=== PATIENT | female | born 1925 | race Caucasian/White ===

== ENCOUNTER 2016-07-20 09:35 | Inpatient (IN) | payer OTHER, MEDICARE ==
[2016-07-20] MEDS ORDERED: NORMAL SALINE 10 ML SYRINGE FLUSH IVP PRN (09:48)
[2016-07-20] MEDS ORDERED: Sodium Chloride 0.9% 1,000 ML PRIMARY IV ONE (09:48)
[2016-07-20 10:02] LABS: BASOPHILS # (AUTO) 0.04 10*3/UL; BASOPHILS % (AUTO) 0.5 % (0-1); EOSINOPHILS % (AUTO) 0.3 % (0-8); HEMATOCRIT 36.7 % (37.0-47.0); HEMOGLOBIN 12.7 g/dL (12.0-16.0); IMM GRAN % (AUTO) 0.2 % (0-5); IMM GRAN# (AUTO) 0.02 10*3/UL; LYMPHOCYTES # (AUTO) 0.46 10*3/uL; LYMPHOCYTES % (AUTO) 5.2 % (10-50); MEAN CORPUSCULAR HEMOGLOBIN 30.2 PG (27-31); MEAN CORPUSCULAR HGB CONC 34.6 g/dL (33-37); MEAN PLATELET VOLUME 8.4 FL (7.4-12.2); MONOCYTES # (AUTO) 0.68 10*3/UL (0.3-0.8); MONOCYTES % (AUTO) 7.7 % (5-15); NEUTROPHILS # (AUTO) 7.55 10*3/UL; NEUTROPHILS % (AUTO) 86.1 % (50-80); RDW COEFFICIENT OF VARIATION 14.2 % (11.5-14.5); WHITE BLOOD COUNT 8.78 10^3/uL (4.8-10.8)
--- NOTE | 2016-07-20 10:21 | EKG ---
[address] [place] [id number] Measurements Intervals [place] Rate: 93 P: NE: 0 QRS: 113 QRSD: 141 T: 26 QT: 376 QTc: 426 Interpretive Statements ATRIAL FIBRILLATION RIGHT BUNDLE BRANCH BLOCK ST DEPRESSION, CONSIDER SUBENDOCARDIAL INJURY No previous ECG available for comparison Electronically Signed On 07-20-16 20:02:18 MST by Orville Dolan [email or web address]
[2016-07-20 10:23] LABS: PROTHROMBIN TIME 11.9 secs (9.7-11.4)
[2016-07-20 10:24] LABS: BILIRUBIN,TOTAL 1.5 mg/dL (0.3-1.2); BUN/CREATININE RATIO 25.71 (6-20); C-REACTIVE PROTEIN 0.5 mg/dL (0.0-0.9); CALCIUM 8.8 mg/dL (8.7-10.7); CREATININE 0.7 mg/dL (0.50-1.20); MAGNESIUM 1.7 mg/dL (1.6-2.4); POTASSIUM 3.9 meq/L (3.8-5.2); TOTAL PROTEIN 6.7 g/dL (6.1-8.0)
[2016-07-20 10:28] LABS: PLATELET MORPHOLOGY COMMENT NORMAL MORPHOLOGY (NORM)
--- NOTE | 2016-07-20 11:09 | DI ---
HISTORY: Hypoxia. COMPARISON: None available. FINDINGS: There is borderline cardiomegaly. There is no focal consolidation or pleural effusion. Lung apices are not completely included on the rendered images. Minimal bibasilar atelectasis. IMPRESSION: 1. Borderline cardiomegaly. 2. Lung apices are not completely included on the rendered images. 3. Minimal bibasilar atelectasis.
[2016-07-20 11:16] LABS: BILIRUBIN,URINE NEGATIVE (NEG); CLARITY,URINE CLEAR (CLEAR); GLUCOSE, URINE (UA) NEGATIVE (NEG); LEUKOCYTE ESTERASE ,URINE TRACE (NEG); NITRATE,URINE NEGATIVE (NEG); OCCULT BLOOD,URINE NEGATIVE (NEG); PH,URINE 8.5 (5.0-8.5); PROTEIN,URINE NEGATIVE (NEG); UROBILINOGEN,URINE 0.2 EU/dL (0.2)
[2016-07-20 11:31] LABS: URINE SAMPLE TYPE CLEAN CATCH URINE
[2016-07-20 11:33] LABS: SQUAMOUS EPITHELIAL CELL,UR FEW
[2016-07-20 11:34] LABS: BACTERIA,URINE RARE
--- NOTE | 2016-07-20 11:36 | DI ---
HISTORY: Headache and confusion. COMPARISON: None available. TECHNIQUE: Contiguous axial images of the brain were obtained and submitted for interpretation. 33 images. FINDINGS: There is no acute infarct, intracranial hemorrhage, or mass effect. There is no hydroceph alus, or significant midline shift. The basal cisterns are not effaced. Densities in both middle ce rebral arteries are probably artifactual. There is senescent change with atrophy. The visualized paranasal sinuses and mastoids are relatively well-aerated. There is modest mucosal t hickening. IMPRESSION: 1. No intracranial hemorrhage. MRI is recommended if clinical symptoms persist. NOTIFICATION: The above report was sent to Bernice in the ER Department on 07/20/2016 at 01:53 PM EST.
--- NOTE | 2016-07-20 12:37 | PDOC ---
Altered Mental Status HPI - General Chief Complaint: Altered Mental Status Stated Complaint: htn, altered mental status Date Seen by Provider: 07/20/16 Time Seen by Provider: 09:40 Source: POSITIVE: Patient, EMS, Other (daughter and long term care social worker) Exam Limitations: POSITIVE: Other (patient confused, does answer questions) Nurse's Notes Reviewed & Considered: Yes EMS Report Reviewed & Considered: Verbal - History of Present Illness Initial Comments: The patient is an 89-year-old female who is brought to the emergency department by ambulance with increased confusion. Her daughter states that she lives at home with her. Early this morning at maybe 4 or 5 in the morning her daughter heard her walking around downstairs which is unusual for her. When she checked on her later this morning she found that she was confused. She is not acting herself. Her daughter is not aware of any recent illness or falls. She does have a history of chronic atrial fibrillation and previously was treated with Coumadin. She apparently developed an intracranial hemorrhage in 2010 and was taken off of Coumadin at that time. The patient does answer questions. She states she has some left-sided headache. She denies any chest pain or abdominal pain. She has not had any vomiting or diarrhea. No recent urinary symptoms. - Patient Home Medications Home Medications: Home Medications Estradiol [Estrace] 1 gm VG DAILY 01/29/11 Calcium 2 tab PO BID 02/24/11 Metamucil 1 tbs PO HS 02/24/11 Hydralazine HCl 20 mg ORAL BID tab 08/28/11 Losartan Potassium 100 mg ORAL QD tab 08/28/11 Aspirin [Aspir 81] 81 mg PO HS 06/03/12 Cholecalciferol (Vitamin D3) [Vitamin D3] 2,000 unit PO DAILY 07/19/13 Beta Carot W/Vit E,C,Min Tab [Ocuvite Tab] 1 tab PO DAILY 12/18/13 Cranberry 500 mg PO DAILY 12/18/13 Digoxin 0.125 mg PO DAILY 12/18/13 Hydrochlorothiazide [HydroDiuril Tab] 25 mg PO DAILY 12/18/13 Potassium Chloride 10 meq PO DAILY 12/18/13 Metoprolol Tartrate 50 mg PO BID #60 tab 01/23/16 - Patient Allergies Allergies/Adverse Reactions: Allergies Allergy/AdvReac Type Severity Reaction Status Date / Time No Known Allergies Allergy Verified 07/20/16 10:33 Past Medical History - heen HEENT History: Other (please comment) Additional HEENT History: nose bleeds Cardiovascular History: Hypertension, Arrhythmia Additional Cardiovasular History: Afib Respiratory History: Denies History, Other (please comment) Additional Respiratory History: previous smoker, quit 27 years ago; on continuous O2 @ 1L/NC Gastrointestinal History: GERD Genitourinary History: Recurrent UTI Endocrine History: Denies History Musculoskeletal History: Denies History Prosthesis or Implant: No Neurological History: CVA Additional Neurological History: cva was 02/2012. WAI HOLE (SKULL)TO DRAIN BLOOD W/ STROKE Blood Disorders: Denies History Psychiatric History: Denies History History of Sexually Transmitted Diseases: No Cancer History: Denies History In Past Year Been Physically Harmed or Verbally Threatened: No History of MDRO: No History of Other Communicable Diseases: No Tobacco Use: Never Smoker Alcohol Use: Rarely Substance Use Type: None Previous Surgical History: Yes Type / Date of Surgery: SEE ABOVE Anesthesia Reactions: No Malignant Hyperthermia: No Significant Family History: No pertinent family hx Past Medical History Reviewed: Reviewed - No Changes ROS - Limitations ROS Limitations: No Limitations Constitution: DENIES: Chills, Fever Cardiovascular: REPORTS: Edema (Increased edema in her legs recently), Other ( Chronic atrial fibrillation). DENIES: Chest Pain Respiratory: REPORTS: Other (She does wear oxygen at home normally and was off her oxygen when EMS arrived and her oxygen saturations were 89% on room air.). DENIES: Cough Non Productive, Cough Productive, Shortness Of Breath Gastrointestinal: DENIES: Abdominal Pain, Vomitting, Diarrhea Musculoskeletal: REPORTS: Lower Extremity Swelling. DENIES: Muscle Aches Genitourinary: REPORTS: Denies Symptoms ENT: REPORTS: Denies Symptoms Skin: DENIES: Rash Altered Mental Physical Exam - General Appearance General Appearance: POSITIVE: Alert, Cooperative, Anxious - HEENT HEENT: POSITIVE: Head Inspection Nml (No visible trauma), Eyes Inspection Nml - Neuro/Psych Neurological: POSITIVE: Confusion (She does answer questions but at times does not make a lot of sense and she gets distracted easily) Cranial Nerves: POSITIVE: Normal As Tested Peripheral Exam: POSITIVE: No Motor Deficits (Patient is moving all extremities , no obvious motor deficits) - Respiratory Respiratory: POSITIVE: No Respiratory Distress, Breath Sounds Normal - Cardiovascular CVS: POSITIVE: Irregularly Irreg. Rhythm Peripheral Pulses: Radial (R): 2+, Radial (L): 2+, Dorsalis-pedis (L): 2+ - Abdomen Abdomen: Soft: (All Quadrants), Denies Tenderness: (All Quadrants), No Distention: (All Quadrants) - Skin Skin: POSITIVE: No Rash - Extremities Extremity: Normal ROM: (All Extremities) Additional Extremities Details: She does have 2+ edema in the lower extremities bilaterally Altered Mental Status - Results Reviewed By Me Xrays/CTs/US Reviewed: Yes (CT scan of the head reveals no acute intracranial hemorrhage or finding per) Discussed with Radiologist: Yes Lab Results Reviewed: Yes Lab Results:: Laboratory Results 07/20/16 07/20/16 Range/Units 09:56 11:07 WBC 8.78 (4.8-10.8) 10^3/uL RBC 4.20 (4.20-5.40) 10^6/uL Hgb 12.7 (12.0-16.0) g/dL Hct 36.7 L (37.0-47.0) % MCV 87.4 (81-99) FL MCH 30.2 (27-31) PG MCHC 34.6 (33-37) g/dL RDW Std Deviation 44.9 (39-50) fL RDW Coeff of Alessandro 14.2 (11.5-14.5) % Plt Count 159 (140-350) 10*3/uL MPV 8.4 (7.4-12.2) FL Immature Gran % (Auto) 0.2 (0-5) % Neut % (Auto) 86.1 H (50-80) % Lymph % (Auto) 5.2 L (10-50) % [place] % (Auto) 7.7 (5-15) % Eos % (Auto) 0.3 (0-8) % Baso % (Auto) 0.5 (0-1) % Immature Gran # (Auto) 0.02 10*3/UL Neut # (Auto) 7.55 10*3/UL Lymph # (Auto) 0.46 10*3/uL [place] # (Auto) 0.68 (0.3-0.8) 10*3/UL Eos # (Auto) 0.03 10*3/UL Baso # (Auto) 0.04 10*3/UL WBC Morphology Comment Normal morphology (NORM) Plt Morphology Comment Normal morphology (NORM) RBC Morph Comment Normal morphology (NORM) PT 11.9 H (9.7-11.4) secs INR 1.15 (0.00-5.90) N/A D-Dimer 0.23 (0.00-0.59) mg/L Sodium 127 L (135-145) meq/L Potassium 3.9 (3.8-5.2) meq/L Chloride 87 L (98-112) meq/L Carbon Dioxide 30 (23-33) meq/L Anion Gap 10 (5-20) BUN 18 (7-22) mg/dL Creatinine 0.7 (0.50-1.20) mg/dL Estimated GFR (>60 ml/min/1.73m(2)) BUN/Creatinine Ratio 25.71 H (6-20) Glucose 119 H (78-110) mg/dL Calculated Osmolality 266.0 L (267-292) mOsm/kg Calcium 8.8 (8.7-10.7) mg/dL Magnesium 1.7 (1.6-2.4) mg/dL Total Bilirubin 1.5 H (0.3-1.2) mg/dL AST 25 (8-39) IU/L ALT 37 (9-52) IU/L Alkaline Phosphatase 63 (38-126) IU/L Troponin I < 0.012 (< 0.040) ng/mL C-Reactive Protein 0.5 (0.0-0.9) mg/dL NT-Pro-B Natriuret Pep 2230 H (0-450) PG/ML Total Protein 6.7 (6.1-8.0) g/dL Albumin 4.2 (3.5-4.8) g/dL Globulin 2.5 (2.50-4.10) g/dL Albumin/Globulin Ratio 1.60 (1.3-2.0) mg/g Ur Collection Type Clean catch urine Urine Color Yellow Urine Clarity Clear (CLEAR) Urine pH 8.5 (5.0-8.5) Ur Specific [place] 1.015 (1.005-1.030) Urine Protein Negative (NEG) mg/dl Urine Glucose (UA) Negative (NEG) mg/dL Urine Ketones Negative (NEG) Urine Occult Blood Negative (NEG) Urine Nitrate Negative (NEG) Urine Bilirubin Negative (NEG) Urine Urobilinogen 0.2 (0.2) EU/dL Ur Leukocyte Esterase Trace (NEG) Urine RBC None (NONE) /hpf Urine WBC 3-5 (NONE) Ur Squamous Epith Cells Few (NONE) Ur Renal Epithelial Cell None (NONE) Urine Crystals None Urine Bacteria Rare (NONE) Urine Casts None (NONE) Urine Mucus None (NONE) Urine Trichomonas None (NONE) Urine Yeast None (NONE) Ur Culture Indicated? Culture not set EKG Interpretation:: POSITIVE: Other (Atrial fibrillation with no acute changes otherwise) - Patient's Progress MDM / ED Course: CT and laboratory findings were discussed with the patient and her family. She is mildly hyponatremic with a sodium of 127. Her CT does not show any acute intracranial findings. The patient remains confused and slightly agitated here in the emergency room. The exact etiology of this is unclear however still could represent a small CVA. She is at risk for embolism secondary to her chronic atrial fibrillation. The patient is discussed with Dr. Spivey. He has requested an MRI of the brain. The patient will be admitted for further treatment and evaluation. The patient's daughter is in agreement with this plan. - Consult Counseled: POSITIVE: Patient, Family, RE: Lab Results, RE: Radiology Results, RE : DX Patient Care Time - Estimated PCT Patient Care Time (In Minutes): 45 Vital Signs - Recent Vital Signs Vital Signs: Vital Signs (Last 8 hours) Temp Pulse Pulse Resp BP Pulse Ox 07/20/16 09:48 100 07/20/16 09:35 98.6 F 100 18 181/103 89 - VS Reviewed Vital Signs Reviewed: Yes Discharge Clinical Impression: Altered mental status, Chronic atrial fibrillation, Hyponatremia Discharge Disposition: Admit to Inpatient Condition: Fair Date Decision to Admit to Inpatient: 07/20/16 Time Decision to Admit to Inpatient: 12:05
--- NOTE | 2016-07-20 13:51 | DI ---
HISTORY: Confusion. History of a stroke. COMPARISON: None available. TECHNIQUE: MRI images of the brain were obtained and submitted for interpretation. FINDINGS: There is a small focus of restricted diffusion noted in the high left posterior parietal l obe in the watershed region of the left MCA [employer]. This is best appreciated on series 502 image 19. F eatures are most compatible with a tiny infarct. The upper cervical marrow appears attenuated in keeping with degenerative change. The pituitary terrance a is partially empty. There are scattered T2/FLAIR periductal hyperintensities in periventricular and deep white matter com patible with chronic microvascular ischemic change. There is senescent change. No intracranial hemorrhage, mass effect, hydrocephalus, or significant midline shift is identified. There is a T1 hypointense, FLAIR hypointense T2 hyperintense focus in the left cerebellum, which is p robably due to prior infarct and encephalomalacia. There is probably some degree of surrounding glio sis. The visualized intracranial flow voids appear grossly unremarkable. The basal cisterns are not effac ed. IMPRESSION: 1. There is a small focus of restricted diffusion noted in the high left posterior parietal lobe in t he watershed region of the left MCA [employer]. This is best appreciated on series 502 image 19. Features are most compatible with a tiny infarct. 2. The upper cervical marrow appears attenuated in keeping with degenerative change. 3. The pituitary fossa is partially empty. 4. Scattered T2/FLAIR periductal hyperintensities in periventricular and deep white matter compatible with chronic microvascular ischemic change. 5. There is senescent change. 6. Evidence of a T1 hypointense, FLAIR hypointense T2 hyperintense focus in the left cerebellum, whic h is probably due to prior infarct and encephalomalacia. There is probably some degree of surrounding gliosis. NOTIFICATION: The above findings were phoned to Bernice in the ER Department on 07/20/2016 at 03:59 PM EST.
--- NOTE | 2016-07-20 13:55 | PDOC ---
History and Physical - History of Present Illness History of Present Illness: Very nice 89-year-old female who was brought in to the emergency room because of the confusion she lives with her daughter which states that early this morning she heard her walk around which is unusual for her she checks on her later during the day she was not acting herself and was confused he does have a history of chronic A. fib and now was taken off her Coumadin back in 2010 because of intracranial hemorrhage and the neurosurgeon at that time recommended against Coumadin denies any chest pain nausea vomiting she is awake and alert and oriented to person time and place. Also has +4 pitting edema in both legs with an elevated BNP negative troponin Past Medical History Medical History: Chronic A. fib, hypertension Surgical History: cva was 02/2012. WAI HOLE (SKULL)TO DRAIN BLOOD W/ STROKE Tobacco Use: Never Smoker Do you dip or chew tobacco: No Substance Use Type: None Medication / Allergies Home Medications: Home Medications Medication Instructions Recorded Confirmed Type Estradiol [Estrace] 1 gm VG DAILY 01/29/11 07/20/16 History Calcium 2 tab PO BID 02/24/11 07/20/16 History Metamucil 1 tbs PO HS 02/24/11 07/20/16 History Hydralazine HCl 20 mg ORAL BID tab 08/28/11 07/20/16 History Losartan Potassium 100 mg ORAL QD tab 08/28/11 07/20/16 History Aspirin [Aspir 81] 81 mg PO HS 06/03/12 07/20/16 History Cholecalciferol (Vitamin D3) 2,000 unit PO DAILY 07/19/13 07/20/16 History [Vitamin D3] Beta Carot W/Vit E,C,Min Tab 1 tab PO DAILY 12/18/13 07/20/16 History [Ocuvite Tab] Cranberry 500 mg PO DAILY 12/18/13 07/20/16 History Digoxin 0.125 mg PO DAILY 12/18/13 07/20/16 History Hydrochlorothiazide [HydroDiuril 25 mg PO DAILY 12/18/13 07/20/16 History Tab] Potassium Chloride 10 meq PO DAILY 12/18/13 07/20/16 History Metoprolol Tartrate 50 mg PO BID #60 tab 01/23/16 07/20/16 Clinic Allergies/Adverse Reactions: Allergies Allergy/AdvReac Type Severity Reaction Status Date / Time No Known Allergies Allergy Verified 07/20/16 10:33 Review of Systems - Review of Systems All Systems: Reviewed & No Additional Complaints Except as Stated - Constitutional Constitutional: REPORTS: Fatigue, Weakness. DENIES: Fever/Chills, Night Sweats - Integumentary Integumentary: DENIES: Negative System Review, Rash, Superficial Wound, Laceration, Puncture Wound, Foreign Body, Itching, Dryness, Ulcers, Color Changes, Moles, Hair Loss, Hirsutism, Other, See HPI - Respiratory Respiratory: DENIES: Negative System Review, Cough, Sputum, Dyspnea At Rest, Dyspnea with Exertion, Pleuritic Pain, Hemoptysis, Wheezing, Other, See HPI - Cardiovascular Cardiovascular: DENIES: Negative System Review, Chest Pain, Edema, Syncope, Palpitations, Orthopnea, Paroxysmal Nocturnal Dyspnea, Other, See HPI - Gastrointestinal Gastrointestinal / Abdominal: DENIES: Negative System Review, Nausea, Vomiting, Diarrhea, Constipation, Abdominal Pain, Bloody Stool, Poor Appetite, Heartburn, Regurgitation, Bloating, Lactose Intolerance, Melena, Bright Red Blood Per Rectum, Other, See HPI - Neurological Neurologic: REPORTS: Weakness, Difficulty Walking, Incoordination Exam - Vitals Vital Signs: Vital Signs Temperature 98.6 F Temperature Source Temporal Artery Scan Pulse Rate [Telemetry] 100 Pulse Rate 100 Respiratory Rate 18 Blood Pressure [Right Arm] 181/103 Pulse Ox 89 Oxygen Flow Rate 1.5 Oxygen Delivery Method Nasal Cannula Height 5 ft 1 in Weight 61.235 kg - General General Appearance: POSITIVE: No Acute Distress, Cooperative - Head Head Exam: POSITIVE: Normal Inspection, Normocephalic, Atraumatic - Eye Eye Exam: POSITIVE: Normal Appearance, PERRL, EOMI - ENT ENT Exam: POSITIVE: Normal Exam - Neck Neck Exam: POSITIVE: Normal Inspection, Full ROM - Respiratory Respiratory Exam: POSITIVE: Clear to Auscultation - Bilaterally, Breathing Non Labored, Normal To Percussion, Normal to Percussion and Palpation - Cardiovascular Cardiovascular Exam: POSITIVE: RRR, No Murmur, No Clicks, No Gallops - GI/Abdominal GI/Abdominal Exam: POSITIVE: Normal Bowel Sounds, Non Tender, Non Distended, Soft - Neurological Neurological Exam: POSITIVE: Alert, Oriented x 3, CN II-XII Intact, No Facial Droop, Speech Intact / Clear Additional Neurological Exam Details: Finger to nose worse on the left side than the right patient is unable to stand on her own and appears very weak she moves all 4 extremities slightly weaker on the right lower extremity compared to the left Results - Labs CBC and BMP: 07/20/16 09:56 07/20/16 09:56 Labs - Last 24 Hours: Laboratory Results 07/20/16 07/20/16 Range/Units 09:56 11:07 WBC 8.78 (4.8-10.8) 10^3/uL RBC 4.20 (4.20-5.40) 10^6/uL Hgb 12.7 (12.0-16.0) g/dL Hct 36.7 L (37.0-47.0) % MCV 87.4 (81-99) FL MCH 30.2 (27-31) PG MCHC 34.6 (33-37) g/dL RDW Std Deviation 44.9 (39-50) fL RDW Coeff of Alessandro 14.2 (11.5-14.5) % Plt Count 159 (140-350) 10*3/uL MPV 8.4 (7.4-12.2) FL Immature Gran % (Auto) 0.2 (0-5) % Neut % (Auto) 86.1 H (50-80) % Lymph % (Auto) 5.2 L (10-50) % [place] % (Auto) 7.7 (5-15) % Eos % (Auto) 0.3 (0-8) % Baso % (Auto) 0.5 (0-1) % Immature Gran # (Auto) 0.02 10*3/UL Neut # (Auto) 7.55 10*3/UL Lymph # (Auto) 0.46 10*3/uL [place] # (Auto) 0.68 (0.3-0.8) 10*3/UL Eos # (Auto) 0.03 10*3/UL Baso # (Auto) 0.04 10*3/UL WBC Morphology Comment Normal morphology (NORM) Plt Morphology Comment Normal morphology (NORM) RBC Morph Comment Normal morphology (NORM) PT 11.9 H (9.7-11.4) secs INR 1.15 (0.00-5.90) N/A D-Dimer 0.23 (0.00-0.59) mg/L Sodium 127 L (135-145) meq/L Potassium 3.9 (3.8-5.2) meq/L Chloride 87 L (98-112) meq/L Carbon Dioxide 30 (23-33) meq/L Anion Gap 10 (5-20) BUN 18 (7-22) mg/dL Creatinine 0.7 (0.50-1.20) mg/dL Estimated GFR (>60 ml/min/1.73m(2)) BUN/Creatinine Ratio 25.71 H (6-20) Glucose 119 H (78-110) mg/dL Calculated Osmolality 266.0 L (267-292) mOsm/kg Calcium 8.8 (8.7-10.7) mg/dL Magnesium 1.7 (1.6-2.4) mg/dL Total Bilirubin 1.5 H (0.3-1.2) mg/dL AST 25 (8-39) IU/L ALT 37 (9-52) IU/L Alkaline Phosphatase 63 (38-126) IU/L Troponin I < 0.012 (< 0.040) ng/mL C-Reactive Protein 0.5 (0.0-0.9) mg/dL NT-Pro-B Natriuret Pep 2230 H (0-450) PG/ML Total Protein 6.7 (6.1-8.0) g/dL Albumin 4.2 (3.5-4.8) g/dL Globulin 2.5 (2.50-4.10) g/dL Albumin/Globulin Ratio 1.60 (1.3-2.0) mg/g Ur Collection Type Clean catch urine Urine Color Yellow Urine Clarity Clear (CLEAR) Urine pH 8.5 (5.0-8.5) Ur Specific [place] 1.015 (1.005-1.030) Urine Protein Negative (NEG) mg/dl Urine Glucose (UA) Negative (NEG) mg/dL Urine Ketones Negative (NEG) Urine Occult Blood Negative (NEG) Urine Nitrate Negative (NEG) Urine Bilirubin Negative (NEG) Urine Urobilinogen 0.2 (0.2) EU/dL Ur Leukocyte Esterase Trace (NEG) Urine RBC None (NONE) /hpf Urine WBC 3-5 (NONE) Ur Squamous Epith Cells Few (NONE) Ur Renal Epithelial Cell None (NONE) Urine Crystals None Urine Bacteria Rare (NONE) Urine Casts None (NONE) Urine Mucus None (NONE) Urine Trichomonas None (NONE) Urine Yeast None (NONE) Ur Culture Indicated? 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 fibpatient was taken off Coumadin for intracranial hemorrhage and had a bur hole done continue beta inocente and blood pressure meds #4 pitting edema with elevated BNP will insert Bose catheter daughter and patient agree start Lasix
[2016-07-20] MEDS ORDERED: Sodium Chloride 0.9% 1,000 ML PRIMARY IV SCH (14:06)
[2016-07-20] MEDS: HEPARIN 5000 UNIT/1 ML SUBCUT SCH ×2 (16:15→21:45)
[2016-07-20] MEDS: ATORVASTATIN 40 MG TABLET PO SCH (20:37)
[2016-07-20] MEDS: HYDRALAZINE 10 MG TABLET PO SCH (20:37)
[2016-07-20] MEDS ORDERED: Metoprolol TARTRATE Tab 50 MG TAB PO SCH (21:00)
[2016-07-20] MEDS ORDERED: QUEtiapine Tab 100 MG TAB PO SCH (21:00)
[2016-07-20] MEDS ORDERED: Magnesium Sulfate 2gm (Premix) 2 GM in Premix 1 BAG IV ONE (21:39)
[2016-07-20] MEDS: POTASSIUM CHLORIDE 20 MEQ TAB PO SCH (21:46)
[2016-07-20] MEDS: PSYLLIUM SEED 1 EACH PACKET PO SCH ×2 (21:47)
[2016-07-20] MEDS: NORMAL SALINE 10 ML SYRINGE FLUSH IVP PRN (23:43)
[2016-07-21 06:09] LABS: BASOPHILS # (AUTO) 0.04 10*3/UL; BASOPHILS % (AUTO) 0.6 % (0-1); EOSINOPHILS % (AUTO) 1.5 % (0-8); HEMOGLOBIN 12.4 g/dL (12.0-16.0); IMM GRAN % (AUTO) 0.2 % (0-5); IMM GRAN# (AUTO) 0.01 10*3/UL; LYMPHOCYTES # (AUTO) 0.66 10*3/uL; LYMPHOCYTES % (AUTO) 10.2 % (10-50); MEAN CORPUSCULAR HEMOGLOBIN 29.5 PG (27-31); MEAN CORPUSCULAR HGB CONC 33.5 g/dL (33-37); MEAN PLATELET VOLUME 8.9 FL (7.4-12.2); MONOCYTES # (AUTO) 0.88 10*3/UL (0.3-0.8); MONOCYTES % (AUTO) 13.6 % (5-15); NEUTROPHILS # (AUTO) 4.77 10*3/UL; NEUTROPHILS % (AUTO) 73.9 % (50-80); RDW COEFFICIENT OF VARIATION 14.6 % (11.5-14.5); WHITE BLOOD COUNT 6.46 10^3/uL (4.8-10.8)
[2016-07-21 06:12] LABS: PLATELET MORPHOLOGY COMMENT NORMAL MORPHOLOGY (NORM)
[2016-07-21] MEDS: HEPARIN 5000 UNIT/1 ML SUBCUT SCH ×3 (06:17→21:33)
[2016-07-21 06:27] LABS: BLOOD UREA NITROGEN 18 mg/dL (7-22); CHLORIDE 89 meq/L (98-112); CREATININE 0.8 mg/dL (0.50-1.20); POTASSIUM 3.6 meq/L (3.8-5.2); SODIUM 129 meq/L (135-145)
[2016-07-21 06:28] LABS: ASPARTATE AMINO TRANSFERASE 24 IU/L (8-39); BILIRUBIN,TOTAL 1.4 mg/dL (0.3-1.2); CALCIUM 8.3 mg/dL (8.7-10.7); GLUCOSE 93 mg/dL (78-110); HDL CHOLESTEROL 61 mg/dL (40-150); TOTAL PROTEIN 5.8 g/dL (6.1-8.0); TRIGLYCERIDES 38 mg/dL (44-200)
[2016-07-21] MEDS: POTASSIUM CHLORIDE 20 MEQ TAB PO SCH ×2 (07:00→17:53)
[2016-07-21] MEDS: DIGOXIN 125 MCG TABLET PO SCH (08:57)
[2016-07-21] MEDS: Metoprolol TARTRATE Tab 25 MG TAB PO SCH ×2 (08:57→20:16)
[2016-07-21] MEDS: LOSARTAN 50 MG TABLET PO SCH (08:57)
[2016-07-21] MEDS: HYDRALAZINE 10 MG TABLET PO SCH ×2 (08:57→20:15)
[2016-07-21] MEDS: ASPIRIN 325 MG TABLET PO SCH (08:57)
--- NOTE | 2016-07-21 11:47 | PDOC(PROG) ---
Interval History: Patient is doing very well be given full sentences awake alert no chest pain nausea or vomiting she has been diuresing very well about 10 L now Objective : Data - Labs CBC and BMP: 07/21/16 05:56 07/21/16 05:56 Labs - Last 24 Hours: Laboratory Results 07/20/16 07/20/16 07/21/16 Range/Units 14:30 14:36 05:56 WBC 6.46 (4.8-10.8) 10^3/uL RBC 4.20 (4.20-5.40) 10^6/uL Hgb 12.4 (12.0-16.0) g/dL Hct 37.0 (37.0-47.0) % MCV 88.1 (81-99) FL MCH 29.5 (27-31) PG MCHC 33.5 (33-37) g/dL RDW Std Deviation 46.2 (39-50) fL RDW Coeff of Alessandro 14.6 H (11.5-14.5) % Plt Count 167 (140-350) 10*3/uL MPV 8.9 (7.4-12.2) FL Immature Gran % (Auto) 0.2 (0-5) % Neut % (Auto) 73.9 (50-80) % Lymph % (Auto) 10.2 (10-50) % Harding % (Auto) 13.6 (5-15) % Eos % (Auto) 1.5 (0-8) % Baso % (Auto) 0.6 (0-1) % Immature Gran # (Auto) 0.01 10*3/UL Neut # (Auto) 4.77 10*3/UL Lymph # (Auto) 0.66 10*3/uL Harding # (Auto) 0.88 H (0.3-0.8) 10*3/UL Eos # (Auto) 0.10 10*3/UL Baso # (Auto) 0.04 10*3/UL WBC Morphology Comment Normal morphology (NORM) Plt Morphology Comment Normal morphology (NORM) RBC Morph Comment Normal morphology (NORM) PT 12.0 H (9.7-11.4) secs INR 1.16 (0.00-5.90) N/A APTT Pending Sodium 129 L (135-145) meq/L Potassium 3.6 L (3.8-5.2) meq/L Chloride 89 L (98-112) meq/L Carbon Dioxide 32 (23-33) meq/L Anion Gap 8 (5-20) BUN 18 (7-22) mg/dL Creatinine 0.8 (0.50-1.20) mg/dL Estimated GFR Toy [employer]er BUN/Creatinine Ratio 22.50 H (6-20) Glucose 93 (78-110) mg/dL Calculated Osmolality 269.0 (267-292) mOsm/kg Calcium 8.3 L (8.7-10.7) mg/dL Magnesium 1.6 (1.6-2.4) mg/dL Total Bilirubin 1.4 H (0.3-1.2) mg/dL AST 24 (8-39) IU/L ALT 29 (9-52) IU/L Alkaline Phosphatase 53 (38-126) IU/L Troponin I < 0.012 (< 0.040) ng/mL Total Protein 5.8 L (6.1-8.0) g/dL Albumin 3.6 (3.5-4.8) g/dL Globulin 2.2 L (2.50-4.10) g/dL Albumin/Globulin Ratio 1.60 (1.3-2.0) mg/g Triglycerides 38 L (44-200) mg/dL Cholesterol 124 (120-200) mg/dL LDL Cholesterol, Calc 55.400 mg/dL VLDL Cholesterol 7 (0-40) mg/dL HDL Cholesterol 61 (40-150) mg/dL Cholesterol/HDL Ratio 2.03 (0-4.0) RATIO Objective : Exam - General General Appearance: Cooperative - Head Head Exam: Normal Inspection, Normocephalic, Atraumatic - Eye Eye Exam: Normal Appearance, PERRL - Neck Neck Exam: Normal Inspection - Respiratory Respiratory Exam: Clear to Auscultation - Bilaterally, Breathing Non Labored, Normal To Percussion - Cardiovascular Cardiovascular Exam: RRR, No Murmur, No Clicks, No Gallops - GI/Abdominal GI/Abdominal Exam: Normal Bowel Sounds, Non Tender, Soft - Extremities Extremities Exam: +2 Edema - Neurological Neurological Exam: Alert, Oriented x 3, No Facial Droop, Speech Intact / Clear - Psychiatric Psychiatric Exam: Normal Affect, Normal Mood Assessment and Plan - Patient Problems (1) CVA (cerebral vascular accident) Current Visit: Yes Status: Acute (2) Altered mental status Current Visit: Yes Status: Acute (3) Chronic atrial fibrillation Current Visit: Yes Status: Acute (4) Hyponatremia Current Visit: Yes Status: Acute (5) Pitting edema Current Visit: Yes Status: Acute - Assessment / Plan Additional Assessment/Plan Details: CVAcontinue PTOT she is improving no neuro deficits other than the finger to nose Hyponatremiaimproving I stopped the hydrochlorothiazide Pitting edema +4xon Lasix drip diuresed about 10 L now her legs are half the size when she came in ankle is been ordered Electrolytes potassium and magnesium are being replaced
--- NOTE | 2016-07-21 15:38 | PT.PROG ---
Progress Note Progress Note: S, Patient stated that she would be willing to go for a walk. O. Patient ambulated 200 feet around the nurses station and to the shower. Patient performed sit to stands x 3 Patient was left with OT for further therapy. A. Patient tolerated ambulation well, she she struggles with balance and weakness. Patient required verbal cues to remember to push off the chair when standing, she appeared slightly confused when instructed on sit to stand transfer. She would continue to benefit from skilled therapy to increase strength and endurance. P. continue POC.
--- NOTE | 2016-07-21 16:45 | PTI REPORT ---
Thank you for the referral of Hailey Santamaria. She was seen on 07/21/16 for an inpatient evaluation secondary to a CVA and weakness. SUBJECTIVE: The patient is an 89-year-old female who was brought in to the hospital yesterday as her daughter states that she was having some changes in her cognition and having a difficult time getting around. The patient and her daughter state that they were told that she did have a CVA. The patient has a history of CVA which resulted in weakness and difficulty with the right upper and lower extremities. The patient did receive therapy following that CVA and has also been doing an independent program with pool exercises and working on the dexterity for her left hand and just general strengthening activities. The patient states that today she is feeling much better than yesterday. She states she does not remember much about yesterday. The patient lives in [place] with her daughter. Her daughter states that they do have four stairs that the patient goes up and down in order to get to the family room. Prior to admittance to the hospital, the patient was using a four wheeled walker to get around and was on 1.5 liters of oxygen. The patient's daughter states that lately Hailey has been having more of a fear of falling as she did have a fall a few months ago and she has been having a little bit more difficult time getting around. PAST MEDICAL HISTORY: Past medical history can be found in the patient's medical record. OBJECTIVE FINDINGS: General observations: The patient is alert and oriented to setting upon PT arrival. The patient is able to recite today's date and the correct year. The patient was in bed upon the therapist's arrival. Bed mobility: The patient was able to move from a supine to seated position with stand by assist x1 for safety and to help maneuver lines and leads. Balance: The patient demonstrated good seated balance at edge of bed. Oxygen: The patient is on 1.5 liters of oxygen and she has an IV in place and also has a Bose in place. Strength: Manual muscle testing was performed in a seated position. The patient demonstrates bilateral hip strength of 3/5 and bilateral knee and ankle strength of 3+/5. With the manual muscle testing the patient did get some cramping in her right calf. She states that she does get cramping on the right greater than the left side at times. Transfers: The patient was able to move from a seated to standing position with stand by assist x1 for safety. The patient was able to move from a standing to seated position with stand by assist x1 and max verbal cueing for proper hand placement. Ambulation: The patient ambulated with a front wheeled walker x150 feet with contact guard assist x1 for safety and also another assistance in order to maneuver the IV pole and oxygen. The patient had a difficult time and demonstrated an antalgic gait pattern. It appears that her vision is a big issue, especially when she is up and ambulating around as she states her vision is wavy. When ambulating, the patient did have some difficulty with shakiness on the left lower extremity. Vision: During part of our walk, the patient jumped toward her side as she thought that something was coming at her due to how she was seeing; there was nothing around. The patient states that she doesn't feel like her vision has changed any since her last CVA. The patient's daughter confirms that the patient's vision has been very poor since her previous CVA and she has explained seeing wavy lines and having a difficult time seeing objects prior to this admittance to the hospital. ASSESSMENT: The patient has fair to good rehab potential. Problem List: Decreased endurance and activity tolerance Decreased safety awareness Generalized weakness with the left greater than the right Short-Term Goals: To be met by discharge from inpatient: Patient will perform all transfers safely and independently. Patient will be able to ambulate at least 200 feet with walker safely. Patient will be able to ambulate up and down at least four stairs in order to return back home and be able to perform this activity safely. Long-Term Goals: To be met following discharge from inpatient: Patient may be seen by outpatient physical therapy in order to continue with strengthening, improving her endurance, and decreasing her fear of falling. TREATMENT PLAN: Patient will be seen B.I.D during the week and one time per day over the weekend as an inpatient for general strengthening, balance activities, transfers , and ambulation. INITIAL TREATMENT: Treatment today consisted of the initial evaluation followed by one unit of functional activity with the patient ambulating 150 feet with front wheeled walker and contact guard assist x1 for safety. At the end of treatment, the patient was left in her chair with call light given and chair alarm set. MTDD
[2016-07-21] MEDS: QUEtiapine Tab 25 MG TAB PO SCH (20:16)
[2016-07-21] MEDS: ATORVASTATIN 40 MG TABLET PO SCH (20:16)
[2016-07-21] MEDS: PSYLLIUM SEED 1 EACH PACKET PO SCH ×2 (20:17)
[2016-07-22] MEDS: HEPARIN 5000 UNIT/1 ML SUBCUT SCH ×3 (05:51→20:59)
--- NOTE | 2016-07-22 08:14 | EKG ---
[address] [place] [address] Measurements Intervals [place] Rate: 78 P: DC: 0 QRS: 105 QRSD: 140 T: 40 QT: 403 QTc: 436 Interpretive Statements ATRIAL FIBRILLATION MARKED RIGHT AXIS DEVIATION RIGHT BUNDLE BRANCH BLOCK ST DEVIATION AND MARKED T-WAVE ABNORMALITY, CONSIDER ANTERIOR ISCHEMIA Compared to ECG 07/20/2016 10:21:05 Right-axis deviation now present T-wave abnormality now present Possible ischemia now present ST (T wave) deviation no longer present Electronically Signed On 07-22-16 16:19:50 [facility] by Orville Dolan [email or web address]
[2016-07-22] MEDS: ASPIRIN 325 MG TABLET PO SCH (08:39)
[2016-07-22] MEDS: LOSARTAN 50 MG TABLET PO SCH (08:39)
[2016-07-22] MEDS: HYDRALAZINE 10 MG TABLET PO SCH ×2 (08:39→20:21)
[2016-07-22] MEDS: DIGOXIN 125 MCG TABLET PO SCH (08:39)
[2016-07-22] MEDS: Metoprolol TARTRATE Tab 25 MG TAB PO SCH ×2 (08:39→20:21)
[2016-07-22] MEDS: POTASSIUM CHLORIDE 20 MEQ TAB PO SCH ×2 (08:39→17:25)
[2016-07-22 08:42] LABS: BASOPHILS # (AUTO) 0.05 10*3/UL; BASOPHILS % (AUTO) 0.8 % (0-1); EOSINOPHILS % (AUTO) 1.8 % (0-8); HEMATOCRIT 40.7 % (37.0-47.0); HEMOGLOBIN 13.9 g/dL (12.0-16.0); IMM GRAN % (AUTO) 0.2 % (0-5); IMM GRAN# (AUTO) 0.01 10*3/UL; LYMPHOCYTES # (AUTO) 0.68 10*3/uL; LYMPHOCYTES % (AUTO) 10.9 % (10-50); MEAN CORPUSCULAR HEMOGLOBIN 30.2 PG (27-31); MEAN CORPUSCULAR HGB CONC 34.2 g/dL (33-37); MEAN PLATELET VOLUME 8.5 FL (7.4-12.2); MONOCYTES # (AUTO) 0.74 10*3/UL (0.3-0.8); MONOCYTES % (AUTO) 11.8 % (5-15); NEUTROPHILS # (AUTO) 4.66 10*3/UL; NEUTROPHILS % (AUTO) 74.5 % (50-80); RDW COEFFICIENT OF VARIATION 14.8 % (11.5-14.5); RED BLOOD COUNT 4.61 10^6/uL (4.20-5.40); WHITE BLOOD COUNT 6.25 10^3/uL (4.8-10.8)
[2016-07-22 08:47] LABS: PLATELET MORPHOLOGY COMMENT NORMAL MORPHOLOGY (NORM)
--- NOTE | 2016-07-22 09:03 | PDOC(PROG) ---
Date and Time of Service: 07/22/2016 9 A.m. Interval History: Subjective Patient said she had earlier some pain felt in the anterior chest, she couldn't tell me exactly when but there was no radiation, maybe a little bit of shortness of breath no nausea. Now the pain is gone. She doesn't know how did she ended up here in the hospital. But apparently she was more confused and that's why she ended up here in the hospital. She knows the day the month and the year. Doesn't have symptoms now. She couldn't tell me how long she had the swelling in her legs. Objective : Data - Labs CBC and BMP: 07/22/16 08:37 07/22/16 08:37 Labs - Last 24 Hours: Laboratory Results 07/21/16 07/22/16 Range/Units 05:56 08:37 WBC 6.25 (4.8-10.8) 10^3/uL RBC 4.61 (4.20-5.40) 10^6/uL Hgb 13.9 (12.0-16.0) g/dL Hct 40.7 (37.0-47.0) % MCV 88.3 (81-99) FL MCH 30.2 (27-31) PG MCHC 34.2 (33-37) g/dL RDW Std Deviation 46.9 (39-50) fL RDW Coeff of Alessandro 14.8 H (11.5-14.5) % Plt Count 171 (140-350) 10*3/uL MPV 8.5 (7.4-12.2) FL Immature Gran % (Auto) 0.2 (0-5) % Neut % (Auto) 74.5 (50-80) % Lymph % (Auto) 10.9 (10-50) % Knox % (Auto) 11.8 (5-15) % Eos % (Auto) 1.8 (0-8) % Baso % (Auto) 0.8 (0-1) % Immature Gran # (Auto) 0.01 10*3/UL Neut # (Auto) 4.66 10*3/UL Lymph # (Auto) 0.68 10*3/uL Knox # (Auto) 0.74 (0.3-0.8) 10*3/UL Eos # (Auto) 0.11 10*3/UL Baso # (Auto) 0.05 10*3/UL WBC Morphology Comment Normal morphology (NORM) Plt Morphology Comment Normal morphology (NORM) RBC Morph Comment Normal morphology (NORM) PT 12.0 H (9.7-11.4) secs INR 1.16 (0.00-5.90) N/A APTT 42.0 H (22.6-31.3) SECS Objective : Exam - General General Appearance: No Acute Distress, Cooperative - Head Head Exam: Normal Inspection, Atraumatic - Eye Eye Exam: Normal Appearance - ENT ENT Exam: Normal Exam - Neck Neck Exam: Normal Inspection - Respiratory Respiratory Exam: Clear to Auscultation - Bilaterally - Cardiovascular Cardiovascular Exam: Irregular Rhythm, Systolic Murmur - GI/Abdominal GI/Abdominal Exam: Normal Bowel Sounds, Non Tender, Non Distended, Soft - Rectal Rectal Exam: Deferred - External Exam: Deferred - Extremities Extremities Exam: Pedal Edema - Back Back Exam: Normal Inspection - Neurological Neurological Exam: Alert, Oriented x 3, CN II-XII Intact Additional Neurological Exam Details: Slight weakness in the left the handgrip compared to the right. Also some problem with coordination on the left compared to the right. She said this is old. - Psychiatric Psychiatric Exam: Normal Affect - Integumentary Integumentary Exam: Normal Color Assessment and Plan - Patient Problems (1) Altered mental status Current Visit: Yes Status: Acute Comment: There is very small stroke per MRI report. This is may be the reason for her confusion she seems to be improving. She is only on aspirin because of previous intracranial bleed. Continue. (2) Hyponatremia Current Visit: Yes Status: Acute Comment: We'll recheck it today. I think we'll switch her from the drip to intermittent Lasix. (3) Chronic atrial fibrillation Current Visit: Yes Status: Acute Comment: Same medications. (4) Chest pain Current Visit: Yes Status: Acute Comment: This is atypical. Resolved. We did repeat her EKG didn't show new changes. Will order repeat her enzymes.
[2016-07-22 09:04] LABS: SODIUM 133 meq/L (135-145)
[2016-07-22 09:08] LABS: BLOOD UREA NITROGEN 24 mg/dL (7-22); CHLORIDE 90 meq/L (98-112); CREATININE 0.8 mg/dL (0.50-1.20); GLUCOSE 105 mg/dL (78-110); POTASSIUM 3.9 meq/L (3.8-5.2)
[2016-07-22 09:09] LABS: ASPARTATE AMINO TRANSFERASE 32 IU/L (8-39); CALCIUM 8.4 mg/dL (8.7-10.7)
[2016-07-22 09:10] LABS: TOTAL PROTEIN 6.5 g/dL (6.1-8.0)
--- NOTE | 2016-07-22 10:37 | OTI REPORT ---
Thank you for the referral of Hailey Santamaria. She was seen on 07/21/16 for an occupational therapy inpatient evaluation secondary to a CVA and generalized weakness. SUBJECTIVE: The patient is an 89-year-old female who is being seen secondary to having a stroke and low sodium/potassium levels. Prior to admission the patient lived at home with her daughter. Her daughter reports that Hailey has a stair chair for the big stairs; however, Hailey is usually able to walk up and down four stairs at a time. Their bathroom is set up with a shower chair and the toilet has grab bars. The shower also has grab bars. She typically can dress herself and she is in charge of her own medications. She states she usually goes to the [employer] everyday for her meals when her daughter is at work. PAST MEDICAL HISTORY: Past medical history can be found in the patient's medical record. OBJECTIVE FINDINGS: General observations: The patient was alert and oriented x3. Bed mobility: The patient was able to come from supine to sit independently. Range of motion: While sitting edge of bed, upper extremity active range of motion was completed. She has within functional limits for all shoulder, elbow , and hand movement. Her left upper extremity has been affected secondary to a stroke previous to this one. She reports that she doesn't notice too much difference with her previous lack of coordination that she had prior to this admission. Coordination: The patient does have mild to moderately decreased coordination in the shoulder, elbow, and wrist area. Fine motor coordinations are barely involved. She needs increased time to complete fine motor tasks on the left side. Strength: Strength on the right side was 4+/5 throughout. Strength on the left side was 3+/5 for shoulder flexion and abduction, 4/5 for elbow flexion/ extension, 3+/5 for wrist flexion/extension, and finger strength is 3+/5. Vision: The patient does suffer from cataracts. Functionally today she had a lot of difficulty with her vision, including being able to see when up and ambulating in her room. She needs increased time to be able to adjust secondary to her vision functionally. Cognition: The patient knew that the year was 2016 and that it was July 21. Her daughter reports that she had a lot of increased confusion yesterday; she was not doing things well and she continually said that it was the month of September. Sensation/Pain: Sensation is slightly lacking in the left side compared to the right. The patient states that her legs continually cramp and she states the pain in her legs can get up to 7/10 on the verbal analog scale (0=no pain, 10= worst pain). ASSESSMENT: At this time the patient would benefit from skilled occupational therapy to address functional ADLs, to improve her overall strength and coordination, especially on the left side, to address compensatory strategies for her vision loss, and to improve her overall safety and ability to be safe at home. Short-Term Goals: To be met by discharge from inpatient: Patient will improve upper extremity strength on the left side to 4/5. Patient will improve coordination to be able to complete opening bottles and find motor grasping tasks such as pills without dropping them 100% of the time. Patient will perform a Cognitive Performance Test. Patient will be able to complete a shower independently with set up. Patient will be able to dress self including set up independently. Long-Term Goals: To be met following discharge from inpatient: Patient will be able to be discharged home with her daughter, demonstrating independence and safety with all ADLs and functional transfers. TREATMENT PLAN: Patient will be seen B.I.D during the week and one time per day over the weekend as an inpatient to address the above goals and objectives. INITIAL TREATMENT: Treatment today consisted of the initial evaluation followed by the patient performing activities of daily living. The patient was able to don and doff socks while sitting edge of chair with min assist. She completed standing activities with contact guard to min assist for balance while completing hygiene activities at the sink followed by active range of motion exercises. PANKAJ
--- NOTE | 2016-07-22 10:44 | OT PM DAY ---
Diagnosis : CVA/Weakness PM - Occupational Therapy S: The patient was in her room with daughter present. The patient states that she is doing well. The patient is well known in the therapy department as she participates in an independent program. The patient hadn't been seen in a couple of weeks; the patient states it has been too cold outside. O: The patient participated in showering task to include transfer from recliner to front wheeled walker. She then functionally ambulated approximately 50 feet to the shower room where she performed showering task standing up with min assist as the therapist handed equipment to the patient and the patient required verbal cues for safety secondary to being unfamiliar with area. The patient was able to wash self with washcloth and was able to dry self with stand by assist. During dressing, the patient sat on shower chair and put on her socks. The therapist did assist with gown secondary to tying in the back. It is noted that the therapist did set up showering environment to include towels and washcloths and having the shower chair available and the shower on prior to the patient arriving. Following shower activity the patient functionally ambulated back to her room and was able to demonstrate safe transfer at end of session. A: The patient required stand by assist secondary to having an IV pole, oxygen, and catheter. She demonstrated safety by standing by the wall and using grab bars as necessary. She also had walker available to her for balance. The patient was very pleasant during today's session and was aware of her surroundings. Physically she is demonstrating no effects at this time during ambulation and conversation. P: Continue seeing patient BID during the week and one time per day over the weekend for upper extremity strengthening, ADLs, and overall functional mobility. TEREZAD
--- NOTE | 2016-07-22 11:12 | PT.PROG ---
Progress Note Progress Note: S. Patient stated that she would like to go to the therapy gym. O. Patient ambulated 175 feet to the therapy gym where she used the nu-step x 5 minutes then performed seated exercises in the form of; long arc quads, heel toe raises, marches, ball squeezes, clamshells (red), all x 10 bilaterally. sit to stands x 5. Patient was left with OT for further therapy. A. Patient tolerated exercises well this morning, she is very fearful of falling and struggles with her vision and therefor her balance. Patient continues to require verbal cues to stay on task. She would continue to benefit from skilled therapy at this time. P. Continue POC.
[2016-07-22 15:54] LABS: TROPONIN I 0.01 ng/mL (< 0.040)
--- NOTE | 2016-07-22 16:34 | OT.PROG ---
Progress Note Progress Note: S: pt stated she was ready for therapy and she could do the pool this afternoon. O: pt was seen in her room in the a.m. She was in a supine position and completed bed mobility Ind. She needed mod A with LE dressing mainly to assist with dressing due to catheter. Pt also needed min A with UE dressing due to o2 cord and telly. she completed transfer from EOB to recliner with CGA for safety. She then ordered breakfest ind and therapy returned later. pt was seen in therapy and completed UE bike for 10 min to increase her overall activity tolerance. She also completed rice, putty, digi flex with L hand to increase strength/function. She was returned to her room by OT, and left in recliner and chair alarm on. A: pt would continue to benefit from therapy to increase function and Ind in ADL 's. It may not be appropriate at this time to for pt to go home as she needs to improve on ADL tasks and needs arrangements to be made for transportation to therapy once returned home. P: continue per plan of care.
[2016-07-22] MEDS: QUEtiapine Tab 25 MG TAB PO SCH (20:21)
[2016-07-22] MEDS: ATORVASTATIN 40 MG TABLET PO SCH (20:21)
[2016-07-22] MEDS: PSYLLIUM SEED 1 EACH PACKET PO SCH ×2 (20:22)
[2016-07-22] MEDS ORDERED: Metoprolol TARTRATE Tab 25 MG TAB PO ONE (20:39)
[2016-07-22 21:50] LABS: TROPONIN I 0.01 ng/mL (< 0.040)
[2016-07-23] MEDS: HEPARIN 5000 UNIT/1 ML SUBCUT SCH ×3 (05:37→21:27)
[2016-07-23] MEDS ORDERED: FUROSEMIDE 10 MG/1 ML - 4 ML IVP SCH (07:00)
[2016-07-23] MEDS: NORMAL SALINE 10 ML SYRINGE FLUSH IVP PRN (07:44)
[2016-07-23] MEDS: LOSARTAN 50 MG TABLET PO SCH (08:51)
[2016-07-23] MEDS: Metoprolol TARTRATE Tab 25 MG TAB PO SCH ×2 (08:51→20:38)
[2016-07-23] MEDS: HYDRALAZINE 10 MG TABLET PO SCH ×2 (08:51→20:38)
[2016-07-23] MEDS: POTASSIUM CHLORIDE 20 MEQ TAB PO SCH (08:51)
[2016-07-23] MEDS: DIGOXIN 125 MCG TABLET PO SCH (08:51)
[2016-07-23] MEDS: ASPIRIN 325 MG TABLET PO SCH (08:52)
[2016-07-23 10:12] LABS: BLOOD UREA NITROGEN 31 mg/dL (7-22); BUN/CREATININE RATIO 34.44 (6-20); CALCIUM 9.1 mg/dL (8.7-10.7); CHLORIDE 93 meq/L (98-112); CREATININE 0.9 mg/dL (0.50-1.20); GLUCOSE 88 mg/dL (78-110); POTASSIUM 4.9 meq/L (3.8-5.2); SODIUM 135 meq/L (135-145)
--- NOTE | 2016-07-23 10:13 | PT PM DAY ---
Diagnosis : CVA/Weakness PM - Physical Therapy S: The patient states she would like to go swimming this afternoon. She states she feels she is getting better but she is still scared to go home and be alone. O: The patient ambulated 180 feet to the pool and descended the six stairs into the pool. The patient performed 35 minutes of pool therapy with one-on- one supervision. The patient ambulated in the pool and then ascended the six stairs to get out of the pool. The patient worked with OT for dressing and showering activities. She then ambulated 175 back to her room where she was left in her chair with alarm on and call light within reach. A: The patient tolerated aquatic therapy very well. She continues to struggle with balance on land and she has been struggling with the front wheeled walker that she is borrowing. The patient would continue to benefit from skilled therapy at this time. P: Continue seeing patient BID during the week and one time per day over the weekend for transfers, ambulation, and range of motion/strengthening exercises. MTDD
--- NOTE | 2016-07-23 11:20 | PDOC(PROG) ---
Date and Time of Service: 07/23/2016 11:15 AM Interval History: Subjective She feels better, denying symptoms. She did walk with physical therapy today. No chest pain today. Objective : Data - Labs CBC and BMP: 07/22/16 08:37 07/23/16 08:49 Labs - Last 24 Hours: Laboratory Results 07/22/16 07/22/16 07/22/16 Range/Units 08:37 15:36 21:03 Sodium (135-145) meq/L Potassium (3.8-5.2) meq/L Chloride (98-112) meq/L Carbon Dioxide (23-33) meq/L Anion Gap (5-20) BUN (7-22) mg/dL Creatinine (0.50-1.20) mg/dL Estimated GFR BUN/Creatinine Ratio (6-20) Glucose (78-110) mg/dL Calculated Osmolality (267-292) mOsm/kg Calcium (8.7-10.7) mg/dL Total Creatine Kinase 158 H 141 H (30-135) IU/L Troponin I 0.010 0.010 (< 0.040) ng/mL NT-Pro-B Natriuret Pep 835.0 H (0-450) PG/ML 07/23/16 Range/Units 08:49 Sodium 135 (135-145) meq/L Potassium 4.9 (3.8-5.2) meq/L Chloride 93 L (98-112) meq/L Carbon Dioxide 34 H (23-33) meq/L Anion Gap 8 (5-20) BUN 31 H (7-22) mg/dL Creatinine 0.9 (0.50-1.20) mg/dL Estimated GFR Director Of Materials BUN/Creatinine Ratio 34.44 H (6-20) Glucose 88 (78-110) mg/dL Calculated Osmolality 285.0 (267-292) mOsm/kg Calcium 9.1 (8.7-10.7) mg/dL Total Creatine Kinase (30-135) IU/L Troponin I (< 0.040) ng/mL NT-Pro-B Natriuret Pep (0-450) PG/ML Objective : Exam - General General Appearance: No Acute Distress, Cooperative - Head Head Exam: Normal Inspection, Atraumatic - Eye Eye Exam: Normal Appearance - Neck Neck Exam: Normal Inspection - Respiratory Respiratory Exam: Clear to Auscultation - Bilaterally - Cardiovascular Cardiovascular Exam: RRR - GI/Abdominal GI/Abdominal Exam: Normal Bowel Sounds, Non Tender, Non Distended, Soft - Rectal Rectal Exam: Deferred - External Exam: Deferred - Extremities Extremities Exam: Normal Inspection - Back Back Exam: Normal Inspection Assessment and Plan - Patient Problems (1) Altered mental status Current Visit: Yes Status: Acute Comment: This is resolved. Probably combination of factors including the stroke and the hyponatremia (2) Hyponatremia Current Visit: Yes Status: Acute Comment: This is improved will switch the Lasix to by mouth at a lower dose (3) Chronic atrial fibrillation Current Visit: Yes Status: Acute Comment: Same medication we increased the metoprolol to previous dosage as her heart rate was fast last night (4) Chest pain Current Visit: Yes Status: Acute Comment: This is resolved. Continue medical treatment she is on beta inocente, aspirin, Lipitor.
--- NOTE | 2016-07-23 11:40 | PT.PROG ---
Progress Note Progress Note: S. Patient stated that she would like to go to the therapy gym this morning. O. Patient ambulated 175 feet to the therapy gym where she used the nu-step x 6 minutes. then performed seated exercises in the form of; heel toe raises, marches, long arc quads, ball squeezes, clamshells, resisted knee flexion and sit to stands all x 10 bilaterally. Patient worked with OT then ambulated 175 feet back to her room where she was left in her chair with alarm and call light. A. Patient continues to be impulsive, she requires verbal cues to remember how to perform exercises properly. She continues to struggle with weakness and balance issues. She would continue to benefit from skilled therapy at this time. P. Continue POC.
--- NOTE | 2016-07-23 11:41 | OT.PROG ---
Progress Note Progress Note: S: pt was in a good mood this morning. Stated that her cloths she wore yesterday were fine to wear. O: pt was seen in the a.m. and was just finishing up in restroom. She completed transfer downstairs with FFW and CGA for safety. she completed 8 min on UE bike to increase activity tolerance. PT completed there portion of therapy and then OT took over again. She received moist heat to back while sitting in chair. She completed activities to increase use of L hand by completing, powerweb, clothspins, beads, digi flex, stick on a string, and putty. Pt completed x1 transfer to bathroom and completed toileting and hygiene at sink Ind. She was transferred back upstairs and was left upright in recliner with chair alarm on and call light within reach. SENIOR PROCESS ANALYST was present when therapy departed room. A: pt would continue to benefit from therapy to increase activity tolerance and Ind in all ADL's and strengthening of L hand. P: Continue per plan of care.
--- NOTE | 2016-07-23 15:03 | PT.PROG ---
Progress Note Progress Note: S. Patient stated that she did not want to swim this afternoon however she would like to go to the therapy gym. O. Patient ambulated 175 feet to the therapy gym where she used the nu-step x 8 minutes the bicycle x 5 minutes then the nu-step x 10 minutes. Patient worked with OT then ambulated 175 feet back to her room where she was left in her chair with alarm and call light. A. Patient tolerated exercise well, she continues to struggle with balance and strength, she would continue to benefit from skilled therapy at this time to increase strength, balance and endurance. P. continue POC.
[2016-07-23] MEDS: ATORVASTATIN 40 MG TABLET PO SCH (20:37)
[2016-07-23] MEDS: QUEtiapine Tab 25 MG TAB PO SCH (20:38)
[2016-07-23] MEDS: PSYLLIUM SEED 1 EACH PACKET PO SCH ×2 (20:39)
[2016-07-24] MEDS: HEPARIN 5000 UNIT/1 ML SUBCUT SCH (05:31)
[2016-07-24] MEDS ORDERED: FUROSEMIDE 20 MG TABLET PO SCH (07:00)
[2016-07-24 08:07] VITALS: RESP 20; TEMP 98.2
[2016-07-24 08:27] LABS: CHLORIDE 98 meq/L (98-112); POTASSIUM 4.6 meq/L (3.8-5.2); SODIUM 136 meq/L (135-145)
[2016-07-24 08:28] LABS: BLOOD UREA NITROGEN 33 mg/dL (7-22); BUN/CREATININE RATIO 47.14 (6-20); CALCIUM 8.8 mg/dL (8.7-10.7); CREATININE 0.7 mg/dL (0.50-1.20); GLUCOSE 78 mg/dL (78-110)
[2016-07-24] MEDS: ASPIRIN 325 MG TABLET PO SCH (08:29)
[2016-07-24] MEDS: LOSARTAN 50 MG TABLET PO SCH (08:29)
[2016-07-24] MEDS: DIGOXIN 125 MCG TABLET PO SCH (08:29)
[2016-07-24] MEDS: HYDRALAZINE 10 MG TABLET PO SCH (08:29)
[2016-07-24] MEDS: Metoprolol TARTRATE Tab 25 MG TAB PO SCH (08:29)
[2016-07-24] MEDS ORDERED: POTASSIUM CHLORIDE 20 MEQ TAB PO SCH (09:00)
--- NOTE | 2016-07-24 10:50 | DCSUMMARY ---
Hospitalization Summary Admit Date: 07/20/16 Discharge Date: 07/24/16 Hospital Course: Discharge diagnoses 1. Confusion improved probably secondary to CVA 2. Tiny infarct in the high left posterior parietal lobe 3. Hyponatremia improved 4. History of A. fib 5. History of intracranial bleed that needed surgery 6. Leg edema improved with diuretics 7. Hypertension 8. Osteoporosis 9. History of stroke in 2010 secondary to intracranial bleed Hospital course This is an 89 years old female with medical history significant for history of hypertension, chronic A. fib, history of previous stroke secondary to intracranial bleed that needed surgery back in 2010 who was brought to the hospital for evaluation because of confusion. Daughter stated that she found her walking around which is unusual for her and she was not acting herself and because of that they brought her to the hospital evaluation revealed very tiny infarct in the left parietal lobe and she was admitted. In Addition she was also noted to be be hyponatremic. She was admitted by Dr. Spivey please see his note. CT of the head was negative and MRI of the brain showed a tiny infarct in the high left posterior parietal lobe. Patient was noted in addition to be hyponatremia to have the 4+ edema so she was started on Lasix drip. She was taking off the hydrochlorothiazide. We Continued with her medications. Things started to improve and her confusion seemed to be resolved gradually. She was weak and was started on physical therapy. I saw her later on during her hospital stay we switch her from the Lasix drip to IV intermittent Lasix then to by mouth Lasix. She was making progress with physical therapy but they still felt that she was still weak and we thought that we'll switch her to swing bed and continue physical therapy before she goes back home. Laboratory Results 07/20/16 07/20/16 07/20/16 Range/Units 09:56 11:07 14:30 WBC 8.78 (4.8-10.8) 10^3/uL RBC 4.20 (4.20-5.40) 10^6/uL Hgb 12.7 (12.0-16.0) g/dL Hct 36.7 L (37.0-47.0) % MCV 87.4 (81-99) FL MCH 30.2 (27-31) PG MCHC 34.6 (33-37) g/dL RDW Std Deviation 44.9 (39-50) fL RDW Coeff of Alessandro 14.2 (11.5-14.5) % Plt Count 159 (140-350) 10*3/uL MPV 8.4 (7.4-12.2) FL Immature Gran % (Auto) 0.2 (0-5) % Neut % (Auto) 86.1 H (50-80) % Lymph % (Auto) 5.2 L (10-50) % [place] % (Auto) 7.7 (5-15) % Eos % (Auto) 0.3 (0-8) % Baso % (Auto) 0.5 (0-1) % Immature Gran # (Auto) 0.02 10*3/UL Neut # (Auto) 7.55 10*3/UL Lymph # (Auto) 0.46 10*3/uL [place] # (Auto) 0.68 (0.3-0.8) 10*3/UL Eos # (Auto) 0.03 10*3/UL Baso # (Auto) 0.04 10*3/UL WBC Morphology Comment Normal morphology (NORM) Plt Morphology Comment Normal morphology (NORM) RBC Morph Comment Normal morphology (NORM) PT 11.9 H (9.7-11.4) secs INR 1.15 (0.00-5.90) N/A APTT (22.6-31.3) SECS D-Dimer 0.23 (0.00-0.59) mg/L Sodium 127 L (135-145) meq/L Potassium 3.9 (3.8-5.2) meq/L Chloride 87 L (98-112) meq/L Carbon Dioxide 30 (23-33) meq/L Anion Gap 10 (5-20) BUN 18 (7-22) mg/dL Creatinine 0.7 (0.50-1.20) mg/dL Estimated GFR (>60 ml/min/1.73m(2)) BUN/Creatinine Ratio 25.71 H (6-20) Glucose 119 H (78-110) mg/dL Calculated Osmolality 266.0 L (267-292) mOsm/kg Calcium 8.8 (8.7-10.7) mg/dL Magnesium 1.7 1.6 (1.6-2.4) mg/dL Total Bilirubin 1.5 H (0.3-1.2) mg/dL AST 25 (8-39) IU/L ALT 37 (9-52) IU/L Alkaline Phosphatase 63 (38-126) IU/L Total Creatine Kinase (30-135) IU/L Troponin I < 0.012 (< 0.040) ng/mL C-Reactive Protein 0.5 (0.0-0.9) mg/dL NT-Pro-B Natriuret Pep 2230 H (0-450) PG/ML Total Protein 6.7 (6.1-8.0) g/dL Albumin 4.2 (3.5-4.8) g/dL Globulin 2.5 (2.50-4.10) g/dL Albumin/Globulin Ratio 1.60 (1.3-2.0) mg/g Triglycerides (44-200) mg/dL Cholesterol (120-200) mg/dL LDL Cholesterol, Calc mg/dL VLDL Cholesterol (0-40) mg/dL HDL Cholesterol (40-150) mg/dL Cholesterol/HDL Ratio (0-4.0) RATIO Ur Collection Type Clean catch urine Urine Color Yellow Urine Clarity Clear (CLEAR) Urine pH 8.5 (5.0-8.5) Ur Specific [place] 1.015 (1.005-1.030) Urine Protein Negative (NEG) mg/dl Urine Glucose (UA) Negative (NEG) mg/dL Urine Ketones Negative (NEG) Urine Occult Blood Negative (NEG) Urine Nitrate Negative (NEG) Urine Bilirubin Negative (NEG) Urine Urobilinogen 0.2 (0.2) EU/dL Ur Leukocyte Esterase Trace (NEG) Urine RBC None (NONE) /hpf Urine WBC 3-5 (NONE) Ur Squamous Epith Cells Few (NONE) Ur Renal Epithelial Cell None (NONE) Urine Crystals None Urine Bacteria Rare (NONE) Urine Casts None (NONE) Urine Mucus None (NONE) Urine Trichomonas None (NONE) Urine Yeast None (NONE) Ur Culture Indicated? Culture not set 07/20/16 07/21/16 07/22/16 Range/Units 14:36 05:56 08:37 WBC 6.46 6.25 (4.8-10.8) 10^3/uL RBC 4.20 4.61 (4.20-5.40) 10^6/uL Hgb 12.4 13.9 (12.0-16.0) g/dL Hct 37.0 40.7 (37.0-47.0) % MCV 88.1 88.3 (81-99) FL MCH 29.5 30.2 (27-31) PG MCHC 33.5 34.2 (33-37) g/dL RDW Std Deviation 46.2 46.9 (39-50) fL RDW Coeff of Alessandro 14.6 H 14.8 H (11.5-14.5) % Plt Count 167 171 (140-350) 10*3/uL MPV 8.9 8.5 (7.4-12.2) FL Immature Gran % (Auto) 0.2 0.2 (0-5) % Neut % (Auto) 73.9 74.5 (50-80) % Lymph % (Auto) 10.2 10.9 (10-50) % [place] % (Auto) 13.6 11.8 (5-15) % Eos % (Auto) 1.5 1.8 (0-8) % Baso % (Auto) 0.6 0.8 (0-1) % Immature Gran # (Auto) 0.01 0.01 10*3/UL Neut # (Auto) 4.77 4.66 10*3/UL Lymph # (Auto) 0.66 0.68 10*3/uL [place] # (Auto) 0.88 H 0.74 (0.3-0.8) 10*3/UL Eos # (Auto) 0.10 0.11 10*3/UL Baso # (Auto) 0.04 0.05 10*3/UL WBC Morphology Comment Normal morphology Normal morphology (NORM) Plt Morphology Comment Normal morphology Normal morphology (NORM) RBC Morph Comment Normal morphology Normal morphology (NORM) PT 12.0 H (9.7-11.4) secs INR 1.16 (0.00-5.90) N/A APTT 42.0 H (22.6-31.3) SECS D-Dimer (0.00-0.59) mg/L Sodium 129 L 133 L (135-145) meq/L Potassium 3.6 L 3.9 (3.8-5.2) meq/L Chloride 89 L 90 L (98-112) meq/L Carbon Dioxide 32 33 (23-33) meq/L Anion Gap 8 10 (5-20) BUN 18 24 H (7-22) mg/dL Creatinine 0.8 0.8 (0.50-1.20) mg/dL Estimated GFR Pipe Layer Pipe Layer (>60 ml/min/1.73m(2)) BUN/Creatinine Ratio 22.50 H 30.00 H (6-20) Glucose 93 105 (78-110) mg/dL Calculated Osmolality 269.0 279.0 (267-292) mOsm/kg Calcium 8.3 L 8.4 L (8.7-10.7) mg/dL Magnesium (1.6-2.4) mg/dL Total Bilirubin 1.4 H 1.0 (0.3-1.2) mg/dL AST 24 32 (8-39) IU/L ALT 29 33 (9-52) IU/L Alkaline Phosphatase 53 67 (38-126) IU/L Total Creatine Kinase 154 H (30-135) IU/L Troponin I < 0.012 0.020 (< 0.040) ng/mL C-Reactive Protein (0.0-0.9) mg/dL NT-Pro-B Natriuret Pep 835.0 H (0-450) PG/ML Total Protein 5.8 L 6.5 (6.1-8.0) g/dL Albumin 3.6 4.5 (3.5-4.8) g/dL Globulin 2.2 L 2.0 L (2.50-4.10) g/dL Albumin/Globulin Ratio 1.60 2.20 H (1.3-2.0) mg/g Triglycerides 38 L (44-200) mg/dL Cholesterol 124 (120-200) mg/dL LDL Cholesterol, Calc 55.400 mg/dL VLDL Cholesterol 7 (0-40) mg/dL HDL Cholesterol 61 (40-150) mg/dL Cholesterol/HDL Ratio 2.03 (0-4.0) RATIO Ur Collection Type Urine Color Urine Clarity (CLEAR) Urine pH (5.0-8.5) Ur Specific [place] (1.005-1.030) Urine Protein (NEG) mg/dl Urine Glucose (UA) (NEG) mg/dL Urine Ketones (NEG) Urine Occult Blood (NEG) Urine Nitrate (NEG) Urine Bilirubin (NEG) Urine Urobilinogen (0.2) EU/dL Ur Leukocyte Esterase (NEG) Urine RBC (NONE) /hpf Urine WBC (NONE) Ur Squamous Epith Cells (NONE) Ur Renal Epithelial Cell (NONE) Urine Crystals Urine Bacteria (NONE) Urine Casts (NONE) Urine Mucus (NONE) Urine Trichomonas (NONE) Urine Yeast (NONE) Ur Culture Indicated? 07/22/16 07/22/16 07/23/16 Range/Units 15:36 21:03 08:49 WBC (4.8-10.8) 10^3/uL RBC (4.20-5.40) 10^6/uL Hgb (12.0-16.0) g/dL Hct (37.0-47.0) % MCV (81-99) FL MCH (27-31) PG MCHC (33-37) g/dL RDW Std Deviation (39-50) fL RDW Coeff of Alessandro (11.5-14.5) % Plt Count (140-350) 10*3/uL MPV (7.4-12.2) FL Immature Gran % (Auto) (0-5) % Neut % (Auto) (50-80) % Lymph % (Auto) (10-50) % [place] % (Auto) (5-15) % Eos % (Auto) (0-8) % Baso % (Auto) (0-1) % Immature Gran # (Auto) 10*3/UL Neut # (Auto) 10*3/UL Lymph # (Auto) 10*3/uL [place] # (Auto) (0.3-0.8) 10*3/UL Eos # (Auto) 10*3/UL Baso # (Auto) 10*3/UL WBC Morphology Comment (NORM) Plt Morphology Comment (NORM) RBC Morph Comment (NORM) PT (9.7-11.4) secs INR (0.00-5.90) N/A APTT (22.6-31.3) SECS D-Dimer (0.00-0.59) mg/L Sodium 135 (135-145) meq/L Potassium 4.9 (3.8-5.2) meq/L Chloride 93 L (98-112) meq/L Carbon Dioxide 34 H (23-33) meq/L Anion Gap 8 (5-20) BUN 31 H (7-22) mg/dL Creatinine 0.9 (0.50-1.20) mg/dL Estimated GFR Pipe Layer (>60 ml/min/1.73m(2)) BUN/Creatinine Ratio 34.44 H (6-20) Glucose 88 (78-110) mg/dL Calculated Osmolality 285.0 (267-292) mOsm/kg Calcium 9.1 (8.7-10.7) mg/dL Magnesium (1.6-2.4) mg/dL Total Bilirubin (0.3-1.2) mg/dL AST (8-39) IU/L ALT (9-52) IU/L Alkaline Phosphatase (38-126) IU/L Total Creatine Kinase 158 H 141 H (30-135) IU/L Troponin I 0.010 0.010 (< 0.040) ng/mL C-Reactive Protein (0.0-0.9) mg/dL NT-Pro-B Natriuret Pep (0-450) PG/ML Total Protein (6.1-8.0) g/dL Albumin (3.5-4.8) g/dL Globulin (2.50-4.10) g/dL Albumin/Globulin Ratio (1.3-2.0) mg/g Triglycerides (44-200) mg/dL Cholesterol (120-200) mg/dL LDL Cholesterol, Calc mg/dL VLDL Cholesterol (0-40) mg/dL HDL Cholesterol (40-150) mg/dL Cholesterol/HDL Ratio (0-4.0) RATIO Ur Collection Type Urine Color Urine Clarity (CLEAR) Urine pH (5.0-8.5) Ur Specific [place] (1.005-1.030) Urine Protein (NEG) mg/dl Urine Glucose (UA) (NEG) mg/dL Urine Ketones (NEG) Urine Occult Blood (NEG) Urine Nitrate (NEG) Urine Bilirubin (NEG) Urine Urobilinogen (0.2) EU/dL Ur Leukocyte Esterase (NEG) Urine RBC (NONE) /hpf Urine WBC (NONE) Ur Squamous Epith Cells (NONE) Ur Renal Epithelial Cell (NONE) Urine Crystals Urine Bacteria (NONE) Urine Casts (NONE) Urine Mucus (NONE) Urine Trichomonas (NONE) Urine Yeast (NONE) Ur Culture Indicated? 07/24/16 Range/Units 07:15 WBC (4.8-10.8) 10^3/uL RBC (4.20-5.40) 10^6/uL Hgb (12.0-16.0) g/dL Hct (37.0-47.0) % MCV (81-99) FL MCH (27-31) PG MCHC (33-37) g/dL RDW Std Deviation (39-50) fL RDW Coeff of Alessandro (11.5-14.5) % Plt Count (140-350) 10*3/uL MPV (7.4-12.2) FL Immature Gran % (Auto) (0-5) % Neut % (Auto) (50-80) % Lymph % (Auto) (10-50) % [place] % (Auto) (5-15) % Eos % (Auto) (0-8) % Baso % (Auto) (0-1) % Immature Gran # (Auto) 10*3/UL Neut # (Auto) 10*3/UL Lymph # (Auto) 10*3/uL [place] # (Auto) (0.3-0.8) 10*3/UL Eos # (Auto) 10*3/UL Baso # (Auto) 10*3/UL WBC Morphology Comment (NORM) Plt Morphology Comment (NORM) RBC Morph Comment (NORM) PT (9.7-11.4) secs INR (0.00-5.90) N/A APTT (22.6-31.3) SECS D-Dimer (0.00-0.59) mg/L Sodium 136 (135-145) meq/L Potassium 4.6 (3.8-5.2) meq/L Chloride 98 (98-112) meq/L Carbon Dioxide 30 (23-33) meq/L Anion Gap 8 (5-20) BUN 33 H (7-22) mg/dL Creatinine 0.7 (0.50-1.20) mg/dL Estimated GFR Pipe Layer (>60 ml/min/1.73m(2)) BUN/Creatinine Ratio 47.14 H (6-20) Glucose 78 (78-110) mg/dL Calculated Osmolality 287.0 (267-292) mOsm/kg Calcium 8.8 (8.7-10.7) mg/dL Magnesium (1.6-2.4) mg/dL Total Bilirubin (0.3-1.2) mg/dL AST (8-39) IU/L ALT (9-52) IU/L Alkaline Phosphatase (38-126) IU/L Total Creatine Kinase (30-135) IU/L Troponin I (< 0.040) ng/mL C-Reactive Protein (0.0-0.9) mg/dL NT-Pro-B Natriuret Pep (0-450) PG/ML Total Protein (6.1-8.0) g/dL Albumin (3.5-4.8) g/dL Globulin (2.50-4.10) g/dL Albumin/Globulin Ratio (1.3-2.0) mg/g Triglycerides (44-200) mg/dL Cholesterol (120-200) mg/dL LDL Cholesterol, Calc mg/dL VLDL Cholesterol (0-40) mg/dL HDL Cholesterol (40-150) mg/dL Cholesterol/HDL Ratio (0-4.0) RATIO Ur Collection Type Urine Color Urine Clarity (CLEAR) Urine pH (5.0-8.5) Ur Specific [place] (1.005-1.030) Urine Protein (NEG) mg/dl Urine Glucose (UA) (NEG) mg/dL Urine Ketones (NEG) Urine Occult Blood (NEG) Urine Nitrate (NEG) Urine Bilirubin (NEG) Urine Urobilinogen (0.2) EU/dL Ur Leukocyte Esterase (NEG) Urine RBC (NONE) /hpf Urine WBC (NONE) Ur Squamous Epith Cells (NONE) Ur Renal Epithelial Cell (NONE) Urine Crystals Urine Bacteria (NONE) Urine Casts (NONE) Urine Mucus (NONE) Urine Trichomonas (NONE) Urine Yeast (NONE) Ur Culture Indicated? Discharge instruction Diet regular Follow-up patient status will be switched to swing bed status to continue rehabilitation Exam - Vitals Vital Signs: Vital Signs Temperature 98.2 F Temperature Source Temporal Artery Scan Pulse Rate [Apical] 88 Pulse Rate [Pulse Oximeter] 93 Pulse Rate [Telemetry] 83 Pulse Rate 70 Respiratory Rate 20 Blood Pressure [Right Arm] 167/72 Blood Pressure 173/90 Pulse Ox 96 Oxygen Flow Rate 1.5 Oxygen Delivery Method Nasal Cannula Height 5 ft 1 in Weight 124 lb 9.6 oz Patient Problems - Patient Problem List (1) Altered mental status Status: Acute (2) Hyponatremia Status: Acute (3) Chronic atrial fibrillation Status: Acute (4) Chest pain Status: Acute
--- NOTE | 2016-07-24 10:50 | OT.PROG ---
Progress Note Progress Note: S"I am feeling a little better today ." O: Pt. seen from 829 to 929 with pt. completing sit to stand transfer with use of FWW with CGA and then pt. ambulating from her recliner chair to the shower room approximately 150 feet with CGA and mod vc's for safety. Pt. complted shower transfer with CGA and use of grab abrs. Pt. engaged in shower activity with min A with assist needed to wash, rinse and dry lower legs, feet, and back. Pt. khurram completed sit to stand transfer with use of grab bars to get to a standing position and then ambulated back to her room from the shower room with CGA and min vc's for safety. Pt. then completed UE dressing with set-up assistance and LE dressing with min A with pt. being able to initiate threading her tie string pants and brief and pt. able to christiano her own socks. Pt. just needed CGA to pull up her brief and pants due to decreased dynamic balance and safety concerns. At the end of session pt. then ambulated own to the therapy gym from 3rd floor taking the elevator and to attend physical therapy. Pt. requiring CGA to get to the therapy g A:Pt. min to mod vc's for safety and pt. doing fairly well physically. Pt. had no complains of pain or SOB during tx session. P: Continue POC. Elena KIM, OTR/L
--- NOTE | 2016-07-24 12:51 | OT PM DAY ---
Diagnosis : CVA/Weakness PM - Occupational Therapy S: The patient states she doesn't believe she is ready to return home yet. She sounds like she is okay staying longer. Her daughter accompanied her today and the patient's daughter was also in favor of Vera staying however long she needed to to regain her strength. O: The patient was seen in therapy. She completed the upper body ergometer x8 minutes to increase her activity tolerance. She also transferred to the mat table where she completed therapeutic exercises with osbaldo theraband in shoulder flexion, shoulder extension, biceps flexion, and rows, all bilaterally x15 to increase her upper extremity strength. The patient also completed dynamic balance activity while sitting, mainly using her left affected side to bump a balloon back and forth to increase her balance. The patient then transferred to hand table where she completed exercises to increase fine motor strength and overall function. She completed power web, digi-flex, rice activity, clothespins, and putty exercises. The patient was returned to her room. She was left in her room with alarm on and call light within reach. A: The patient may continue to benefit from therapy to increase her overall activity tolerance and strength. She may benefit from swingbed status at this time. P: Continue seeing patient BID during the week and one time per day over the weekend for upper extremity strengthening, ADLs, and overall functional mobility. TEREZAD
--- NOTE | 2016-07-24 12:59 | PT AM DAY ---
Diagnosis : CVA/Weakness AM - Physical Therapy S: The patient states she would like to go to the pool this afternoon but she would do just regular therapy this morning. O: The patient ambulated 175 feet to the therapy gym where she performed therapeutic exercises and functional activities including the upper body ergometer x10 minutes, cycling x5 minutes, seated long arc quads, heel/toe raises, marches, ball squeezes,and clamshells with red theraband. The patient then used the new step x10 minutes and then ambulated 175 feet back to her room. A: The patient tolerated therapy well this morning. She continues to struggle with her balance; she requires stand by to min assist with ambulation and transfers. The patient would continue to benefit from skilled therapy at this time. P: Patient will transfer to [facility] this afternoon. MTDD
[2016-07-26 02:18] LABS: CKMB RATIO 0.87 %; CREATINE KINASE MB 1.24 NG/DL (0.00-5.00)
[2016-07-26 10:57] LABS: CKMB RATIO 1.25 %; CREATINE KINASE MB 1.99 NG/DL (0.00-5.00)
== END 2016-07-24 11:05 | disposition swing bed (61) | DRG 947 ==
LOC: ER 09:35 → MED/SURG 13:47
PROVIDERS: ADMIT Internal Medicine; ATTEND Internal Medicine
DX: R41.82 Altered mental status, unspecified (principal); I48.2 Chronic atrial fibrillation; R41.0 Disorientation, unspecified; I63.8 Other cerebral infarction; E87.1 Hypo-osmolality and hyponatremia; I48.91 Unspecified atrial fibrillation; R60.0 Localized edema; I10 Essential (primary) hypertension; M81.0 Age-related osteoporosis without current pathological fracture; Z86.73 Personal history of transient ischemic attack (TIA), and cerebral infarction without residual deficits
CPT/HCPCS: 36415; 70450; 70551; 71010; 80048; 80053; 80061; 81001; 81003; 82550; 82553; 82948; 83735; 83880; 84484; 85025; 85379; 85610; 85730; 86140; 93005; 93010; 93306; 94761; 97001; 97110; 97530; 97535; 97750; 99285; J1644; J1940; J3475; J7050

== ENCOUNTER 2016-07-24 09:17 | Inpatient (IN) | payer OTHER, MEDICARE ==
--- NOTE | 2016-07-24 11:08 | PDOC ---
History and Physical - History of Present Illness Date and Time of Service: 07/24/2016 12 PM Chief Complaint: Weakness after recent stroke History of Present Illness: This is an 89 years old female with medical history significant for history of hypertension, chronic A. fib, history of previous stroke secondary to intracranial bleed that needed surgery back in 2010 who was brought to the hospital for evaluation because of confusion. Daughter stated that she found her walking around which is unusual for her and she was not acting herself and because of that they brought her to the hospital evaluation revealed very tiny infarct in the left parietal lobe and she was admitted. In Addition she was also noted to be be hyponatremic. She was admitted by Dr. Spivey please see his note. CT of the head was negative and MRI of the brain showed a tiny infarct in the high left posterior parietal lobe. Patient was noted in addition to be hyponatremia to have the 4+ edema so she was started on Lasix drip. She was taking off the hydrochlorothiazide. We Continued with her medications. Things started to improve and her confusion seemed to be resolved gradually. She was weak and was started on physical therapy. I saw her later on during her hospital stay we switch her from the Lasix drip to IV intermittent Lasix then to by mouth Lasix. She was making progress with physical therapy but they still felt that she was still weak and we thought that we'll switch her to swing bed and continue physical therapy before she goes back home. Past Medical History Medical History: 1. Chronic A. fib 2. Hypertension 3. History of CVA secondary to intracranial bleed 2011 needed surgery 4. Osteoporosis Surgical History: cva was 02/2012. WAI HOLE (SKULL)TO DRAIN BLOOD W/ STROKE Past Social History: Doesn't smoke or drink, lives with her daughter. Tobacco Use: Never Smoker Substance Use Type: None Alcohol Use: None Medication / Allergies Home Medications: Home Medications Medication Instructions Recorded Confirmed Type Losartan Potassium 100 mg ORAL QD tab 08/28/11 07/24/16 History RX: Hydralazine HCl 20 mg ORAL BID tab 08/28/11 07/24/16 History Aspirin [Aspir 81] 325 mg PO DAILY 06/03/12 07/24/16 History RX: Digoxin 125 mcg PO DAILY 12/18/13 07/24/16 History RX: Potassium Chloride 20 meq PO DAILY 12/18/13 07/24/16 History RX: Metoprolol Tartrate 50 mg PO BID #60 tab 01/23/16 07/24/16 Clinic Furosemide [Lasix] 20 mg PO DAILY 07/24/16 07/24/16 History Psyllium 3.4 gm Packet [Metamucil 3.4 gm PO BEDTIME 07/24/16 07/24/16 History 3.4 gm Packet] QUEtiapine Tab [SEROquel Tab] 25 mg PO BEDTIME 07/24/16 07/24/16 History Allergies/Adverse Reactions: Allergies Allergy/AdvReac Type Severity Reaction Status Date / Time Penicillins Allergy Mild Unknown Verified 07/24/16 11:21 Review of Systems - Review of Systems All Systems: Reviewed & No Additional Complaints Except as Stated Exam - Vitals Vital Signs: Vital Signs Height 5 ft 1 in - General General Appearance: POSITIVE: No Acute Distress, Cooperative - Head Head Exam: POSITIVE: Normal Inspection - Eye Eye Exam: POSITIVE: Normal Appearance - ENT ENT Exam: POSITIVE: Normal Exam - Neck Neck Exam: POSITIVE: Normal Inspection - Respiratory Respiratory Exam: POSITIVE: Clear to Auscultation - Bilaterally - Cardiovascular Cardiovascular Exam: POSITIVE: RRR - GI/Abdominal GI/Abdominal Exam: POSITIVE: Normal Bowel Sounds, Non Tender, Non Distended, Soft - External Exam: POSITIVE: Deferred Exam: POSITIVE: Deferred - Extremities Extremities Exam: POSITIVE: Normal Inspection - Back Back Exam: POSITIVE: Normal Inspection - Neurological Neurological Exam: POSITIVE: Alert, Oriented x 3, CN II-XII Intact Additional Neurological Exam Details: There is a difference in the coordination of the left hand compared to the right hand but she said that's old. Her strength seemed to be better now compared to when I saw her first. - Psychiatric Psychiatric Exam: POSITIVE: Normal Affect - Integumentary Integumentary Exam: POSITIVE: Normal Color Assessment and Plan - Patient Problems (1) CVA (cerebral vascular accident) Current Visit: No Status: Acute Comment: She had a tiny infarct on the MRI continue PT and OT she is making progress. (2) Hyponatremia Current Visit: No Status: Acute Comment: This is resolved (3) Chronic atrial fibrillation Current Visit: No Status: Acute Comment: Continue previous medication. She is on aspirin only because when she was on Coumadin she ended up with intracranial bleed (4) Hypertension Current Visit: Yes Status: Acute Comment: Same medications (5) Pitting edema Current Visit: No Status: Acute Comment: This is nearly resolved she is only on oral Lasix continue
[2016-07-24] MEDS: HEPARIN 5000 UNIT/1 ML SUBCUT SCH ×2 (15:22→21:30)
[2016-07-24] MEDS: ATORVASTATIN 40 MG TABLET PO SCH (21:30)
[2016-07-24] MEDS: Metoprolol TARTRATE Tab 50 MG TAB PO SCH (21:31)
[2016-07-24] MEDS: QUEtiapine Tab 25 MG TAB PO SCH (21:31)
[2016-07-24] MEDS: HYDRALAZINE 10 MG TABLET PO SCH (21:31)
[2016-07-25] MEDS: HEPARIN 5000 UNIT/1 ML SUBCUT SCH ×3 (06:00→21:00)
[2016-07-25] MEDS: HYDRALAZINE 10 MG TABLET PO SCH ×2 (08:41→20:55)
[2016-07-25] MEDS: Potassium Chloride Tab 10 MEQ TAB PO SCH (08:41)
[2016-07-25] MEDS: Metoprolol TARTRATE Tab 50 MG TAB PO SCH ×2 (08:41→20:55)
[2016-07-25] MEDS: FUROSEMIDE 20 MG TABLET PO SCH (08:41)
[2016-07-25] MEDS: ASPIRIN 325 MG TABLET PO SCH (08:42)
[2016-07-25] MEDS: CHOLECALCIFEROL 1000 IU TABLET PO SCH (08:42)
[2016-07-25] MEDS: DIGOXIN 125 MCG TABLET PO SCH (08:42)
[2016-07-25] MEDS: LOSARTAN 50 MG TABLET PO SCH (08:42)
[2016-07-25] MEDS: PSYLLIUM SEED 1 EACH PACKET PO SCH ×2 (08:44)
--- NOTE | 2016-07-25 10:05 | OT.PROG ---
Progress Note Progress Note: S: pt was doing well this morning, although was having some diarreah and did not want to chance coming down to therapy but was willing to do therapy on the floor. O: pt completed toileting and whole body dressing with SBA for safety only. pt completed therex with a red theraband 15 reps for LE knee flexion and extension , hip abduction and adduction, and marches. pt completed 15 reps with the red band of UE horizontal abduction, biceps, shoulder extension and triceps. pt walked 175 feet with CGa only with good safety. pt did very well today. A: pt tolerated treatment well and would benefit from coming down to therapy tomorrow if the diarreah has subsided. P:cont per POC
[2016-07-25] MEDS: ATORVASTATIN 40 MG TABLET PO SCH (20:55)
[2016-07-25] MEDS: QUEtiapine Tab 25 MG TAB PO SCH (20:55)
[2016-07-26] MEDS: HEPARIN 5000 UNIT/1 ML SUBCUT SCH ×3 (06:10→21:19)
[2016-07-26 07:10] LABS: BUN/CREATININE RATIO 38.57 (6-20); CALCIUM 8.6 mg/dL (8.7-10.7); CREATININE 0.7 mg/dL (0.50-1.20); POTASSIUM 4.2 meq/L (3.8-5.2)
[2016-07-26] MEDS: PSYLLIUM SEED 1 EACH PACKET PO SCH ×2 (08:01)
[2016-07-26] MEDS: LOSARTAN 50 MG TABLET PO SCH (08:02)
[2016-07-26] MEDS: HYDRALAZINE 10 MG TABLET PO SCH ×2 (08:02→21:19)
[2016-07-26] MEDS: DIGOXIN 125 MCG TABLET PO SCH (08:02)
[2016-07-26] MEDS: ASPIRIN 325 MG TABLET PO SCH (08:02)
[2016-07-26] MEDS: Potassium Chloride Tab 10 MEQ TAB PO SCH (08:02)
[2016-07-26] MEDS: Metoprolol TARTRATE Tab 50 MG TAB PO SCH ×2 (08:03→21:19)
[2016-07-26] MEDS: FUROSEMIDE 20 MG TABLET PO SCH (08:09)
--- NOTE | 2016-07-26 08:09 | PDOC(PROG) ---
Date and Time of Service: 07/26/2016 8 AM Interval History: Subjective Patient denying symptoms today. Apparently she had diarrhea yesterday. But now that's resolved. No other symptoms. She is working with physical therapy. Objective : Data - Labs CBC and BMP: 07/26/16 06:50 Labs - Last 24 Hours: Laboratory Results 07/26/16 Range/Units 06:50 Sodium 131 L (135-145) meq/L Potassium 4.2 (3.8-5.2) meq/L Chloride 97 L (98-112) meq/L Carbon Dioxide 27 (23-33) meq/L Anion Gap 7 (5-20) BUN 27 H (7-22) mg/dL Creatinine 0.7 (0.50-1.20) mg/dL Estimated GFR (>60 ml/min/1.73m(2)) BUN/Creatinine Ratio 38.57 H (6-20) Glucose 88 (78-110) mg/dL Calculated Osmolality 275.0 (267-292) mOsm/kg Calcium 8.6 L (8.7-10.7) mg/dL Objective : Exam - General General Appearance: No Acute Distress, Cooperative - Head Head Exam: Normal Inspection, Atraumatic - Eye Eye Exam: Normal Appearance - ENT ENT Exam: Normal Exam - Neck Neck Exam: Normal Inspection - Respiratory Respiratory Exam: Clear to Auscultation - Bilaterally - Cardiovascular Cardiovascular Exam: RRR - GI/Abdominal GI/Abdominal Exam: Normal Bowel Sounds, Non Tender, Non Distended, Soft - Rectal Rectal Exam: Deferred - External Exam: Deferred - Extremities Extremities Exam: Normal Inspection - Back Back Exam: Normal Inspection - Neurological Neurological Exam: Alert, Oriented x 3, CN II-XII Intact, Moves All Extremities Equally - Psychiatric Psychiatric Exam: Normal Affect Assessment and Plan - Patient Problems (1) CVA (cerebral vascular accident) Current Visit: No Status: Acute Comment: Continue aspirin and Lipitor and PT, OT. (2) Hyponatremia Current Visit: No Status: Acute Comment: Her sodium dropped again. Maybe secondary to the diarrhea I think I'll stop the Lasix for now and repeat her labs tomorrow and then will decide about restarting it. She did have significant edema when she came in and that helped the swelling. (3) Chronic atrial fibrillation Current Visit: No Status: Acute Comment: Same medication she is on an aspirin for stroke prevention because of her history of intracranial bleed before (4) Hypertension Current Visit: Yes Status: Acute Comment: Same med (5) Pitting edema Current Visit: No Status: Acute Comment: This is resolved her sodium dropped but she had some diarrhea as well I think we'll hold Lasix for now.
[2016-07-26] MEDS: CHOLECALCIFEROL 1000 IU TABLET PO SCH (08:12)
--- NOTE | 2016-07-26 10:30 | OT.PROG ---
Progress Note Progress Note: S: pt was feeling better today and excited to have breakfast with a friend. pt is hoping to get a shower before she has breakfast O: pt ambulated to the shower room 75 feet, completed donning and doffing of clothes with SBA and cues only due to the low lighting. pt completed the shower with SBA only for safety and set up. pt then ambulated back to her room 75 feet. pt agreed to come down to therapy for a bit. pt walked down to therapy 150 feet. when she complete the nustep 10 minutes, bike 5 minutes and arm bike 5 minutes. pt did require an oxygen boost up to 3 during the bike due to low oxygen (normally on 1.5). pt then walked back to her room. A: pt did very well today. She tolerated increased exercises and demonstrated good transfers and ADLs P: we will continue to increase pts safety and I to go home
[2016-07-26] MEDS: QUEtiapine Tab 25 MG TAB PO SCH (21:19)
[2016-07-26] MEDS: ATORVASTATIN 40 MG TABLET PO SCH (21:19)
[2016-07-27] MEDS: HEPARIN 5000 UNIT/1 ML SUBCUT SCH ×3 (06:21→21:26)
[2016-07-27 07:05] LABS: BUN/CREATININE RATIO 34.28 (6-20); CALCIUM 8.5 mg/dL (8.7-10.7); CREATININE 0.7 mg/dL (0.50-1.20); POTASSIUM 4.3 meq/L (3.8-5.2)
[2016-07-27] MEDS: PSYLLIUM SEED 1 EACH PACKET PO SCH ×2 (08:09)
[2016-07-27] MEDS: Potassium Chloride Tab 10 MEQ TAB PO SCH (08:10)
[2016-07-27] MEDS: ASPIRIN 325 MG TABLET PO SCH (08:10)
[2016-07-27] MEDS: LOSARTAN 50 MG TABLET PO SCH (08:10)
[2016-07-27] MEDS: HYDRALAZINE 10 MG TABLET PO SCH ×2 (08:10→20:11)
[2016-07-27] MEDS: Metoprolol TARTRATE Tab 50 MG TAB PO SCH ×2 (08:10→20:11)
[2016-07-27] MEDS: CHOLECALCIFEROL 1000 IU TABLET PO SCH (08:10)
[2016-07-27] MEDS: DIGOXIN 125 MCG TABLET PO SCH (08:10)
--- NOTE | 2016-07-27 10:59 | PTI REPORT ---
Thank you for the referral of Hailey Santamaria. She was seen on 07/24/16 for a swingbed evaluation secondary to a CVA. SUBJECTIVE: The patient is an 89-year-old female. The patient reports she feels like she has gotten much better since being in the hospital. Her biggest concern is her fear of falling and she states that sometimes the floor appears wavy in front of her. PAST MEDICAL HISTORY: Past medical history can be found in the patient's medical record. OBJECTIVE FINDINGS: Pain: The patient reports an overall level of pain anywhere from a 3 to 7/10 on the verbal analog scale (0=no pain, 10=worst pain) in various areas, especially with prolonged static positions. Range of motion: Her upper extremity and lower extremity active range of motion is well within functional limits. Strength: Lower extremity strength as tested in the seated position is 4/5 at this time. Ambulation: The patient is able to ambulate with the use of a front wheeled walker for balance and is able to ambulate up to 100 feet. Transfers/Bed mobility: The patient is able to perform all transfers and bed mobility with stand by assistance with increased time. Balance: The patient has good standing balance with the use of an all wheeled walker and verbal cues to stay within her walker. She has poor standing balance without the use of any type of assistive device. ASSESSMENT: Problem List: Decreased safety awareness Decreased balance Decreased strength Decreased endurance Physical Therapy Goals: To be met by discharge from swingbed: Patient will be able to perform all bed mobility and transfers independently with appropriate time and appropriate assistive device. Patient will be able to ambulate up to 300 feet with appropriate assistive device for community ambulation. Patient will increase bilateral lower extremity strength to at least 4+/5 in order to perform independent ADLs for return to home. TREATMENT PLAN: Patient will be seen B.I.D during the week and one time per day over the weekend as a swingbed patient for general strengthening, balance activities, transfers, and ambulation. INITIAL TREATMENT: Treatment today consisted of the swingbed evaluation followed by the patient ambulating downstairs with a front wheeled walker, gait belt, and contact guard assist. The patient then participated in pool therapy. MTDD
--- NOTE | 2016-07-27 11:05 | OTI REPORT ---
Thank you for the referral of Hailey Santamaira. She was seen on 07/24/16 for an occupational therapy swing bed evaluation secondary to a CVA. SUBJECTIVE: The patient is an 89-year-old female who was admitted to [facility] secondary to increased confusion, safety issues, and weakness. The patient is pleasant and cooperative and lives at home with her daughter. It is reported that the patient has a walk in shower with grab bars, a shower chair, and a toilet with grab bars. Prior to admission the patient lived at home with her daughter. Her daughter reports that Hailey has a stair chair for the big stairs; however, Hailey is usually able to walk up and down four stairs at a time. Their bathroom is set up with a shower chair and the toilet has grab bars. The shower also has grab bars. She typically can dress herself and she is in charge of her own medications. She states she usually goes to the [employer] everyday for her meals when her daughter is at work. PAST MEDICAL HISTORY: Past medical history can be found in the patient's medical record. OBJECTIVE FINDINGS: General observations: The patient was alert and oriented x3. Bed mobility: The patient was able to come from supine to sit independently. Range of motion: While sitting edge of bed, upper extremity active range of motion was completed. She has within functional limits for all shoulder, elbow , and hand movement. Her left upper extremity has been affected secondary to a stroke previous to this one. She reports that she doesn't notice too much difference with her previous lack of coordination that she had prior to this admission. Coordination: The patient does have mild to moderately decreased coordination in the shoulder, elbow, and wrist area. Fine motor coordinations are barely involved. She needs increased time to complete fine motor tasks on the left side. Strength: Strength on the right side was 4+/5 throughout. Strength on the left side was 3+/5 for shoulder flexion and abduction, 4/5 for elbow flexion/ extension, 3+/5 for wrist flexion/extension, and finger strength is 3+/5. Vision: The patient does suffer from cataracts. Functionally today she had a lot of difficulty with her vision, including being able to see when up and ambulating in her room. She needs increased time to be able to adjust secondary to her vision functionally. Cognition: The patient knew that the year was 2016 and that it was July 21. Her daughter reports that she had a lot of increased confusion yesterday; she was not doing things well and she continually said that it was the month of September. Sensation/Pain: Sensation is slightly lacking in the left side compared to the right. The patient states that her legs continually cramp and she states the pain in her legs can get up to 7/10 on the verbal analog scale (0=no pain, 10= worst pain). ASSESSMENT: At this time the patient would benefit from skilled occupational therapy to address functional ADLs, to improve her overall strength and coordination, especially on the left side, to address compensatory strategies for her vision loss, and to improve her overall safety and ability to be safe at home. Short-Term Goals: [facility]: 1. Patient will improve upper extremity strength on the left side to 4/5. Patient will improve coordination to be able to complete opening bottles and find motor grasping tasks such as pills without dropping them 100% of the time. 2. Patient will perform a Cognitive Performance Test. 3. Patient will be able to complete a shower independently with set up. 4. Patient will be able to dress self including set up independently. Long-Term Goals: To be met following discharge from [facility]: 1. Patient will be able to be discharged home with her daughter, demonstrating independence and safety with all ADLs and functional transfers. TREATMENT PLAN: Patient will be seen B.I.D during the week and one time per day over the weekend as a swingbed patient to address the above goals and objectives. INITIAL TREATMENT: Treatment today consisted of the swingbed evaluation activities only. PANKAJ
--- NOTE | 2016-07-27 11:44 | PT.PROG ---
Progress Note Progress Note: S. Patient stated that she would like to go to the therapy gym this morning. She reports that she is feeling pretty good. O. Patient ambulated 175 feet to the therapy gym where she used the arm bike, nu -step, and bicycle each x 10 minutes then performed seated exercises in the form of; heel toe raises, marches, long arc quads ball squeezes all x 10 bilaterally. standing balance x 3 minutes. Patient ambulated 175 feet back to her room where she was left in her chair with alarm and call light. A. Patient tolerated activity well, she continues to make gains, she struggles with balance. She would continue to benefit from skilled therapy to increase strength and endurance. Patient continues to require SBG assist. P. continue POC.
--- NOTE | 2016-07-27 15:46 | PT.PROG ---
Progress Note Progress Note: S. Patient stated that she is feeling good, she wants to go to the pool. O. Patient ambulated 180 feet to the pool where she performed aquatic exercises for a total of 40 minutes. Patient worked with OT then ambulated 175 feet back to her room where she was left in her chair with alarm and call light. A. Patient continues to tolerate aquatic therapy well, Patient continues to struggle with balance however is making gains with strength and endurance. Patient would continue to benefit from skilled therapy at this time. P. Continue POC.
[2016-07-27] MEDS: ATORVASTATIN 40 MG TABLET PO SCH (20:11)
[2016-07-27] MEDS: QUEtiapine Tab 25 MG TAB PO SCH (20:11)
[2016-07-28] MEDS: HEPARIN 5000 UNIT/1 ML SUBCUT SCH ×3 (05:31→21:01)
[2016-07-28] MEDS: Potassium Chloride Tab 10 MEQ TAB PO SCH (08:26)
[2016-07-28] MEDS: LOSARTAN 50 MG TABLET PO SCH (08:26)
[2016-07-28] MEDS: DIGOXIN 125 MCG TABLET PO SCH (08:26)
[2016-07-28] MEDS: CHOLECALCIFEROL 1000 IU TABLET PO SCH (08:26)
[2016-07-28] MEDS: Metoprolol TARTRATE Tab 50 MG TAB PO SCH ×2 (08:26→20:45)
[2016-07-28] MEDS: HYDRALAZINE 10 MG TABLET PO SCH ×2 (08:26→20:45)
[2016-07-28] MEDS: ASPIRIN 325 MG TABLET PO SCH (08:27)
[2016-07-28] MEDS: PSYLLIUM SEED 1 EACH PACKET PO SCH ×2 (08:27)
--- NOTE | 2016-07-28 11:30 | PT.PROG ---
Progress Note Progress Note: S. Patient stated that she is feeling good today. O. Patient ambulated 175 feet to the therapy gym where she used the nu-step x 12 minutes then performed seated exercises in the form of; heel toe raises, marches, long arc quads all x 10 bilaterally. Patient ambulated 175 feet back to her room where she was left in her chair with alarm and call light. A. Patient continues to tolerate therapy well. She continues to require short rest breaks to recover from fatigue however she is able to perform all tasks. Patient would continue to benefit from skilled therapy at this time. Home evaluation would also be beneficial. P. Continue POC.
--- NOTE | 2016-07-28 14:45 | DCSUMMARY ---
Hospitalization Summary Admit Date: 07/24/16 Discharge Date: 07/29/16 Primary Diagnosis:: weakness and deconditioning Secondary Diagnosis:: Hyponatremia, likely related to hydrochlorothiazide. Hospital Course: This very pleasant 89-year-old female that was originally admitted in the setting of hypertension, suspicion for stroke which was confirmed later with MRI scan, small stroke, and weakness. She was found to be hyponatremic as well. Hydrochlorothiazide was stopped and blood pressures were still controlled. The patient recovered from these events and was transferred to the swing bed for continued physical therapy and occupational therapy. The patient is done well and when I discussed with therapy today, it was stated that the patient was probably at her baseline and would be safe for discharge home. They would like to do a home evaluation which we can arrange tomorrow. Aside from stopping the hydrochlorothiazide, no further interventions. The patient has a sodium currently in the 130s, and she has been consistently in the 130s over time. She really may have a reset Osmo stat. I think the low 130s is normal for her. The patient does have known chronic atrial fibrillation, but is not a candidate for Coumadin,eliquis, or Xarelto, as she had a prior brain bleed in 2010. Aspirin is her mainstay for stroke prevention along with management of hypertension. At this time, I do not think that the patient should escalate her anticoagulation therapy given her history. There is likely to do more harm and potentially could cause another bleeding episode in her brain. She should remain on aspirin and digoxin. Today, no completes of chest pain, shortness breath, nausea or vomiting. She wants to go home tomorrow. Assessment and Plan: 1. As per discharge assessments noted 2. Disposition: Patient is discharged home on 07/29/2016 3. Condition on discharge, stable and improved. 4. Diet: regular diet 5. Activities: resume normal activities, but stop hydrochlorothiazide 6. Follow-Up: 1. See Dr. Combs in a week 2. 7. Medications at the Time of Discharge: Home Medications Medication Instructions Recorded Confirmed Type Hydralazine HCl 20 mg ORAL BID tab 08/28/11 07/24/16 History Losartan Potassium 100 mg ORAL QD tab 08/28/11 07/24/16 History Aspirin [Aspir 81] 325 mg PO DAILY 11/16/12 01/06/17 History Digoxin 125 mcg PO DAILY 12/18/13 07/24/16 History Potassium Chloride 20 meq PO DAILY 12/18/13 07/24/16 History Metoprolol Tartrate 50 mg PO BID #60 tab 01/23/16 07/24/16 Clinic Psyllium 3.4 gm Packet [Metamucil 3.4 gm PO BEDTIME 07/24/16 07/24/16 History 3.4 gm Packet] QUEtiapine Tab [SEROquel Tab] 25 mg PO BEDTIME 07/24/16 07/24/16 History 8. Time, care, counseling and coordination of care for this discharge is less than 30 minutes. Exam - Vitals Vital Signs: Vital Signs Temperature 97.8 F Temperature Source Temporal Artery Scan Pulse Rate [Pulse Oximeter] 67 Pulse Rate [Apical] 72 Pulse Rate 74 Respiratory Rate 17 Blood Pressure [Left Arm] 132/54 Pulse Ox 97 Oxygen Flow Rate 1.5 Oxygen Delivery Method Nasal Cannula Height 5 ft 1 in Weight 124 lb 9.614 oz - General General Appearance: POSITIVE: No Acute Distress, Cooperative - Head Head Exam: POSITIVE: Normal Inspection, Normocephalic, Atraumatic - Eye Eye Exam: POSITIVE: No Scleral Icterus - Respiratory Respiratory Exam: POSITIVE: Clear to Auscultation - Bilaterally, Breathing Non Labored - Cardiovascular Cardiovascular Exam: POSITIVE: RRR, No Murmur, No Clicks, No Gallops, No Rubs, No JVD - GI/Abdominal GI/Abdominal Exam: POSITIVE: Non Tender, Non Distended, Soft - Extremities Extremities Exam: POSITIVE: No Clubbing Present, No Edema Present, No Cyanosis Present - Neurological Neurological Exam: POSITIVE: Alert, Oriented x 3, No Facial Droop, Speech Intact / Clear Data Perinent Studies: Laboratory Results 07/26/16 07/27/16 Range/Units 06:50 06:20 Sodium 131 L 131 L (135-145) meq/L Potassium 4.2 4.3 (3.8-5.2) meq/L Chloride 97 L 98 (98-112) meq/L Carbon Dioxide 27 28 (23-33) meq/L Anion Gap 7 5 (5-20) BUN 27 H 24 H (7-22) mg/dL Creatinine 0.7 0.7 (0.50-1.20) mg/dL Estimated GFR (>60 ml/min/1.73m(2)) BUN/Creatinine Ratio 38.57 H 34.28 H (6-20) Glucose 88 84 (78-110) mg/dL Calculated Osmolality 275.0 274.0 (267-292) mOsm/kg Calcium 8.6 L 8.5 L (8.7-10.7) mg/dL Patient Problems - Patient Problem List (1) Weakness due to cerebrovascular accident Current Visit: Yes Status: Acute (2) Hyponatremia Current Visit: Yes Status: Acute (3) Hypertension Current Visit: Yes Status: Chronic Qualifiers: Hypertension type: essential hypertension Qualified Description: Essential hypertension Qualifier Code(s): (I10) Essential (primary) hypertension (4) CVA (cerebral vascular accident) Current Visit: Yes Status: Acute Qualifiers: CVA mechanism: unspecified Qualified Description: Cerebrovascular accident (CVA), unspecified mechanism Qualifier Code(s): (I63.9) Cerebral infarction, unspecified (5) Chronic atrial fibrillation Current Visit: Yes Status: Chronic
--- NOTE | 2016-07-28 16:14 | OT.PROG ---
Progress Note Progress Note: S: pt states she hopes she gets to go home soon, she feels if she is better. O: pt was seen in the a.m. after nursing accompanied her for a shower. She completed transfer downstairs with [facility] and began with arm bike to increase her activity tolerance for 10 min. pt then completed dynamic sitting balance activity using R or L arm to bump balloon back and forth. pt maintained balance the entire time, but did need vc's to keep feet firmly on floor. Pt completed hand activities to increase FM skills, completing most all tasks with L hand. pt was returned to her room by director child abuse therapy. A: pt completed therapy well with activity tolerance improving. May be nearing baseline. P: continue per plan of care.
--- NOTE | 2016-07-28 16:23 | PT.PROG ---
Progress Note Progress Note: S. Patient stated that she is feeling good today and she wants to go swimming. O. Patient ambulated 180 feet to the pool where she performed aquatic exercises for a total of 40 minutes. Patient ambulated 180 feet back to her room where she was left in her chair with alarm and call light. A. Patient tolerated therapy well this afternoon. Patient continues to require SBG assist and short rest breaks to recover from fatigue. Patient would continue to benefit from skilled therapy, and a home evaluation would be recommended. P. Continue POC.
[2016-07-28] MEDS: ATORVASTATIN 40 MG TABLET PO SCH (20:45)
[2016-07-28] MEDS: QUEtiapine Tab 25 MG TAB PO SCH (20:45)
[2016-07-29] MEDS: HEPARIN 5000 UNIT/1 ML SUBCUT SCH ×2 (05:17→16:12)
[2016-07-29 07:44] VITALS: RESP 18; TEMP 97.6
[2016-07-29] MEDS: DIGOXIN 125 MCG TABLET PO SCH (08:28)
[2016-07-29] MEDS: CHOLECALCIFEROL 1000 IU TABLET PO SCH (08:28)
[2016-07-29] MEDS: Potassium Chloride Tab 10 MEQ TAB PO SCH (08:28)
[2016-07-29] MEDS: Metoprolol TARTRATE Tab 50 MG TAB PO SCH (08:28)
[2016-07-29] MEDS: HYDRALAZINE 10 MG TABLET PO SCH (08:28)
[2016-07-29] MEDS: ASPIRIN 325 MG TABLET PO SCH (08:28)
[2016-07-29] MEDS: LOSARTAN 50 MG TABLET PO SCH (08:29)
[2016-07-29] MEDS: PSYLLIUM SEED 1 EACH PACKET PO SCH ×2 (08:29)
--- NOTE | 2016-07-29 11:06 | PT.PROG ---
Progress Note Progress Note: S. Patient stated that she is feeling good today. She thinks she is ready to go home. O. Patient ambulated 180 feet to the pool where she performed aquatic exercises for a total of 40 minutes. Patient ambulated 180 feet back to her room where she was left in her chair with alarm and call light. A. Patient tolerated therapy well this morning, she continues to enjoy aquatic therapy. Patient continues to require SBG assist and short rest breaks to recover from fatigue. Patient would continue to benefit from skilled therapy in Outpatient. Home eval scheduled for 1529 today. P. Continue POC.
--- NOTE | 2016-07-29 16:49 | OT AM DAY ---
Diagnosis : CVA/Weakness AM - Occupational Therapy S: The patient was in her recliner upon the therapist's arrival. The patient states that she is doing well. O: The patient transferred from recliner to walker and then functionally ambulated into the bathroom. She was able to demonstrate toileting with stand by assist. She also demonstrated upper and lower extremity dressing after set up. The patient was slow and steady with dressing task but was safe. The patient then functionally ambulated down to the therapy department where she participated in upper body ergometer x5 minutes forward and 5 minutes backward. The patient was then transferred to PT. A: The patient is doing very well. She is demonstrating more independence, stability, and confidence with activities. The patient is demonstrating increased spasticity in her left arm but states that she talks to it and applies pressure and it seems to settle down. The patient demonstrated safety with all activities. P: Continue seeing patient BID during the week and one time per day over the weekend for upper extremity strengthening, ADLs, and overall functional mobility. PANKAJ
--- NOTE | 2016-07-30 09:16 | OT PM DAY ---
Diagnosis : CVA/Weakness PM - Occupational Therapy S: The patient reports she is feeling like she is getting back to where she was prior. O: Today occupational therapy worked on a shower with the patient. The patient was able to get into the shower hanging onto grab bars. She did not want to use the shower chair today; she ended up hanging onto the grab bars with both hands. The patient was able to shower self with stand by assist. She was able to get out of the shower with min assist secondary to not having grab bars to transfer to chair. The patient sat in chair and was able to dress upper and lower extremities independently including underwear, pants, socks, and a conductor pullman shirt. The patient used walker for balance to stand when pulling pants up. A: The patient does have some concerns about returning home; she reports that she feels like she is going to fall all the time. She does wear oxygen at home. The Care Conference team decided that a home evaluation would be best for Hailey's safety once she returns home. This will be completed tomorrow. P: Continue seeing patient BID during the week and one time per day over the weekend for upper extremity strengthening, ADLs, and overall functional mobility. PANKAJ
--- NOTE | 2016-07-30 10:28 | OT PM DAY ---
Diagnosis : CVA/Weakness PM - Occupational Therapy S: The patient reports that she still feels pretty weak and she is afraid of falling once she goes home. She still feels like she gets fatigued easier. O: Today we worked on a shower which included the patient showering with min assist. We worked on dressing task; she had a little bit of difficulty with her socks today and her flexibility. She was able to get off her pants with contact guard assist for balance when standing. She is eventually able to dress her right arm independently, but it does take her increased time. We worked on therapeutic exercises and functional activities today to increase fine motor coordination and strength including red power web for flexion and yellow power web for extension. We worked on stringing beads and putting small beads into a container, clothespins for pinch strength, and putty exercises for gross grasp strength. A: The patient still needs some assistance with showering and demonstrates decreased fine motor coordination with the left hand. P: Continue seeing patient BID during the week and one time per day over the weekend for upper extremity strengthening, ADLs, and overall functional mobility. PANKAJ
--- NOTE | 2016-07-31 12:18 | OT PM DAY ---
Diagnosis : CVA/Weakness PM - Occupational Therapy (Home Evaluation) S: The patient and daughter state that they have no concerns at this time and they are ready to have Vera return home. O: The patient left the hospital and went home for a home evaluation. Daughter was present during session. Daughter walked with patient to the car. The patient was able to demonstrate getting in and out of the vehicle safely with a front wheeled walker. The patient arrived at home and used elements around the garage to walk into the home where she ambulated up three stairs while holding onto hand rail. The patient functionally ambulated with a walker that is at the top of her stairs into the kitchen. Kitchen: The patient demonstrated safety by sitting in kitchen chair that is on wheels by reaching back and checking for the chair. It was recommended that the patient push the chair against the counter so that the chair would not move when she sits down. The patient demonstrated the ability to get a frying mccormick, eggs out of the refrigerator, and a spatula as she cooks eggs every morning. The patient was able to reach into the cupboard to get down a glass and a plate. She was able to reach down under the stove to get the frying mccormick. She was able to open the refrigerator and bring two eggs to the counter with use of her walker. It was recommended to the daughter that they get a tray to put on the walker to accommodate carrying items throughout the kitchen and living room area. The patient then transferred to the living room area. Living room: The patient had to descend four stairs to get into the living room. The patient had taken off her oxygen and threw it over the railing and retrieved it on the other side. She demonstrated getting in and out of her recliner. Bathroom: The patient transferred to the bathroom where she performed toileting task independently including all transfers. The patient then functionally ambulated out of the bathroom. The patient was educated on keeping oxygen on and clearing off the rail that is covered with coats that is currently blocking the oxygen area so that she would not have to throw the oxygen tubing over the railing when going from the living room to the kitchen area. The patient was hesitant but agreed to allow therapist to move the jackets to the other railing and demonstrated understanding and stated that she thought it would be easier and she would be willing to wear her oxygen regularly. The patient functionally ambulated and practiced leaving the oxygen on. She then transferred into the dining room. Dining room: The patient transferred into her dining room chair with verbal cues to push it against the counter and then sitting with safety. After a rest break the patient functionally ambulated to the stairs going upstairs. She does have a chair lift that goes up to the higher level where the bedroom is at. She was able to transfer upstairs appropriately. At the top of the stairs there is another front wheeled walker that she transferred to and then functionally ambulated into the bedroom, demonstrating safety with her oxygen cord. Bedroom/Bathroom: The patient was able to demonstrate getting in and out of her bed safely and demonstrated going into the bathroom, sitting on the toilet, and getting herself up. There is a grab bar available to help with toilet transfers. There was a throw rug on the floor upon arrival. The patient agreed to remove the throw rug and putting it in storage. The patient then demonstrated getting into the shower where she does have a shower chair and also a hand held shower head. She has two grab bars within the shower area also. When the patient sat on the shower chair the chair did move to the side a little bit. The patient was educated on holding both grab bars that were available to her and then sitting on the shower chair to promote safety. The patient demonstrated understanding and reported that this was helpful to her. The patient then functionally ambulated back down to the kitchen area where the patient, the patient's daughter, and the therapist had a discussion about recommendations. RECOMMENDATIONS: 1. Place colored tape around the clear part of the oxygen tubing to make it more apparent to her and to attach a bag to her walker to hold her oxygen tubing so that she does not trip over it. 2. Patient was educated on using oxygen / except to take off her shirt. She has a tendency to leave her oxygen behind when she goes on outings and she has a tendency to throw it over the railing during functional ambulation. The patient has a tendency to take a shower without her oxygen on. She feels that it is not necessary to wear her oxygen and feels fine. Daughter states that she is concerned. The therapist educated the patient on the importance of oxygen to the system with cognition, balance, and to help decrease swelling in her legs. The patient was willing to attempt to wear her oxygen 08/02. The patient also has a carrier so when she is in public she is able to take her oxygen. 3. Patient may possibly use a four wheeled walker when out and about to help assist with ambulation while carrying oxygen. Patient should have a night light that she can touch beside her bed. She normally has to turn off all of her lights and there is a night light in the adjoining bathroom. It would be safer to add a touch lamp so that the patient has more visibility when getting up in the night. 4. There were obstacles on the staircase, making it hazardous to go up and down the stairs. Daughter has removed these items for a safer entry. 5. It was recommended the patient get a LifeLine. The patient states she does have a LifeLine and has not had it placed on her since she returned home. The LifeLine was placed on the patient prior to the therapist leaving the patient's home. P: Patient is discharged to home. The patient will resume outpatient physical therapy. PANKAJ
== END 2016-07-29 16:45 | disposition home or self-care (01) | DRG 57 ==
LOC: MED/SURG 11:01
PROVIDERS: ADMIT Internal Medicine; ATTEND Internal Medicine
DX: I69.359 Hemiplegia and hemiparesis following cerebral infarction affecting unspecified side (principal); E87.1 Hypo-osmolality and hyponatremia; I10 Essential (primary) hypertension; I48.2 Chronic atrial fibrillation; R60.9 Edema, unspecified
CPT/HCPCS: 36415; 80048; 94761; 97110; 97530; 97535; J1644

== ENCOUNTER 2016-08-22 11:50 | Inpatient (IN) | payer OTHER, MEDICARE ==
[2016-08-22] MEDS ORDERED: NORMAL SALINE 10 ML SYRINGE FLUSH IVP PRN ×2 (12:08→14:19)
[2016-08-22 12:25] LABS: HEMATOCRIT 34.8 % (37.0-47.0); HEMOGLOBIN 12.1 g/dL (12.0-16.0); MEAN CORPUSCULAR HGB CONC 34.8 g/dL (33-37); MEAN PLATELET VOLUME 8.5 FL (7.4-12.2); RDW COEFFICIENT OF VARIATION 14.9 % (11.5-14.5); RED BLOOD COUNT 4.04 10^6/uL (4.20-5.40); WHITE BLOOD COUNT 7.08 10^3/uL (4.8-10.8)
--- NOTE | 2016-08-22 12:26 | PDOC ---
General Adult HPI - General Chief Complaint: Palpitations Stated Complaint: slow heart rate Date Seen by Provider: 08/22/16 Time Seen by Provider: 12:10 Source: POSITIVE: Patient, Other (daughter) Nurse's Notes Reviewed & Considered: Yes - History of Present Illness Initial Comment: The patient is an 89-year-old female who presents to the emergency room with several issues. She was hospitalized on July 20 with the stroke. She remained in the hospital until July 28 at which time she was discharged with continued physical therapy as an outpatient. Over the past week or so she seems to have increased general weakness and malaise. She is also noticed increased edema in her legs and some increase shortness of breath. She states she has had some chest pains at times although none currently. In addition today she woke up with a throbbing headache. They checked her blood pressure at home and her pulse was low in the 40s. She does have a history of chronic atrial fibrillation for which she takes metoprolol and digitoxin. Her daughter reports that when she was in the hospital she did undergo diuresis with Lasix however she has not been on any diuretics at home. The patient states that she does does not feel well in general. Have you received a tetanus shot in the past 10 years?: Unknown - Patient Home Medications Home Medications: Home Medications Aspirin [Aspir 81] 325 mg PO DAILY 06/03/12 Digoxin 125 mcg PO DAILY 12/18/13 Psyllium 3.4 gm Packet [Metamucil 3.4 gm Packet] 3.4 gm PO BEDTIME 07/24/16 Acetaminophen [Tylenol] 650 mg PO 08/22/16 Doxazosin Mesylate 2 mg PO DAILY 08/22/16 Hydralazine HCl 20 mg PO DAILY 08/22/16 Losartan Potassium 100 mg PO DAILY 08/22/16 Metoprolol Succinate 50 mg PO DAILY 08/22/16 Oxygen 2 DAILY 08/22/16 - Patient Allergies Allergies/Adverse Reactions: Allergies Allergy/AdvReac Type Severity Reaction Status Date / Time amlodipine Allergy CHEST PAIN Verified 08/22/16 12:01 OR TIGHTNESS hydrochlorothiazide Allergy Anaphylaxis Verified 08/22/16 12:01 Past Medical History - heen HEENT History: Macular Degeneration, Hard of Hearing, Dentures/Partials, Other ( please comment) Additional HEENT History: nose bleeds Cardiovascular History: Hypertension, Arrhythmia Additional Cardiovasular History: Afib Respiratory History: Denies History, Other (please comment) Additional Respiratory History: previous smoker, quit 27 years ago; on continuous O2 @ 2. L/NC Gastrointestinal History: GERD Genitourinary History: Recurrent UTI Endocrine History: Denies History Musculoskeletal History: Arthritis Prosthesis or Implant: No Neurological History: CVA Additional Neurological History: cva was 02/2012. 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 stroke 07/20/16 Blood Disorders: Denies History Psychiatric History: Denies History History of Sexually Transmitted Diseases: No Cancer History: Other (please comment) In Past Year Been Physically Harmed or Verbally Threatened: No History of MDRO: No History of Other Communicable Diseases: No Tobacco Use: Former Smoker Alcohol Use: Rarely Substance Use Type: None Previous Surgical History: Yes Type / Date of Surgery: SEE ABOVE Anesthesia Reactions: No Malignant Hyperthermia: No Significant Family History: Asthma, Cancer, Hypertension Past Medical History Reviewed: Reviewed - No Changes ROS - Limitations ROS Limitations: No Limitations Constitution: DENIES: Chills, Fever Cardiovascular: REPORTS: Chest Pain (She has had occasional chest pains off and on, none currently), Edema. DENIES: Heart Palpitations Respiratory: REPORTS: Shortness Of Breath. DENIES: Cough Non Productive, Cough Productive Neurological: REPORTS: Headache, Weakness (Generalized weakness). DENIES: Numbness Gastrointestinal: REPORTS: Denies GI Symptoms. DENIES: Abdominal Pain Endocrine: REPORTS: Fatigue Musculoskeletal: REPORTS: Lower Extremity Swelling Genitourinary: REPORTS: Denies Symptoms. DENIES: Dysuria Eyes: REPORTS: Denies Symptoms ENT: REPORTS: Denies Symptoms Skin: DENIES: Rash General Adult Exam - General Appearance General Appearance: POSITIVE: Alert, Cooperative, No Acute Distress - HEENT HEENT: POSITIVE: Head Inspection Nml, Eyes Inspection Nml, Ears Inspection Nml, Nose Inspection Nml - Neck Neck: POSITIVE: Normal Inspection. NEGATIVE: Lymphadenopathy - Respiratory Respiratory: POSITIVE: No Respiratory Distress, Breath Sounds Normal (Decreased breath sounds bilaterally) - Cardiovascular Cardiovascular: POSITIVE: Other (She does have an irregularly irregular heart rate with a rate between the 40s and 60s) - Abdomen Abdomen: Soft: (All Quadrants), Denies Tenderness: (All Quadrants), No Distention: (All Quadrants) - Back Back: POSITIVE: Normal Inspection - Skin Skin: POSITIVE: Normal Color, No Rash - Extremities Extremity: Normal ROM: (All Extremities) Additional Extremities Details: She does have 2+ pitting edema in the lower extremities bilaterally, compression stockings are on - Neurological / Psychological Neurological: POSITIVE: Oriented X3, health policy analyst Normal As Tested, Other (No focal neurologic deficit) General Adult Progress - Results Reviewed by me Xrays/CTs/US Reviewed by me: Yes Discussed with Radiologist: Yes Radiology Findings: CT scan of her head reveals a hypodense region most likely representing a subacute infarct, no evidence of acute hemorrhage or other changes per radiologist. Chest x-ray does show borderline cardiomegaly with possibly some increased interstitial findings consistent with CHF. Lab Results Reviewed: Yes Lab Results:: Laboratory Results 08/22/16 Range/Units 12:15 WBC 7.08 (4.8-10.8) 10^3/uL RBC 4.04 L (4.20-5.40) 10^6/uL Hgb 12.1 (12.0-16.0) g/dL Hct 34.8 L (37.0-47.0) % MCV 86.1 (81-99) FL MCH 30.0 (27-31) PG MCHC 34.8 (33-37) g/dL RDW Std Deviation 46.3 (39-50) fL RDW Coeff of Alessandro 14.9 H (11.5-14.5) % Plt Count 155 (140-350) 10*3/uL MPV 8.5 (7.4-12.2) FL Neutrophils % (Manual) 88 H (50-80) % Band Neutrophils % 1 (0-10) % Lymphocytes % (Manual) 8 L (10-50) % Monocytes % (Manual) 3 (0-12) % Eosinophils % (Manual) 0 (0-8) % Basophils % (Manual) 0 (0-1) % Metamyelocytes % Not Reportable Myelocytes % Not Reportable Promyelocytes % Not Reportable Blast Cells Not Reportable WBC Morphology Comment Normal morphology (NORM) Plt Morphology Comment Normal morphology (NORM) RBC Morph Comment Normal morphology (NORM) Sodium 122 L (135-145) meq/L Potassium 4.4 (3.8-5.2) meq/L Chloride 85 L (98-112) meq/L Carbon Dioxide 27 (23-33) meq/L Anion Gap 10 (5-20) BUN 17 (7-22) mg/dL Creatinine 0.7 (0.50-1.20) mg/dL Estimated GFR (>60 ml/min/1.73m(2)) BUN/Creatinine Ratio 24.28 H (6-20) Glucose 100 (78-110) mg/dL Calculated Osmolality 255.0 L (267-292) mOsm/kg Calcium 9.1 (8.7-10.7) mg/dL Magnesium 1.9 (1.6-2.4) mg/dL Total Bilirubin 1.0 (0.3-1.2) mg/dL AST 30 (8-39) IU/L ALT 52 (9-52) IU/L Alkaline Phosphatase 58 (38-126) IU/L Total Creatine Kinase 43 (30-136) IU/L Troponin I < 0.012 (< 0.040) ng/mL C-Reactive Protein 0.8 (0.0-0.9) mg/dL NT-Pro-B Natriuret Pep 2570 H (0-450) PG/ML Total Protein 6.0 L (6.1-8.0) g/dL Albumin 4.0 (3.5-4.8) g/dL Globulin 2.0 L (2.50-4.10) g/dL Albumin/Globulin Ratio 2.00 (1.3-2.0) mg/g Digoxin 1.2 (0.8-2.0) ng/mL EKG Interpretation:: POSITIVE: Other (She does have atrial fibrillation with a slow ventricular rate at 49, no acute ST segment or T-wave changes) - Patient's Progress MDM / ED Course: The patient was hypotensive with a blood pressure of 180/100 on arrival. She was complaining of slow heart rate and headache on arrival as well as general malaise. Her initial EKG showed atrial fibrillation which is chronic with no acute changes with a rate in the 40s. Her telemetry monitoring revealed heart rate in the 40s to 60s. Because of her headache and elevated blood pressure is CT scan of her head was ordered which shows a subacute infarct likely related to her recent stroke however no evidence of intracranial hemorrhage. In addition her blood work reveals significantly elevated BNP as well as a sodium of 122. At this point some of her general malaise may be secondary to her hyponatremia which is chronic however her usual sodium is around 130. In addition she has some component of congestive heart failure. At this point felt it was best that she be admitted for further treatment and evaluation if needed. The patient and her daughter in agreement with this plan. Dr. Saba has agreed to admit the patient. - Consult Counseled: POSITIVE: Patient, Family, RE: Lab Results, RE: Radiology Results, RE : DX Patient Care Time - Estimated PCT Patient Care Time (In Minutes): 45 Vital Signs - Recent Vital Signs Vital Signs: Vital Signs (Last 8 hours) Temp Pulse Resp BP Pulse Ox 08/22/16 12:09 97.1 F 57 L 12 185/100 94 - VS Reviewed Vital Signs Reviewed: Yes Discharge Clinical Impression: Chronic atrial fibrillation, Hyponatremia, Weakness, Bradycardia, Congestive heart failure Discharge Disposition: Admit to Inpatient Condition: Fair Date Decision to Admit to Inpatient: 08/22/16 Time Decision to Admit to Inpatient: 13:45
[2016-08-22 12:38] LABS: PLATELET MORPHOLOGY COMMENT NORMAL MORPHOLOGY (NORM)
[2016-08-22 12:39] LABS: BAND NEUTROPHILS % 1 % (0-10); BASOPHILS % (MANUAL) 0 % (0-1); BUN/CREATININE RATIO 24.28 (6-20); C-REACTIVE PROTEIN 0.8 mg/dL (0.0-0.9); CALCIUM 9.1 mg/dL (8.7-10.7); CREATININE 0.7 mg/dL (0.50-1.20); EOSINOPHILS % (MANUAL) 0 % (0-8); LYMPHOCYTES % (MANUAL) 8 % (10-50); MAGNESIUM 1.9 mg/dL (1.6-2.4); MONOCYTES % (MANUAL) 3 % (0-12); NEUTROPHILS % (MANUAL) 88 % (50-80); POTASSIUM 4.4 meq/L (3.8-5.2)
--- NOTE | 2016-08-22 14:02 | EKG ---
[address] [place] [address] Measurements Intervals [place] Rate: 49 P: LA: 0 QRS: 103 QRSD: 141 T: 44 QT: 443 QTc: 414 Interpretive Statements ATRIAL FIBRILLATION WITH SLOW VENTRICULAR RESPONSE RIGHT AXIS DEVIATION RIGHT BUNDLE BRANCH BLOCK Compared to ECG 07/22/2016 08:11:24 T-wave abnormality no longer present Possible ischemia no longer present Electronically Signed On 08-23-16 13:46:18 MST by Orville Dolan [email or web address]
[2016-08-22] MEDS ORDERED: ONDANSETRON 4 MG/2 ML VIAL IVP PRN (14:19)
[2016-08-22] MEDS ORDERED: HEPARIN 5000 UNIT/1 ML ONE (15:19)
[2016-08-22] MEDS: HEPARIN 5000 UNIT/1 ML SUBCUT SCH ×2 (15:19→21:33)
[2016-08-22] MEDS ORDERED: FUROSEMIDE 20 MG TABLET PO ONE (17:20)
--- NOTE | 2016-08-22 17:26 | PDOC ---
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 She came in accompanied by her daughter whom she lives with today complaining of just not feeling very well. She states that she has a hard time describing what her symptoms are. Her daughter helps provide some of the history and overall states that the patient is been very weak. They noticed that the patient had a low heart rate today and brought her in for evaluation. In the emergency room, the patient's heart rate was in the 40s. She has been on a beta inocente, and digoxin for atrial fibrillation. Apparently, the patient's had to have a pacemaker for severe bradycardia prior to his . The patient herself states that outside of her heart rate, she just feels more weak and less energy. Symptoms seem to have been worse in the last 3-4 days. No fevers or chills have been noted. The sodium has also been noted to be at 122 today which is down from where I think the patient normally is in the 130s. I do suspect that she had a reset Osmo stat in relation to her intracranial bleed in the past. No interventions were tried prior to coming into the emergency room. There is some confusion from the patient and her daughter in terms of whether she is on metoprolol tartrate twice a day or metoprolol succinate once a day. Both are listed or written and on her medication list that she follows. She does note that she's had increased edema in her lower extremities. Past Medical History Medical History: 1. Chronic A. fib. 2. hypertension. 3. Chronic hyponatremia. 4. History of cerebrovascular bleed. 5. History of recent embolic stroke. Surgical History: WAI HOLE (SKULL)TO DRAIN BLOOD W/ STROKE Pertinent Family History: Significant for coronary artery disease in both of her parents who in their 80s. Past Social History: Used to smoke but no longer does. Lives with her daughter here in [facility]. Gets her care in [place] with Dr. Combs. Does not drink alcohol. Tobacco Use: Former Smoker Substance Use Type: None Alcohol Use: None Medication / Allergies Home Medications: Home Medications Medication Instructions Recorded Confirmed Type Aspirin [Aspir 81] 325 mg PO DAILY 06/03/12 08/22/16 History Digoxin 125 mcg PO DAILY 12/18/13 08/22/16 History Psyllium 3.4 gm Packet [Metamucil 3.4 gm PO BEDTIME 07/24/16 08/22/16 History 3.4 gm Packet] Acetaminophen [Tylenol] 650 mg PO 08/22/16 History Doxazosin Mesylate 2 mg PO DAILY 08/22/16 08/22/16 History Hydralazine HCl 20 mg PO DAILY 08/22/16 08/22/16 History Losartan Potassium 100 mg PO DAILY 08/22/16 08/22/16 History Metoprolol Succinate 50 mg PO DAILY 08/22/16 08/22/16 History Oxygen 2 DAILY 08/22/16 History Allergies/Adverse Reactions: Allergies Allergy/AdvReac Type Severity Reaction Status Date / Time amlodipine Allergy CHEST PAIN Verified 08/22/16 12:01 OR TIGHTNESS hydrochlorothiazide Allergy Anaphylaxis Verified 08/22/16 12:01 Review of Systems - Review of Systems All Systems: Reviewed & No Additional Complaints Except as Stated (I did a 12 point review systems which was negative other than that discussed in the history of present illness and that noted below.) - Constitutional Constitutional: REPORTS: General Health Fair, Weakness - Cardiovascular Cardiovascular: REPORTS: Other (Has atrial fibrillation, but no chest pain and no palpitations.) - Gastrointestinal Gastrointestinal / Abdominal: REPORTS: Other (Takes fiber daily, but does not complain of constipation.) - Neurological Neurologic: REPORTS: Other (Had a recent embolic stroke.) Exam - Vitals Vital Signs: Vital Signs Temperature 99 F Temperature Source Temporal Artery Scan Pulse Rate [Pulse Oximeter] 59 Pulse Rate 53 Respiratory Rate 20 Blood Pressure [Left Arm] 122/45 Pulse Ox 99 Oxygen Flow Rate 2 Oxygen Delivery Method Nasal Cannula Height 5 ft Weight 135 lb - General General Appearance: POSITIVE: No Acute Distress, Cooperative - Head Head Exam: POSITIVE: Normal Inspection, Normocephalic, Atraumatic - Eye Eye Exam: POSITIVE: No Scleral Icterus - ENT ENT Exam: POSITIVE: Mucous Membranes Moist - Neck Neck Exam: POSITIVE: Normal Inspection, No Tenderness, No Thyromegaly - Respiratory Respiratory Exam: POSITIVE: Clear to Auscultation - Bilaterally, Breathing Non Labored, Normal to Percussion and Palpation - Cardiovascular Cardiovascular Exam: POSITIVE: No Murmur, No Clicks, No Gallops, No Rubs, Bradycardia, No JVD - GI/Abdominal GI/Abdominal Exam: POSITIVE: Normal Bowel Sounds, Non Tender, Non Distended, Soft - Rectal Rectal Exam: POSITIVE: Deferred - External Exam: POSITIVE: Deferred Exam: POSITIVE: Deferred - Extremities Extremities Exam: POSITIVE: No Clubbing Present, No Cyanosis Present, +1 Edema - Back Back Exam: POSITIVE: No CVA Tenderness - Neurological Neurological Exam: POSITIVE: Alert, Oriented x 3, No Facial Droop, Speech Intact / Clear, Moves All Extremities Equally - Psychiatric Psychiatric Exam: POSITIVE: Normal Affect, Normal Mood Results - Labs CBC and BMP: 08/22/16 12:15 08/22/16 12:15 Labs - Last 24 Hours: Laboratory Results 08/22/16 Range/Units 12:15 WBC 7.08 (4.8-10.8) 10^3/uL RBC 4.04 L (4.20-5.40) 10^6/uL Hgb 12.1 (12.0-16.0) g/dL Hct 34.8 L (37.0-47.0) % MCV 86.1 (81-99) FL MCH 30.0 (27-31) PG MCHC 34.8 (33-37) g/dL RDW Std Deviation 46.3 (39-50) fL RDW Coeff of Alessandro 14.9 H (11.5-14.5) % Plt Count 155 (140-350) 10*3/uL MPV 8.5 (7.4-12.2) FL Neutrophils % (Manual) 88 H (50-80) % Band Neutrophils % 1 (0-10) % Lymphocytes % (Manual) 8 L (10-50) % Monocytes % (Manual) 3 (0-12) % Eosinophils % (Manual) 0 (0-8) % Basophils % (Manual) 0 (0-1) % Metamyelocytes % Not Reportable Myelocytes % Not Reportable Promyelocytes % Not Reportable Blast Cells Not Reportable WBC Morphology Comment Normal morphology (NORM) Plt Morphology Comment Normal morphology (NORM) RBC Morph Comment Normal morphology (NORM) Sodium 122 L (135-145) meq/L Potassium 4.4 (3.8-5.2) meq/L Chloride 85 L (98-112) meq/L Carbon Dioxide 27 (23-33) meq/L Anion Gap 10 (5-20) BUN 17 (7-22) mg/dL Creatinine 0.7 (0.50-1.20) mg/dL Estimated GFR (>60 ml/min/1.73m(2)) BUN/Creatinine Ratio 24.28 H (6-20) Glucose 100 (78-110) mg/dL Calculated Osmolality 255.0 L (267-292) mOsm/kg Calcium 9.1 (8.7-10.7) mg/dL Magnesium 1.9 (1.6-2.4) mg/dL Total Bilirubin 1.0 (0.3-1.2) mg/dL AST 30 (8-39) IU/L ALT 52 (9-52) IU/L Alkaline Phosphatase 58 (38-126) IU/L Total Creatine Kinase 43 (30-136) IU/L Troponin I < 0.012 (< 0.040) ng/mL C-Reactive Protein 0.8 (0.0-0.9) mg/dL NT-Pro-B Natriuret Pep 2570 H (0-450) PG/ML Total Protein 6.0 L (6.1-8.0) g/dL Albumin 4.0 (3.5-4.8) g/dL Globulin 2.0 L (2.50-4.10) g/dL Albumin/Globulin Ratio 2.00 (1.3-2.0) mg/g Digoxin 1.2 (0.8-2.0) ng/mL - EKG Data -: EKG Interpreted by Ca Rate: Bradycardia - EKG Data EKG Interpretation: Nonspecific ST-T Wave Changes AFib Stroke Risk Screening - AFib Stroke Risk (CHADS-VASc) Atrial Fibrillation Ischemic Stroke Risk Factors: Female (The patient is high risk, but because of her intracranial bleed is not a candidate for Coumadin and due to her age and life expectancy, it is deemed that her risk for being on factor X A inhibitors is not a good idea either.), Age 75 years or older, Stroke , TIA or TE CHADS-VASc Score (A-Fib Stroke Risk Score): 5 CHADS-VASc Risk: High Risk Assessment and Plan - Patient Problems (1) Congestive heart failure Current Visit: Yes Status: Acute Qualifiers: Congestive heart failure type: unspecified congestive heart failure type Congestive heart failure chronicity: acute Qualified Description: Acute congestive heart failure, unspecified congestive heart failure type Qualifier Code(s): (I50.9) Heart failure, unspecified (2) Bradycardia Current Visit: Yes Status: Acute (3) Generalized weakness Current Visit: Yes Status: Acute (4) Hyponatremia Current Visit: Yes Status: Acute Comment: The patient has edema and otherwise appears euvolemic, I think this is more likely hyponatremia in the setting of congestive heart failure. (5) Chronic atrial fibrillation Current Visit: Yes Status: Chronic (6) CVA (cerebral vascular accident) Current Visit: No Status: Acute Qualifiers: CVA mechanism: embolism Precerebral and cerebral artery: unspecified precerebral artery Qualified Description: Cerebrovascular accident (CVA) due to embolism of precerebral artery Qualifier Code(s): (I63.10) Cerebral infarction due to embolism of unspecified precerebral artery (7) Pitting edema Current Visit: Yes Status: Acute (8) Hypertension Current Visit: Yes Status: Chronic Qualifiers: Hypertension type: essential hypertension Qualified Description: Essential hypertension Qualifier Code(s): (I10) Essential (primary) hypertension - Assessment / Plan Additional Assessment/Plan Details: Admit the patient Cutback on beta inocente by half the dose and stop digoxin. Continue aspirin with atrial fibrillation. Get echocardiogram. Trial low-dose Lasix, by mouth. I think it would be too much to start IV diuresis right away for her. Check labs tomorrow. CODE STATUS is DO NOT RESUSCITATE, I discussed with the patient. Physical therapy and occupational therapy. With temperature 99.0, watch for any potential fevers, and workup thus appropriately if that develops. No infectious symptoms on exam or in history today. Patient's daughter and the patient agree with the plan above.
[2016-08-22] MEDS ORDERED: FUROSEMIDE 20 MG TABLET ONE (17:47)
[2016-08-22] MEDS: ACETAMINOPHEN 325 MG TABLET PO PRN (21:10)
[2016-08-22] MEDS: PSYLLIUM SEED 1 EACH PACKET PO SCH ×2 (21:10)
--- NOTE | 2016-08-23 04:23 | DI ---
AP CHEST X-RAY, 08/22/2016 11:08 AM : Clinical History: Hypoxia. Edema. Previous Exam: 07/20/2016. There is no acute soft tissue or bony abnormality. There is cardiomegaly with CHF. Perivascular hazin ess is present indicating interstitial pulmonary edema. There is no acute infiltrate or effusion. Med iastinal structures are normal. There are no pulmonary nodules. Reading: Cardiomegaly with CHF. CHF was not present on the previous exam.
--- NOTE | 2016-08-23 04:23 | DI ---
HISTORY: Headache, elevated blood pressure. COMPARISON STUDIES: None available. TECHNIQUE: Contiguous 5 mm images were obtained from the vertex through the skull base without the us e of intravenous contrast. 36 images. FINDINGS: Evidence of prior left sub occipital craniotomy, with focal left cerebellar volume loss, li johana a combination of prior infarct/injury and/or treatment related changes, Ill defined hypoattenuation in the left paracentral lobule is noted. Mild senescent volume loss is ev ident with ex vacuo enlargement of the ventricles and CSF spaces. There is scattered patchy areas of hypoattenuation of the supratentorial white matter consistent with chronic small vessel ischemic mcnulty ges. [place]-white differentiation is maintained. No dense vessel sign, obscuration of the basal ganglia, loss of insular ribbon or other evidence of a cute vascular territorial infarction. There is no evidence of acute intracranial hemorrhage, herniati on or hydrocephalus. Atherosclerotic vascular calcifications of the anterior and posterior circulation. No evidence of calvarial fracture. Visualized portions of the skullbase and craniocervical junction a ppear normal. Paranasal sinuses are clear. Evidence of prior ocular surgery. Otherwise unremarkable a ppearance of the orbits and intraorbital contents. IMPRESSION: 1. Age indeterminate area of hypoattenuation involving the medial posterior frontal and anterior willis etal lobes. Correlate with prior imaging and clinical presentation for history or new signs of infarc tion. 2. No evidence of acute intracranial hemorrhage, herniation or hydrocephalus. 3. Post operative and treatment related changes in the left posterior fossa.
[2016-08-23] MEDS: HEPARIN 5000 UNIT/1 ML SUBCUT SCH ×3 (05:46→22:10)
[2016-08-23 06:39] LABS: BASOPHILS # (AUTO) 0.05 10*3/UL; EOSINOPHILS % (AUTO) 2.7 % (0-8); HEMATOCRIT 33.8 % (37.0-47.0); HEMOGLOBIN 11.6 g/dL (12.0-16.0); IMM GRAN % (AUTO) 0.2 % (0-5); IMM GRAN# (AUTO) 0.01 10*3/UL; LYMPHOCYTES # (AUTO) 0.61 10*3/uL; MEAN CORPUSCULAR HEMOGLOBIN 30.1 PG (27-31); MEAN CORPUSCULAR HGB CONC 34.3 g/dL (33-37); MONOCYTES # (AUTO) 0.65 10*3/UL (0.3-0.8); MONOCYTES % (AUTO) 12.7 % (5-15); NEUTROPHILS # (AUTO) 3.64 10*3/UL; NEUTROPHILS % (AUTO) 71.4 % (50-80); RDW COEFFICIENT OF VARIATION 14.9 % (11.5-14.5); RED BLOOD COUNT 3.86 10^6/uL (4.20-5.40)
[2016-08-23 06:49] LABS: CALCIUM 8.7 mg/dL (8.7-10.7); CREATININE 0.7 mg/dL (0.50-1.20); MAGNESIUM 1.9 mg/dL (1.6-2.4); POTASSIUM 4.1 meq/L (3.8-5.2)
[2016-08-23 06:50] LABS: PLATELET MORPHOLOGY COMMENT NORMAL MORPHOLOGY (NORM)
[2016-08-23] MEDS: ASPIRIN 325 MG EC TABLET PO SCH (08:40)
[2016-08-23] MEDS: DOXAZOSIN 2 MG TABLET PO SCH (08:40)
[2016-08-23] MEDS: FUROSEMIDE 20 MG TABLET PO SCH ×2 (08:40→13:09)
[2016-08-23] MEDS: LOSARTAN 50 MG TABLET PO SCH (08:40)
[2016-08-23] MEDS: METOPROLOL SUCCINATE 25 MG SR 24H TABLET PO SCH (08:43)
[2016-08-23] MEDS ORDERED: HYDRALAZINE 10 MG TABLET PO SCH (09:00)
[2016-08-23] MEDS ORDERED: METOPROLOL SUCCINATE 50 MG SR 24H TABLET PO SCH (09:00)
--- NOTE | 2016-08-23 10:05 | PDOC(PROG) ---
Date and Time of Service: 08/23/2016 10 AM Interval History: Subjective Patient is denying symptoms, she is denying chest pain, shortness of breath. She did report when asked specifically about swelling in her legs she did mention some swelling in her legs. She couldn't tell me for how long. She knew it was Super Bowl day but she couldn't tell me the month or the day. She knew the year. Objective : Data - Labs CBC and BMP: 08/23/16 06:24 08/23/16 06:24 Labs - Last 24 Hours: Laboratory Results 08/23/16 Range/Units 06:24 WBC 5.10 (4.8-10.8) 10^3/uL RBC 3.86 L (4.20-5.40) 10^6/uL Hgb 11.6 L (12.0-16.0) g/dL Hct 33.8 L (37.0-47.0) % MCV 87.6 (81-99) FL MCH 30.1 (27-31) PG MCHC 34.3 (33-37) g/dL RDW Std Deviation 47.2 (39-50) fL RDW Coeff of Alessandro 14.9 H (11.5-14.5) % Plt Count 143 (140-350) 10*3/uL MPV 9.0 (7.4-12.2) FL Immature Gran % (Auto) 0.2 (0-5) % Neut % (Auto) 71.4 (50-80) % Lymph % (Auto) 12.0 (10-50) % [place] % (Auto) 12.7 (5-15) % Eos % (Auto) 2.7 (0-8) % Baso % (Auto) 1.0 (0-1) % Immature Gran # (Auto) 0.01 10*3/UL Neut # (Auto) 3.64 10*3/UL Lymph # (Auto) 0.61 10*3/uL [place] # (Auto) 0.65 (0.3-0.8) 10*3/UL Eos # (Auto) 0.14 10*3/UL Baso # (Auto) 0.05 10*3/UL WBC Morphology Comment Normal morphology (NORM) Plt Morphology Comment Normal morphology (NORM) RBC Morph Comment Normal morphology (NORM) Sodium 126 L (135-145) meq/L Potassium 4.1 (3.8-5.2) meq/L Chloride 91 L (98-112) meq/L Carbon Dioxide 28 (23-33) meq/L Anion Gap 7 (5-20) BUN 21 (7-22) mg/dL Creatinine 0.7 (0.50-1.20) mg/dL Estimated GFR (>60 ml/min/1.73m(2)) BUN/Creatinine Ratio 30.00 H (6-20) Glucose 83 (78-110) mg/dL Calculated Osmolality 263.0 L (267-292) mOsm/kg Calcium 8.7 (8.7-10.7) mg/dL Magnesium 1.9 (1.6-2.4) mg/dL Objective : Exam - General General Appearance: No Acute Distress, Cooperative - Head Head Exam: Normal Inspection, Atraumatic - Eye Eye Exam: Normal Appearance - ENT ENT Exam: Normal Exam - Neck Neck Exam: Normal Inspection - Respiratory Respiratory Exam: Clear to Auscultation - Bilaterally - Cardiovascular Cardiovascular Exam: Irregular Rhythm - GI/Abdominal GI/Abdominal Exam: Normal Bowel Sounds, Non Tender, Non Distended, Soft - Rectal Rectal Exam: Deferred - External Exam: Deferred - Extremities Additional Extremities Exam Details: Edema noted in her legs. - Back Back Exam: Normal Inspection - Neurological Neurological Exam: Alert, CN II-XII Intact, Speech Intact / Clear Additional Neurological Exam Details: She couldn't tell me the day, the month but she knew the year. She knew that it 's Super Bowl day - Psychiatric Psychiatric Exam: Normal Affect Assessment and Plan - Patient Problems (1) Chronic atrial fibrillation Current Visit: Yes Status: Chronic Comment: She did have a bradycardia by report and medication where changed the digoxin was discontinued and the dosage of the beta inocente was lowered. I think we'll keep the same dosage and see what happens to her heart rate. She is on aspirin for prophylaxis. (2) Pitting edema Current Visit: Yes Status: Acute Comment: She is on Lasix continue. (3) Hypertension Current Visit: Yes Status: Chronic Comment: Same medications. Qualifiers: Hypertension type: essential hypertension Qualified Description: Essential hypertension Qualifier Code(s): (I10) Essential (primary) hypertension (4) Congestive heart failure Current Visit: Yes Status: Acute Comment: She is on Lasix at a lower dosage we'll repeat her BNP tomorrow and echo was ordered. Qualifiers: Congestive heart failure type: unspecified congestive heart failure type Congestive heart failure chronicity: acute Qualified Description: Acute congestive heart failure, unspecified congestive heart failure type Qualifier Code(s): (I50.9) Heart failure, unspecified (5) Hyponatremia Current Visit: Yes Status: Acute Comment: Maybe related to the CHF, she is on Lasix continue
[2016-08-23] MEDS: PSYLLIUM SEED 1 EACH PACKET PO SCH ×2 (22:09)
[2016-08-23] MEDS: HYDRALAZINE 10 MG TABLET PO SCH (22:10)
[2016-08-24] MEDS: HEPARIN 5000 UNIT/1 ML SUBCUT SCH ×3 (06:06→23:53)
[2016-08-24 07:12] LABS: BUN/CREATININE RATIO 25.71 (6-20); CALCIUM 8.2 mg/dL (8.7-10.7); CREATININE 0.7 mg/dL (0.50-1.20); POTASSIUM 3.8 meq/L (3.8-5.2)
[2016-08-24] MEDS: FUROSEMIDE 20 MG TABLET PO SCH ×2 (07:18→13:29)
[2016-08-24] MEDS: HYDRALAZINE 10 MG TABLET PO SCH ×2 (08:33→20:22)
[2016-08-24] MEDS: DOXAZOSIN 2 MG TABLET PO SCH (08:33)
[2016-08-24] MEDS: LOSARTAN 50 MG TABLET PO SCH (08:33)
[2016-08-24] MEDS: ASPIRIN 325 MG EC TABLET PO SCH (08:33)
--- NOTE | 2016-08-24 08:33 | PDOC(PROG) ---
Date and Time of Service: 08/24/2016 8:30 AM Interval History: Subjective Patient is denying symptoms, denying shortness of breath, no chest pain. She is not sure whether there is still some swelling in her legs or not. She doesn' t remember how did she end up here in the hospital or what reason the family brought her here. Objective : Data - Labs CBC and BMP: 08/23/16 06:24 08/24/16 06:00 Labs - Last 24 Hours: Laboratory Results 08/24/16 Range/Units 06:00 Sodium 126 L (135-145) meq/L Potassium 3.8 (3.8-5.2) meq/L Chloride 92 L (98-112) meq/L Carbon Dioxide 28 (23-33) meq/L Anion Gap 6 (5-20) BUN 18 (7-22) mg/dL Creatinine 0.7 (0.50-1.20) mg/dL Estimated GFR (>60 ml/min/1.73m(2)) BUN/Creatinine Ratio 25.71 H (6-20) Glucose 83 (78-110) mg/dL Calculated Osmolality 262.0 L (267-292) mOsm/kg Calcium 8.2 L (8.7-10.7) mg/dL NT-Pro-B Natriuret Pep 1610 H (0-450) PG/ML Objective : Exam - General General Appearance: No Acute Distress, Cooperative - Head Head Exam: Normal Inspection - Eye Eye Exam: Normal Appearance - ENT ENT Exam: Normal Exam - Neck Neck Exam: Normal Inspection - Respiratory Respiratory Exam: Clear to Auscultation - Bilaterally - Cardiovascular Cardiovascular Exam: Irregular Rhythm, Systolic Murmur - GI/Abdominal GI/Abdominal Exam: Normal Bowel Sounds, Non Tender, Non Distended, Soft - Rectal Rectal Exam: Deferred - External Exam: Deferred Exam: Deferred - Extremities Extremities Exam: Pedal Edema - Back Back Exam: Normal Inspection - Neurological Neurological Exam: Alert, Oriented x 3, CN II-XII Intact - Psychiatric Psychiatric Exam: Normal Affect Assessment and Plan - Patient Problems (1) Chronic atrial fibrillation Current Visit: Yes Status: Chronic Comment: Continue the current dosage of metoprolol her rate seemed to be acceptable with the reduced dosage of it. Digoxin was discontinued. (2) Pitting edema Current Visit: Yes Status: Acute Comment: She is on Lasix continue her weight is coming down. (3) Hypertension Current Visit: Yes Status: Chronic Comment: Blood pressure better than when she came in continue same medications. Qualifiers: Hypertension type: essential hypertension Qualified Description: Essential hypertension Qualifier Code(s): (I10) Essential (primary) hypertension (4) Congestive heart failure Current Visit: Yes Status: Acute Comment: Apparently she did have an echo earlier this month and that showed left atrium enlargement, LVH but ejection fraction was 0.6 and sclerotic aortic valve with no evidence of stenosis there was mild to moderate aortic regurgitation. There is tricuspid regurgitation which was mild. Qualifiers: Congestive heart failure type: unspecified congestive heart failure type Congestive heart failure chronicity: acute Qualified Description: Acute congestive heart failure, unspecified congestive heart failure type Qualifier Code(s): (I50.9) Heart failure, unspecified (5) Hyponatremia Current Visit: Yes Status: Acute Comment: Sodium is stable. We'll recheck it tomorrow. (6) Generalized weakness Current Visit: Yes Status: Acute Comment: She is working with PT and OT, will talk to them later on today and see her progress and then decide about when to release her.
[2016-08-24] MEDS: METOPROLOL SUCCINATE 25 MG SR 24H TABLET PO SCH (08:34)
--- NOTE | 2016-08-24 13:00 | OT.PROG ---
Progress Note Progress Note: S: I am doing okay." O: Pt. seen from 1110 to 1140 with pt. engaged in mobility and UE exercise. Pt. completed 3 sets or 10 uppr body strengthening exercises with pt. completing AROM as follow. : shoulder flexion, abduction, extension, IR and ER, pronation and supination. Pt. then completed 3 sets fo 5 sit to stand reaching overhead with 2 min rest breaks inbetween sets. Pt. also completing 3 sets fo 10 upper rectus strengthening exercises and 3 sets fo 10 active spinal rotation left and right encouraging pt to look left and right. A: Pt stated that she was fatigued by the end of treatment session. Friend present during therapy an encouraging pt. to "Get better."Pt. active participant and stating that she wants to get stronger. P: Continue POc. Elena Beckham OTD, OTR/L
[2016-08-24] MEDS: PSYLLIUM SEED 1 EACH PACKET PO SCH ×2 (20:22)
[2016-08-24] MEDS: ACETAMINOPHEN 325 MG TABLET PO PRN (20:27)
[2016-08-25] MEDS: HEPARIN 5000 UNIT/1 ML SUBCUT SCH ×3 (06:12→22:49)
[2016-08-25] MEDS: HYDRALAZINE 10 MG TABLET PO SCH ×2 (08:23→20:17)
[2016-08-25] MEDS: FUROSEMIDE 20 MG TABLET PO SCH ×2 (08:23→15:18)
[2016-08-25] MEDS: LOSARTAN 50 MG TABLET PO SCH (08:24)
[2016-08-25] MEDS: METOPROLOL SUCCINATE 25 MG SR 24H TABLET PO SCH (08:24)
[2016-08-25] MEDS: DOXAZOSIN 2 MG TABLET PO SCH (08:24)
[2016-08-25] MEDS: ASPIRIN 325 MG EC TABLET PO SCH (08:24)
[2016-08-25 09:16] LABS: BUN/CREATININE RATIO 24.28 (6-20); CALCIUM 8.7 mg/dL (8.7-10.7); CREATININE 0.7 mg/dL (0.50-1.20); POTASSIUM 3.8 meq/L (3.8-5.2)
--- NOTE | 2016-08-25 10:58 | OTI REPORT ---
Thank you for the referral of Hailey Santamaria. She was seen on 08/23/16 for an occupational therapy inpatient evaluation secondary to generalized weakness. SUBJECTIVE: The patient is an 89-year-old female who is being seen today secondary to having a low heart rate and just not feeling as good on her own when she is at her house. They went to the walk in clinic and then she was admitted so they could evaluate her for her medications. The patient was recently in the hospital and a home evaluation did take place. The patient had a previous stroke that has decreased her coordination on the right side. PAST MEDICAL HISTORY: Past medical history can be found in the patient's medical record. OBJECTIVE FINDINGS: Transfers: Today the patient was able to come from sit to stand with stand by assist. She is using a wheeled walker. Range of motion: The patient's upper extremity range of motion is within functional limits. Strength: Strength in shoulder flexion was 4/5, shoulder abduction was 3+/5, elbow flexion/extension was 4/5, and wrist flexion/extension was 4/5. Activities of daily living: The patient requires min assist to don socks but was able to don her shorts with stand by assist when standing. Activity tolerance: The patient's activity tolerance is fair. She says that she gets fatigued quite easily lately. Sensation: The patient reports that she has good sensation of her upper extremities. ASSESSMENT: Problem List: Decreased activity tolerance Decreased strength Decreased endurance Decreased ability to perform activities of daily living Short-Term Goals: To be met by discharge from inpatient: Patient will be able to dress self independently including set up. Patient will be able to complete a shower independently. Patient will improve upper extremity strength to 4+/5 to increase strength for ADLs. Patient will be able to complete all functional transfers independently with use of her wheeled walker. Long-Term Goals: To be met following discharge from inpatient: Patient will be discharged to home with her daughter, independent with simple ADLs and functional transfers. TREATMENT PLAN: Patient will be seen B.I.D during the week and one time per day over the weekend as an inpatient to address the above goals and objectives. INITIAL TREATMENT: Treatment today consisted of the inpatient evaluation followed by the patient ambulating with wheeled walker from her room down to therapy, approximately 150 feet. The patient completed upper body ergometer x4 minutes forward and 4 minutes backward, new step x10 minutes, lower extremity kick outs, marching, and red theraband resisted biceps curls, internal rotation, and extension. MTDD
--- NOTE | 2016-08-25 11:20 | PT.PROG ---
Progress Note Progress Note: S: pt reports she is doing fair today. O: nsg okay'd prior to PT. pt instructed in ambulation down to therapy gym with FWW 2 LO2 and CGAx1. Pt instructed in arm bike x 12 mins, nu step approx 600 steps 12mins, LAQs 3#, Marches #, seated clams red theraband, seated hs curls, ball squeezes, 3 sit to stands, ankle pumps. Pt ambulated back to room w CGA x 1 , pt was left in bathroom and nsg was notified of pt status. A: pt tolerated therapy fair, was in the restroom 3 times during therapy session. Pt continues to benefit from skilled therapy to meet established goals. P: cont per POC
--- NOTE | 2016-08-25 11:34 | PDOC(PROG) ---
Date and Time of Service: 08/25/2016 11:31 AM Interval History: Subjective Patient denying symptoms, no shortness of breath, swelling in the leg maybe a little bit less. Objective : Data - Labs CBC and BMP: 08/23/16 06:24 08/25/16 08:44 Labs - Last 24 Hours: Laboratory Results 08/25/16 Range/Units 08:44 Sodium 125 L (135-145) meq/L Potassium 3.8 (3.8-5.2) meq/L Chloride 89 L (98-112) meq/L Carbon Dioxide 27 (23-33) meq/L Anion Gap 9 (5-20) BUN 17 (7-22) mg/dL Creatinine 0.7 (0.50-1.20) mg/dL Estimated GFR (>60 ml/min/1.73m(2)) BUN/Creatinine Ratio 24.28 H (6-20) Glucose 153 H (78-110) mg/dL Calculated Osmolality 264.0 L (267-292) mOsm/kg Calcium 8.7 (8.7-10.7) mg/dL Objective : Exam - General General Appearance: No Acute Distress, Cooperative - Head Head Exam: Normal Inspection - Eye Eye Exam: Normal Appearance - ENT ENT Exam: Normal Exam - Neck Neck Exam: Normal Inspection - Respiratory Respiratory Exam: Clear to Auscultation - Bilaterally - Cardiovascular Cardiovascular Exam: RRR - GI/Abdominal GI/Abdominal Exam: Normal Bowel Sounds, Non Tender, Non Distended, Soft - Rectal Rectal Exam: Deferred - External Exam: Deferred - Extremities Extremities Exam: Pedal Edema - Neurological Neurological Exam: Alert, CN II-XII Intact Assessment and Plan - Patient Problems (1) Chronic atrial fibrillation Current Visit: Yes Status: Chronic Comment: Rate seems to be acceptable with the current dosage of metoprolol continue. She is on aspirin for prophylaxis (2) Pitting edema Current Visit: Yes Status: Acute Comment: Continue Lasix (3) Hypertension Current Visit: Yes Status: Chronic Comment: Same med Qualifiers: Hypertension type: essential hypertension Qualified Description: Essential hypertension Qualifier Code(s): (I10) Essential (primary) hypertension (4) Congestive heart failure Current Visit: Yes Status: Acute Comment: Seems to be stable Qualifiers: Congestive heart failure type: unspecified congestive heart failure type Congestive heart failure chronicity: acute Qualified Description: Acute congestive heart failure, unspecified congestive heart failure type Qualifier Code(s): (I50.9) Heart failure, unspecified (5) Hyponatremia Current Visit: Yes Status: Acute Comment: There is slight drop in the sodium recheck it tomorrow. (6) Generalized weakness Current Visit: Yes Status: Acute Comment: Babatundeni[facility] PT and OT. I did speak with the daughter yesterday she told me what brought the patient to the hospital is because they checked her blood pressure and heart rate was slow and that's why they brought her in addition she was complaining from feeling weak.
--- NOTE | 2016-08-25 12:53 | PTI REPORT ---
Thank you for the referral of Hailey Santamaria. She was seen on 08/24/16 for an inpatient evaluation secondary to generalized weakness. SUBJECTIVE: The patient is an 89-year-old female who was hospitalized over the weekend secondary to declining mobility, weakness, and possible heart concerns. The patient has had some history of cardiovascular disease and CVA. The patient had been hospitalized a couple of weeks ago and was released and was doing outpatient therapy. We had noticed a slight decline in her overall mobility, her fatigue, and her ability to tolerate mobility activities. These concerns were reported to her family and her family brought her in to the walk in clinic , ultimately resulting in another hospital visit. They are looking at her medications and checking her cardiovascular system out as well. PAST MEDICAL HISTORY: Past medical history can be found in the patient's medical record. OBJECTIVE FINDINGS: Ambulation: The patient is able to ambulate with use of a walker and assist of one. Balance: The patient's Alanis balance score was a 28, which puts her at a HIGH risk for falling. Range of motion: The patient demonstrated functional range of motion of both upper extremities. The patient demonstrated functional range of motion to both lower extremities. Strength: The patient demonstrates strength of 3/5 for the shoulders, elbows, hands, and fingers. For lower extremities, the left side is a little weaker than the right with strength of 3-/5 on the left and 3/5 on the right. Transfers: The patient needed a little more assistance for sit to stands and transfers than she normally does with both verbal and tactile cues and moderate assist of one. ASSESSMENT: Problem List: Generalized weakness Decreased tolerance to exercise Decreased balance Short-Term Goals: To be met by discharge from inpatient: Patient will increase upper extremity and lower strength to 4/5 bilaterally. Patient will be able to complete all bed mobility and transfers independently. Patient will be able to ambulate household distances independently and safely with appropriate assistive device. Long-Term Goals: To be met following discharge from inpatient: Patient will be seen by outpatient physical therapy. TREATMENT PLAN: Patient will be seen B.I.D during the week and one time per day over the weekend as an inpatient for strengthening of the uppers and lowers, transfer training, and ambulation activities. INITIAL TREATMENT: Treatment today consisted of the initial evaluation activities only. PANKAJ
--- NOTE | 2016-08-25 16:24 | PT PM DAY ---
Diagnosis : Weakness PM - Physical Therapy S: The patient has no complaints. O: The patient ambulated all the way down to therapy with walker, contact guard assist, and two liters of oxygen. She completed new step x5 minutes, upper body ergometer x5 minutes, balance grid x3 on each side, seated marches, long arc quads, ankle pumps, and sit to stands. She then ambulated to the bathroom which was approximately 50 feet. She was able to complete toileting with stand by assistance. The patient then ambulated back up to her room where she was left with call light within reach. A: The patient has decreased balance; she did have several losses of balance today. She will continue to benefit from skilled therapy to work on general strengthening, increasing her activity tolerance, and working on balance and coordination. She is a safety risk at this time when trying to complete any transfers, gait, or daily activities independently. P: Continue seeing patient BID during the week and one time per day over the weekend for transfers, ambulation, and range of motion/strengthening exercises. PANKAJ
--- NOTE | 2016-08-25 16:56 | PT.PROG ---
Progress Note Progress Note: S. Patient stated that she is felling good this afternoon. O. Patient ambulated 175 feet to the therapy gym where she used the nu-step x 5 minutes, Patient performed seated exercises in the form of; heel toe raises, marches, long arc quads, sit to stands all x 10 bilaterally, Patient performed standing balance x 2 minutes then was left with OT for further therapy. A. Patient tolerated exercises well this afternoon, she continues to require frequent rest breaks to recover from fatigue. Patient continues to struggle with balance and would benefit from skilled therapy to increase, strength, balance and endurance. P. POC.
[2016-08-25] MEDS: PSYLLIUM SEED 1 EACH PACKET PO SCH ×2 (20:17)
[2016-08-26] MEDS: HEPARIN 5000 UNIT/1 ML SUBCUT SCH ×2 (06:08→13:56)
[2016-08-26 06:38] LABS: BASOPHILS # (AUTO) 0.04 10*3/UL; BASOPHILS % (AUTO) 0.6 % (0-1); EOSINOPHILS % (AUTO) 3.1 % (0-8); HEMATOCRIT 34.9 % (37.0-47.0); HEMOGLOBIN 11.6 g/dL (12.0-16.0); IMM GRAN % (AUTO) 0.2 % (0-5); IMM GRAN# (AUTO) 0.01 10*3/UL; LYMPHOCYTES # (AUTO) 0.57 10*3/uL; LYMPHOCYTES % (AUTO) 8.9 % (10-50); MEAN CORPUSCULAR HEMOGLOBIN 29.6 PG (27-31); MEAN CORPUSCULAR HGB CONC 33.2 g/dL (33-37); MEAN PLATELET VOLUME 8.7 FL (7.4-12.2); MONOCYTES # (AUTO) 0.62 10*3/UL (0.3-0.8); MONOCYTES % (AUTO) 9.6 % (5-15); NEUTROPHILS # (AUTO) 4.99 10*3/UL; NEUTROPHILS % (AUTO) 77.6 % (50-80); RDW COEFFICIENT OF VARIATION 14.9 % (11.5-14.5); RED BLOOD COUNT 3.92 10^6/uL (4.20-5.40); WHITE BLOOD COUNT 6.43 10^3/uL (4.8-10.8)
[2016-08-26 06:54] LABS: PLATELET MORPHOLOGY COMMENT NORMAL MORPHOLOGY (NORM)
[2016-08-26 06:59] LABS: BUN/CREATININE RATIO 28.57 (6-20); CALCIUM 8.6 mg/dL (8.7-10.7); CREATININE 0.7 mg/dL (0.50-1.20); POTASSIUM 3.9 meq/L (3.8-5.2)
[2016-08-26] MEDS: FUROSEMIDE 20 MG TABLET PO SCH ×2 (07:25→12:31)
[2016-08-26 07:33] VITALS: RESP 20
[2016-08-26] MEDS: DOXAZOSIN 2 MG TABLET PO SCH (08:29)
[2016-08-26] MEDS: LOSARTAN 50 MG TABLET PO SCH (08:30)
[2016-08-26] MEDS: HYDRALAZINE 10 MG TABLET PO SCH (08:30)
[2016-08-26] MEDS: ASPIRIN 325 MG EC TABLET PO SCH (08:30)
[2016-08-26] MEDS: METOPROLOL SUCCINATE 25 MG SR 24H TABLET PO SCH (08:34)
--- NOTE | 2016-08-26 11:37 | PDOC(PROG) ---
Date and Time of Service: 08/26/2016 11:36 AM Interval History: Subjective She feels abetter denying shortness of breath, the swelling in her legs is less , she worked with physical therapy earlier and she did okay. Objective : Data - Labs CBC and BMP: 08/26/16 06:05 08/26/16 06:05 Labs - Last 24 Hours: Laboratory Results 08/26/16 Range/Units 06:05 WBC 6.43 (4.8-10.8) 10^3/uL RBC 3.92 L (4.20-5.40) 10^6/uL Hgb 11.6 L (12.0-16.0) g/dL Hct 34.9 L (37.0-47.0) % MCV 89.0 (81-99) FL MCH 29.6 (27-31) PG MCHC 33.2 (33-37) g/dL RDW Std Deviation 47.2 (39-50) fL RDW Coeff of Alessandro 14.9 H (11.5-14.5) % Plt Count 133 L (140-350) 10*3/uL MPV 8.7 (7.4-12.2) FL Immature Gran % (Auto) 0.2 (0-5) % Neut % (Auto) 77.6 (50-80) % Lymph % (Auto) 8.9 L (10-50) % [place] % (Auto) 9.6 (5-15) % Eos % (Auto) 3.1 (0-8) % Baso % (Auto) 0.6 (0-1) % Immature Gran # (Auto) 0.01 10*3/UL Neut # (Auto) 4.99 10*3/UL Lymph # (Auto) 0.57 10*3/uL [place] # (Auto) 0.62 (0.3-0.8) 10*3/UL Eos # (Auto) 0.20 10*3/UL Baso # (Auto) 0.04 10*3/UL WBC Morphology Comment Normal morphology (NORM) Plt Morphology Comment Normal morphology (NORM) RBC Morph Comment Normal morphology (NORM) Sodium 125 L (135-145) meq/L Potassium 3.9 (3.8-5.2) meq/L Chloride 89 L (98-112) meq/L Carbon Dioxide 29 (23-33) meq/L Anion Gap 7 (5-20) BUN 20 (7-22) mg/dL Creatinine 0.7 (0.50-1.20) mg/dL Estimated GFR (>60 ml/min/1.73m(2)) BUN/Creatinine Ratio 28.57 H (6-20) Glucose 81 (78-110) mg/dL Calculated Osmolality 261.0 L (267-292) mOsm/kg Calcium 8.6 L (8.7-10.7) mg/dL NT-Pro-B Natriuret Pep 1480 H (0-450) PG/ML Objective : Exam - General General Appearance: No Acute Distress, Cooperative - Head Head Exam: Normal Inspection - Eye Eye Exam: Normal Appearance - ENT ENT Exam: Normal Exam - Neck Neck Exam: Normal Inspection - Respiratory Respiratory Exam: Clear to Auscultation - Bilaterally - Cardiovascular Cardiovascular Exam: RRR - GI/Abdominal GI/Abdominal Exam: Normal Bowel Sounds, Non Tender, Non Distended, Soft - Rectal Rectal Exam: Deferred - Extremities Additional Extremities Exam Details: Edema improved compared to before - Back Back Exam: Normal Inspection - Neurological Neurological Exam: Alert, CN II-XII Intact, Moves All Extremities Equally - Psychiatric Psychiatric Exam: Normal Affect - Integumentary Integumentary Exam: Normal Color Assessment and Plan - Patient Problems (1) Chronic atrial fibrillation Status: Chronic Comment: We'll discharge her on a lower dosage of metoprolol we DC'd the digoxin (2) Pitting edema Status: Acute Comment: This is improved continue Lasix we'll discharge on Lasix (3) Hypertension Status: Chronic Comment: Same med Qualifiers: Hypertension type: essential hypertension Qualified Description: Essential hypertension Qualifier Code(s): (I10) Essential (primary) hypertension (4) Congestive heart failure Status: Acute Comment: This is improved. Qualifiers: Congestive heart failure type: unspecified congestive heart failure type Congestive heart failure chronicity: acute Qualified Description: Acute congestive heart failure, unspecified congestive heart failure type Qualifier Code(s): (I50.9) Heart failure, unspecified (5) Hyponatremia Status: Acute Comment: Stable
[2016-08-26 12:43] VITALS: TEMP 97.8
--- NOTE | 2016-08-26 15:56 | OT PM DAY ---
Diagnosis : Weakness PM - Occupational Therapy S: The patient reports that she is making some progress. She does not feel too comfortable today to be discharged to home, but hopes that in the next day or two she can be discharged. O: Today we worked on fine motor coordination with tip pinch, lateral pinch , gross pinch, opening and closing of lids. She then performed wrist exercises with a two pound weight in all planes and ranges x15 followed by wall pulleys with two kilograms for shoulder extension, rows, biceps curls, and internal/ external rotation. A: The patient continues to benefit from strengthening and improving her activity tolerance. P: Continue seeing patient BID during the week and one time per day over the weekend until discharge. PANKAJ
--- NOTE | 2016-08-26 16:00 | OT AM DAY ---
Diagnosis : Weakness AM - Occupational Therapy S: The patient reports she is feeling pretty good overall. She is taking some Lasix, which makes her go to the bathroom a lot. She reports that she is feeling better since she was admitted to the hospital. The patient may possibly be discharged tomorrow. O: Today we helped the patient take a shower. Hailey ambulated to the shower and completed all showering activities on her own including dressing task. The patient retrieved clothes from closet; it was somewhat difficult for her to hold them. We will issue the patient a walker tray later today. The patient ambulated to the shower with her wheeled walker independently. Once in the shower the patient was able to doff clothes including shirt, socks, and Depends independently. The patient was able to shower self including washing hair and her entire body minus her back. After her shower, the patient was able to dry self minus her back. She states that she usually drip dries her back. The patient was handed her clothes and she was able to dress upper extremities independently. She was able to don Depends, pants, and socks independently with increased time. A: The patient did well with all activities today. P: Continue seeing patient BID during the week and one time per day over the weekend until discharge. PANKAJ
--- NOTE | 2016-08-26 19:00 | DCSUMMARY ---
Hospitalization Summary Admit Date: 08/22/16 Discharge Date: 08/26/16 Hospital Course: Discharge diagnoses 1. Congestive heart failure probably secondary to diastolic dysfunction 2. Atrial fibrillation 3. Hyponatremia 4. History of recent cerebrovascular accident 5. Hypertension 6. History of intracranial bleed Hospital course This is an 89 female with medical history significant for history of atrial fibrillation, history of prior intracranial bleed hypertension and recent admit for stroke who was brought to the hospital because he was not feeling well. Patient checked her blood pressure at home and her heart rate was slow in the 40s so she went to the urgent clinic and from there she was sent to the ER. In the ER evaluation suggested she have CHF and she was hyponatremic also her blood pressure was high when she came in so she was admitted to the hospital. Chest chest x-ray showed cardiomegaly with CHF. CT of the head showed age indeterminate area of hypoattenuation involving the medial posterior and interior parietal lobes. She was admitted by Dr. Durant please see his note. Patient was given Lasix, an EKG showed at a heart rate 49 so the digoxin was stopped and dosage of the metoprolol was lowered. She was started on physical therapy. Her weight came down and the swelling in her legs also improved and shortness of breath also improved. Her blood On discharge she was doing better we thought she could be discharge home with adjustment in medications and starting her on Lasix. Her sodium did improve from baseline. she will Need repay BMP next week with her PCP Laboratory Results 08/22/16 08/23/16 08/24/16 Range/Units 12:15 06:24 06:00 WBC 7.08 5.10 (4.8-10.8) 10^3/uL RBC 4.04 L 3.86 L (4.20-5.40) 10^6/uL Hgb 12.1 11.6 L (12.0-16.0) g/dL Hct 34.8 L 33.8 L (37.0-47.0) % MCV 86.1 87.6 (81-99) FL MCH 30.0 30.1 (27-31) PG MCHC 34.8 34.3 (33-37) g/dL RDW Std Deviation 46.3 47.2 (39-50) fL RDW Coeff of Alessandro 14.9 H 14.9 H (11.5-14.5) % Plt Count 155 143 (140-350) 10*3/uL MPV 8.5 9.0 (7.4-12.2) FL Immature Gran % (Auto) 0.2 (0-5) % Neut % (Auto) 71.4 (50-80) % Lymph % (Auto) 12.0 (10-50) % [place] % (Auto) 12.7 (5-15) % Eos % (Auto) 2.7 (0-8) % Baso % (Auto) 1.0 (0-1) % Immature Gran # (Auto) 0.01 10*3/UL Neut # (Auto) 3.64 10*3/UL Lymph # (Auto) 0.61 10*3/uL [place] # (Auto) 0.65 (0.3-0.8) 10*3/UL Eos # (Auto) 0.14 10*3/UL Baso # (Auto) 0.05 10*3/UL Neutrophils % (Manual) 88 H (50-80) % Band Neutrophils % 1 (0-10) % Lymphocytes % (Manual) 8 L (10-50) % Monocytes % (Manual) 3 (0-12) % Eosinophils % (Manual) 0 (0-8) % Basophils % (Manual) 0 (0-1) % Metamyelocytes % Not Reportable Myelocytes % Not Reportable Promyelocytes % Not Reportable Blast Cells Not Reportable WBC Morphology Comment Normal morphology Normal morphology (NORM) Plt Morphology Comment Normal morphology Normal morphology (NORM) RBC Morph Comment Normal morphology Normal morphology (NORM) Sodium 122 L 126 L 126 L (135-145) meq/L Potassium 4.4 4.1 3.8 (3.8-5.2) meq/L Chloride 85 L 91 L 92 L (98-112) meq/L Carbon Dioxide 27 28 28 (23-33) meq/L Anion Gap 10 7 6 (5-20) BUN 17 21 18 (7-22) mg/dL Creatinine 0.7 0.7 0.7 (0.50-1.20) mg/dL Estimated GFR (>60 ml/min/1.73m(2)) BUN/Creatinine Ratio 24.28 H 30.00 H 25.71 H (6-20) Glucose 100 83 83 (78-110) mg/dL Calculated Osmolality 255.0 L 263.0 L 262.0 L (267-292) mOsm/kg Calcium 9.1 8.7 8.2 L (8.7-10.7) mg/dL Magnesium 1.9 1.9 (1.6-2.4) mg/dL Total Bilirubin 1.0 (0.3-1.2) mg/dL AST 30 (8-39) IU/L ALT 52 (9-52) IU/L Alkaline Phosphatase 58 (38-126) IU/L Total Creatine Kinase 43 (30-136) IU/L Troponin I < 0.012 (< 0.040) ng/mL C-Reactive Protein 0.8 (0.0-0.9) mg/dL NT-Pro-B Natriuret Pep 2570 H 1610 H (0-450) PG/ML Total Protein 6.0 L (6.1-8.0) g/dL Albumin 4.0 (3.5-4.8) g/dL Globulin 2.0 L (2.50-4.10) g/dL Albumin/Globulin Ratio 2.00 (1.3-2.0) mg/g Digoxin 1.2 (0.8-2.0) ng/mL 08/25/16 08/26/16 Range/Units 08:44 06:05 WBC 6.43 (4.8-10.8) 10^3/uL RBC 3.92 L (4.20-5.40) 10^6/uL Hgb 11.6 L (12.0-16.0) g/dL Hct 34.9 L (37.0-47.0) % MCV 89.0 (81-99) FL MCH 29.6 (27-31) PG MCHC 33.2 (33-37) g/dL RDW Std Deviation 47.2 (39-50) fL RDW Coeff of Alessandro 14.9 H (11.5-14.5) % Plt Count 133 L (140-350) 10*3/uL MPV 8.7 (7.4-12.2) FL Immature Gran % (Auto) 0.2 (0-5) % Neut % (Auto) 77.6 (50-80) % Lymph % (Auto) 8.9 L (10-50) % [place] % (Auto) 9.6 (5-15) % Eos % (Auto) 3.1 (0-8) % Baso % (Auto) 0.6 (0-1) % Immature Gran # (Auto) 0.01 10*3/UL Neut # (Auto) 4.99 10*3/UL Lymph # (Auto) 0.57 10*3/uL [place] # (Auto) 0.62 (0.3-0.8) 10*3/UL Eos # (Auto) 0.20 10*3/UL Baso # (Auto) 0.04 10*3/UL Neutrophils % (Manual) (50-80) % Band Neutrophils % (0-10) % Lymphocytes % (Manual) (10-50) % Monocytes % (Manual) (0-12) % Eosinophils % (Manual) (0-8) % Basophils % (Manual) (0-1) % Metamyelocytes % Myelocytes % Promyelocytes % Blast Cells WBC Morphology Comment Normal morphology (NORM) Plt Morphology Comment Normal morphology (NORM) RBC Morph Comment Normal morphology (NORM) Sodium 125 L 125 L (135-145) meq/L Potassium 3.8 3.9 (3.8-5.2) meq/L Chloride 89 L 89 L (98-112) meq/L Carbon Dioxide 27 29 (23-33) meq/L Anion Gap 9 7 (5-20) BUN 17 20 (7-22) mg/dL Creatinine 0.7 0.7 (0.50-1.20) mg/dL Estimated GFR (>60 ml/min/1.73m(2)) BUN/Creatinine Ratio 24.28 H 28.57 H (6-20) Glucose 153 H 81 (78-110) mg/dL Calculated Osmolality 264.0 L 261.0 L (267-292) mOsm/kg Calcium 8.7 8.6 L (8.7-10.7) mg/dL Magnesium (1.6-2.4) mg/dL Total Bilirubin (0.3-1.2) mg/dL AST (8-39) IU/L ALT (9-52) IU/L Alkaline Phosphatase (38-126) IU/L Total Creatine Kinase (30-136) IU/L Troponin I (< 0.040) ng/mL C-Reactive Protein (0.0-0.9) mg/dL NT-Pro-B Natriuret Pep 1480 H (0-450) PG/ML Total Protein (6.1-8.0) g/dL Albumin (3.5-4.8) g/dL Globulin (2.50-4.10) g/dL Albumin/Globulin Ratio (1.3-2.0) mg/g Digoxin (0.8-2.0) ng/mL Discharge instruction Diet Activity as tolerated Medications Home Medications Medication Instructions Recorded Confirmed Type Aspirin [Aspir 81] 325 mg PO DAILY 06/03/12 08/22/16 History Psyllium 3.4 gm Packet [Metamucil 3.4 gm PO BEDTIME 07/24/16 08/22/16 History 3.4 gm Packet] Acetaminophen [Tylenol] 650 mg PO 08/22/16 History Doxazosin Mesylate 2 mg PO DAILY 08/22/16 08/22/16 History Losartan Potassium 100 mg PO DAILY 08/22/16 08/22/16 History Oxygen 2 DAILY 08/22/16 History Furosemide [Lasix] 20 mg PO BID@0700,1300 #60 tab 08/26/16 Rx Metoprolol Succinate [Toprol XL] 25 mg PO DAILY #30 tab 08/26/16 Rx Potassium Chloride 10 meq PO DAILY #30 tab 08/26/16 Rx hydrALAZINE Tab [Apresoline Tab] 20 mg PO BID tab 08/26/16 Rx Follow-up with her PCP in 1-2 weeks Condition at discharge was stable for discharge Exam - Vitals Vital Signs: Vital Signs Temperature 97.8 F Temperature Source Temporal Artery Scan Pulse Rate [Radial] 64 Pulse Rate [Apical] 58 Pulse Rate [Pulse Oximeter] 86 Pulse Rate 54 Respiratory Rate 20 Blood Pressure [Left Arm] 131/72 Pulse Ox 99 Oxygen Flow Rate 2 Oxygen Delivery Method Nasal Cannula Height 5 ft Weight 128 lb 15.985 oz Patient Problems - Patient Problem List (1) Chronic atrial fibrillation Status: Chronic (2) Pitting edema Status: Acute (3) Hypertension Status: Chronic Qualifiers: Hypertension type: essential hypertension Qualified Description: Essential hypertension Qualifier Code(s): (I10) Essential (primary) hypertension (4) Congestive heart failure Status: Acute Qualifiers: Congestive heart failure type: unspecified congestive heart failure type Congestive heart failure chronicity: acute Qualified Description: Acute congestive heart failure, unspecified congestive heart failure type Qualifier Code(s): (I50.9) Heart failure, unspecified (5) Hyponatremia Status: Acute
--- NOTE | 2016-08-27 11:28 | OT PM DAY ---
Diagnosis : Weakness PM - Occupational Therapy S: The patient reports that she is making gains with her strength and abilities. The Lasix that she is taking makes her go to the bathroom a lot. O: Today the patient was issued a walker tray and we worked on functional moving tasks with the tray secondary to the patient stating that she had to carry her food with her hand while trying to maneuver her walker. We had the patient work on carrying items on the walker tray. She also performed therapeutic exercises for strengthening and fine motor coordination including tip pinch, lateral pinch, gross grasp, power web, digi-flex, and fine motor coordination activities. A: Hailey really liked the walker tray; she states it will be very beneficial when she is at home. P: Continue seeing patient BID during the week and one time per day over the weekend until discharge. PANKAJ
--- NOTE | 2016-08-27 12:48 | OT AM DAY ---
Diagnosis : Weakness AM - Occupational Therapy S: The patient reports she is ready to go home. O: Today we worked on functional tasks and ADLs. The patient had to go to the bathroom three times; she does have quite a bit of Lasix running through her at this point in time. The patient needs stand by assist in order to complete toilet transfer. She was able to stand at sink x10 minutes to complete hygiene activities x2. She worked on dressing her upper and lower extremities independently. She was able to get on her compression socks independently and was able to tie her shoes. The therapist is going to work on getting the patient some elastic laces in order for her to be more independent with her shoes and not take so much time as it takes the patient quite a bit of time to lace her shoes. Down in therapy we worked on upper extremities strengthening activities including arm bike both forward and backward x8 minutes followed by wall pulleys with two kilograms for shoulder extension, rows , biceps curls, internal/external rotation, and shoulder adduction. We worked on some fine motor coordination activities including opening and closing lids, nuts and bolts, and picking up items with tip pinch. A: The patient is making progress. P: Continue seeing patient BID during the week and one time per day over the weekend until discharge. PANKAJ
--- NOTE | 2016-08-28 15:07 | PT AM DAY ---
Diagnosis : Weakness AM - Physical Therapy S: The patient reports she thinks she might be able to go home this afternoon. She states she feels like she is doing much better after being in the hospital for a few days. O: The patient performed therapeutic exercises and functional activities including unsupported seated long arc quads, sit to stands, seated marching, and box step ups on the #2 box. The patient was then able to ambulate all the way upstairs with the use of her front wheeled walker, oxygen via nasal cannula , gait belt, and stand by assistance. A: The patient was fatigued; however, she wanted to return to her room to order lunch. P: Continue seeing patient BID during the week and one time per day over the weekend for transfers, ambulation, and range of motion/strengthening exercises. MTDD
== END 2016-08-26 16:03 | disposition home or self-care (01) | DRG 292 ==
LOC: ER 11:50 → MED/SURG 13:38 → UNDOADMIN 13:38 → MED/SURG 13:40
PROVIDERS: ADMIT Family Medicine; ATTEND Family Medicine
DX: I50.31 Acute diastolic (congestive) heart failure (principal); E87.1 Hypo-osmolality and hyponatremia; R53.1 Weakness; R00.1 Bradycardia, unspecified; I50.9 Heart failure, unspecified; I48.91 Unspecified atrial fibrillation; Z86.73 Personal history of transient ischemic attack (TIA), and cerebral infarction without residual deficits; I10 Essential (primary) hypertension; I48.2 Chronic atrial fibrillation; R60.9 Edema, unspecified
CPT/HCPCS: 36415; 70450; 71010; 80048; 80053; 80162; 82550; 83735; 83880; 84484; 85007; 85025; 86140; 93005; 93010; 94761; 97110; 97161; 97166; 97530; 97535; 99285; J1644

== ENCOUNTER 2016-10-09 17:55 | Emergency (ER) | payer OTHER, MEDICARE ==
[2016-10-09 18:14] VITALS: RESP 20; TEMP 97.3
[2016-10-09] MEDS ORDERED: Sodium Chloride 0.9% 1,000 ML PRIMARY IV ONE (18:40)
--- NOTE | 2016-10-09 18:45 | PDOC ---
Gen Adult / Medical Screen HPI - General Chief Complaint: General Medical Stated Complaint: SPELLS OF NOT KNOWING WHATS GOING ON Date Seen by Provider: 10/09/16 Time Seen by Provider: 18:00 Source: POSITIVE: Patient, Other (Daughter) Exam Limitations: POSITIVE: No limitations Nurse's Notes Reviewed & Considered: Yes - Indicators Temperature Between 95 and 101 Degrees: Yes Respirations Between 12 and 20: Yes Blood Pressure Between 100-165 (sys) and 60-100 (dinh): Yes Pulse Range Between 60-105 (100 for age > 60 years): No (117) Severe Pain (Greater than 5/10 Reported): No Chest or Abdominal Pain: No Inability to Walk: No Pt Reports Active High Risk Cond. (TB/Hepatitis/HIV/Chemo): No Abnormal Mental Status: No - History of Present Illness Initial Comments: Patient comes in today with a chief complaint of not feeling well. Patient with intermittent episodes of confusion that has been ongoing for several days. She denies any nausea or vomiting, no abdominal pain, no diarrhea, no hematuria or dysuria. She denies headache, changes in her vision, chest pain, or shortness of breath. Timing: REPORTS: Intermittent Duration: <1 week Similar Symptoms Previously: No Recent Care Received: REPORTS: Denies Any Prior Injuries Related to Current Complaint?: No - Patient Home Medications Home Medications: Home Medications Aspirin [Aspir 81] 325 mg PO DAILY 06/03/12 Psyllium 3.4 gm Packet [Metamucil 3.4 gm Packet] 3.4 gm PO BEDTIME 07/24/16 Acetaminophen [Tylenol] 650 mg PO 08/22/16 Doxazosin Mesylate 2 mg PO DAILY 08/22/16 Losartan Potassium 100 mg PO DAILY 08/22/16 Oxygen 2 DAILY 08/22/16 Furosemide [Lasix] 20 mg PO BID@0700,1300 #60 tab 08/26/16 Metoprolol Succinate [Toprol XL] 25 mg PO DAILY #30 tab 08/26/16 Potassium Chloride 10 meq PO DAILY #30 tab 08/26/16 hydrALAZINE Tab [Apresoline Tab] 20 mg PO BID tab 08/26/16 - Patient Allergies Allergies/Adverse Reactions: Allergies Allergy/AdvReac Type Severity Reaction Status Date / Time amlodipine Allergy CHEST PAIN Verified 08/25/16 20:21 OR TIGHTNESS hydrochlorothiazide Allergy Anaphylaxis Verified 08/25/16 20:21 Past Medical History - heen HEENT History: Macular Degeneration, Hard of Hearing, Dentures/Partials, Other ( please comment) Additional HEENT History: nose bleeds Cardiovascular History: Hypertension, Arrhythmia Additional Cardiovasular History: Afib Respiratory History: Denies History, Other (please comment) Additional Respiratory History: previous smoker, quit 27 years ago; on continuous O2 @ 2. 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 stroke 07/20/16 Blood Disorders: Denies History Psychiatric History: Denies History History of Sexually Transmitted Diseases: No Female Reproductive History: Denies History Obstetrical History: Denies History Cancer History: Other (please comment) In Past Year Been Physically Harmed or Verbally Threatened: No History of MDRO: No History of Other Communicable Diseases: No Tobacco Use: Former Smoker Alcohol Use: Rarely Substance Use Type: None Previous Surgical History: Yes Type / Date of Surgery: SEE ABOVE Anesthesia Reactions: No Malignant Hyperthermia: No Significant Family History: Asthma, Cancer, Hypertension ROS - Limitations ROS Limitations: No Limitations Constitution: REPORTS: Denies Symptoms Cardiovascular: REPORTS: Denies Cardiac Symptoms Respiratory: REPORTS: Denies Resp Symptoms Neurological: REPORTS: Confusion (Intermittent) Gastrointestinal: REPORTS: Denies GI Symptoms Endocrine: REPORTS: Denies Symptoms Musculoskeletal: REPORTS: Denies MS Symptoms Genitourinary: REPORTS: Denies Symptoms Eyes: REPORTS: Denies Symptoms ENT: REPORTS: Denies Symptoms Skin: REPORTS: Denies Skin Symptoms Lympathic: REPORTS: Denies Lympathic Symptoms Immunologic: POSITIVE: Denies Symptoms Psychiatric: POSITIVE: Confusion Gen Adult/Medical Screen Exam - General Appearance General Appearance: POSITIVE: Alert, Cooperative, No Acute Distress, No Evidence of Trauma - HEENT HEENT: POSITIVE: Head Inspection Nml, Eyes Inspection Nml, Ears Inspection Nml, Nose Inspection Nml, Oral/Dental Inspect. Nml, Pharynx Inspect. Nml, PERRL, EOMI - Pupils Pupil Size: 4 mm: Bilateral - Neck Neck: POSITIVE: Normal Inspection, Thyroid Normal - Respiratory Respiratory: POSITIVE: No Respiratory Distress, Breath Sounds Normal, Chest Non- Tender - Cardiovascular Cardiovascular: POSITIVE: Regular Rate & Rhythm, No Murmur, No Gallop, PMI Normal - Abdomen Abdomen: Soft: (All Quadrants), Normal Bowel Sounds: (All Quadrants), Denies Tenderness: (All Quadrants) - Back Back: POSITIVE: Normal Inspection - Neurological / Psychological Mental Status: POSITIVE: Mood Normal, Affect Normal Orientation: POSITIVE: Oriented x 3 Reflexes: Radial (R): 3+, Radial (L): 3+ - Skin Skin: POSITIVE: Normal Color, Warm, Dry, No Rash - Extremities Extremity: Non-Tender: (All Extremities), Normal ROM: (All Extremities), Normal Inspection: (All Extremities) Gen Adlt/Medical Scrn Progress - Results Reviewed by me Xrays/CTs/US Reviewed by me: Yes Discussed with Radiologist: Yes Lab Results Reviewed: Yes Lab Results:: Laboratory Results 10/09/16 10/09/16 Range/Units 18:30 20:00 WBC 7.13 (4.8-10.8) 10^3/uL RBC 4.50 (4.20-5.40) 10^6/uL Hgb 13.6 (12.0-16.0) g/dL Hct 38.9 (37.0-47.0) % MCV 86.4 (81-99) FL MCH 30.2 (27-31) PG MCHC 35.0 (33-37) g/dL RDW Std Deviation 45.7 (39-50) fL RDW Coeff of Alessandro 14.8 H (11.5-14.5) % Plt Count 238 (140-350) 10*3/uL MPV 8.8 (7.4-12.2) FL Immature Gran % (Auto) 0.3 (0-5) % Neut % (Auto) 80.9 H (50-80) % Lymph % (Auto) 6.3 L (10-50) % Surry % (Auto) 9.8 (5-15) % Eos % (Auto) 2.0 (0-8) % Baso % (Auto) 0.7 (0-1) % Immature Gran # (Auto) 0.02 10*3/UL Neut # (Auto) 5.77 10*3/UL Lymph # (Auto) 0.45 10*3/uL Surry # (Auto) 0.70 (0.3-0.8) 10*3/UL Eos # (Auto) 0.14 10*3/UL Baso # (Auto) 0.05 10*3/UL WBC Morphology Comment Normal morphology (NORM) Plt Morphology Comment Normal morphology (NORM) RBC Morph Comment Normal morphology (NORM) Sodium 124 L (135-145) meq/L Potassium 4.1 (3.8-5.2) meq/L Chloride 84 L (98-112) meq/L Carbon Dioxide 29 (23-33) meq/L Anion Gap 11 (5-20) BUN 20 (7-22) mg/dL Creatinine 0.8 (0.50-1.20) mg/dL Estimated GFR (>60 ml/min/1.73m(2)) BUN/Creatinine Ratio 25.00 H (6-20) Glucose 133 H (78-110) mg/dL Calculated Osmolality 262.0 L (267-292) mOsm/kg Calcium 9.2 (8.7-10.7) mg/dL Magnesium 1.9 (1.6-2.4) mg/dL Total Bilirubin 0.9 (0.3-1.2) mg/dL AST 27 (8-39) IU/L ALT 21 (9-52) IU/L Alkaline Phosphatase 78 (38-126) IU/L Total Protein 7.6 (6.1-8.0) g/dL Albumin 4.7 (3.5-4.8) g/dL Globulin 2.8 (2.50-4.10) g/dL Albumin/Globulin Ratio 1.60 (1.3-2.0) mg/g TSH 5.05 H (0.2700-4.2000) uIU/mL Ur Collection Type Clean catch urine Urine Color Yellow Urine Clarity Clear (CLEAR) Urine pH 7.0 (5.0-8.5) Ur Specific Trion 1.010 (1.005-1.030) U Specif Grav (Refrac) 1.010 Urine Protein Negative (NEG) mg/dl Urine Glucose (UA) Negative (NEG) mg/dL Urine Ketones Negative (NEG) Urine Occult Blood Negative (NEG) Urine Nitrate Negative (NEG) Urine Bilirubin Negative (NEG) Urine Urobilinogen 0.2 (0.2) EU/dL Ur Leukocyte Esterase Trace (NEG) Urine RBC None (NONE) /hpf Urine WBC None (NONE) Ur Squamous Epith Cells Few (NONE) Ur Renal Epithelial Cell None (NONE) Urine Crystals None Urine Bacteria Rare (NONE) Urine Casts None (NONE) Urine Mucus None (NONE) Urine Trichomonas None (NONE) Urine Yeast None (NONE) Ur Culture Indicated? Culture not set Urine Opiates Screen Negative (NEG) Ur Buprenorphine Negative (NEG) Ur Oxycodone Screen Negative (NEG) Urine Methadone Screen Negative (NEG) Ur Propoxyphene Screen Negative (NEG) Barbiturate Screen Negative (NEG) U Tricyclic Antidepress Negative (NEG) Phencyclidine Screen Negative (NEG) Amphetamines Screen Negative (NEG) U Methamphetamines Scrn Negative (NEG) Benzodiazepines Screen Negative (NEG) Cocaine Screen Negative (NEG) U Marijuana (THC) Screen Negative (NEG) Serum Alcohol 10 (0-10) mg/dL - Patient's Progress Pain Medication Addressed: POSITIVE: No Re-Examine Time: 20:47 Status: POSITIVE: Improved MDM / ED Course: Patient was examined, blood drawn and sent to the lab for studies, CT scan of her head was obtained. Findings: CBC is unremarkable, comprehensive metabolic panel shows a sodium of 124. Urinalysis shows a contaminated pattern. CT scan shows no acute intracranial abnormalities. Next Assessment: Mild hyponatremia, this is the possible source of her confusion. Plan: Discharge home: Increase Lasix to 40 mg twice a day, limit fluid intake to one and a half liters per day, follow-up with the emergency department on Wednesday for rechecking of sodium. - Consult Counseled: POSITIVE: Patient, Family, RE: Lab Results, RE: Radiology Results, RE : DX, RE: Need for F/U Patient Care Time - Estimated PCT Patient Care Time (In Minutes): 30 Vital Signs - Recent Vital Signs Vital Signs: Vital Signs (Last 8 hours) Temp Pulse Resp BP Pulse Ox 10/09/16 18:00 97.3 F 117 H 20 130/79 95 10/09/16 17:59 97.3 F 117 H 20 130/79 95 - VS Reviewed Vital Signs Reviewed: Yes Discharge Clinical Impression: Confusion Discharge Disposition: Discharged to Home Condition: Good Patient Instructions Given at Discharge: Altered Mental Status (ED)
[2016-10-09 18:49] LABS: BASOPHILS # (AUTO) 0.05 10*3/UL; BASOPHILS % (AUTO) 0.7 % (0-1); EOSINOPHILS # (AUTO) 0.14 10*3/UL; HEMATOCRIT 38.9 % (37.0-47.0); HEMOGLOBIN 13.6 g/dL (12.0-16.0); LYMPHOCYTES # (AUTO) 0.45 10*3/uL; MEAN CORPUSCULAR HEMOGLOBIN 30.2 PG (27-31); MEAN CORPUSCULAR VOLUME 86.4 FL (81-99); MEAN PLATELET VOLUME 8.8 FL (7.4-12.2); MONOCYTES % (AUTO) 9.8 % (5-15); NEUTROPHILS # (AUTO) 5.77 10*3/UL; NEUTROPHILS % (AUTO) 80.9 % (50-80)
[2016-10-09 18:55] LABS: CALCIUM 9.2 mg/dL (8.7-10.7); MAGNESIUM 1.9 mg/dL (1.6-2.4); SERUM ALBUMIN 4.7 g/dL (3.5-4.8)
[2016-10-09 18:57] LABS: PLATELET MORPHOLOGY COMMENT NORMAL MORPHOLOGY (NORM); RBC MORPHOLOGY COMMENT NORMAL MORPHOLOGY (NORM); WBC MORPHOLOGY COMMENT NORMAL MORPHOLOGY (NORM)
--- NOTE | 2016-10-09 20:03 | DI ---
HISTORY: Altered mental status, confusion. TECHNIQUE: Unenhanced images of the brain were obtained and submitted for interpretation. FINDINGS: There is senescent change. There is a hypodensity along the right parasylvian fissure fissure, which could be due to prior infar ct. Hypodensities in both cerebellar hemispheres greater on the left could represent changes from chronic infarcts. Changes from prior surgery can have a similar appearance. 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 There is no intracranial hemorrhage, mass effect, hydrocephalus, or significant midline shift. The b sridhar cisterns are not effaced. The visualized paranasal sinuses and mastoids are well-aerated. IMPRESSION: 1. Hypodensities in both cerebellar hemispheres could represent changes from chronic infarcts. Recomm end MRI. Changes from prior surgery can have a similar appearance. Note is made of a prior left sub occipital craniectomy. Residual or recurrent tumor, though not favored, is not completely occluded. 2. No acute intracranial hemorrhage identified. NOTIFICATION: The above findings were phoned to [facility] in the ER Department on 10/09/2016 at 10:16pm EST.
[2016-10-09 20:27] LABS: CLARITY,URINE CLEAR (CLEAR); COLOR,URINE YELLOW; URINE SAMPLE TYPE CLEAN CATCH URINE
[2016-10-09 20:28] LABS: BACTERIA,URINE RARE; BILIRUBIN,URINE NEGATIVE (NEG); GLUCOSE, URINE (UA) NEGATIVE (NEG); NITRATE,URINE NEGATIVE (NEG); OCCULT BLOOD,URINE NEGATIVE (NEG); PROTEIN,URINE NEGATIVE (NEG); SQUAMOUS EPITHELIAL CELL,UR FEW; UROBILINOGEN,URINE 0.2 EU/dL (0.2)
[2016-10-09 20:33] LABS: AMPHETAMINE SCREEN NEGATIVE (NEG); CANNABINOID SCREEN,URINE NEGATIVE (NEG); COCAINE SCREEN NEGATIVE (NEG); METHADONE URINE SCREEN NEGATIVE (NEG); METHAMPHETAMINES SCREEN,URINE NEGATIVE (NEG); OPIATE SCREEN,URINE NEGATIVE (NEG)
== END 2016-10-09 21:00 | disposition home or self-care (01) ==
LOC: ER 17:55
DX: R41.0 Disorientation, unspecified (principal); I10 Essential (primary) hypertension; I48.91 Unspecified atrial fibrillation
CPT/HCPCS: 70450; 80053; 80305; 80320; 81001; 81003; 83735; 84443; 85025; 99283

== ENCOUNTER 2016-10-11 13:12 | Inpatient (IN) | payer OTHER, MEDICARE ==
--- NOTE | 2016-10-11 13:27 | PDOC ---
Gen Adult / Medical Screen HPI - General Chief Complaint: General Medical Stated Complaint: RECHECK SODIUM Date Seen by Provider: 10/11/16 Time Seen by Provider: 13:28 Source: POSITIVE: Patient Exam Limitations: POSITIVE: No limitations Nurse's Notes Reviewed & Considered: Yes - Indicators Temperature Between 95 and 101 Degrees: Yes Respirations Between 12 and 20: Yes Blood Pressure Between 100-165 (sys) and 60-100 (dinh): Yes Pulse Range Between 60-105 (100 for age > 60 years): Yes Severe Pain (Greater than 5/10 Reported): No Chest or Abdominal Pain: No Inability to Walk: No Pt Reports Active High Risk Cond. (TB/Hepatitis/HIV/Chemo): No Abnormal Mental Status: No - History of Present Illness Initial Comments: Patient comes in today for recheck of sodium levels. Patient was seen in the emergency room 2 days ago because of intermittent periods of confusion. She has had no further episodes since Wednesday. The swelling in her feet and legs has improved. Denies any nausea vomiting or diarrhea, no headaches, changes in her vision, no chest pain or shortness of breath, no fever chills, or sweats. - Patient Home Medications Home Medications: Home Medications Aspirin [Aspir 81] 325 mg PO DAILY 06/03/12 Psyllium 3.4 gm Packet [Metamucil 3.4 gm Packet] 3.4 gm PO BEDTIME 07/24/16 Acetaminophen [Tylenol] 650 mg PO 08/22/16 Doxazosin Mesylate 2 mg PO DAILY 08/22/16 Losartan Potassium 100 mg PO DAILY 08/22/16 Oxygen 2 DAILY 08/22/16 Furosemide [Lasix] 20 mg PO BID@0700,1300 #60 tab 08/26/16 Metoprolol Succinate [Toprol XL] 25 mg PO DAILY #30 tab 08/26/16 Potassium Chloride 10 meq PO DAILY #30 tab 08/26/16 hydrALAZINE Tab [Apresoline Tab] 20 mg PO BID tab 08/26/16 - Patient Allergies Allergies/Adverse Reactions: Allergies Allergy/AdvReac Type Severity Reaction Status Date / Time amlodipine Allergy CHEST PAIN Verified 08/25/16 20:21 OR TIGHTNESS hydrochlorothiazide Allergy Anaphylaxis Verified 08/25/16 20:21 Past Medical History - heen HEENT History: Macular Degeneration, Hard of Hearing, Dentures/Partials, Other ( please comment) Additional HEENT History: nose bleeds Cardiovascular History: Hypertension, Arrhythmia Additional Cardiovasular History: Afib Respiratory History: Denies History, Other (please comment) Additional Respiratory History: previous smoker, quit 27 years ago; on continuous O2 @ 2. 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 stroke 07/20/16 Blood Disorders: Denies History Psychiatric History: Denies History History of Sexually Transmitted Diseases: No Cancer History: Other (please comment) History of MDRO: No History of Other Communicable Diseases: No Alcohol Use: Rarely Substance Use Type: None Previous Surgical History: Yes Type / Date of Surgery: SEE ABOVE Anesthesia Reactions: No Malignant Hyperthermia: No Significant Family History: Asthma, Cancer, Hypertension ROS - Limitations ROS Limitations: No Limitations Constitution: REPORTS: Denies Symptoms Cardiovascular: REPORTS: Denies Cardiac Symptoms Respiratory: REPORTS: Denies Resp Symptoms Neurological: REPORTS: Denies Neuro Symptoms Gastrointestinal: REPORTS: Denies GI Symptoms Endocrine: REPORTS: Denies Symptoms Musculoskeletal: REPORTS: Lower Extremity Swelling Genitourinary: REPORTS: Denies Symptoms Eyes: REPORTS: Denies Symptoms ENT: REPORTS: Denies Symptoms Skin: REPORTS: Denies Skin Symptoms Lympathic: REPORTS: Denies Lympathic Symptoms Immunologic: POSITIVE: Denies Symptoms Psychiatric: POSITIVE: Denies Psych Symptoms Gen Adult/Medical Screen Exam - General Appearance General Appearance: POSITIVE: Alert, Cooperative, No Acute Distress, No Evidence of Trauma - HEENT HEENT: POSITIVE: Head Inspection Nml, Eyes Inspection Nml, Ears Inspection Nml, Nose Inspection Nml, Oral/Dental Inspect. Nml, Pharynx Inspect. Nml, PERRL, EOMI - Pupils Pupil Size: 4 mm: Bilateral - Neck Neck: POSITIVE: Normal Inspection, Thyroid Normal - Respiratory Respiratory: POSITIVE: No Respiratory Distress, Breath Sounds Normal, Chest Non- Tender - Cardiovascular Cardiovascular: POSITIVE: Regular Rate & Rhythm, No Murmur, No Gallop, PMI Normal - Abdomen Abdomen: Soft: (All Quadrants), Normal Bowel Sounds: (All Quadrants), Denies Tenderness: (All Quadrants) - Back Back: POSITIVE: Normal Inspection - Neurological / Psychological Mental Status: POSITIVE: Mood Normal, Affect Normal Orientation: POSITIVE: Oriented x 3 When asked, pt ADMITS continued consideration of suicide:: No When asked, pt DENIES continued consideration of suicide:: No Reflexes: Patellar (R): 4+, Patellar (L): 3+, Radial (R): 3+, Radial (L): 3+ - Skin Skin: POSITIVE: Normal Color, Warm, Dry, No Rash - Extremities Extremity: Non-Tender: (All Extremities), Normal ROM: (All Extremities), Normal Inspection: (All Extremities), Pelvis Stable: (All Extremities) Gen Adlt/Medical Scrn Progress - Results Reviewed by me Lab Results Reviewed: Yes Lab Results:: Laboratory Results 10/11/16 Range/Units 13:25 Sodium 123 L (135-145) meq/L Potassium 3.8 (3.8-5.2) meq/L Chloride 81 L (98-112) meq/L Carbon Dioxide 31 (23-33) meq/L Anion Gap 11 (5-20) BUN 23 H (7-22) mg/dL Creatinine 0.8 (0.50-1.20) mg/dL Estimated GFR (>60 ml/min/1.73m(2)) BUN/Creatinine Ratio 28.75 H (6-20) Glucose 106 (78-110) mg/dL Calculated Osmolality 259.0 L (267-292) mOsm/kg Calcium 9.4 (8.7-10.7) mg/dL Total Bilirubin 1.1 (0.3-1.2) mg/dL AST 26 (8-39) IU/L ALT 19 (9-52) IU/L Alkaline Phosphatase 76 (38-126) IU/L Total Protein 7.3 (6.1-8.0) g/dL Albumin 4.6 (3.5-4.8) g/dL Globulin 2.7 (2.50-4.10) g/dL Albumin/Globulin Ratio 1.70 (1.3-2.0) mg/g - Patient's Progress Pain Medication Addressed: POSITIVE: Not Applicable Status: POSITIVE: Unchanged MDM / ED Course: Patient was evaluated, blood drawn and sent to the lab for studies. laboratory findings reveal hyponatremia with sodium dropping from 124-123. Assessment: Hyponatremia, confusion. 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 Plan: Admission - Consult Consult (If Yes, Name of Consulting MD & Time Called): Yes (Dr. Durant [id number]) Consulting MD will see pt:: POSITIVE: [facility] [place] Admit Counseled: POSITIVE: Patient, Family, RE: Lab Results, RE: DX Patient Care Time - Estimated PCT Patient Care Time (In Minutes): 15 Vital Signs - Recent Vital Signs Vital Signs: Vital Signs (Last 8 hours) Temp Pulse Resp BP Pulse Ox 10/11/16 13:25 97.4 F 103 H 18 136/62 93 - VS Reviewed Vital Signs Reviewed: Yes Discharge Clinical Impression: Acute hyponatremia Discharge Disposition: Admit to Inpatient Condition: Good Patient Instructions Given at Discharge: Hyponatremia (ED) Date Decision to Admit to Inpatient: 10/11/16 Time Decision to Admit to Inpatient: 13:56
[2016-10-11 13:41] LABS: BUN/CREATININE RATIO 28.75 (6-20); CALCIUM 9.4 mg/dL (8.7-10.7); SERUM ALBUMIN 4.6 g/dL (3.5-4.8)
[2016-10-11] MEDS ORDERED: LABETALOL 20 MG/4 ML (5 MG/1 ML) SYRINGE IVP PRN (14:31)
[2016-10-11] MEDS ORDERED: LIDOCAINE W/ SODIUM BICARB 0.5 ML SYR SUBD PRN (14:31)
[2016-10-11] MEDS ORDERED: NORMAL SALINE 10 ML SYRINGE FLUSH IVP PRN (14:31)
[2016-10-11] MEDS: Sodium Chloride 0.9% 1,000 ML PRIMARY IV SCH (14:58)
[2016-10-11] MEDS ORDERED: ACETAMINOPHEN 325 MG TABLET PO PRN (15:00)
--- NOTE | 2016-10-11 19:11 | PDOC ---
History and Physical - History of Present Illness Date and Time of Service: 10/11/2016, 1905, patient seen earlier today Chief Complaint: Confusion and altered mental status History of Present Illness: This is a very pleasant 89-year-old female who presented by her daughter today. The history is obtained from both patient and her daughter, and the patient was brought in as she had recently been seen and found to have a low sodium. The patient's Lasix was increased in an effort to hold off free water to improve the sodium. On return to the emergency room, the patient's labs still showed a low sodium. The patient reportedly has had confusion at home, forgetting what lights which is working for, and forgetting how to start a shower. She apparently is not eating breakfast anymore either. Her daughter found out that a lot of these things were going on and was worried about increased confusion. The patient may or may not been dragging her left foot, and the story was somewhat inconsistent. No other focal weakness. She did have a recent stroke. She does have known atrial fibrillation. She's never had any screens for dementia, but we did do a [facility] evaluation and it found a score of 20/30 at bedside. It is consistent with dementia versus mild cognitive impairment. There've been no reported fevers, chills, nausea, vomiting, chest pain, shortness breath, or other infectious symptoms. No exacerbating factors. The patient's daughter notes that her mom has been more confused as of late. Symptoms seem to be intermittent and sleep also seems to be worsened in terms of pattern. Past Medical History Medical History: 1. Chronic A. fib. 2. hypertension. 3. Chronic hyponatremia, slightly worse today but has had sodiums in the 120s in the past. 4. History of cerebrovascular bleed. 5. History of recent embolic stroke. Surgical History: WAI HOLE (SKULL)TO DRAIN BLOOD W/ STROKE Pertinent Family History: Significant for coronary artery disease in both of her parents who in their 80s. Past Social History: Used to smoke but no longer does. Lives with her daughter here in town. Gets her care in [place] with Dr. Combs. Does not drink alcohol. She has 2 daughters, both of whom are healthy. Her other daughter lives in [place], [place]. Tobacco Use: Former Smoker Substance Use Type: None Alcohol Use: None Medication / Allergies Home Medications: Home Medications Medication Instructions Recorded Confirmed Type Aspirin [Aspir 81] 325 mg PO DAILY 06/03/12 10/11/16 History Psyllium 3.4 gm Packet [Metamucil 3.4 gm PO BEDTIME 07/24/16 10/11/16 History 3.4 gm Packet] Acetaminophen [Tylenol] 650 mg PO PRN 08/22/16 History Doxazosin Mesylate 2 mg PO DAILY 08/22/16 10/11/16 History Losartan Potassium 100 mg PO DAILY 08/22/16 10/11/16 History Oxygen 2 DAILY 08/22/16 History Furosemide [Lasix] 20 mg PO BID@0700,1300 #60 tab 08/26/16 10/11/16 Rx Metoprolol Succinate [Toprol XL] 25 mg PO DAILY #30 tab 08/26/16 10/11/16 Rx Potassium Chloride 10 meq PO DAILY #30 tab 08/26/16 10/11/16 Rx hydrALAZINE Tab [Apresoline Tab] 20 mg PO BID tab 08/26/16 10/11/16 Rx Allergies/Adverse Reactions: Allergies Allergy/AdvReac Type Severity Reaction Status Date / Time amlodipine Allergy CHEST PAIN Verified 08/25/16 20:21 OR TIGHTNESS hydrochlorothiazide Allergy Anaphylaxis Verified 08/25/16 20:21 Review of Systems - Review of Systems All Systems: Reviewed & No Additional Complaints Except as Stated (I did a 12 point review systems and other than that discussed in history present illness, the review systems is negative.) Exam - Vitals Vital Signs: Vital Signs Temperature 97.9 F Temperature Source Temporal Artery Scan Pulse Rate [Pulse Oximeter] 71 Pulse Rate 82 Respiratory Rate 19 Blood Pressure [Left Arm] 148/87 Pulse Ox 96 Oxygen Flow Rate 2 Oxygen Delivery Method Room Air Height 5 ft Weight 126 lb - General General Appearance: POSITIVE: No Acute Distress, Cooperative - Head Head Exam: POSITIVE: Normal Inspection, Normocephalic, Atraumatic - Eye Eye Exam: POSITIVE: Normal Appearance, No Scleral Icterus - ENT ENT Exam: POSITIVE: Mucous Membranes Moist - Neck Neck Exam: POSITIVE: Normal Inspection, No Tenderness, No Thyromegaly - Respiratory Respiratory Exam: POSITIVE: Clear to Auscultation - Bilaterally, Breathing Non Labored, Normal to Percussion and Palpation - Cardiovascular Cardiovascular Exam: POSITIVE: No Murmur, No Clicks, No Gallops, No Rubs, Irregular Rhythm, No JVD - GI/Abdominal GI/Abdominal Exam: POSITIVE: Normal Bowel Sounds, Non Tender, Non Distended, Soft - Rectal Rectal Exam: POSITIVE: Deferred - External Exam: POSITIVE: Deferred Exam: POSITIVE: Deferred - Extremities Extremities Exam: POSITIVE: No Clubbing Present, No Edema Present, No Cyanosis Present - Back Back Exam: POSITIVE: No CVA Tenderness - Neurological Neurological Exam: POSITIVE: Alert, Oriented x 3 (At time of examination, patient was oriented.), No Facial Droop, Speech Intact / Clear, Moves All Extremities Equally - Psychiatric Psychiatric Exam: POSITIVE: Normal Affect, Normal Mood - Integumentary Integumentary Exam: POSITIVE: Normal Color, Warm, Dry, Intact Results - Labs CBC and BMP: 10/11/16 13:25 Labs - Last 24 Hours: Laboratory Results 10/11/16 Range/Units 13:25 Sodium 123 L (135-145) meq/L Potassium 3.8 (3.8-5.2) meq/L Chloride 81 L (98-112) meq/L Carbon Dioxide 31 (23-33) meq/L Anion Gap 11 (5-20) BUN 23 H (7-22) mg/dL Creatinine 0.8 (0.50-1.20) mg/dL Estimated GFR (>60 ml/min/1.73m(2)) BUN/Creatinine Ratio 28.75 H (6-20) Glucose 106 (78-110) mg/dL Calculated Osmolality 259.0 L (267-292) mOsm/kg Calcium 9.4 (8.7-10.7) mg/dL Total Bilirubin 1.1 (0.3-1.2) mg/dL AST 26 (8-39) IU/L ALT 19 (9-52) IU/L Alkaline Phosphatase 76 (38-126) IU/L Total Protein 7.3 (6.1-8.0) g/dL Albumin 4.6 (3.5-4.8) g/dL Globulin 2.7 (2.50-4.10) g/dL Albumin/Globulin Ratio 1.70 (1.3-2.0) mg/g - Imaging Status: Image Reviewed by Me (I left a head CT done at 10-09-2016, and I did not notice any evidence of acute bleeding. On the right temporal region there appeared to be an area of density change, and the radiologist reading felt that they were changes and chronic hypodensity secondary to represent acute stroke. I have an MRI scan ordered for tomorrow.) AFib Stroke Risk Screening - AFib Stroke Risk (CHADS-VASc) Atrial Fibrillation Ischemic Stroke Risk Factors: Hypertension, Female (I discussed with the family, that if the patient shows that she's having continued strokes and appears to fit an atrial fibrillation pattern, eliquis or Xarelto may be the best thing to do in this situation.), Age 75 years or older CHADS-VASc Score (A-Fib Stroke Risk Score): 4 CHADS-VASc Risk: High Risk Assessment and Plan - Patient Problems (1) Altered mental status Current Visit: No Status: Acute Qualifiers: Altered mental status type: transient alteration of awareness Qualified Description: Transient alteration of awareness Qualifier Code(s) : (R40.4) Transient alteration of awareness (2) Cognitive impairment Current Visit: Yes Status: Acute (3) Chronic atrial fibrillation Current Visit: Yes Status: Chronic (4) History of CVA (cerebrovascular accident) Current Visit: Yes Status: Acute - Assessment / Plan Additional Assessment/Plan Details: Admit the patient. Get an MRI scan tomorrow to make sure that there is no evidence of recurrent stroke. If there is, I think we need to completely readdress how we are trying to prevent stroke with atrial fibrillation despite prior intracranial bleed. That happened on Coumadin, many years ago, and it seems that if we continue to argue against Coumadin, we could be putting the patient at risk for sure and worsened mental status. This is the family and they understood the explanation, and will think about choices and options. I will also speak with the patient's medical provider tomorrow. For now continue home medications. PT and OT. 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
[2016-10-11] MEDS: PSYLLIUM SEED 1 EACH PACKET PO SCH (20:47)
[2016-10-12 06:32] LABS: CHOL/HDL RATIO 1.84 RATIO (0-4.0); LDL CHOLESTEROL,CALCULATED 47.6 mg/dL
[2016-10-12] MEDS: ENOXAPARIN SODIUM 40 MG/0.4 ML SYRINGE SUBCUT SCH (08:27)
[2016-10-12] MEDS: METOPROLOL SUCCINATE 25 MG SR 24H TABLET PO SCH (08:28)
[2016-10-12] MEDS: ASPIRIN EC 81 MG TABLET PO SCH (08:28)
[2016-10-12] MEDS: Potassium Chloride Tab 10 MEQ TAB PO SCH (08:28)
[2016-10-12] MEDS: LOSARTAN 50 MG TABLET PO SCH (08:28)
[2016-10-12] MEDS: DOXAZOSIN 2 MG TABLET PO SCH (08:28)
[2016-10-12 09:46] LABS: BUN/CREATININE RATIO 28.57 (6-20); CALCIUM 8.3 mg/dL (8.7-10.7)
--- NOTE | 2016-10-12 09:59 | DI ---
MRI BRAIN W/O CN,10/12/2016 7:00 AM: Clinical History: Altered mental status Previous Exam: July 20, 2016 Findings: Multiplanar MR images are obtained through the brain without contrast, and demonstrate diffuse age-re lated volume loss. There are multiple foci of increased FLAIR and T2 signal within the periventricula r and subcortical white matter. There is an old infarct within the left cerebellar hemisphere unchanged from the prior exam. The area of abnormally restricted diffusion seen within the left parietal lobe has resolved since the prior exam. The signal within the clivus is normal. The proximal cervical spinal cord and the brainstem are unrem arkable. There is no evidence of Chiari malformation. The major vascular flow voids are unremarkable. Intraorbital structures are also unremarkable. Impression: Diffuse age-related volume loss and stable old left cerebellar hemispheric infarct unchanged from the prior exam.
[2016-10-12] MEDS: Sodium Chloride 0.9% 1,000 ML PRIMARY IV SCH ×2 (12:34)
--- NOTE | 2016-10-12 16:44 | PDOC(PROG) ---
Date and Time of Service: 10/12/2016, 1640 Interval History: No chest pain and no shortness of breath. Has been intermittently confused throughout the day. MRI scan shows improvement from prior stroke. Scar tissue present from prior strokes. I put a call into Dr. Combs and I'm waiting for a call back, but at this point I think we can discuss just keeping the patient on her regular medications. No nausea or abdominal pain. Objective : Data - Labs CBC and BMP: 10/12/16 05:00 Labs - Last 24 Hours: Laboratory Results 10/12/16 10/12/16 Range/Units 05:00 06:08 Sodium 127 L (135-145) meq/L Potassium 3.8 (3.8-5.2) meq/L Chloride 95 L (98-112) meq/L Carbon Dioxide 26 (23-33) meq/L Anion Gap 6 (5-20) BUN 20 (7-22) mg/dL Creatinine 0.7 (0.50-1.20) mg/dL Estimated GFR (>60 ml/min/1.73m(2)) BUN/Creatinine Ratio 28.57 H (6-20) Glucose 83 (78-110) mg/dL Calculated Osmolality 265.0 L (267-292) mOsm/kg Calcium 8.3 L (8.7-10.7) mg/dL Triglycerides 37 L (44-200) mg/dL Cholesterol 120 (120-200) mg/dL LDL Cholesterol, Calc 47.600 mg/dL VLDL Cholesterol 7 (0-40) mg/dL HDL Cholesterol 65 (40-150) mg/dL Cholesterol/HDL Ratio 1.84 (0-4.0) RATIO Objective : Exam - General General Appearance: No Acute Distress, Cooperative Additional General Exam Details: Vital Signs - Last Taken Temperature 97.5 F 10/12/16 16:12 Pulse Rate 61 10/12/16 16:12 Respiratory Rate 20 10/12/16 16:12 Blood Pressure 125/80 10/12/16 16:12 Pulse Ox 99 10/12/16 16:12 - Respiratory Respiratory Exam: Clear to Auscultation - Bilaterally, Breathing Non Labored - Cardiovascular Cardiovascular Exam: No Murmur, No Clicks, No Gallops, No Rubs, Irregular Rhythm, No JVD - GI/Abdominal GI/Abdominal Exam: Normal Bowel Sounds, Non Tender, Non Distended, Soft - Extremities Extremities Exam: No Clubbing Present, No Edema Present, No Cyanosis Present - Neurological Neurological Exam: Alert, No Facial Droop, Speech Intact / Clear, Moves All Extremities Equally Assessment and Plan - Patient Problems (1) Altered mental status Current Visit: Yes Status: Acute Qualifiers: Altered mental status type: transient alteration of awareness Qualified Description: Transient alteration of awareness Qualifier Code(s) : (R40.4) Transient alteration of awareness (2) Cognitive impairment Current Visit: Yes Status: Acute (3) Chronic atrial fibrillation Current Visit: Yes Status: Chronic (4) History of CVA (cerebrovascular accident) Current Visit: Yes Status: Acute - Assessment / Plan Additional Assessment/Plan Details: Given that there is no new stroke, may be able to continue aspirin alone. I have called the patient's primary care provider and waiting for callback to discuss further. I am still suspicious for vascular infarct dementia. We'll stop telemetry monitoring. We know the patient has atrial fibrillation. Given her bleed and medication limitations we are maximal therapy. Continue PT and OT. Disposition will be something that we'll have to discuss with the patient's daughter. She has been living with her daughter here in town, but I wonder if the patient is now at a stage where she may require assisted living? We know that she is skipping breakfast for example because she just cannot cook. This may be an issue moving forward. No improvement with improvement in sodium. 127 is some more normal sodium for this patient.
[2016-10-12] MEDS: PSYLLIUM SEED 1 EACH PACKET PO SCH (20:32)
--- NOTE | 2016-10-13 07:43 | PT.PROG ---
Progress Note Progress Note: S: Pt. states she is doing ok today. She expresses that she doesn't want to go to downstairs as she is afraid she will "loose her mind" while down there. But pt. does agree to come downstairs. O: Treatment consisted of functional activities including ambulating in room and to the bathroom. She was able to toiled and hygiene with stand by assist for safety. She then ambulated down to the PT room with use of FWW and 2 L O2. She did use the rest room again once we got to the PT clinic. She then performed ube x 4/4, nu step x 10 minutes, sit to stands x 10, bridges, laq, and seated marches. She then receive moist heat to her LB prior to OT. A: Pt. does appear weak and requires close supervision for most activities. She does also exhibit tremors on left UE with activities such as reaching for an object and when no weight is present in her hands. Gait is slow but steady. P: Continue per POC to increase strength and activity tolerance. Nia Mendoza, PC MAINTENANCE TECHNICIAN
[2016-10-13] MEDS: DOXAZOSIN 2 MG TABLET PO SCH (08:48)
[2016-10-13] MEDS: METOPROLOL SUCCINATE 25 MG SR 24H TABLET PO SCH (08:48)
[2016-10-13] MEDS: Potassium Chloride Tab 10 MEQ TAB PO SCH (08:48)
[2016-10-13] MEDS: LOSARTAN 50 MG TABLET PO SCH (08:48)
[2016-10-13] MEDS: Sodium Bicarbonate Tab 650 MG TAB PO SCH (08:48)
[2016-10-13] MEDS: ASPIRIN EC 81 MG TABLET PO SCH (08:49)
[2016-10-13] MEDS: ENOXAPARIN SODIUM 40 MG/0.4 ML SYRINGE SUBCUT SCH (08:49)
--- NOTE | 2016-10-13 14:42 | OT.PROG ---
Progress Note Progress Note: S: pt stated she did not want to go down for therapy. She only wanted to stay in her room. She also stated that she feels really tired. O: pt was seen in her room in the p.m. she completed activities to increase function of L hand. She completed yellow theraputty, rice, stringing 15 beads and cloths pins. pt was left upright in chair with call light within reach and chair alarm on. A: pt expressed aphasia today, and did demonstrate ataxia with L UE. Attempt to transfer pt downstairs tomorrow for CPT. P: continue per plan of care.
--- NOTE | 2016-10-13 14:50 | OT.PROG ---
Progress Note Progress Note: S: pt stated she did not want to go downstairs for therapy, she only wanted to stay in room. She stated that she felt really tired and confused. O: pt was seen in her room in the p.m. She completed functional tasks with L UE by completing yellow theraputty, rice, beading x15 and clothspins. She had difficulty following directions as she needed cues to complete. A: pt displayed aphasia today along with ataxia of the LUE. continue to monitor. P: continue per plan of care.
--- NOTE | 2016-10-13 15:32 | PTI REPORT ---
Thank you for the referral of Hailey Santamaria. She was seen on 10/12/16 for an inpatient evaluation secondary to weakness with possible CVA. SUBJECTIVE: The patient is an 89-year-old female who states that she was brought in to the hospital by her daughter who she lives with. The patient has been having increased difficulty with mobility and also with cognition. The patient has been attending outpatient physical therapy two to three times a week for general strengthening and balance and a general decline has been noted, mainly with her cognition. The patient states that she is doing pretty well today. She feels that she probably hasn't been having proper nutrition which is most likely what led to her being in the hospital according to the patient. She states that she was admitted and had low sodium. The patient has had multiple CVAs in the past with one a few years ago affecting her left side and approximately a month or two ago she had been admitted to the hospital here in [place] from another possible CVA. The patient does live with her daughter here in [place] and her daughter does help her with more challenging tasks and ADLs as needed, otherwise the patient is fairly independent with performing some of her basic ADLs and does use a front wheeled walker for her mobility. The patient is also on oxygen. PAST MEDICAL HISTORY: Past medical history can be found in the patient's medical record. OBJECTIVE FINDINGS: General observations: The patient is alert and oriented to setting upon PT arrival. The patient was just finishing with toileting activity with PROCESSING MANAGER upon therapy arrival. The patient was willing to participate with therapy. She was scheduled to have a shower so we did our evaluation on the way over to the shower room. The patient is very hard of hearing and she did not have her hearing aids in so she had a difficult time answering questions from other staff. Cognition: The patient appears more confused than usual as the therapist has worked with the patient in the past. Ambulation: The patient did demonstrate an antalgic gait pattern. The patient did use a four wheeled walker. She did demonstrate dragging of her right lower extremity as she was able to step through with the left but with the right she was not able to do so. The patient required contact guard assist x1 for safety with gait. The patient was able to ambulate 150 feet without rest break with max verbal cueing for direction. Transfers: The patient was able to perform seated to standing and standing to seated transfers with stand by assist x1 for safety. Strength: The patient demonstrates 3/5 bilateral lower extremity strength. ASSESSMENT: The patient has fair rehab potential due to her past medical history and cognition. Problem List: Generalized weakness Decreased endurance and activity tolerance Short-Term Goals: To be met by discharge from inpatient: Patient will be able to perform all transfers independently and safely. Patient will be able to ambulate at least 150 feet safety and independently with front wheeled walker. Patient will be able to ascend and descend three stairs as they do have stairs in the home that she needs to be able to navigate. Long-Term Goals: To be met following discharge from inpatient: Patient will resume outpatient physical therapy to continue to work on general strengthening activities for both upper and lower extremities. TREATMENT PLAN: Patient will be seen B.I.D during the week and one time per day over the weekend as an inpatient for general strengthening and balance activities. INITIAL TREATMENT: Treatment today consisted of the initial evaluation activities only. PANKAJ
--- NOTE | 2016-10-13 15:55 | OTI REPORT ---
Thank you for the referral of Hailey Santamaria. She was seen on 10/12/16 for an occupational therapy inpatient evaluation secondary to weakness. SUBJECTIVE: The patient is an 89-year-old female. The patient came into the hospital secondary to low sodium and they are assessing whether she had another stroke or not. She has noticed increased confusion and decreased energy. Later in the evaluation the patient's daughter states she had noticed the confusion and she stated when she came home from work, Hailey's oxygen was off and her oxygen was in a tangled mess. She was trying to find someone to watch Hailey for the rest of the day but reports her mom was having a lot of difficulties. The patient reports she does live with her daughter. She reports that her daughter does not cook and that she is responsible for a lot of her meals throughout the day. She reports that when she does cook it is usually a microwaved meal and she reports that sometimes she doesn't eat very well when she is at home by herself. Hailey does use a wheeled walker. Her bathroom set up is a tub with a chair that she sits on. She states she typically does most of this by herself but she usually has her daughter there just in case she needs some assistance. She sleeps in a standard bed. The patient states prior to admission she would go to the senior center with a friend for meals and then come to therapy to exercise; however, she has not been feeling up to either of those activities lately. Cognitively, staff as well as the patient's daughter have noticed increased confusion. PAST MEDICAL HISTORY: Past medical history can be found in the patient's medical record. OBJECTIVE FINDINGS: Range of motion: The patient had within normal limits in the shoulders and elbows. Hand range of motion on the right is within functional limits. Left is 75% of that of normal. Strength: Strength on the right side is 4+/5 throughout. On the left side she has 4/5 for shoulder flexion/abduction and 4/5 for elbow flexion/extension. Her hand strength is affected and she has a lot of coordination difficulties with the left hand. The patient states this is pretty typical for her as she has had these symptoms since her stroke a couple of years ago. Activities of daily living: The patient required mod assist for right lower extremity dressing but was independent dressing the left side. She needed min assist to stand and pull pants up around waist secondary to decreased balance. The patient was independent with upper extremity dressing after set up. Transfers: The patient requires contact guard to min assist with functional transfers secondary to decreased balance. ASSESSMENT: Problem List: Decreased ability to complete ADLs Decreased safety Decreased functional safety Decreased cognition Short-Term Goals: To be met by discharge from inpatient: Patient will be able to dress lower extremities independently. Patient will increase upper extremity strength to 4+/5 throughout. Patient will be able to shower self with stand by assist. Patient will participate in cognitive assessment. Long-Term Goals: To be met following discharge from inpatient: Patient will be discharged home, independent and safe with all functional transfers and ADLs 100% of the time. TREATMENT PLAN: Patient will be seen B.I.D during the week and one time per day over the weekend as an inpatient to address the above goals and objectives. Dr. Saba would like a cognitive evaluation. We will address this this afternoon and tomorrow. INITIAL TREATMENT: Treatment today consisted of the initial evaluation followed by the patient ambulating with contact guard to min assist for balance. The patient completed a shower activity. The patient walked into the shower with min assist for balance. The patient needed min assist for balance while doffing clothes. The patient required mod assist to doff pants and socks. The patient required mod assist in order to shower self. Following shower, the patient needed assistance with drying back and feet. The patient needed min assist to don pants on right side and min assist to don socks. After set up, the patient was independent with upper extremity dressing. The patient then walked to her room. She was able to stand at sink x5 minutes. She then transferred to her chair. PANKAJ
--- NOTE | 2016-10-13 16:01 | OT PM DAY ---
Diagnosis : Weakness PM - Occupational Therapy S: The patient reports that she has noticed increased cognition difficulties. O: Today the patient was assessed with the [place] Cognitive Assessment ( MoCA) The patient had 0/5 correct for visuospatial and executive. The patient had 3/3 correct for naming. The patient had 2/6 correct for attention. The patient had 2/3 correct for language. The patient had 0/2 correct for abstraction. The patient had 0/5 correct for delayed recall. The patient had 6/6 correct for orientation. A: Overall the patient scored 13/30 which puts her in the MODERATE cognitive impairment level. She would benefit from further cognitive assessment with the CPT. P: Continue seeing patient BID during the week and one time per day over the weekend until discharge. PANKAJ
--- NOTE | 2016-10-13 16:12 | PT.PROG ---
Progress Note Progress Note: S. Patient stated that she did not want to go to the therapy gym however she would go for a walk. O. Patient ambulated 300 feet around the nurses station then was left in her chair with alarm and call light. A. Patient tolerated ambulation fair, she was very confused and required max verbal cues for direction. Patient continues to be very weak and would continue to benefit from skilled therapy to increase strength, mobility and endurance. P. continue POC.
--- NOTE | 2016-10-13 16:13 | PDOC(PROG) ---
Date and Time of Service: 10/13/2016, 1613 Interval History: No chest pain and no shortness breath. No nausea or vomiting. Spoke at length with the patient, her daughter, and have offered swing bed for some therapy and continue time for the daughter to look for home care solutions, assisted living , or assisted facility. She opts for the swing bed and more time to try and arrange for people to take care of the patient at home during the day. Objective : Data - Labs CBC and BMP: 10/12/16 05:00 Objective : Exam - General General Appearance: No Acute Distress, Cooperative Additional General Exam Details: Vital Signs - Last Taken Temperature 97.8 F 10/13/16 15:46 Pulse Rate 84 10/13/16 15:46 Respiratory Rate 20 10/13/16 15:46 Blood Pressure 167/99 10/13/16 15:46 Pulse Ox 96 10/13/16 15:46 Sleep-wake cycle disturbance with more sleep during the day. Short-term memory loss. - Eye Eye Exam: No Scleral Icterus - Respiratory Respiratory Exam: Clear to Auscultation - Bilaterally, Breathing Non Labored - Cardiovascular Cardiovascular Exam: No Murmur, No Clicks, No Gallops, No Rubs, Irregular Rhythm, No JVD - GI/Abdominal GI/Abdominal Exam: Normal Bowel Sounds, Non Tender, Non Distended, Soft - Extremities Extremities Exam: No Clubbing Present, No Edema Present, No Cyanosis Present - Neurological Neurological Exam: Alert, No Facial Droop, Speech Intact / Clear, Moves All Extremities Equally Assessment and Plan - Patient Problems (1) Chronic atrial fibrillation Current Visit: Yes Status: Chronic (2) Generalized weakness Current Visit: Yes Status: Acute (3) Dementia Current Visit: Yes Status: Acute Qualifiers: Dementia type: Alzheimer's disease Alzheimer's disease onset: late- onset Dementia behavioral disturbance: without behavioral disturbance Qualified Description: Late onset Alzheimer's disease without behavioral disturbance Qualifier Code(s): (G30.1) Alzheimer's disease with late onset , (F02.80) Dementia in other diseases classified elsewhere without behavioral disturbance (4) Altered mental status Current Visit: Yes Status: Resolved Qualifiers: Altered mental status type: transient alteration of awareness Qualified Description: Transient alteration of awareness Qualifier Code(s) : (R40.4) Transient alteration of awareness (5) Cognitive impairment Current Visit: Yes Status: Acute (6) History of CVA (cerebrovascular accident) Current Visit: Yes Status: Acute (7) Hypertension Current Visit: Yes Status: Chronic Qualifiers: Hypertension type: essential hypertension Qualified Description: Essential hypertension Qualifier Code(s): (I10) Essential (primary) hypertension - Assessment / Plan Additional Assessment/Plan Details: We'll place for swing bed evaluation. Continue PT and OT. Ultimately, placement may be back home with more help at home during the day, assisted living, for assisted facility. Definitely noticing more changes of dementia, including sleep-wake disturbance cycle and some sundowning, and repetitive statements, some cognitive impairments in terms of maintaining conversations appropriately. This seems to be progressing much faster in the last 2-3 months.
[2016-10-13] MEDS: PSYLLIUM SEED 1 EACH PACKET PO SCH (20:42)
[2016-10-14 04:57] LABS: BUN/CREATININE RATIO 31.66 (6-20); CALCIUM 8.6 mg/dL (8.7-10.7)
[2016-10-14] MEDS: Sodium Bicarbonate Tab 650 MG TAB PO SCH (08:13)
[2016-10-14] MEDS: METOPROLOL SUCCINATE 25 MG SR 24H TABLET PO SCH (08:13)
[2016-10-14] MEDS: DOXAZOSIN 2 MG TABLET PO SCH (08:13)
[2016-10-14] MEDS: LOSARTAN 50 MG TABLET PO SCH (08:13)
[2016-10-14] MEDS: ENOXAPARIN SODIUM 40 MG/0.4 ML SYRINGE SUBCUT SCH (08:13)
[2016-10-14] MEDS: Potassium Chloride Tab 10 MEQ TAB PO SCH (08:13)
[2016-10-14] MEDS: ASPIRIN EC 81 MG TABLET PO SCH (08:13)
--- NOTE | 2016-10-14 11:38 | PT.PROG ---
Progress Note Progress Note: S. Patient stated that she would go to therapy this morning. O. Patient ambulated 175 feet to the therapy gym where she used the nu-step x 12 minutes, then performed standing exercises in the form of; hip flexion/ extension, abduction/adduction, marches, sit to stands all x 10 bilaterally. Patient performed standing balance activities x 3 minutes. Patient was left with OT for further therapy. A. Patient requires verbal cues to stay on task, she struggles with balance and weakness. Patient is very confused and her affect is not the same as previous treatments. P. Continue POC.
--- NOTE | 2016-10-14 13:03 | PDOC(PROG) ---
Date and Time of Service: 10/14/2016, 1303 Interval History: No chest pain. No shortness breath. Memory problems are not changed and I spoke with OT who stated the patient got 13 out of 30 on her cognitive evaluation. They are recommending and consideration for prison facility or 24/7 care. The plan at this point is to transition towards a swing bed to allow the patient's daughter time to figure out whether she can higher someone to help monitor the patient during the day. In addition, wheezing therapy will continue to be of benefit for the patient. Objective : Data - Labs CBC and BMP: 10/14/16 04:32 Labs - Last 24 Hours: Laboratory Results 10/14/16 Range/Units 04:32 Sodium 124 L (135-145) meq/L Potassium 4.4 (3.8-5.2) meq/L Chloride 92 L (98-112) meq/L Carbon Dioxide 25 (23-33) meq/L Anion Gap 7 (5-20) BUN 19 (7-22) mg/dL Creatinine 0.6 (0.50-1.20) mg/dL Estimated GFR (>60 ml/min/1.73m(2)) BUN/Creatinine Ratio 31.66 H (6-20) Glucose 83 (78-110) mg/dL Calculated Osmolality 258.0 L (267-292) mOsm/kg Calcium 8.6 L (8.7-10.7) mg/dL Free T4 1.19 (0.93-1.71) ng/dL Objective : Exam - General General Appearance: No Acute Distress, Cooperative Additional General Exam Details: Vital Signs - Last Taken Temperature 97.6 F 10/14/16 12:30 Pulse Rate 66 10/14/16 12:30 Respiratory Rate 20 10/14/16 12:30 Blood Pressure 154/90 10/14/16 12:30 Pulse Ox 94 10/14/16 12:30 - Eye Eye Exam: No Scleral Icterus - Respiratory Respiratory Exam: Clear to Auscultation - Bilaterally, Breathing Non Labored - Cardiovascular Cardiovascular Exam: No Murmur, No Clicks, No Gallops, No Rubs, Irregular Rhythm, No JVD - GI/Abdominal GI/Abdominal Exam: Normal Bowel Sounds, Non Tender, Non Distended, Soft - Extremities Extremities Exam: No Clubbing Present, No Edema Present, No Cyanosis Present - Neurological Neurological Exam: Alert, No Facial Droop, Speech Intact / Clear, Moves All Extremities Equally Assessment and Plan - Patient Problems (1) Chronic atrial fibrillation Current Visit: Yes Status: Chronic (2) Subclinical hypothyroidism Current Visit: Yes Status: Acute (3) Generalized weakness Current Visit: Yes Status: Acute (4) Dementia Current Visit: Yes Status: Acute Qualifiers: Dementia type: Alzheimer's disease Alzheimer's disease onset: late- onset Dementia behavioral disturbance: without behavioral disturbance Qualified Description: Late onset Alzheimer's disease without behavioral disturbance Qualifier Code(s): (G30.1) Alzheimer's disease with late onset , (F02.81) Dementia in other diseases classified elsewhere with behavioral disturbance (5) Cognitive impairment Current Visit: Yes Status: Acute (6) History of CVA (cerebrovascular accident) Current Visit: Yes Status: Acute (7) Hypertension Current Visit: Yes Status: Chronic Qualifiers: Hypertension type: essential hypertension Qualified Description: Essential hypertension Qualifier Code(s): (I10) Essential (primary) hypertension - Assessment / Plan Additional Assessment/Plan Details: I did notice that the TSH from 10/09/2016 was elevated above 5, the free T4 is normal. This subclinical hypothyroidism could be causing some memory problems and I think it may be worth treating to a more normal TSH. Low-dose Synthroid seems to make the most sense to me here. We'll start at 25 g daily. Continue salt tablet. The salt or sodium level has no correlation with the patient's memory problems. This all appears to be consistent with dementia. I think she has a reset osmostat and lives at a lower sodium level. Avoid diuretics if possible. Continue PT and OT. Swing bed tomorrow or Wednesday
--- NOTE | 2016-10-14 15:45 | PT.PROG ---
Progress Note Progress Note: S. Patient stated that she would go to the therapy gym this afternoon. O. Patient ambulated 175 feet to the therapy gym where she used the nu-step x 11 minutes then performed seated exercises in the form of; heel toe raises, marches, long arc quads, ball squeezes, sit to stands all x 10 bilaterally. Patient then ambulated 175 feet back to her room where she was left in her chair with alarm and call light. A. Patient tolerated therapy fair, she requires frequent rest breaks and fatigues easily, she continues to be weak and requires min assist with transfers and SBG with ambulation. Patient would continue to benefit from skilled therapy at this time. P. Continue POC.
--- NOTE | 2016-10-14 16:24 | OT.PROG ---
Progress Note Progress Note: S: pt states that she feels like she could fall asleep. O: pt was seen in her room in the p.m. She completed functional transfer to restroom and completed task with mod Ind. Hygiene at sink was completed Ind. pt then completed transfer downstairs with CGA and on 2 liters of o2. She completd 8 min on arm bike to increase activity tolerance. She transferred to bathroom and completed toileting again with MOd Ind and hygiene at sink with MOd Ind. Completed several activities at hand table to increase function of L hand. Pt returned to room and completed transfer to bathroom once again with mod Ind and hygiene. she was left in recliner with call light within reach and chair alarm on. A: pt still having some ataxia with L UE, transfers well,but still needs some supervision with toileting for safety. P: continue per plan of care.
[2016-10-14] MEDS: PSYLLIUM SEED 1 EACH PACKET PO SCH (20:13)
[2016-10-15] MEDS ORDERED: LEVOTHYROXINE 25 MCG TABLET PO SCH (05:30)
[2016-10-15 07:11] VITALS: RESP 16; TEMP 98.2
[2016-10-15] MEDS: LOSARTAN 50 MG TABLET PO SCH (08:47)
[2016-10-15] MEDS: DOXAZOSIN 2 MG TABLET PO SCH (08:47)
[2016-10-15] MEDS: ASPIRIN EC 81 MG TABLET PO SCH (08:47)
[2016-10-15] MEDS: Potassium Chloride Tab 10 MEQ TAB PO SCH (08:47)
[2016-10-15] MEDS: Sodium Bicarbonate Tab 650 MG TAB PO SCH (08:47)
[2016-10-15] MEDS: ENOXAPARIN SODIUM 40 MG/0.4 ML SYRINGE SUBCUT SCH (08:47)
[2016-10-15] MEDS: METOPROLOL SUCCINATE 25 MG SR 24H TABLET PO SCH (08:47)
--- NOTE | 2016-10-15 11:17 | OT AM DAY ---
Diagnosis : Weakness AM - Occupational Therapy S: Patient completed the cognitive performance test today. Patient stated she is a little bit nervous because she thinks she is going "crazy." She has noticed some short term memory difficulties, for instance she reports she can be taking a shower and forget the stuff that she needed to do in the shower. O: Med Box: the patient scored a 4.0 out of 6.0. During this task she needed cues to initiate how to do the medication, she said "I don't know what to do" for the number 2 medication. Because she had put one medication in each slot she thought the number 2 medicine needed to be put in each slot. Patient needed cues to read the instructions, and then with multiple verbal cues decided that it was a prn medicine, and she did not need to put it in number 3. Patient tried to put one in each slot without reading the directions and number 4 as well, she needed multiple verbal cues to initiate task and to place the pills in the pill box. Washing: the patient scored a 4.0 out of 5.0. Patient needed two directives to get to the sink, she did not initiate the abstract component of this test. [place]: the patient scored a 4.0 out of 5.0. Patient was not able to recognize that it was not plugged in, she needed cues to plug in and needed cues to continue with the task that was asked of her in the beginning instructions. Patient also needed assistance buttering the toast, but this was more due to her fine motor difficulties with her right hand. Shopping: the patient scored a 4.0 our of 6.0. Patient did not recognize their sesay selections, she needed verbal cues to pay after making selections. Patient said she could not see the money and could not make the correct amount of change, and thought a herb was a quarter. Phone: Patient had difficulty seeing, when given the initial instructions she quoted "how would I do that?" "I don't know" and "I don't think I know how to do this" She needed cues to look in specific areas of the phone book, and needed to have the phone number given to her. She was able to dial correctly, and ask the questions, and get the information correctly. A: Overall patient had an average score of a 4.0 this puts her in the category of needing 24 hour care. It was observed during the assessment today that patient does have some memory difficulties, she also was not able to initiate abstract thought or instructions. In this level patient may initiate and complete small purchases in a routine location. She will need a medication box set up weekly, she may even need the medication handed to her daily, as she may not be able to remember when to take her medications. Someone needs to make sure she gets her dietary medication compliance from someone else verses her initiating any of those type of areas or concerns. She will needed assistance with financial household management. Patient will not be able to self identify higher level of problems that are beyond her routine. At this time patient is living with her daughter, however right now her daughter works and is not available during the day. It is highly recommended that this patient have 24 hour care for her safety and cognitive well being. P: Continue seeing patient BID during the week and one time per day over the weekend for transfers, ambulation, and range of motion/strengthening exercises. PANKAJ
--- NOTE | 2016-10-15 11:51 | DCSUMMARY ---
Hospitalization Summary Admit Date: 10/11/16 Discharge Date: 10/15/16 Primary Diagnosis:: altered mental status, dementia Hospital Course: This very pleasant 89-year-old female that came in with increased confusion and altered mental status. There was presumed that she might have had another stroke, and a stroke workup was pursued. MRI scan showed improvements from prior stroke, but no new stroke noted. Cognitive evaluations revealed dementia that appears to be worse. Physical therapy and occupational therapy were ordered. We also found that the patient has subclinical hypothyroidism, but I do think treating it in terms of the patient's increased cognitive difficulties may be warranted. Given the conclusion of these findings and physical therapy and occupational therapy needs, noted need for increased monitoring of patient at home versus snf placement versus assisted living a smoker, we felt the best thing to do would be to continue the patient on therapies in the swing bed setting to allow the family more time to try and figure out what transitional point will make the best disposition. Today, the patient's biggest complaint is that she sleeps a lot during the day and she's very sleepy during the day. No chest pain, no shortness breath, no nausea or vomiting. Assessment and Plan: 1. As per discharge assessments noted 2. Disposition: Patient is discharged to the swing bed 3. Condition on discharge, stable and improved. 4. Diet: regular diet 5. Activities: resume normal activities 6. Follow-Up: 1. Hospital service will continue to follow patient's care on the swing bed 2. 7. Medications at the Time of Discharge: Active Medications Generic Name Dose Route Start Last Admin Trade Name Freq PRN Reason Stop Dose Admin Acetaminophen 650 mg 10/11/16 15:00 10/14/16 04:17 Tylenol PO 650 mg Q6H PRN Administration pain or fever Aspirin 81 mg 10/12/16 09:00 10/15/16 08:47 Aspirin Ec PO 81 mg DAILY ZARINA Administration Doxazosin Mesylate 2 mg 10/12/16 09:00 10/15/16 08:47 Cardura PO 2 mg DAILY ZARINA Administration Enoxaparin Sodium 40 mg 10/12/16 09:00 10/15/16 08:47 Lovenox Inj SUBCUT 40 mg DAILY ZARINA Administration Sodium Chloride 25 mls @ 200 mls/hr 10/11/16 14:31 Normal Saline 0.9% IV .Post Infusion PRN No Primary IV for Flush ONLY Labetalol HCl 10 mg 10/11/16 14:31 Normodyne Inj IVP BOLUS PRN 220, DBP > 105 Levothyroxine Sodium 25 mcg 10/15/16 05:30 10/15/16 05:03 Synthroid PO 25 mcg DAILY@0530 ZARINA Administration Lidocaine HCl 0.5 ml 10/11/16 14:31 Lidocaine Buffered Inj SUBD ONCE PRN IV Starts Losartan Potassium 100 mg 10/12/16 09:00 10/15/16 08:47 Cozaar PO 100 mg DAILY ZARINA Administration Metoprolol Succinate 25 mg 10/12/16 09:00 10/15/16 08:47 Toprol Xl PO 25 mg DAILY ZARINA Administration Potassium Chloride 10 meq 10/12/16 09:00 10/15/16 08:47 Klor-Con PO 10 meq DAILY ZARINA Administration Psyllium Hydrophilic Mucilloid 1 packet 10/11/16 21:00 10/14/16 20:13 Metamucil 3.4 Gm Packet PO 1 packet BEDTIME ZARINA Administration Sodium Bicarbonate 650 mg 10/13/16 09:00 10/15/16 08:47 Sodium Bicarbonate PO 650 mg DAILY ZARINA Administration Sodium Chloride 5 - 20 ml 10/11/16 14:31 10/11/16 14:15 Saline Flush IVP 10 ml BID PRN Administration Flush 8. Time, care, counseling and coordination of care for this discharge is less than 30 minutes. Exam - Vitals Vital Signs: Vital Signs Temperature 98.2 F Temperature Source Temporal Artery Scan Pulse Rate [Apical] 80 Pulse Rate [Pulse Oximeter] 83 Pulse Rate 80 Respiratory Rate 16 Blood Pressure [Right Arm] 141/86 Blood Pressure [Left Arm] 145/95 Pulse Ox 98 Oxygen Flow Rate 2 Oxygen Delivery Method Nasal Cannula Height 5 ft Weight 130 lb 6.4 oz - General General Appearance: POSITIVE: No Acute Distress, Cooperative - Head Head Exam: POSITIVE: Atraumatic - Eye Eye Exam: POSITIVE: No Scleral Icterus - Respiratory Respiratory Exam: POSITIVE: Clear to Auscultation - Bilaterally, Breathing Non Labored - Cardiovascular Cardiovascular Exam: POSITIVE: No Murmur, No Clicks, No Gallops, No Rubs, Irregular Rhythm, No JVD - GI/Abdominal GI/Abdominal Exam: POSITIVE: Normal Bowel Sounds, Non Tender, Non Distended, Soft - Extremities Extremities Exam: POSITIVE: No Clubbing Present, No Edema Present, No Cyanosis Present - Neurological Neurological Exam: POSITIVE: Alert, No Facial Droop, Speech Intact / Clear, Moves All Extremities Equally Data Perinent Studies: Laboratory Results 10/11/16 10/12/16 10/12/16 Range/Units 13:25 05:00 06:08 Sodium 123 L 127 L (135-145) meq/L Potassium 3.8 3.8 (3.8-5.2) meq/L Chloride 81 L 95 L (98-112) meq/L Carbon Dioxide 31 26 (23-33) meq/L Anion Gap 11 6 (5-20) BUN 23 H 20 (7-22) mg/dL Creatinine 0.8 0.7 (0.50-1.20) mg/dL Estimated GFR (>60 ml/min/1.73m(2)) BUN/Creatinine Ratio 28.75 H 28.57 H (6-20) Glucose 106 83 (78-110) mg/dL Calculated Osmolality 259.0 L 265.0 L (267-292) mOsm/kg Calcium 9.4 8.3 L (8.7-10.7) mg/dL Total Bilirubin 1.1 (0.3-1.2) mg/dL AST 26 (8-39) IU/L ALT 19 (9-52) IU/L Alkaline Phosphatase 76 (38-126) IU/L Total Protein 7.3 (6.1-8.0) g/dL Albumin 4.6 (3.5-4.8) g/dL Globulin 2.7 (2.50-4.10) g/dL Albumin/Globulin Ratio 1.70 (1.3-2.0) mg/g Triglycerides 37 L (44-200) mg/dL Cholesterol 120 (120-200) mg/dL LDL Cholesterol, Calc 47.600 mg/dL VLDL Cholesterol 7 (0-40) mg/dL HDL Cholesterol 65 (40-150) mg/dL Cholesterol/HDL Ratio 1.84 (0-4.0) RATIO Free T4 (0.93-1.71) ng/dL 10/14/16 Range/Units 04:32 Sodium 124 L (135-145) meq/L Potassium 4.4 (3.8-5.2) meq/L Chloride 92 L (98-112) meq/L Carbon Dioxide 25 (23-33) meq/L Anion Gap 7 (5-20) BUN 19 (7-22) mg/dL Creatinine 0.6 (0.50-1.20) mg/dL Estimated GFR (>60 ml/min/1.73m(2)) BUN/Creatinine Ratio 31.66 H (6-20) Glucose 83 (78-110) mg/dL Calculated Osmolality 258.0 L (267-292) mOsm/kg Calcium 8.6 L (8.7-10.7) mg/dL Total Bilirubin (0.3-1.2) mg/dL AST (8-39) IU/L ALT (9-52) IU/L Alkaline Phosphatase (38-126) IU/L Total Protein (6.1-8.0) g/dL Albumin (3.5-4.8) g/dL Globulin (2.50-4.10) g/dL Albumin/Globulin Ratio (1.3-2.0) mg/g Triglycerides (44-200) mg/dL Cholesterol (120-200) mg/dL LDL Cholesterol, Calc mg/dL VLDL Cholesterol (0-40) mg/dL HDL Cholesterol (40-150) mg/dL Cholesterol/HDL Ratio (0-4.0) RATIO Free T4 1.19 (0.93-1.71) ng/dL Patient Problems - Patient Problem List (1) Subclinical hypothyroidism Current Visit: Yes Status: Acute (2) Chronic atrial fibrillation Current Visit: Yes Status: Chronic (3) Generalized weakness Current Visit: Yes Status: Acute (4) Dementia Current Visit: Yes Status: Acute Qualifiers: Dementia type: Alzheimer's disease Alzheimer's disease onset: late- onset Dementia behavioral disturbance: without behavioral disturbance Qualified Description: Late onset Alzheimer's disease without behavioral disturbance Qualifier Code(s): (G30.1) Alzheimer's disease with late onset , (F02.81) Dementia in other diseases classified elsewhere with behavioral disturbance (5) Cognitive impairment Current Visit: Yes Status: Acute (6) History of CVA (cerebrovascular accident) Current Visit: Yes Status: Acute (7) Hypertension Current Visit: Yes Status: Chronic Qualifiers: Hypertension type: essential hypertension Qualified Description: Essential hypertension Qualifier Code(s): (I10) Essential (primary) hypertension
--- NOTE | 2016-10-16 15:42 | PT AM DAY ---
Diagnosis : Weakness AM - Physical Therapy S: The patient states she is feeling alright this morning. She agreed to go to therapy. O: The patient ambulated 175 feet to the therapy gym where she received an application of moist heat pack x20 minutes including set up to her back. She performed therapeutic exercises including long arc quads, heel/toe raises, marches, ball squeezes, clamshells, resisted knee flexion with red theraband, and minute drills x3. The patient then ambulated 175 feet back to he room where she was left in her chair with alarm on and call light within reach. A: The patient tolerated therapy very well. She continues to be weak and require short seated rest breaks to recover from fatigue. The patient would continue to benefit from skilled therapy to increase strength and mobility. P: Continue seeing patient BID during the week and one time per day over the weekend for transfers, ambulation, and range of motion/strengthening exercises. MTDD
== END 2016-10-15 12:00 | disposition swing bed (61) | DRG 948 ==
LOC: ER 13:12 → MED/SURG 13:51
PROVIDERS: ADMIT Family Medicine; ATTEND Family Medicine
DX: E87.1 Hypo-osmolality and hyponatremia (principal); F44.89 Other dissociative and conversion disorders; R41.82 Altered mental status, unspecified; F03.90 Unspecified dementia, unspecified severity, without behavioral disturbance, psychotic disturbance, mood disturbance, and anxiety; E03.9 Hypothyroidism, unspecified; I48.2 Chronic atrial fibrillation; R53.1 Weakness; I10 Essential (primary) hypertension
CPT/HCPCS: 36000; 36415; 70551; 80048; 80053; 80061; 84439; 94761; 97110; 97161; 97166; 97530; 97535; 99284; J1650; J7030

== ENCOUNTER 2016-10-15 10:38 | Inpatient (IN) | payer OTHER, MEDICARE ==
--- NOTE | 2016-10-15 15:21 | OT.PROG ---
Progress Note Progress Note: S: pt stated she just feels "weird". She was willing to go downstairs to therapy. O: pt was seen in the a.m. before going SB. Pt completed functional transfer entire way to therapy 150 ft with walker and CGA for safety. Pt sat at hand table and was given an ensure drink before starting activities. pt then completed clothspins tasks using L affected side to place pins on correct color. due to pt's lack of vision this task was difficult needing 50% vc's to complete. Pt then completed toilet transfer approx 20 ft and completed with mod Ind. Pt then was set up on Nu step by PT. A: pt completed tx today but decreased vision and STM made it difficult to complete Ind. Pt still displays partial LUE ataxia. P: continue per plan of care.
[2016-10-15] MEDS: ACETAMINOPHEN 500 MG TABLET PO PRN (20:18)
[2016-10-16] MEDS: LEVOTHYROXINE 25 MCG TABLET PO SCH (04:45)
[2016-10-16] MEDS ORDERED: ASPIRIN 325 MG TABLET ONE (08:52)
[2016-10-16] MEDS: METOPROLOL SUCCINATE 25 MG SR 24H TABLET PO SCH (08:55)
[2016-10-16] MEDS: ACETAMINOPHEN 500 MG TABLET PO PRN (08:55)
[2016-10-16] MEDS: DOXAZOSIN 2 MG TABLET PO SCH (08:55)
[2016-10-16] MEDS: ENOXAPARIN SODIUM 40 MG/0.4 ML SYRINGE SUBCUT SCH (08:56)
[2016-10-16] MEDS: LOSARTAN 50 MG TABLET PO SCH (08:56)
[2016-10-16] MEDS: Potassium Chloride Tab 10 MEQ TAB PO SCH (08:56)
[2016-10-16] MEDS ORDERED: Sodium Bicarbonate Tab 650 MG TAB PO SCH (09:00)
[2016-10-16] MEDS ORDERED: ASPIRIN EC 81 MG TABLET PO SCH (09:00)
--- NOTE | 2016-10-16 11:06 | PDOC(PROG) ---
Date and Time of Service: 10/16/2016 11 AM Interval History: Subjective Patient doesn't know how did she end up here in the hospital, she is denying symptoms. Objective : Data - Labs Labs - Last 24 Hours: Laboratory Results 10/15/16 Range/Units 16:46 Vitamin D 25-Hydroxy 36.1 (30-100) NG/ML Objective : Exam - General General Appearance: No Acute Distress, Cooperative, Thin - Head Head Exam: Normal Inspection, Atraumatic - Eye Eye Exam: Normal Appearance - ENT ENT Exam: Normal Exam - Neck Neck Exam: Normal Inspection - Respiratory Respiratory Exam: Clear to Auscultation - Bilaterally - Cardiovascular Cardiovascular Exam: RRR - GI/Abdominal GI/Abdominal Exam: Normal Bowel Sounds, Non Tender, Non Distended, Soft - Rectal Rectal Exam: Deferred - External Exam: Deferred - Extremities Extremities Exam: Normal Inspection - Back Back Exam: Normal Inspection - Neurological Neurological Exam: Alert, CN II-XII Intact, Moves All Extremities Equally - Psychiatric Psychiatric Exam: Normal Affect Assessment and Plan - Patient Problems (1) Cognitive impairment Current Visit: No Status: Acute Comment: Continue PT and OT. She staying on swing bed for a decision will be made on where to go from here. She told me that her daughter is looking for help see somebody can stay with her during the morning. (2) Hyponatremia Current Visit: No Status: Acute Comment: She was put on sodium bicarbonate, I think we'll stop that we'll check her sodium tomorrow consider sodium chloride tab plus minus Lasix (3) Hypertension Current Visit: No Status: Chronic Comment: Same medications Qualifiers: Qualified Description: Essential hypertension Qualifier Code(s): (I10 ) Essential (primary) hypertension
[2016-10-16] MEDS: ASPIRIN 81 MG (BABY) CHEWABLE TABLET PO SCH (11:17)
--- NOTE | 2016-10-16 12:05 | PT.PROG ---
Progress Note Progress Note: S. Patient stated that she would like to go to the therapy gym this morning, she reports that she is not feeling great but better than yesterday. O. Patient ambulated 175 feet to the therapy gym where she used the nu-step x 10 minutes then performed exercises in the form of; heel toe raises, marches, long arc quads, resisted knee flexion, clamshells, ball squeezes, sit to stands all x 10, standing balance exercises x 3 minutes. Patient ambulated 175 feet back to her room where she was left in her chair with alarm and call light. A. Patient tolerated exercises fair, she continues to require frequent rest breaks due to fatigue. She struggles with her balance and requires verbal cues for directions and min assist with transfers and ambulation. Patient would continue to benefit from skilled therapy at this time. P. Continue POC.
--- NOTE | 2016-10-16 15:04 | OT.PROG ---
Progress Note Progress Note: S: Pt stated that she felt confused this afternoon. She also stated that she needed to check with the nurse to make sure that all of her medicines were correct. O: Pt completed ADLs in room and was able to sit on toilet with min assist but had difficulties with janett care secondary to decreased ROM and inability to reach behind her back. Pt. ambulated approx 150 feet from her room to the therapy gym with min a. She completed 4/4 sit to stands with min- mod assist. Pt tolerated the arm bike for 5 min stopping secondary to min pain in shoulder. A: pt participated well, she may continue to benefit from therapy for safety and ROM during ADL activities. She is limited in shoulder flex which affects overall function. P: continue per plan of care.
[2016-10-16] MEDS: PSYLLIUM SEED 1 EACH PACKET PO PRN (15:07)
--- NOTE | 2016-10-16 15:21 | PT.PROG ---
Progress Note Progress Note: S. Patient stated that she is tired this afternoon, she states that she would go to therapy this afternoon. O. Patient ambulated 175 feet to the therapy gym where she performed seated exercises in the form of; heel toe raises, marches, long arc quads, ball squeezes, clamshells, resisted knee flexion with (red theraband and 1# weights) all x 10 bilaterally. Patient performed sit to stands 2x5 then used the nu-step x 10 minutes. Patient ambulated 175 feet back to her room where she was left in her chair with alarm and call light. A. Patient tolerated exercises fair, she required more frequent cueing this afternoon compared to the morning treatment. She continues to require min assist with transfers and ambulation however was able to perform all exercises with frequent rest breaks. Patient would continue to benefit from skilled therapy at this time. P. Continue POC.
--- NOTE | 2016-10-16 16:35 | PTI REPORT ---
Thank you for the referral of Hailey Santamaria. She was seen on 10/15/16 for a swingbed evaluation secondary to weakness and possible stroke. SUBJECTIVE: The patient is an 89-year-old female. The patient was initially brought in to the hospital by her daughter who she lives with. The patient had been having increased difficulty with mobility and also with cognition. The patient had been attending outpatient physical therapy two to three times a week for general strengthening and balance and a general decline had been noted, mainly with her cognition. The patient feels that she probably hadn't been having proper nutrition which is most likely what led to her being in the hospital. She states that when she was admitted she had low sodium. 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 The patient does live with her daughter here in [place] and her daughter does help her with more challenging tasks and ADLs as needed, otherwise the patient is fairly independent with performing some of her basic ADLs and does use a front wheeled walker for her mobility. The patient has been getting around better the last few days and ambulating without a marked drag in her right foot. The patient continues to have difficulties with cognition. PAST MEDICAL HISTORY: Past medical history can be found in the patient's medical record. OBJECTIVE FINDINGS: Cognition: The patient appears more confused than usual as the therapist has worked with the patient in the past. Ambulation: The patient was able to ambulate from her room to the therapy gym with use of front wheeled walker and contact guard assist x1 for safety. Transfers: The patient requires stand by assist x1 for transfers. Strength: The patient demonstrates 3/5 bilateral lower extremity strength. ASSESSMENT: The patient has fair rehab potential due to her past medical history and cognition. Problem List: Generalized weakness Decreased endurance and activity tolerance Short-Term Goals: To be met by discharge from swingbed: Patient will be able to perform all transfers independently and safely. Patient will be able to ambulate at least 150 feet safety and independently with front wheeled walker. Patient will be able to ascend and descend three stairs as they do have stairs in the home that she needs to be able to navigate. Long-Term Goals: To be met following discharge from [facility]: Patient will be able to return home safely and as independently as possible. Patient will resume outpatient physical therapy to continue to work on general strengthening activities for both upper and lower extremities. TREATMENT PLAN: Patient will be seen B.I.D during the week and one time per day over the weekend as a swingbed patient for general strengthening and balance activities. INITIAL TREATMENT: [facility] The patient was able to perform NuStep x5 minutes, seated marches with four pound weights x10 bilaterally, long arc quads x10 bilaterally, hamstring curls with red theraband x10, and minute drills with a two pound weight x3 bilaterally. The patient does require verbal cueing for exercise and attention to task. [facility]
[2016-10-17] MEDS: LEVOTHYROXINE 25 MCG TABLET PO SCH (04:46)
[2016-10-17 06:12] LABS: CALCIUM 8.8 mg/dL (8.7-10.7)
[2016-10-17] MEDS: ASPIRIN 81 MG (BABY) CHEWABLE TABLET PO SCH (08:38)
[2016-10-17] MEDS: METOPROLOL SUCCINATE 25 MG SR 24H TABLET PO SCH (08:39)
[2016-10-17] MEDS: Potassium Chloride Tab 10 MEQ TAB PO SCH (08:40)
[2016-10-17] MEDS: DOXAZOSIN 2 MG TABLET PO SCH (08:41)
[2016-10-17] MEDS: LOSARTAN 50 MG TABLET PO SCH (08:41)
[2016-10-17] MEDS: ENOXAPARIN SODIUM 40 MG/0.4 ML SYRINGE SUBCUT SCH (08:42)
[2016-10-17] MEDS ORDERED: ASPIRIN 325 MG EC TABLET PO SCH (09:00)
--- NOTE | 2016-10-17 10:41 | PT.PROG ---
Progress Note Progress Note: S. Patient stated that she is feeling alright this morning, she agreed to go to the therapy gym. O. Patient ambulated 175 feet to the gym where she used the nu-step x 10 minutes then performed exercises in the form of; marches, heel toe raises, long arc quads (1#), clamshells, resisted knee flexion (yellow theraband), sit to stands all x 10 bilaterally. Patient performed upper extremity exercises in the form of; biceps/triceps, bilateral horizontal abduction, flexion/extension all x 10 with yellow theraband and 2# weight. Patient ambulated 175 feet back to her room where she was left in her chair with alarm and call light. A. Patient continues to tolerate therapy fair, she struggles with cognition at times remembering directions and requires verbal cues for directions. Patient continues to require min assist with transfers, balance and ambulation. Patient would continue to benefit from skilled therapy to increase strength, endurance and balance. P. Continue POC.
[2016-10-17] MEDS: ACETAMINOPHEN 500 MG TABLET PO PRN (20:31)
[2016-10-18] MEDS: LEVOTHYROXINE 25 MCG TABLET PO SCH (05:56)
[2016-10-18] MEDS: PSYLLIUM SEED 1 EACH PACKET PO PRN (08:33)
[2016-10-18] MEDS: ENOXAPARIN SODIUM 40 MG/0.4 ML SYRINGE SUBCUT SCH (08:33)
[2016-10-18] MEDS: METOPROLOL SUCCINATE 25 MG SR 24H TABLET PO SCH (08:34)
[2016-10-18] MEDS: ASPIRIN 81 MG (BABY) CHEWABLE TABLET PO SCH (08:35)
[2016-10-18] MEDS: Potassium Chloride Tab 10 MEQ TAB PO SCH (08:35)
[2016-10-18] MEDS: LOSARTAN 50 MG TABLET PO SCH (08:35)
[2016-10-18] MEDS: DOXAZOSIN 2 MG TABLET PO SCH (08:37)
--- NOTE | 2016-10-18 14:12 | PT.PROG ---
Progress Note Progress Note: S. Patient stated that she is tired this morning however would go ot therapy. O. Patient ambualted 175 feet to the therapy gym where she used the nu-step x 10 minutes, then performed seated exercises in the form of; heel toe raises, marches, long arc quads, ball squeezes, clamshells resisted knee flexion all with 2# weights and red theraband, #2 box step ups all x 10 upper extremity exercises in the form or bilateral horizontal abduction, flexion/extension, rows , bicep/triceps all x 10 with red theraband. Patient used the arm bike x 8 minutes, then ambulated 175 feet back to her room where she was left in her chair with alarm and call light. A. Patient tolerated therapy fair this morning, she continues to struggle with cognition. She requires frequent verbal cues to stay on task and for directions. She continues to require CGA with ambulation and transfers due to balance deficits. Patient would continue to benefit from skilled therapy at this time. P. continue POC.
[2016-10-19] MEDS: LEVOTHYROXINE 25 MCG TABLET PO SCH (05:27)
[2016-10-19] MEDS: METOPROLOL SUCCINATE 25 MG SR 24H TABLET PO SCH (08:47)
[2016-10-19] MEDS: Potassium Chloride Tab 10 MEQ TAB PO SCH (08:47)
[2016-10-19] MEDS: ASPIRIN 81 MG (BABY) CHEWABLE TABLET PO SCH (08:48)
[2016-10-19] MEDS: DOXAZOSIN 2 MG TABLET PO SCH (08:48)
[2016-10-19] MEDS: LOSARTAN 50 MG TABLET PO SCH (08:49)
[2016-10-19] MEDS: ENOXAPARIN SODIUM 40 MG/0.4 ML SYRINGE SUBCUT SCH (08:50)
[2016-10-19] MEDS: PSYLLIUM SEED 1 EACH PACKET PO PRN (08:51)
--- NOTE | 2016-10-19 10:59 | PDOC(PROG) ---
Date and Time of Service: 10/19/2016 10:57 AM Interval History: Subjective Patient denying new symptoms she is working with physical therapy. Objective : Data - Labs CBC and BMP: 10/17/16 05:16 Objective : Exam - General General Appearance: No Acute Distress, Cooperative, Thin - Head Head Exam: Normal Inspection - Eye Eye Exam: Normal Appearance - ENT ENT Exam: Normal Exam - Neck Neck Exam: Normal Inspection - Respiratory Respiratory Exam: Clear to Auscultation - Bilaterally - Cardiovascular Cardiovascular Exam: RRR, Systolic Murmur - GI/Abdominal GI/Abdominal Exam: Normal Bowel Sounds, Non Tender, Non Distended, Soft - Rectal Rectal Exam: Deferred - External Exam: Deferred - Extremities Extremities Exam: Normal Inspection - Neurological Neurological Exam: Alert, CN II-XII Intact, No Facial Droop, Moves All Extremities Equally - Psychiatric Psychiatric Exam: Normal Affect Assessment and Plan - Patient Problems (1) Cognitive impairment Current Visit: No Status: Acute Comment: Continue PT and OT. (2) Hyponatremia Current Visit: No Status: Acute Comment: Last time we checked it was a 126. We'll recheck it tomorrow. (3) Hypertension Current Visit: No Status: Chronic Comment: Same medications, there was one number that's elevated today I think will watch it.
--- NOTE | 2016-10-19 11:40 | OTI REPORT ---
Thank you for the referral of Hailey Santamaria. She was seen on 10/15/16 for a swingbed evaluation secondary to weakness. SUBJECTIVE: The patient is an 89-year-old female. The patient initially came into the hospital secondary to low sodium and they were assessing whether she had another stroke or not. She had noticed increased confusion and decreased energy. The patient reports she does live with her daughter. She reports that her daughter does not cook and that she is responsible for a lot of her meals throughout the day. She reports that when she does cook it is usually a microwaved meal and she reports that sometimes she doesn't eat very well when she is at home by herself. Hailey does use a wheeled walker. Her bathroom set up is a tub with a chair that she sits on. She states she typically does most of this by herself but she usually has her daughter there just in case she needs some assistance. She sleeps in a standard bed. The patient states prior to admission she would go to the senior center with a friend for meals and then come to therapy to exercise; however, she has not been feeling up to either of those activities lately. Hailey was responsible for her own medications typically. She would be alone when her daughter was working throughout the day. Her daughter has reported increased confusion and memory loss at home. Her daughter reports prior to admission she found her mom at home without her oxygen on and Hailey couldn't remember why she didn't have her oxygen on or where it was. Hailey was independent with dressing self prior to admission and completed all functional transfers independently. For showering, she did have her daughter there just in case. Recently she has stated that sometimes she will get in the shower and not remember what she is supposed to be doing. Since the patient's inpatient stay she has had a cognitive decline. PAST MEDICAL HISTORY: Past medical history can be found in the patient's medical record. OBJECTIVE FINDINGS: Cognition: During her inpatient stay, Hailey completed cognitive assessments which revealed a score of 4.0 on the Monty Cognitive Level. This indicated that she will more than likely need 24-hour care upon discharge. The patient is a very concrete thinker and she is demonstrating increased short term memory problems. Range of motion: The patient had within normal limits in the shoulders, elbows, and hands; however, her coordination on the left side is very poor. Strength: Strength on the right side is 4+/5 throughout. On the left side she has 4/5 for shoulder flexion/abduction and 4/5 for elbow flexion/extension. Her hand strength is affected and she has a lot of coordination difficulties with the left hand. The patient states this is pretty typical for her as she has had these symptoms since her stroke a couple of years ago. The patient has difficulty grasping smaller items and completing functional tasks such as buttons and zippers as well as opening and closing containers on her own. Activities of daily living: The patient requires mod assist for lower extremity dressing as she is having difficulty secondary to her left hand. She does have a tremor at times when she is trying to concentrate on fine motor tasks. Transfers: The patient requires contact guard to min assist with functional transfers secondary to decreased balance. ASSESSMENT: Per the CPT it is recommended that the patient have 24-hour care while her daughter is at work. We need to work on setting up some assistance. The patient should be able to live at home as long as someone is there to assist her. Problem List: Decreased ability to complete ADLs Decreased strength Decreased coordination of left hand Decreased safety Decreased functional safety Decreased cognition Short-Term Goals: To be met by discharge from swingbed: Patient will increase upper extremity strength to 4+/5 throughout. Patient will be able to shower self with contact guard assist. Patient will improve memory by remembering three items after a five minute time period. Patient will be able to dress self independently including set up. Long-Term Goals: To be met following discharge from swingbed: Patient will be discharged home with 24-hour care. TREATMENT PLAN: Patient will be seen B.I.D during the week and one time per day over the weekend as a swingbed patient to address the above goals and objectives. INITIAL TREATMENT: Treatment today consisted of the swingbed evaluation followed by the patient completing lower extremity dressing with mod assist. She then completing coordination activities with power web, digi-flex, wall pulleys for shoulder extension, biceps curls, internal/external rotation, and triceps extension. PANKAJ
--- NOTE | 2016-10-19 15:55 | OT.PROG ---
Progress Note Progress Note: S: pt stated she had to use restroom several times today. O: pt participated in toileting x3 today and needed up to min-mod A with each time. assistance included donning and doffing of LE garments and toileting. A: pt appeared to need more assistance than usual today with all bathroom activities. She also appeared to be slightly confused. continue to progress. P: continue per plan of care.
--- NOTE | 2016-10-19 15:58 | PT.PROG ---
Progress Note Progress Note: S: Pt states that she is doing fair this afternoon. Appears more confused vs. this AM. Pt participated in OT prior to PT. O: Treatment consisted of instruction in ther ex - UBE x 10 min, nustep x 10 min , and u/e strengthening for BUE's in all planes with red t-band x 10/each, ambulation x 150 feet to room with FWW and CGA x 1 for safety - pt was left in chair with alarm set and call light within reach. A: Hailey tolerated exercises fair this afternoon - more confused and needed to use the rest room quite a few times. P: Continuer per POC.
[2016-10-19] MEDS: ACETAMINOPHEN 500 MG TABLET PO PRN (20:05)
[2016-10-20 05:26] LABS: BUN/CREATININE RATIO 28.57 (6-20); CALCIUM 8.9 mg/dL (8.7-10.7)
[2016-10-20] MEDS: LEVOTHYROXINE 25 MCG TABLET PO SCH (06:13)
[2016-10-20] MEDS: PSYLLIUM SEED 1 EACH PACKET PO PRN (08:19)
[2016-10-20] MEDS: METOPROLOL SUCCINATE 25 MG SR 24H TABLET PO SCH (08:19)
[2016-10-20] MEDS: Potassium Chloride Tab 10 MEQ TAB PO SCH (08:19)
[2016-10-20] MEDS: ENOXAPARIN SODIUM 40 MG/0.4 ML SYRINGE SUBCUT SCH (08:19)
[2016-10-20] MEDS: ASPIRIN 81 MG (BABY) CHEWABLE TABLET PO SCH (08:19)
[2016-10-20] MEDS: LOSARTAN 50 MG TABLET PO SCH (08:19)
[2016-10-20] MEDS: DOXAZOSIN 2 MG TABLET PO SCH (08:19)
--- NOTE | 2016-10-20 15:47 | OT AM DAY ---
Diagnosis : Weakness AM - Occupational Therapy S: The patient reports she is feeling a little bit better. She states she is still having difficulty keeping her sodium levels at a good level. O: The patient had to go to the bathroom x2. We completed bathroom transfers; the patient needed contact guard assist for balance and cues for oxygen tubing for safety. The patient did have a bowel movement one time and was only able to cleanse herself 50% of the way and needed assistance for the other 50%. The patient has difficulty reaching with her left upper extremity and has difficulty with coordination with her right upper extremity, even though her left upper extremity is usually the extremity that usually has the coordination difficulties. The patient also completed upper extremity strengthening activities including arm bike forward and backward x8 minutes, fine motor strengthening with power web, digi-flex, wrist exercises with two pound weights, and clothespin activities. A: The patient needs assistance with toilet hygiene for bowel movements. She does not have the urge to go to the bathroom, but she states she has to go quite frequently during sessions. P: Continue seeing patient BID during the week and one time per day over the weekend for upper extremity strengthening, ADLs, and overall functional mobility. PANKAJ
--- NOTE | 2016-10-20 16:21 | PT AM DAY ---
Diagnosis : Weakness AM - Physical Therapy S: The patient reports she is not doing very well today; she is having trouble cognitively. O: Following working with occupational therapy, the patient was in the therapy gym where she performed the following therapeutic exercises and functional activities: NuStep x10 minutes, sit to stands with hand hold assistance, box step ups with a two pound weight, long arc quads, seated marching, and unsupported edge of bed red theraband exercises in all planes. The patient required min assist with bathroom activities x3 while downstairs in the physical therapy gym which required her to ambulate up to 25 feet x3. A: During today's treatment the patient required having her hearing aide battery changed. When the hearing aide was given back to the patient to be placed in her ear, the patient was unsure if it was hers and was unsure what ear to even put it in. She did demonstrate episodes of confusion. P: Continue seeing patient BID during the week and one time per day over the weekend for transfers, ambulation, and range of motion/strengthening exercises. TEREZAD
--- NOTE | 2016-10-20 16:37 | OT.PROG ---
Progress Note Progress Note: S: pt stated that she doesn't know what she is doing today. States that she has to use restroom a lot. She requested that nursing assist her with dressing. O: pt was seen in her room in the a.m. She completed functional transfer out of restroom and entire way to therapy approx 175 ft with CGA for safety. she completed 8 min on UE bike to increase activity tolerance. She then transferred to NU step completing 15 min. She also completed ther ex with RTB in all ranges x10. while at hand table she completed number/letter blocks while putting them in correct order. She also spelled her name and matched symbols. During therapy today pt completed x2 transfer to bathroom, with first attempt completed with min A and second attempt completed with SBa for safety. Pt returned to her room and placed in chair and alarm on. A: pt participates well but continues to need vc's on instructions. She is displaying decrease cognitive ability to completed tasks. P: continue per plan of care.
[2016-10-21] MEDS: LEVOTHYROXINE 25 MCG TABLET PO SCH (05:17)
--- NOTE | 2016-10-21 08:41 | PT.PROG ---
Progress Note Progress Note: S: Hailey states that she is more confused today and states that she is acting a little goofy because she is having memory issues. Hailey participated in OT prior to PT. O: Treatment consisted of: seated alternating LAQ's and marching with 2# weights x 1 min/each, nustep x 10 minutes. Pt insisted that she needed to use the bathroom - required min A x 1 to get to the bathroom followed by max VC for completing toileting activity as patient forgot the steps to complete without cuing. Sit to stands x 5. A: Tolerated program fair - requires max VC for attention to task and with toileting activity this afternoon as patient appeared more confused this afternoon. P: Continue per POC.
[2016-10-21] MEDS: METOPROLOL SUCCINATE 25 MG SR 24H TABLET PO SCH (10:46)
[2016-10-21] MEDS: LOSARTAN 50 MG TABLET PO SCH (10:46)
[2016-10-21] MEDS: DOXAZOSIN 2 MG TABLET PO SCH (10:46)
[2016-10-21] MEDS: ENOXAPARIN SODIUM 40 MG/0.4 ML SYRINGE SUBCUT SCH (10:46)
[2016-10-21] MEDS: ASPIRIN 81 MG (BABY) CHEWABLE TABLET PO SCH (10:47)
[2016-10-21] MEDS: Potassium Chloride Tab 10 MEQ TAB PO SCH (11:09)
--- NOTE | 2016-10-21 14:45 | PDOC(PROG) ---
Interval History: Doing well has no complaints talking in full sentences not confused Objective : Data - Labs CBC and BMP: 10/20/16 04:45 Labs - Last 24 Hours: Laboratory Results 10/17/16 Range/Units 10:49 Ur Random Osmolality 498 (150 - 1150) mOsm/kg Objective : Exam - Eye Eye Exam: Normal Appearance - Respiratory Respiratory Exam: Clear to Auscultation - Bilaterally, Breathing Non Labored, Normal To Percussion - Cardiovascular Cardiovascular Exam: RRR, No Murmur, No Clicks - GI/Abdominal GI/Abdominal Exam: Normal Bowel Sounds, Non Tender, Non Distended, Soft - Extremities Extremities Exam: No Clubbing Present, No Edema Present, No Cyanosis Present Assessment and Plan - Patient Problems (1) Cognitive impairment Current Visit: No Status: Acute Comment: Stable (2) Generalized weakness Current Visit: No Status: Acute Comment: Patient will continue PT and OT (3) Acute hyponatremia Current Visit: No Status: Acute Comment: And stable at 126 Photo / Body Diagrams - Uploaded Photos Uploaded Photos:
--- NOTE | 2016-10-21 16:08 | OT.PROG ---
Progress Note Progress Note: S: pt stated today that all she wants to do is sleep. O: pt seen today in the a.m. She completed dressing with assistance from nursing. She completed functional transfer downstairs with CGA for safety. She completed hand activities at table while completing functional tasks for the L arm to increase function. Activities included cloths pins, rice, nuts and bolts, beading and matching shapes. pt was returned to her room and left in chair with alarm on. A: pt continues to need assistance at various times during ADL toilet transfers. She continues to need vc's for tasks as confusion has increased. P: continue to progress per plan of care.
--- NOTE | 2016-10-21 16:41 | PT.PROG ---
Progress Note Progress Note: S. Patient stated that she is feeling alright this morning, she agreed to go to the therapy gym. O. Patient ambulated 175 feet to the gym where she used the nu-step x 10 minutes then performed exercises in the form of; marches, heel toe raises, long arc quads (1#), clamshells, resisted knee flexion (yellow theraband), sit to stands all x 10 bilaterally. Patient ambulated 175 feet back to her room where she was left in her chair with alarm and call light. A. Patient tolerates therapy fair, she continues to to struggle with balance deficits however is making gains with endurance. She continues to require seated rest breaks to be able to complete all exercises. Patient would continue to benefit from skilled therapy at this time. P. Continue POC.
--- NOTE | 2016-10-21 16:45 | PT.PROG ---
Progress Note Progress Note: S. Patient stated that she is tired this afternoon however she would go to therapy. O. patient ambulated 175 feet to the therapy gym where she used the nu-step x 10 minutes then performed seated exercises in the form of; heel toe raises, marches, long arc quads, ball squeezes, clamshells, all x 10 bilaterally. Patient performed standing balance exercises x 5 minutes including balloon toss and ball kicks. Patient then ambulated 175 feet back to her room where she was left in her chair with alarm and call light. A. patient continues to tolerate treatment fair, She continues to require min assist with transfers and ambulation and verbal cues for directions. She continues to be weak and struggle with balance however is making gains and would continue to benefit from skilled therapy at this time. P. Continue POC.
--- NOTE | 2016-10-21 16:55 | OT.PROG ---
Progress Note Progress Note: S: pt stated that she was tired. O: pt was seen in her room in the p.m. She completed toilet transfer with CGA and toileting completed with MOd Ind. She completed functional transfer to therapy with CGA. She complete 8 min on UE bike to increase activity tolerance. She completed dynamic sitting and standing activity with balloon to increase balance and strength of UE's. Pt also completed x1 more transfer to bathroom completing toileting once again with mod Ind. A: pt needs cues to complete some tasks as STM has decreased. pt needs to use restroom several times thoughout tx. P: continue per plan of care.
[2016-10-21 17:36] LABS: BILIRUBIN,URINE NEGATIVE (NEG); COLOR,URINE YELLOW; GLUCOSE, URINE (UA) NEGATIVE (NEG); NITRATE,URINE NEGATIVE (NEG); OCCULT BLOOD,URINE NEGATIVE (NEG); PH,URINE 6.5 (5.0-8.5); PROTEIN,URINE 30 mg/dl (NEG); UROBILINOGEN,URINE 0.2 EU/dL (0.2)
[2016-10-21 17:57] LABS: CLARITY,URINE CLEAR (CLEAR)
[2016-10-21 17:58] LABS: URINE SAMPLE TYPE CLEAN CATCH URINE
[2016-10-21 17:59] LABS: BACTERIA,URINE FEW; RBC,URINE 0-3 /hpf; SQUAMOUS EPITHELIAL CELL,UR FEW; WBC,URINE 0-3
[2016-10-21] MEDS: ACETAMINOPHEN 500 MG TABLET PO PRN (20:30)
[2016-10-22] MEDS: LEVOTHYROXINE 25 MCG TABLET PO SCH (05:05)
[2016-10-22] MEDS: ENOXAPARIN SODIUM 40 MG/0.4 ML SYRINGE SUBCUT SCH (09:23)
[2016-10-22] MEDS: DOXAZOSIN 2 MG TABLET PO SCH (09:23)
[2016-10-22] MEDS: ASPIRIN 81 MG (BABY) CHEWABLE TABLET PO SCH (09:23)
[2016-10-22] MEDS: PSYLLIUM SEED 1 EACH PACKET PO PRN (09:23)
[2016-10-22] MEDS: Potassium Chloride Tab 10 MEQ TAB PO SCH (09:23)
[2016-10-22] MEDS: LOSARTAN 50 MG TABLET PO SCH (09:23)
[2016-10-22] MEDS: METOPROLOL SUCCINATE 25 MG SR 24H TABLET PO SCH (09:24)
--- NOTE | 2016-10-22 09:36 | PT.PROG ---
Progress Note Progress Note: S: Pt. states she is feeling pretty good today. C/o dry mouth. O: Treatment consisted of functional activities including ambulating down to the PT clinic where she performed toileting with supervision, ube x 3/5/3 min, and LE bike x 5 minutes. She then ambulated back up to her room with use of FWW and 2 L 02. Pt. was left in her chair with call button within reach, tabs alarm in place and nursing notified. A: Pt. does have cognitive delays which require verbal cuing during activities. She requires prompting for directions while walking. She does present with weakness and decreased endurance with activities. Still appropriate for 24 upon d/c home. P: Continue per POC to increase strength and activity tolerance. Nia Mendoza, TRANSFER KNITTER
--- NOTE | 2016-10-22 10:31 | OT AM DAY ---
Diagnosis : Weakness AM - Occupational Therapy S: The patient reports she feels a little weak this morning. O: Today the patient was able to complete upper extremity strengthening as well as functional reaching tasks. She needed mod assist to keep standing balance while reaching for cones. She had to use the table for assistance for balance. It was observed that the patient had a lot of difficulty with her vision. She had difficulty seeing the cones, especially in the left quadrant regions. She usually would not reach for the cone in the correct position and her depth perception is definitely affected. The patient worked on sitting and reaching for clothespins in different positions to work on fine motor and reaching tasks. She had a lot of difficulty seeing the clothespins; with tactile assistance she was able to feel them. The left upper extremity is definitely more affected than the right upper extremity. The patient also worked on wrist exercises in all planes and ranges, power web, and digi-flex. We also worked on functional transfers; we had to complete three bathroom transfers today as the patient reports that she always feels like she has the urge to go to the bathroom. Two out of three times she did not have to urinate during the session today. The patient performed a lot of sit to stands and performed doffing and donning of her clothing which she is able to do so with stand by assistance from the knee level. A: The patient is having the urge to urinate even though two out of three times today she was not able to urinate. The patient is still having some fine motor and visual deficits and needed assistance for balance activities. P: Continue seeing patient BID during the week and one time per day over the weekend for upper extremity strengthening, ADLs, and overall functional mobility. PANKAJ
[2016-10-23] MEDS: LEVOTHYROXINE 25 MCG TABLET PO SCH (04:59)
[2016-10-23] MEDS: ENOXAPARIN SODIUM 40 MG/0.4 ML SYRINGE SUBCUT SCH (07:59)
[2016-10-23] MEDS: ASPIRIN 81 MG (BABY) CHEWABLE TABLET PO SCH (08:00)
[2016-10-23] MEDS: DOXAZOSIN 2 MG TABLET PO SCH (08:00)
[2016-10-23] MEDS: METOPROLOL SUCCINATE 25 MG SR 24H TABLET PO SCH (08:00)
[2016-10-23] MEDS: Potassium Chloride Tab 10 MEQ TAB PO SCH (08:00)
[2016-10-23] MEDS: LOSARTAN 50 MG TABLET PO SCH (08:00)
[2016-10-23 08:24] VITALS: RESP 18; TEMP 97.7
--- NOTE | 2016-10-23 08:29 | DCSUMMARY ---
Hospitalization Summary Hospital Course: Final Discharge Diagnosis: Dementia Prior strokes Anemia chronic Diagnostic Data, Laboratory Data, and Procedures of Signifigance: Laboratory Results 10/15/16 10/17/16 10/17/16 Range/Units 16:46 05:16 10:00 Sodium 126 L (135-145) meq/L Potassium 4.7 (3.8-5.2) meq/L Chloride 91 L (98-112) meq/L Carbon Dioxide 27 (23-33) meq/L Anion Gap 8 (5-20) BUN 21 (7-22) mg/dL Creatinine 0.7 (0.50-1.20) mg/dL Estimated GFR (>60 ml/min/1.73m(2)) BUN/Creatinine Ratio 30.00 H (6-20) Glucose 78 (78-110) mg/dL Calculated Osmolality 263.0 L (267-292) mOsm/kg Calcium 8.8 (8.7-10.7) mg/dL Vitamin D 25-Hydroxy 36.1 (30-100) NG/ML Ur Collection Type Urine Color Urine Clarity (CLEAR) Urine pH (5.0-8.5) Ur Specific [place] (1.005-1.030) Urine Protein (NEG) mg/dl Urine Glucose (UA) (NEG) mg/dL Urine Ketones (NEG) Urine Occult Blood (NEG) Urine Nitrate (NEG) Urine Bilirubin (NEG) Urine Urobilinogen (0.2) EU/dL Ur Leukocyte Esterase (NEG) Urine RBC (NONE) /hpf Urine WBC (NONE) Ur Squamous Epith Cells (NONE) Ur Renal Epithelial Cell (NONE) Urine Crystals Urine Bacteria (NONE) Urine Casts (NONE) Urine Mucus (NONE) Urine Trichomonas (NONE) Urine Yeast (NONE) Ur Culture Indicated? Ur Random Osmolality (150 - 1150) mOsm/kg Ur Random Sodium 81 (30-90) MMOL/L 10/17/16 10/20/16 10/21/16 Range/Units 10:49 04:45 16:46 Sodium 126 L (135-145) meq/L Potassium 4.8 (3.8-5.2) meq/L Chloride 90 L (98-112) meq/L Carbon Dioxide 29 (23-33) meq/L Anion Gap 7 (5-20) BUN 20 (7-22) mg/dL Creatinine 0.7 (0.50-1.20) mg/dL Estimated GFR (>60 ml/min/1.73m(2)) BUN/Creatinine Ratio 28.57 H (6-20) Glucose 80 (78-110) mg/dL Calculated Osmolality 263.0 L (267-292) mOsm/kg Calcium 8.9 (8.7-10.7) mg/dL Vitamin D 25-Hydroxy (30-100) NG/ML Ur Collection Type Clean catch urine Urine Color Yellow Urine Clarity Clear (CLEAR) Urine pH 6.5 (5.0-8.5) Ur Specific [place] 1.020 (1.005-1.030) Urine Protein 30 (NEG) mg/dl Urine Glucose (UA) Negative (NEG) mg/dL Urine Ketones Negative (NEG) Urine Occult Blood Negative (NEG) Urine Nitrate Negative (NEG) Urine Bilirubin Negative (NEG) Urine Urobilinogen 0.2 (0.2) EU/dL Ur Leukocyte Esterase Small (NEG) Urine RBC 0-3 (NONE) /hpf Urine WBC 0-3 (NONE) Ur Squamous Epith Cells Few (NONE) Ur Renal Epithelial Cell None (NONE) Urine Crystals None Urine Bacteria Few (NONE) Urine Casts None (NONE) Urine Mucus None (NONE) Urine Trichomonas None (NONE) Urine Yeast None (NONE) Ur Culture Indicated? Culture not set Ur Random Osmolality 498 (150 - 1150) mOsm/kg Ur Random Sodium (30-90) MMOL/L History and Physical pertinent to Admission: Course of Hospitalization: This very nice 89-year-old female who was initially admitted for confusion stroke workup was pursued I scan showed improvements from old strokes but no new strokes noted she underwent cognitive evaluation which revealed dementia which appears to be worsened. PT and OT recommended patient have more therapy and patient was put on swing bed status family this point has decided to take the patient home she does require 24-hour care but apparently the daughter does work as found somebody to stay with her when she is at work patient is no nausea no vomiting no chest pain no dysuria hematuria or urinary frequency. Her new medication is 25 g of Synthroid for subclinical hypothyroidism she will only be on aspirin for A. fib prophylaxis On the date of discharge, the patient was examined: Gen.: [No acute distress, alert, nontoxic] Heart: [Regular rate and rhythm, no murmurs, clicks, gallops, or rubs] Lungs: [Clear to auscultation bilaterally, breathing is nonlabored] Abdomen/GI: [Normal tones on auscultation, soft, nontender, nondistended] Musculoskeletal/extremities: [No clubbing, cyanosis, or edema] Vitals reviewed and are listed below Vital Signs (24 hrs) Temp Pulse Pulse Resp BP Pulse Ox 10/23/16 07:00 97.7 F 94 18 163/70 96 10/23/16 05:24 97 10/22/16 19:00 98.2 F 68 92 24 165/84 94 Assessment and Plan: 1. As per discharge assessments above 2. Disposition: Home under the care of her daughter 3. Condition on discharge, stable and improved. 4. Diet: regular diet 5. Activities: resume normal activities 6. Follow-Up: Her primary care physician as needed 1. [PCP] 2. 7. Medications at the Time of Discharge: 8. Time, care, counseling and coordination of care for this discharge is greater than 30 minutes. Exam - Vitals Vital Signs: Vital Signs Temperature 97.7 F Temperature Source Temporal Artery Scan Pulse Rate [Apical] 68 Pulse Rate [Pulse Oximeter] 94 Respiratory Rate 18 Blood Pressure [Right Arm] 163/70 Blood Pressure [Left Arm] 164/84 Pulse Ox 96 Oxygen Flow Rate 2 Oxygen Delivery Method Nasal Cannula Height 5 ft Weight 59.829 kg Patient Problems - Patient Problem List (1) Cognitive impairment Current Visit: No Status: Acute (2) Generalized weakness Current Visit: No Status: Acute (3) Acute hyponatremia Current Visit: No Status: Acute
--- NOTE | 2016-10-23 11:22 | PT.PROG ---
Progress Note Progress Note: S. Patient stated that she is feeling good today, she thinks she is ready to go home. O. Patient ambulated 175 feet to the therapy gym where she used the nu-step x 10 minutes then performed seated exercises in the form of; heel toe raises, marches, long arc quads, ball squeezes, clamshells, resisted knee flexion all x 10 bilaterally with 1# weights and Red theraband. Sit to stands x 5. Patient was left with OT for further therapy. A. Patient Continues to have weakness and balance deficits, however is gaining strength and mobility. Patient would continue to benefit from skilled therapy in Outpatient therapy. P. Continue POC.
--- NOTE | 2016-10-23 11:53 | OT.PROG ---
Progress Note Progress Note: S: pt stated that she is going home today. She reports they were able to have someone present at home while daughter is at work. O: pt was seen in her room, she requested that we come back on 30 min. We arrived later and she was transferred downstairs by PT. Once in therapy she completed sitting reaching task with L hand with 1# weight on L side. She transferred to restroom and completed transfer with MOd Ind. she returned and completed several FM activities at hand table to increase function with L hand. pt was returned to her room and left in chair with alarm on. A: pt may continue to benefit from out-pt therapy to maintain or increase function and strength of LE/UE's. P: continue per plan of care.
--- NOTE | 2016-10-23 16:11 | OT AM DAY ---
Diagnosis : Weakness AM - Occupational Therapy S: The patient reports she is going to the doctor in [place] this afternoon. O: The patient was able to complete a toilet transfer with min assist. She needed min assist with toilet hygiene. The patient completed the upper body ergometer x4 minutes followed by a functional reaching activity x5 minutes. A: The patient still requires some assistance with hygiene and with overall function. P: Continue seeing patient BID during the week and one time per day over the weekend for upper extremity strengthening, ADLs, and overall functional mobility. PANKAJ
== END 2016-10-23 14:08 | disposition home or self-care (01) | DRG 884 ==
LOC: MED/SURG 11:54
PROVIDERS: ADMIT Family Medicine; ATTEND Family Medicine
DX: F02.80 Dementia in other diseases classified elsewhere, unspecified severity, without behavioral disturbance, psychotic disturbance, mood disturbance, and anxiety (principal); E87.1 Hypo-osmolality and hyponatremia; R41.82 Altered mental status, unspecified; Z86.73 Personal history of transient ischemic attack (TIA), and cerebral infarction without residual deficits; D53.9 Nutritional anemia, unspecified; R53.1 Weakness; I48.2 Chronic atrial fibrillation; I10 Essential (primary) hypertension
CPT/HCPCS: 36415; 80048; 81001; 81003; 83935; 84300; 94761; 97110; 97164; 97168; 97530; 97535; J1650

== ENCOUNTER 2017-03-01 14:30 | Emergency (ER) | payer OTHER, MEDICARE ==
--- NOTE | 2017-03-01 15:36 | EKG ---
[address] [address] Measurements Intervals [place] Rate: 70 P: MS: 0 QRS: 101 QRSD: 141 T: 65 QT: 413 QTc: 435 Interpretive Statements ATRIAL FIBRILLATION MARKED RIGHT AXIS DEVIATION RIGHT BUNDLE BRANCH BLOCK Compared to ECG 08/22/2016 11:56:46 No significant changes Electronically Signed On 03-02-17 11:52:50 MDT by Orville Dolan [email or web address]
[2017-03-01 15:42] VITALS: RESP 20; TEMP 97.6
[2017-03-01 15:45] LABS: HEMATOCRIT 37.2 % (37.0-47.0); HEMOGLOBIN 12.7 g/dL (12.0-16.0); MEAN CORPUSCULAR HEMOGLOBIN 30.5 PG (27-31); MEAN CORPUSCULAR HGB CONC 34.1 g/dL (33-37); MEAN CORPUSCULAR VOLUME 89.4 FL (81-99); MEAN PLATELET VOLUME 8.7 FL (7.4-12.2); RED BLOOD COUNT 4.16 10^6/uL (4.20-5.40)
[2017-03-01 15:54] LABS: BUN/CREATININE RATIO 32.5 (6-20); CALCIUM 8.8 mg/dL (8.7-10.7); SERUM ALBUMIN 3.9 g/dL (3.5-4.8)
--- NOTE | 2017-03-01 22:41 | PDOC ---
General Adult HPI - General Chief Complaint: General Medical Stated Complaint: high blood pressure Date Seen by Provider: 03/01/17 Time Seen by Provider: 14:48 Source: POSITIVE: Patient Exam Limitations: POSITIVE: No limitations Nurse's Notes Reviewed & Considered: Yes - History of Present Illness Initial Comment: The patient is an 89-year-old female. She was in physical therapy today doing some muscle strengthening exercises. The physical therapist noted her to have an elevated blood pressure, reportedly 180/110. The patient was then sent to the emergency room for evaluation. The patient is asymptomatic. She's had no chest pain. No change in her neurologic status. No dyspnea. No syncope or near-syncope. Patient has a history of chronic atrial fibrillation and hypertension. She also has a history of chronic hyponatremia for which she takes sodium bicarbonate. She has had strokes in the past affecting mainly her left side and she states that she does have some mild residual weakness of her left arm. He takes metoprolol and losartan for hypertension. Have you received a tetanus shot in the past 10 years?: Unknown Body Location Affected: REPORTS: Other (Elevated blood pressure readings in physical therapy) Timing: REPORTS: Unknown Duration: Unknown Severity: Moderate Quality: REPORTS: Other (Patient denies any pain anywhere) Context: REPORTS: None Modifying Factors: improves with: Nothing Similar Symptoms Previously: Yes (history of hypertension; patient is asymptomatic today) Recent Care Received: REPORTS: Recently Seen, Treated by MD (As above.) Any Prior Injuries Related to Current Complaint?: No - Patient Home Medications Home Medications: Home Medications Aspirin [Aspir 81] 325 mg PO DAILY 06/03/12 Doxazosin Mesylate 2 mg PO DAILY 08/22/16 Losartan Potassium 100 mg PO DAILY 08/22/16 Oxygen 2 DAILY 08/22/16 Metoprolol Succinate [Toprol XL] 25 mg PO DAILY #30 tab 08/26/16 Potassium Chloride 10 meq PO DAILY #30 tab 08/26/16 Acetaminophen [Tylenol] 650 mg PO PRN #30 10/15/16 Sodium Bicarbonate 650 mg PO DAILY #30 tab 10/15/16 Levothyroxine Sodium [Synthroid] 25 mcg PO DAILY@0530 #30 tab 10/23/16 - Patient Allergies Allergies/Adverse Reactions: Allergies Allergy/AdvReac Type Severity Reaction Status Date / Time amlodipine Allergy CHEST PAIN Verified 03/01/17 14:41 OR TIGHTNESS hydrochlorothiazide Allergy Anaphylaxis Verified 03/01/17 14:41 Past Medical History - heen HEENT History: Macular Degeneration, Hard of Hearing, Dentures/Partials, Other ( please comment) Additional HEENT History: nose bleeds Cardiovascular History: Hypertension, Arrhythmia Additional Cardiovasular History: Afib Respiratory History: Denies History, Other (please comment) Additional Respiratory History: previous smoker, quit 27 years ago; on continuous O2 @ 2. L/NC Gastrointestinal History: GERD, Diverticulitis Additional Gastrointestinal History: Cholectomy - 2009 Genitourinary History: Other (please comment) Additional Genitourinary History: UTI Endocrine History: Denies History Musculoskeletal History: Arthritis, Back Injury Prosthesis or Implant: No Additional Musculoskeletal History: Back surgery Neurological History: CVA Additional Neurological History: x2 Blood Disorders: Denies History Psychiatric History: Denies History History of Sexually Transmitted Diseases: No Cancer History: Skin In Past Year Been Physically Harmed or Verbally Threatened: No (PER PATIENT) History of MDRO: No History of Other Communicable Diseases: No Tobacco Use: Former Smoker Alcohol Use: Rarely Substance Use Type: None Previous Surgical History: Yes Type / Date of Surgery: APPENDECTOMY, CHOLECYSTECTOMY, COMPLETE HYSTERECTOMY, BILATERAL CATARACT SURGERY, BACK SURGERY, BRAIN SURGERY S/P STROKE Anesthesia Reactions: No Malignant Hyperthermia: No Family History of Malignant Hyperthermia: No Significant Family History: Asthma, Cancer, Hypertension Past Medical History Reviewed: Reviewed - No Changes ROS - Limitations ROS Limitations: No Limitations Constitution: REPORTS: Denies Symptoms Cardiovascular: REPORTS: Denies Cardiac Symptoms Respiratory: REPORTS: Denies Resp Symptoms Neurological: REPORTS: Denies Neuro Symptoms Gastrointestinal: REPORTS: Denies GI Symptoms Endocrine: REPORTS: Denies Symptoms Musculoskeletal: REPORTS: Denies MS Symptoms Genitourinary: REPORTS: Denies Symptoms Eyes: REPORTS: Denies Symptoms ENT: REPORTS: Denies Symptoms Skin: REPORTS: Denies Skin Symptoms Lympathic: REPORTS: Denies Lympathic Symptoms Immunologic: POSITIVE: Denies Symptoms Psychiatric: POSITIVE: Denies Psych Symptoms General Adult Exam - General Appearance General Appearance: POSITIVE: Alert, Cooperative, No Acute Distress, No Evidence of Trauma - HEENT HEENT: POSITIVE: Head Inspection Nml, Eyes Inspection Nml, Ears Inspection Nml, Nose Inspection Nml, Oral/Dental Inspect. Nml, Pharynx Inspect. Nml, PERRL, EOMI - Pupils Pupil Size: 3 mm: Bilateral (PERRLA) - Neck Neck: POSITIVE: Normal Inspection, Thyroid Normal - Respiratory Respiratory: POSITIVE: No Respiratory Distress, Breath Sounds Normal, Chest Non- Tender - Cardiovascular Cardiovascular: POSITIVE: No Murmur, No Gallop, PMI Normal, Irregularly Irreg. Rhythm Peripheral Pulses: Radial (R): 2+, Radial (L): 2+ - Abdomen Abdomen: Soft: (All Quadrants), Normal Bowel Sounds: (All Quadrants), Denies Tenderness: (All Quadrants), No Splenomegaly: (All Quadrants), No Hepatomegaly: (All Quadrants), No Guarding: (All Quadrants), No Rebound: (All Quadrants), No Palpable Pulse: (All Quadrants), No Palpabale Mass: (All Quadrants), No Distention: (All Quadrants), No Rigidity: (All Quadrants) - Back Back: POSITIVE: Normal Inspection - Skin Skin: POSITIVE: Normal Color, Warm, Dry, No Rash - Extremities Extremity: Non-Tender: (All Extremities), Normal ROM: (All Extremities), Normal Inspection: (All Extremities) - Neurological / Psychological Neurological: POSITIVE: Oriented X3, road crew member Normal As Tested, Motor Normal, Sensation Normal, 5, 6 General Adult Progress - Results Reviewed by me Lab Results Reviewed: Yes (all normal except sodium 125) Lab Results:: Laboratory Results 03/01/17 Range/Units 15:43 WBC 6.82 (4.8-10.8) 10^3/uL RBC 4.16 L (4.20-5.40) 10^6/uL Hgb 12.7 (12.0-16.0) g/dL Hct 37.2 (37.0-47.0) % MCV 89.4 (81-99) FL MCH 30.5 (27-31) PG MCHC 34.1 (33-37) g/dL RDW Std Deviation 45.1 (39-50) fL RDW Coeff of Alessandro 14.2 (11.5-14.5) % Plt Count 169 (140-350) 10*3/uL MPV 8.7 (7.4-12.2) FL Sodium 125 L (135-145) meq/L Potassium 4.6 (3.8-5.2) meq/L Chloride 90 L (98-112) meq/L Carbon Dioxide 29 (23-33) meq/L Anion Gap 6 (5-20) BUN 26 H (7-22) mg/dL Creatinine 0.8 (0.50-1.20) mg/dL Estimated GFR (>60 ml/min/1.73m(2)) BUN/Creatinine Ratio 32.50 H (6-20) Glucose 110 (78-110) mg/dL Calculated Osmolality 265.0 L (267-292) mOsm/kg Calcium 8.8 (8.7-10.7) mg/dL Total Bilirubin 0.7 (0.3-1.2) mg/dL AST 20 (8-39) IU/L ALT 25 (9-52) IU/L Alkaline Phosphatase 45 (38-126) IU/L Total Protein 6.1 (6.1-8.0) g/dL Albumin 3.9 (3.5-4.8) g/dL Globulin 2.2 L (2.50-4.10) g/dL Albumin/Globulin Ratio 1.70 (1.3-2.0) mg/g EKG Interpreted/Reviewed By Me:: Yes (atrial fibrillation with controlled ventricular response and right bundle b) EKG Interpretation:: POSITIVE: Normal Rate, Normal [place], Normal ST/T, Abnormal EKG. NEGATIVE: Normal Sinus Rhythm (Atrial fibrillation), Normal Intervals ( Atrial fibrillation with right bundle-branch block), Normal QRS (Right bundle- branch block) - Patient's Progress Pain Medication Addressed: POSITIVE: Not Applicable School/Work Release Addressed: POSITIVE: Not Applicable Re-Examine Time: 16:20 Re-Examine Comment: Patient remained asymptomatic throughout her stay in the emergency room. Blood pressure remained around 150 -54/98 - 94. Patient and patient's daughter were reassured that there was no evidence of hypertensive crisis or urgency ongoing. Was advised to follow-up with her primary care provider for further evaluation of her chronic high blood pressure and possibly adjustments of her medication. Status: POSITIVE: Unchanged, Re-Examined Antibiotics Given: No - Consult Counseled: POSITIVE: Patient, Family, RE: Lab Results, RE: DX, RE: Need for F/U Patient Care Time - Estimated PCT Patient Care Time (In Minutes): 50 Vital Signs - VS Reviewed Vital Signs Reviewed: Yes Discharge Clinical Impression: Hypertension Discharge Disposition: Discharged to Home Condition: Stable Patient Instructions Given at Discharge: Chronic Hypertension (ED) Additional Instructions: Your blood pressure is somewhat elevated, but not dangerously so. You have a history of chronic high blood pressure. I do not believe we need to do any intervention at this time. Please follow-up with your primary care provider, and he or she may want to adjust her blood pressure medications. Return here anytime as necessary. Follow Up With: SNOW SILVA [Primary Care Provider] - (Instructions as above. Follow-up with your primary care provider. Return here anytime if condition worsens in any way.)
== END 2017-03-01 16:38 | disposition home or self-care (01) ==
LOC: ER 14:30
DX: I10 Essential (primary) hypertension (principal); I48.91 Unspecified atrial fibrillation
CPT/HCPCS: 36415; 80053; 85027; 93005; 93010; 99283

== ENCOUNTER 2017-04-13 03:55 | Inpatient (IN) ==
[2017-04-13] MEDS ORDERED: Sodium Chloride 0.9% 1,000 ML PRIMARY IV ONE (04:55)
--- NOTE | 2017-04-13 04:56 | PDOC ---
Gen Adult / Medical Screen HPI - General Chief Complaint: Respiratory Complaint Stated Complaint: RATTLE SOUND WHEN SHE BREATHS Date Seen by Provider: 04/13/17 Time Seen by Provider: 04:50 Source: POSITIVE: Patient, Other (Daughter) Exam Limitations: POSITIVE: No limitations Nurse's Notes Reviewed & Considered: Yes - Indicators Temperature Between 95 and 101 Degrees: Yes Respirations Between 12 and 20: No (21) Blood Pressure Between 100-165 (sys) and 60-100 (dinh): Yes Pulse Range Between 60-105 (100 for age > 60 years): Yes Severe Pain (Greater than 5/10 Reported): No Chest or Abdominal Pain: Yes (epigastric abdominal pain) Inability to Walk: Yes Pt Reports Active High Risk Cond. 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 Patient has been wheezing with loud rhonchorous noises that resolved at the time she came to the emergency room. Been falling more frequently and is slurring her speech. She denies any fever chills or sweats, no nausea vomiting or diarrhea, she is incontinent of urine but no hematuria or dysuria. She has a history of 2 previous CVAs and has an street of atrial fibrillation and is presently with an irregularly irregular pulse rate. She takes 81 mg of aspirin a day but no anticoagulants. She is complaining of epigastric abdominal pain. Body Location Affected: REPORTS: Chest, Abdomen Timing: REPORTS: Unknown Duration: Unknown Similar Symptoms Previously: No Recent Care Received: REPORTS: Recently Seen, Treated by MD - Patient Home Medications Home Medications: Home Medications Aspirin [Aspir 81] 325 mg PO DAILY 06/03/12 Doxazosin Mesylate 2 mg PO DAILY 08/22/16 Losartan Potassium 100 mg PO DAILY 08/22/16 Oxygen 2 l INH DAILY 08/22/16 Metoprolol Succinate [Toprol XL] 25 mg PO DAILY #30 tab 08/26/16 Acetaminophen [Tylenol] 650 mg PO PRN #30 10/15/16 Levothyroxine Sodium [Synthroid] 25 mcg PO DAILY@0530 #30 tab 10/23/16 - Patient Allergies Allergies/Adverse Reactions: Allergies 3 Allergy/AdvReac Type Severity Reaction Status Date / Time amlodipine Allergy CHEST PAIN Verified 04/13/17 04:00 OR TIGHTNESS hydrochlorothiazide Allergy Anaphylaxis Verified 04/13/17 04:00 Past Medical History - heen HEENT History: Macular Degeneration, Hard of Hearing, Dentures/Partials, Other ( please comment) Additional HEENT History: nose bleeds Cardiovascular History: Hypertension, Arrhythmia Additional Cardiovasular History: Afib Respiratory History: Denies History, Other (please comment) Additional Respiratory History: previous smoker, quit 27 years ago; on continuous O2 @ 2. L/NC Gastrointestinal History: GERD, Diverticulitis Additional Gastrointestinal History: Cholectomy - 2010 Genitourinary History: Other (please comment) Additional Genitourinary History: UTI Endocrine History: Denies History Musculoskeletal History: Arthritis, Back Injury Prosthesis or Implant: No Additional Musculoskeletal History: Back surgery Neurological History: CVA Additional Neurological History: x2 Blood Disorders: Denies History Psychiatric History: Denies History History of Sexually Transmitted Diseases: No Female Reproductive History: Denies History Obstetrical History: Denies History Cancer History: Skin In Past Year Been Physically Harmed or Verbally Threatened: No History of MDRO: No History of Other Communicable Diseases: No Tobacco Use: Former Smoker Alcohol Use: Rarely In the Past 12 Months, Have Used or Abuse Any Substance: None Previous Surgical History: Yes Type / Date of Surgery: APPENDECTOMY, CHOLECYSTECTOMY, COMPLETE HYSTERECTOMY, BILATERAL CATARACT SURGERY, BACK SURGERY, BRAIN SURGERY S/P STROKE Anesthesia Reactions: No Malignant Hyperthermia: No Significant Family History: Asthma, Cancer, Hypertension ROS - Limitations ROS Limitations: Mental Impairment Constitution: REPORTS: Denies Symptoms Cardiovascular: REPORTS: Denies Cardiac Symptoms Respiratory: REPORTS: Shortness Of Breath, Wheezing Neurological: REPORTS: Confusion Gastrointestinal: REPORTS: Abdominal Pain (Epigastric) Endocrine: REPORTS: Denies Symptoms Musculoskeletal: REPORTS: Recent Injury (Bruising bilateral lower extremities) Genitourinary: REPORTS: Other (Incontinence of urine) Eyes: REPORTS: Denies Symptoms ENT: REPORTS: Denies Symptoms Skin: REPORTS: Excessive Bruising Lympathic: REPORTS: Denies Lympathic Symptoms Immunologic: POSITIVE: Denies Symptoms Psychiatric: POSITIVE: Confusion Gen Adult/Medical Screen Exam - General Appearance General Appearance: POSITIVE: Alert, Cooperative, No Acute Distress - HEENT HEENT: POSITIVE: Head Inspection Nml, Eyes Inspection Nml, Ears Inspection Nml, Nose Inspection Nml, Oral/Dental Inspect. Nml, Pharynx Inspect. Nml, PERRL, EOMI - Pupils Pupil Size: 5 mm: Bilateral - Neck Neck: POSITIVE: Normal Inspection, Thyroid Normal - Respiratory Respiratory: POSITIVE: No Respiratory Distress, Breath Sounds Normal, Chest Non- Tender - Cardiovascular Cardiovascular: POSITIVE: No Murmur, No Gallop, PMI Normal, Irregularly Irreg. Rhythm Peripheral Pulses: Radial (R): 4+, Radial (L): 4+, Dorsalis-pedis (R): 4+, Dorsalis-pedis (L): 4+ - Abdomen Abdomen: Soft: (All Quadrants), Normal Bowel Sounds: (All Quadrants), Denies Tenderness: (RLQ), (LLQ), No Splenomegaly: (All Quadrants), No Hepatomegaly: ( All Quadrants), No Guarding: (All Quadrants), No Rebound: (All Quadrants), No Palpable Pulse: (All Quadrants), No Palpabale Mass: (All Quadrants), No Distention: (All Quadrants), No Rigidity: (All Quadrants), Tenderness Noted: ( LUQ), (RUQ) (epigastric tenderness) - Back Back: POSITIVE: Normal Inspection - Neurological / Psychological Mental Status: POSITIVE: Mood Normal, Affect Normal Orientation: POSITIVE: Oriented x 3 - Skin Skin: POSITIVE: Normal Color, Warm, Dry, No Rash - Extremities Extremity: Non-Tender: (All Extremities), Normal ROM: (All Extremities), Pelvis Stable: (All Extremities), Ecchymosis: (RLE), (LLE) Procedures - Laceration/Wound Repair Did patient have a laceration repair: No Gen Adlt/Medical Scrn Progress - Results Reviewed by me Xrays/CTs/US Reviewed by me: Yes Discussed with Radiologist: Yes Lab Results Reviewed by Me: Yes CBC and BMP: 04/13/17 05:15 04/13/17 05:15 - Patient's Progress Pain Medication Addressed: POSITIVE: Not Applicable Re-Examine Time: 07:57 Status: POSITIVE: Improved MDM / ED Course: Patient was evaluated, an IV started, blood drawn and sent to the lab for studies, radiographic examinations were obtained. Findings: CBC shows a normal white count. Urinalysis shows positive nitrites and many bacteria. Assessment: #1 urinary tract infection. #2 hyponatremia. 3 delirium related to #1 and #2. - Consult Consult (If Yes, Name of Consulting MD & Time Called): Yes (Dr. Durant 0730 hrs) Consulting MD will see pt:: [place] [facility] [place] Counseled: POSITIVE: Patient, Family, RE: Lab Results, RE: Radiology Results Patient Care Time - Estimated PCT Patient Care Time (In Minutes): 45 Vital Signs - Recent Vital Signs Vital Signs: Vital Signs (Last 8 hours) Temp Pulse Resp BP Pulse Ox 04/13/17 03:59 98.6 F 86 21 128/67 95 - VS Reviewed Vital Signs Reviewed: Yes Discharge Clinical Impression: UTI (urinary tract infection), Hyponatremia Discharge Disposition: Admit to Inpatient Condition: Stable Follow Up With: SNOW SILVA [Primary Care Provider] - Date Decision to Admit to Inpatient: 04/13/17 Time Decision to Admit to Inpatient: 07:30
--- NOTE | 2017-04-13 05:05 | EKG ---
[address] [address] Measurements Intervals [place] Rate: 76 P: TX: 0 QRS: 97 QRSD: 146 T: 51 QT: 419 QTc: 450 Interpretive Statements ATRIAL FIBRILLATION RIGHT BUNDLE BRANCH BLOCK Right-axis deviation no longer present Electronically Signed On 04-13-17 12:24:37 MDT by Orville Dolan [email or web address]
[2017-04-13 05:25] LABS: Hematocrit [HCT] 27.1 % (37.0-47.0); Hemoglobin [HGB] 9.2 g/dL (12.0-16.0); MEAN CORPUSCULAR HEMOGLOBIN 29.6 PG (27-31); MEAN CORPUSCULAR HGB CONC 33.9 g/dL (33-37); MEAN CORPUSCULAR VOLUME 87.1 FL (81-99); MEAN PLATELET VOLUME 9.1 FL (7.4-12.2); RED BLOOD COUNT 3.11 10^6/uL (4.20-5.40)
[2017-04-13 05:36] LABS: BLOOD UREA NITROGEN 26 mg/dL (7-22); BUN/CREATININE RATIO 37.14 (6-20); SERUM ALBUMIN 3.5 g/dL (3.5-4.8)
[2017-04-13 06:31] LABS: BAND NEUTROPHILS % 1 % (0-10); BASOPHILS % (MANUAL) 1 % (0-1); EOSINOPHILS % (MANUAL) 0 % (0-8); MONOCYTES % (MANUAL) 6 % (0-12); NEUTROPHILS % (MANUAL) 83 % (50-80); PLATELET MORPHOLOGY COMMENT NORMAL MORPHOLOGY (NORM); RBC MORPHOLOGY COMMENT NORMAL MORPHOLOGY (NORM); WBC MORPHOLOGY COMMENT NORMAL MORPHOLOGY (NORM)
[2017-04-13 06:34] LABS: BILIRUBIN,URINE NEGATIVE (NEG); CLARITY,URINE CLEAR (CLEAR); COLOR,URINE YELLOW (Y); GLUCOSE, URINE (UA) NEGATIVE (NEG); NITRATE,URINE POSITIVE (NEG); OCCULT BLOOD,URINE NEGATIVE (NEG); PROTEIN,URINE NEGATIVE (NEG); UROBILINOGEN,URINE 0.2 EU/dL (0.2)
[2017-04-13 06:41] LABS: BACTERIA,URINE MANY; RBC,URINE 0 /hpf; SQUAMOUS EPITHELIAL CELL,UR RARE; URINE SAMPLE TYPE CATH SPECIMEN; WBC,URINE 75-80
[2017-04-13] MEDS ORDERED: cefTRIAXone Inj 2 GM in Sodium Chloride 0.9% 100 ML IV ONE (06:43)
--- NOTE | 2017-04-13 07:47 | DI ---
EXAM: CT Head Without Intravenous Contrast CLINICAL HISTORY: Slurred speech. TECHNIQUE: Axial computed tomography images of the head/brain without intravenous contrast. COMPARISON: CT head 04/08/2017. FINDINGS: Brain: Stable volume loss and hypoattenuation in the periventricular/subcortical white matter likely indicative of chronic microvascular ischemic change. Left cerebellar hypodensity and volume loss is again seen which may reflect either encephalomalacia or the sequela of prior resection. There is no intracranial hemorrhage or suspicious hypoattenuation to suggest CT evidence of acute cortical infarction. No extra-axial fluid collection. Ventricles: Unremarkable. No midline shift or ventriculomegaly. Bones/joints: Status post left suboccipital craniotomy. No depressed calvarial fracture. Soft tissues: Unremarkable. Vasculature: Atherosclerotic vascular calcifications are present in the vertebral and internal carotid arteries. Sinuses: Left maxillary sinus mucous retention cyst and mild right ethmoid air cell mucosal thickening. No air-fluid level. Mastoid air cells: No mastoid effusion. Orbits: Status post bilateral lens surgery. No acute orbital abnormality. IMPRESSION: 1. No midline shift, hemorrhage, or CT evidence of acute cortical infarction. If there is ongoing clinical suspicion for acute infarction, noncontrast MRI brain could be performed for more sensitive evaluation. 2. Stable chronic changes as described above.
--- NOTE | 2017-04-13 07:54 | DI ---
EXAM: CT Chest Without Intravenous Contrast CLINICAL HISTORY: Dyspnea. TECHNIQUE: Axial computed tomography images of the chest without intravenous contrast. Coronal and sagittal reformatted images were created and reviewed. COMPARISON: No relevant prior studies available. FINDINGS: Lungs: Dependent right lower lobe opacity more likely reflects atelectasis than consolidation. Mild nonspecific perihilar groundglass opacity with mosaic attenuation is also noted. 2 mm noncalcified right upper lobe subpleural pulmonary nodule. Pleural space: Small bilateral pleural effusions. No pneumothorax. Heart: Mild cardiomegaly. Mitral annular and aortic valve calcifications. No pericardial effusion. Bones/joints: Sclerosis of the distal cervical vertebral bodies which is likely degenerative in nature. Multilevel thoracic disc space narrowing and ventral osteophytosis is noted. Chronic L1 superior endplate height loss is also noted. No acute fracture. No dislocation. Soft tissues: Unremarkable. Vasculature: Atherosclerosis without thoracic aortic aneurysm. Lymph nodes: Small nonspecific mediastinal lymph nodes. IMPRESSION: 1. Small bilateral pleural effusions and right lower lobe atelectasis more likely than consolidation. Correlate clinically. 2. Mild perihilar groundglass opacity with some mosaic attenuation which may reflect air trapping in the setting of small airways disease. Correlate clinically. 3. Atherosclerosis and mild cardiomegaly without thoracic aortic aneurysm or pericardial effusion. 4. No pneumothorax. 5. 2 mm noncalcified right upper lobe subpleural pulmonary nodule is likely post infectious/inflammatory in nature.
--- NOTE | 2017-04-13 08:06 | DI ---
EXAM: CT Abdomen and Pelvis With Intravenous Contrast CLINICAL HISTORY: Abdominal pain. TECHNIQUE: Axial computed tomography images of the abdomen and pelvis with intravenous contrast. Coronal and sagittal reformatted images were created and reviewed. CONTRAST: 75 mL of Isovue 300 administered intravenously. COMPARISON: CT abdomen/pelvis 02/25/2011. FINDINGS: Lower thorax: Please see CT chest for further detail. ABDOMEN: Liver: Normal in size. A 13 mm hypoenhancing lesion in the inferior right hepatic lobe posteriorly likely represents a cyst. Mild periportal edema versus intrahepatic biliary ductal dilatation is noted. Gallbladder and bile ducts: Status post cholecystectomy without common bile duct dilation. Pancreas: Unremarkable. No ductal dilatation, focal mass, or peripancreatic inflammatory stranding. Spleen: Nonspecific focally lobulated appearance of the spleen without splenomegaly (11 cm) or focal mass. A small splenic calcifications present. Adrenals: Stable nodular thickening of the left adrenal gland. Kidneys and ureters: 10 mm rounded hypoenhancing right mid renal lesion and additional smaller hypoenhancing right renal lesions likely represent cysts. Stomach and bowel: No small bowel obstruction. Gastric decompression limits evaluation for wall thickening. Moderately increased colonic stool is present compatible with constipation. No wall thickening to suggest colitis. Circumferential anorectal wall thickening may be present though this is not certain. Appendix: Normal appendix. PELVIS: Bladder: Unremarkable. Unremarkable. Reproductive: Status post hysterectomy. ABDOMEN and PELVIS: Intraperitoneal space: Unremarkable. No free air. No significant fluid collection. Retroperitoneal space: Asymmetric expansion and hyperdensity of the right psoas muscle and iliopsoas insertion with stranding in the right side of the retroperitoneum compatible with small retroperitoneal hemorrhage which is primarily intramuscular. A 4 mm focus of nodular enhancement in the right psoas (series 2, image 74) likely reflects contrast extravasation. Bones/joints: Status post L3-L4 interbody fusion, posterior fixation, and laminectomy. Anterolisthesis of L3 on L4 is unchanged from remote prior. Chronic L1 vertebral body height loss is present. No acute osseous abnormality. No dislocation. Soft tissues: Diffuse soft tissue edema. Vasculature: Atherosclerosis without abdominal aortic aneurysm. Lymph nodes: Unremarkable. No enlarged lymph nodes. IMPRESSION: 1. Right retroperitoneal hemorrhage which is predominantly intramuscular in the substance of the right psoas muscle and iliopsoas insertion. A small amount of stranding/hemorrhage is also noted in the right retroperitoneum and there is a 4 mm focus of enhancement in the right psoas muscle likely indicative of active extravasation. Vascular surgery consultation and close clinical followup recommended. 2. Anorectal wall thickening versus underdistention. Nonemergent correlation with direct inspection could further assess as indicated. 3. Additional incidental/chronic findings as above. [employer] 04/13/17 08:26 Call Doctor Regarding Other, called Dr. Becerril on 04/13 08:24 (-06:00)
[2017-04-13] MEDS ORDERED: HEPARIN 5000 UNIT/1 ML SUBCUT SCH (09:00)
[2017-04-13] MEDS ORDERED: ONDANSETRON 4 MG/2 ML VIAL IVP PRN (09:02)
[2017-04-13] MEDS ORDERED: LIDOCAINE W/ SODIUM BICARB 0.5 ML SYR SUBD PRN (09:02)
[2017-04-13] MEDS ORDERED: ASPIRIN EC 81 MG TABLET PO SCH (09:30)
[2017-04-13] MEDS: Sodium Chloride 0.9% 1,000 ML PRIMARY IV SCH ×2 (11:14→19:45)
[2017-04-13] MEDS: METOPROLOL SUCCINATE 25 MG SR 24H TABLET PO SCH (11:14)
[2017-04-13] MEDS ORDERED: Sodium Chloride 0.9% 1,000 ML ONE (17:57)
--- NOTE | 2017-04-13 22:54 | PDOC ---
HPI - History of Present Illness Date and Time of Service: 04/13/2017, 0075 Chief Complaint: Difficulty breathing History of Present Illness: This very pleasant 89-year-old female who was noted by her daughter this morning and seen earlier this morning, who came in with a complaint of difficulty breathing. The patient had a difficult time recalling history of present events, so most of the history was obtained from the daughter. The patient has had documented cerebral hemorrhage in the past and sometimes has a difficult time with some of the historical components of recent events. Be that as it may, the patient apparently has had 3 weeks of some increased shortness of breath. The patient's daughter states that last night she had a "rattle" in her chest and she brought her in for evaluation as she normally wakes up at 3 AM to go to work and noticed her mom was having some difficulty. In the emergency room, CT scan of the chest showed a pleural effusion, but very small. Further workup revealed a urinary tract infection, most likely, as well as a right psoas muscle bleed. She is on aspirin and is not on any anticoagulants having had a stroke on blood thinners for her atrial fibrillation in the past. She'll fall a couple days ago that was an isolated follow according to her daughter. She had significant bruising along the right side of her body, particularly in her right inner thigh. There've been no fevers chills or other exacerbating factors. No other cough was noted. The patient is not requiring oxygen. In terms of the psoas muscle bleed, I had the emergency room physician; the films to [place] and discuss with her interventional radiology team who suggested that there was not enough active bleeding to consider invasive procedures or coiling of the blood vessel to stop this bleed. In addition, the CT scan of the abdomen and pelvis showed some thickening of the rectum. Past Medical History Medical History: 1. Chronic A. fib. 2. hypertension. 3. Chronic hyponatremia, slightly worse today but has had sodiums in the 120s in the past. Likely due to a reset Osmo stat. 4. History of cerebrovascular bleed. 5. History of embolic stroke. Surgical History: WAI HOLE (SKULL)TO DRAIN BLOOD W/ STROKE Pertinent Family History: Significant for coronary artery disease in both of her parents who in their 80s. Past Social History: Used to smoke but no longer does. Lives with her daughter here in town. Gets her care in [place] with Dr. Combs. Does not drink alcohol. She has 2 daughters, both of whom are healthy. Her other daughter lives in [place], [place]. Tobacco Use: Former Smoker In the Past 12 Months, Have Used or Abuse Any of the Following Substance: None Alcohol Use: None Medication / Allergies Home Medications: Home Medications Medication Instructions Recorded Confirmed Type Aspirin [Aspir 81] 325 mg PO DAILY 06/03/12 04/13/17 History Doxazosin Mesylate 2 mg PO DAILY 08/22/16 04/13/17 History Losartan Potassium 100 mg PO DAILY 08/22/16 04/13/17 History Oxygen 2 l INH DAILY 08/22/16 04/13/17 History Metoprolol Succinate [Toprol XL] 25 mg PO DAILY #30 tab 08/26/16 04/13/17 Rx Acetaminophen [Tylenol] 650 mg PO PRN #30 10/15/16 04/13/17 Rx Levothyroxine Sodium [Synthroid] 25 mcg PO DAILY@0530 #30 tab 10/23/16 04/13/17 Rx Allergies/Adverse Reactions: Allergies 3 Allergy/AdvReac Type Severity Reaction Status Date / Time amlodipine Allergy CHEST PAIN Verified 04/13/17 04:00 OR TIGHTNESS hydrochlorothiazide Allergy Anaphylaxis Verified 04/13/17 04:00 Review of Systems - Review of Systems All Systems: Reviewed & No Additional Complaints Except as Stated (I did a 12 point review of systems and it was negative other than that discussed in his illness and that noted below. Please note again that this was very difficult to obtain and was obtained primarily from the patient's daughter due to the patient's prior history of cerebral hemorrhage and sometimes lack of ability to convey information about present events.) - Constitutional Constitutional: REPORTS: Other (Had a fall a couple days ago with some bruising on the right inner thigh) - Respiratory Respiratory: REPORTS: Other (Describes having redness of breath over the last 3 weeks.) - Cardiovascular Cardiovascular: REPORTS: Negative System Review - Gastrointestinal Gastrointestinal / Abdominal: REPORTS: Negative System Review - Genitourinary Genitourinary: REPORTS: Negative System Review Exam - Vitals Vital Signs: Vital Signs Vital Signs - Last Taken Temperature 98.4 F 04/13/17 21:00 Pulse Rate 80 04/13/17 21:00 Respiratory Rate 22 04/13/17 21:00 Blood Pressure 143/72 04/13/17 21:00 Pulse Ox 94 04/13/17 21:00 Height 5 ft Weight 143 lb 8 oz - General General Appearance: No Acute Distress, Cooperative - Head Head Exam: Normal Inspection, Normocephalic, Atraumatic - Eye Eye Exam: POSITIVE: No Scleral Icterus - ENT ENT Exam: POSITIVE: Mucous Membranes Moist - Neck Neck Exam: Normal Inspection, No Tenderness, No Lymphadenopathy, No Thyromegaly - Respiratory Respiratory Exam: POSITIVE: Breathing Non Labored, Decreased Breath Sounds - Cardiovascular Cardiovascular Exam: POSITIVE: No Murmur, No Clicks, No Gallops, No Rubs, Irregular Rhythm, No JVD - GI/Abdominal GI/Abdominal Exam: POSITIVE: Normal Bowel Sounds, Non Tender, Non Distended, Soft - Rectal Rectal Exam: POSITIVE: Deferred - External Exam: POSITIVE: Deferred Exam: POSITIVE: Deferred - Extremities Extremities Exam: POSITIVE: No Clubbing Present, No Edema Present, No Cyanosis Present Additional Extremities Exam Details: Ecchymosis and bruising on the right inner thigh - Neurological Neurological Exam: POSITIVE: Alert, No Facial Droop, Speech Intact / Clear, Moves All Extremities Equally - Psychiatric Psychiatric Exam: POSITIVE: Normal Affect, Normal Mood - Integumentary Additional Integumentary Exam Details: Bruising is noted. Results - Labs CBC and BMP: 04/13/17 05:15 04/13/17 05:15 Additional Lab Results: Laboratory Results 04/13/17 04/13/17 04/13/17 Range/Units 05:15 05:15 05:15 WBC 6.41 (4.8-10.8) 10^3/uL RBC 3.11 L (4.20-5.40) 10^6/uL Hgb 9.2 L (12.0-16.0) g/dL Hct 27.1 L (37.0-47.0) % MCV 87.1 (81-99) FL MCH 29.6 (27-31) PG MCHC 33.9 (33-37) g/dL RDW Std Deviation 41.9 (39-50) fL RDW Coeff of Alessandro 13.5 (11.5-14.5) % Plt Count 194 (140-350) 10*3/uL MPV 9.1 (7.4-12.2) FL Neutrophils % (Manual) 83 H (50-80) % Band Neutrophils % 1 (0-10) % Lymphocytes % (Manual) 9 L (10-50) % Monocytes % (Manual) 6 (0-12) % Eosinophils % (Manual) 0 (0-8) % Basophils % (Manual) 1 (0-1) % Metamyelocytes % Not Reportable Myelocytes % Not Reportable Promyelocytes % Not Reportable Blast Cells Not Reportable WBC Morphology Comment Normal morphology (NORM) Plt Morphology Comment Normal morphology (NORM) RBC Morph Comment Normal morphology (NORM) PT 11.1 (9.7-11.4) secs INR 1.05 (0.00-5.90) N/A Sodium 122 L (135-145) meq/L Potassium 4.5 (3.8-5.2) meq/L Chloride 87 L (98-112) meq/L Carbon Dioxide 27 (23-33) meq/L Anion Gap 8 (5-20) BUN 26 H (7-22) mg/dL Creatinine 0.7 (0.50-1.20) mg/dL BUN/Creatinine Ratio 37.14 H (6-20) Glucose 102 (78-110) mg/dL Calculated Osmolality 258.0 L (267-292) mOsm/kg Lactic Acid 0.8 (0.70-2.10) MMOL/L Calcium 8.7 (8.7-10.7) mg/dL Total Bilirubin 1.2 (0.3-1.2) mg/dL AST 28 (8-39) IU/L ALT 35 (9-52) IU/L Alkaline Phosphatase 49 (38-126) IU/L Total Protein 5.8 L (6.1-8.0) g/dL Albumin 3.5 (3.5-4.8) g/dL Globulin 2.3 L (2.50-4.10) g/dL Albumin/Globulin Ratio 1.50 (1.3-2.0) mg/g Ur Collection Type Urine Color (Y) Urine Clarity (CLEAR) Urine pH (5.0-8.5) Ur Specific [place] (1.005-1.030) Urine Protein (NEG) mg/dl Urine Glucose (UA) (NEG) mg/dL Urine Ketones (NEG) Urine Occult Blood (NEG) Urine Nitrate (NEG) Urine Bilirubin (NEG) Urine Urobilinogen (0.2) EU/dL Ur Leukocyte Esterase (NEG) Urine RBC (NONE) /hpf Urine WBC (NONE) Ur Squamous Epith Cells (NONE) Ur Renal Epithelial Cell (NONE) Urine Crystals Urine Bacteria (NONE) Urine Casts (NONE) Urine Mucus (NONE) Urine Trichomonas (NONE) Urine Yeast (NONE) Ur Culture Indicated? 04/13/17 Range/Units 05:45 WBC (4.8-10.8) 10^3/uL RBC (4.20-5.40) 10^6/uL Hgb (12.0-16.0) g/dL Hct (37.0-47.0) % MCV (81-99) FL MCH (27-31) PG MCHC (33-37) g/dL RDW Std Deviation (39-50) fL RDW Coeff of Alessandro (11.5-14.5) % Plt Count (140-350) 10*3/uL MPV (7.4-12.2) FL Neutrophils % (Manual) (50-80) % Band Neutrophils % (0-10) % Lymphocytes % (Manual) (10-50) % Monocytes % (Manual) (0-12) % Eosinophils % (Manual) (0-8) % Basophils % (Manual) (0-1) % Metamyelocytes % Myelocytes % Promyelocytes % Blast Cells WBC Morphology Comment (NORM) Plt Morphology Comment (NORM) RBC Morph Comment (NORM) PT (9.7-11.4) secs INR (0.00-5.90) N/A Sodium (135-145) meq/L Potassium (3.8-5.2) meq/L Chloride (98-112) meq/L Carbon Dioxide (23-33) meq/L Anion Gap (5-20) BUN (7-22) mg/dL Creatinine (0.50-1.20) mg/dL BUN/Creatinine Ratio (6-20) Glucose (78-110) mg/dL Calculated Osmolality (267-292) mOsm/kg Lactic Acid (0.70-2.10) MMOL/L Calcium (8.7-10.7) mg/dL Total Bilirubin (0.3-1.2) mg/dL AST (8-39) IU/L ALT (9-52) IU/L Alkaline Phosphatase (38-126) IU/L Total Protein (6.1-8.0) g/dL Albumin (3.5-4.8) g/dL Globulin (2.50-4.10) g/dL Albumin/Globulin Ratio (1.3-2.0) mg/g Ur Collection Type Cath specimen Urine Color Yellow (Y) Urine Clarity Clear (CLEAR) Urine pH 6.0 (5.0-8.5) Ur Specific [place] 1.015 (1.005-1.030) Urine Protein Negative (NEG) mg/dl Urine Glucose (UA) Negative (NEG) mg/dL Urine Ketones Negative (NEG) Urine Occult Blood Negative (NEG) Urine Nitrate Positive A (NEG) Urine Bilirubin Negative (NEG) Urine Urobilinogen 0.2 (0.2) EU/dL Ur Leukocyte Esterase Small (NEG) Urine RBC 0 (NONE) /hpf Urine WBC 75-80 (NONE) Ur Squamous Epith Cells Rare (NONE) Ur Renal Epithelial Cell None (NONE) Urine Crystals None Urine Bacteria Many H (NONE) Urine Casts None (NONE) Urine Mucus None (NONE) Urine Trichomonas None (NONE) Urine Yeast None (NONE) Ur Culture Indicated? Culture set - EKG Data -: EKG Interpreted by Me - EKG Data EKG Interpretation: Other (Atrial fibrillation) - Imaging Status: Image Reviewed by Me (I looked at the images, on the CT scan of the abdomen and pelvis and chest, I do note pleural effusion. There is also increased density that the radiologist described as consistent with the psoas muscle bleed on the right. Head CT scan was negative for acute bleed.) Assessment and Plan - Patient Problems (1) Nontraumatic psoas hematoma Current Visit: Yes Status: Acute Code(s): M79.81 - Nontraumatic hematoma of soft tissue (2) UTI (urinary tract infection) Current Visit: Yes Status: Acute Code(s): N39.0 - Urinary tract infection, site not specified (3) Hyponatremia Current Visit: Yes Status: Chronic Code(s): E87.1 - Hypo-osmolality and hyponatremia (4) Dementia Current Visit: Yes Status: Acute Code(s): F03.90 - Unspecified dementia without behavioral disturbance Qualifiers: Dementia type: Alzheimer's disease Alzheimer's disease onset: late-onset Dementia behavioral disturbance: without behavioral disturbance Qualified Code (s): G30.1 - Alzheimer's disease with late onset (5) History of CVA (cerebrovascular accident) Current Visit: Yes Status: Acute Code(s): Z86.73 - Personal history of transient ischemic attack (TIA), and cerebral infarction without residual deficits (6) Chronic atrial fibrillation Current Visit: Yes Status: Chronic Code(s): I48.2 - Chronic atrial fibrillation (7) Hypertension Current Visit: Yes Status: Chronic Code(s): I10 - Essential (primary) hypertension Qualifiers: Hypertension type: essential hypertension Qualified Code(s): I10 - Essential (primary) hypertension - Assessment / Plan Additional Assessment/Plan Details: Admit the patient. For the UTI or suspected UTI, Rocephin at 2 g IV every 24 hours and switch to by mouth once we see culture results. For the psoas muscle bleed, hold off on aspirin. 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 It is possible at this muscle bleed is related to the recent fall the patient had, but in the meantime it could also have been worsened in the setting of aspirin. Check blood counts tomorrow, and sandbag the right groin area to try and stop this psoas muscle bleed Given low chloride, think the patient may be a little on the dry side so I'll give at least a liter of fluid, but try to hold back. This hyponatremia is likely a reset Osmo stat. It is not likely to correct from the 120s. I do not think the patient is symptomatic from her sodium. Check CBC with differential and basic metabolic panel tomorrow. Will likely need PT and OT for strengthening. Repeat echocardiogram. I saw that it was done in July and review the results and ejection fraction was 60-65%, but with the shortness of breath and pleural effusion I suspect that the patient could be worsening in terms of her symptoms of congestive heart failure. Could even have diastolic dysfunction. Given the constellation of problems, and the type pain that is usually a result of the psoas muscle bleed in my experience with these types of bleeds in the past, I suspect that it would take several days to weeks to get the patient's strong enough to return home. I'm not sure if she'll need a swing bed here not or even possibly long-term placement or rehabilitation. This will be a difficult call. I discussed the case above in depth with the patient, the patient's daughter, confirmed DO NOT RESUSCITATE status, and everyone is in agreement with the plan at this point.
[2017-04-14] MEDS: LEVOTHYROXINE 25 MCG TABLET PO SCH (04:37)
[2017-04-14 05:29] LABS: BASOPHILS # (AUTO) 0.04 10*3/UL; BASOPHILS % (AUTO) 0.6 % (0-1); EOSINOPHILS # (AUTO) 0.12 10*3/UL; EOSINOPHILS % (AUTO) 1.9 % (0-8); Hematocrit [HCT] 26.5 % (37.0-47.0); LYMPHOCYTES # (AUTO) 0.58 10*3/uL; MEAN CORPUSCULAR HEMOGLOBIN 29.9 PG (27-31); MEAN PLATELET VOLUME 9.3 FL (7.4-12.2); MONOCYTES # (AUTO) 0.73 10*3/UL (0.3-0.8); MONOCYTES % (AUTO) 11.3 % (5-15); NEUTROPHILS # (AUTO) 4.92 10*3/UL; NEUTROPHILS % (AUTO) 76.4 % (50-80); RED BLOOD COUNT 3.01 10^6/uL (4.20-5.40)
[2017-04-14 05:45] LABS: BLOOD UREA NITROGEN 17 mg/dL (7-22)
[2017-04-14 06:18] LABS: PLATELET MORPHOLOGY COMMENT NORMAL MORPHOLOGY (NORM); RBC MORPHOLOGY COMMENT SEE COMMENTS (NORM); WBC MORPHOLOGY COMMENT NORMAL MORPHOLOGY (NORM)
--- NOTE | 2017-04-14 07:53 | PDOC(PROG) ---
Date and Time of Service: 04/14/2017 7:49 AM Interval History: Subjective Patient has some dementia so history is limited, she thinks is been here for a few days in the hospital. She is not sure why she is in the hospital. When I asked her directly whether she fell she said she did fall then she did a month ago. She said she did have back pain she hit her head at that time. Now she is denying pain in the abdomen or the back and no headache. When I asked her whether she had some shortness of breath she said her daughter thought that she was short of breath yesterday or the day before but she is not short of breath today. She said she did walk and when I asked her why she said because of the pain. Not sure what is her functional status at home. She said she can feed herself but she, can not walk and she couldn't tell me how long she is unable to walk. Objective : Data - Labs CBC and BMP: 04/14/17 04:30 04/14/17 04:30 Objective : Exam - General General Appearance: No Acute Distress, Cooperative - Head Head Exam: Normal Inspection, Atraumatic - Eye Eye Exam: Normal Appearance - ENT ENT Exam: Normal Exam - Neck Neck Exam: Normal Inspection - Respiratory Respiratory Exam: Clear to Auscultation - Bilaterally - Cardiovascular Cardiovascular Exam: Irregular Rhythm - GI/Abdominal GI/Abdominal Exam: Normal Bowel Sounds, Non Tender, Non Distended, Soft - Rectal Rectal Exam: Deferred - External Exam: Deferred Exam: Deferred - Extremities Additional Extremities Exam Details: Bruising on the medial aspect of the right thigh - Back Back Exam: Normal Inspection - Neurological Neurological Exam: Alert, CN II-XII Intact, No Facial Droop Additional Neurological Exam Details: There is some weakness with hip flexion and knee extension and flexion on the right side noted. Reflexes difficult to elicit. Babinski is negative - Psychiatric Psychiatric Exam: Normal Affect Assessment and Plan - Patient Problems (1) Nontraumatic psoas hematoma Current Visit: Yes Status: Acute Comment: We'll watch her hemoglobin. This seems to be recent as on the her hemoglobin was normal. She is hemodynamically stable. The aspirin was discontinued. Code(s): M79.81 - Nontraumatic hematoma of soft tissue (2) Hypertension Current Visit: Yes Status: Chronic Comment: She is hemodynamically stable. Continue same medications except will hold the losartan for today Code(s): I10 - Essential (primary) hypertension Qualifiers: Hypertension type: essential hypertension Qualified Code(s): I10 - Essential (primary) hypertension (3) UTI (urinary tract infection) Current Visit: Yes Status: Acute Comment: Her UA is abnormal, she was put on Rocephin continue until we have culture result. Code(s): N39.0 - Urinary tract infection, site not specified (4) Gram-positive cocci bacteremia Current Visit: Yes Status: Acute Comment: One of the blood culture showing gram-positive cocci. She was given vancomycin. This may be a contaminant. Will speak with the lab and see what they think the preliminary is. Code(s): R78.81 - Bacteremia (5) Hyponatremia Current Visit: Yes Status: Chronic Comment: This is a chronic. Continue to watch Code(s): E87.1 - Hypo-osmolality and hyponatremia (6) Congestive heart failure Current Visit: No Status: Acute Comment: Seems to be compensated, her lungs are clear. She had a history of diastolic dysfunction before. I don't think I'll start her on Lasix yet. An echo was ordered for her today. Code(s): I50.9 - Heart failure, unspecified Qualifiers: Congestive heart failure type: unspecified congestive heart failure type Congestive heart failure chronicity: acute Qualified Code(s): I50.9 - Heart failure, unspecified (7) Chronic atrial fibrillation Current Visit: Yes Status: Chronic Comment: Rate seems to be controlled with metoprolol continue. Continue holding the aspirin for now. Code(s): I48.2 - Chronic atrial fibrillation
[2017-04-14] MEDS ORDERED: cefTRIAXone Inj 2 GM in Sodium Chloride 0.9% 100 ML IV SCH (08:00)
[2017-04-14] MEDS ORDERED: LOSARTAN 50 MG TABLET PO SCH (09:00)
[2017-04-14] MEDS: cefTRIAXone Inj 2 GM in Sodium Chloride 0.9% 100 ML IV SCH (09:50)
[2017-04-14] MEDS: METOPROLOL SUCCINATE 25 MG SR 24H TABLET PO SCH (09:50)
[2017-04-14] MEDS ORDERED: QUEtiapine Tab 25 MG TAB PO ONE (20:54)
[2017-04-15] MEDS: LEVOTHYROXINE 25 MCG TABLET PO SCH (04:34)
[2017-04-15 05:08] LABS: BASOPHILS # (AUTO) 0.07 10*3/UL; EOSINOPHILS # (AUTO) 0.18 10*3/UL; EOSINOPHILS % (AUTO) 2.6 % (0-8); Hematocrit [HCT] 28.4 % (37.0-47.0); Hemoglobin [HGB] 9.5 g/dL (12.0-16.0); LYMPHOCYTES # (AUTO) 0.75 10*3/uL; MEAN CORPUSCULAR HEMOGLOBIN 29.7 PG (27-31); MEAN CORPUSCULAR HGB CONC 33.5 g/dL (33-37); MEAN CORPUSCULAR VOLUME 88.8 FL (81-99); MEAN PLATELET VOLUME 9.4 FL (7.4-12.2); MONOCYTES # (AUTO) 0.89 10*3/UL (0.3-0.8); NEUTROPHILS # (AUTO) 4.92 10*3/UL; NEUTROPHILS % (AUTO) 71.6 % (50-80)
[2017-04-15 05:30] LABS: PLATELET MORPHOLOGY COMMENT NORMAL MORPHOLOGY (NORM); RBC MORPHOLOGY COMMENT SEE COMMENTS (NORM); WBC MORPHOLOGY COMMENT NORMAL MORPHOLOGY (NORM)
[2017-04-15 05:33] LABS: BLOOD UREA NITROGEN 19 mg/dL (7-22); BUN/CREATININE RATIO 31.66 (6-20)
--- NOTE | 2017-04-15 07:46 | PDOC(PROG) ---
Date and Time of Service: 04/15/2017 7:42 AM Interval History: Subjective Patient denying complaint. However when asked her to move her leg and bend her knee she started to have pain in the right leg. She is denying shortness of breath, cough, chest pain and no nausea. Objective : Data - Labs CBC and BMP: 04/15/17 03:55 04/15/17 03:55 Objective : Exam - General General Appearance: No Acute Distress, Cooperative - Head Head Exam: Normal Inspection, Atraumatic - Eye Eye Exam: Normal Appearance - ENT ENT Exam: Normal Exam - Neck Neck Exam: Normal Inspection - Respiratory Respiratory Exam: Clear to Auscultation - Bilaterally - Cardiovascular Cardiovascular Exam: RRR, Irregular Rhythm - GI/Abdominal GI/Abdominal Exam: Normal Bowel Sounds, Non Tender, Non Distended, Soft - Rectal Rectal Exam: Deferred - External Exam: Deferred - Extremities Additional Extremities Exam Details: Bruise on the medial aspect of the right thigh noted - Back Back Exam: Normal Inspection - Neurological Neurological Exam: Alert, CN II-XII Intact, No Facial Droop Additional Neurological Exam Details: There is weakness in the right leg compared to the left leg. Weakness with hip flexion and knee extension and flexion. - Psychiatric Psychiatric Exam: Normal Affect Assessment and Plan - Patient Problems (1) Nontraumatic psoas hematoma Current Visit: Yes Status: Acute Comment: Her hemoglobin is stable which is an encouraging sign. We will repeat tomorrow. Will ask physical therapy to work with her as she is weak. I did speak with her daughter and she said she's not sure why she is saying she can't walk but because she was actually walking at home. Code(s): M79.81 - Nontraumatic hematoma of soft tissue (2) Hypertension Current Visit: Yes Status: Chronic Comment: We'll restart her losartan today Code(s): I10 - Essential (primary) hypertension Qualifiers: Hypertension type: essential hypertension Qualified Code(s): I10 - Essential (primary) hypertension (3) UTI (urinary tract infection) Current Visit: Yes Status: Acute Comment: There is a growth of gram-negative bacilli in the urine continue Rocephin for now. Code(s): N39.0 - Urinary tract infection, site not specified (4) Gram-positive cocci bacteremia Current Visit: Yes Status: Acute Comment: I did speak with the lab there was only one bottle out of 4 showed growth so probably contaminant will wait for identification. Code(s): R78.81 - Bacteremia (5) Hyponatremia Current Visit: Yes Status: Chronic Comment: This is a chronic and is improving compared to yesterday Code(s): E87.1 - Hypo-osmolality and hyponatremia (6) Congestive heart failure Current Visit: No Status: Acute Comment: Seems to be compensated. The echo that she had yesterday showed LVH and mild to moderate aortic regurgitation ejection fraction was normal. Code(s): I50.9 - Heart failure, unspecified Qualifiers: Congestive heart failure type: unspecified congestive heart failure type Congestive heart failure chronicity: acute Qualified Code(s): I50.9 - Heart failure, unspecified (7) Chronic atrial fibrillation Current Visit: Yes Status: Chronic Comment: Continue metoprolol. We are holding the aspirin because of the bleeding that she had. Code(s): I48.2 - Chronic atrial fibrillation
[2017-04-15] MEDS: Multivitamin Tab 1 TAB PO SCH (08:49)
[2017-04-15] MEDS: FERROUS SULFATE 325 MG TABLET PO SCH (08:49)
[2017-04-15] MEDS: LOSARTAN 50 MG TABLET PO SCH (08:50)
[2017-04-15] MEDS: ACETAMINOPHEN 325 MG TABLET PO PRN (08:50)
[2017-04-15] MEDS: cefTRIAXone Inj 2 GM in Sodium Chloride 0.9% 100 ML IV SCH (08:51)
[2017-04-15] MEDS: METOPROLOL SUCCINATE 25 MG SR 24H TABLET PO SCH (09:02)
--- NOTE | 2017-04-15 16:13 | PT.PROG ---
Progress Note Progress Note: S. Patient stated that she doesn't want to go too far from her room this afternoon. O. Patient ambulated 50 feet in the eller, then performed seated exercises in the form of; long arc quads, heel toe raises, marches, pillow squeezes, clamshells, all x 20 bilaterally, sit to stands x 10. Patient transferred to her bed where she was left with call light and alarm. A. Patient tolerated exercises well this afternoon, she continues to have weakness and balance deficits, and would continue to benefit from skilled therapy at this time. P. Continue POC.
[2017-04-15] MEDS: NORMAL SALINE 10 ML SYRINGE FLUSH IVP PRN (20:22)
[2017-04-15] MEDS: QUEtiapine Tab 25 MG TAB PO PRN (23:25)
[2017-04-16] MEDS: LEVOTHYROXINE 25 MCG TABLET PO SCH (04:34)
[2017-04-16] MEDS: ACETAMINOPHEN 325 MG TABLET PO PRN (04:34)
[2017-04-16 05:32] LABS: BASOPHILS # (AUTO) 0.06 10*3/UL; BASOPHILS % (AUTO) 0.7 % (0-1); EOSINOPHILS # (AUTO) 0.21 10*3/UL; EOSINOPHILS % (AUTO) 2.4 % (0-8); Hematocrit [HCT] 28.9 % (37.0-47.0); Hemoglobin [HGB] 9.6 g/dL (12.0-16.0); LYMPHOCYTES # (AUTO) 0.66 10*3/uL; MEAN CORPUSCULAR HEMOGLOBIN 29.5 PG (27-31); MEAN CORPUSCULAR HGB CONC 33.2 g/dL (33-37); MEAN CORPUSCULAR VOLUME 88.9 FL (81-99); MEAN PLATELET VOLUME 9.1 FL (7.4-12.2); MONOCYTES # (AUTO) 0.92 10*3/UL (0.3-0.8); MONOCYTES % (AUTO) 10.6 % (5-15); NEUTROPHILS # (AUTO) 6.71 10*3/UL; NEUTROPHILS % (AUTO) 77.8 % (50-80); RED BLOOD COUNT 3.25 10^6/uL (4.20-5.40)
[2017-04-16 05:51] LABS: PLATELET MORPHOLOGY COMMENT NORMAL MORPHOLOGY (NORM); RBC MORPHOLOGY COMMENT NORMAL MORPHOLOGY (NORM); WBC MORPHOLOGY COMMENT NORMAL MORPHOLOGY (NORM)
[2017-04-16 05:53] LABS: BLOOD UREA NITROGEN 19 mg/dL (7-22); BUN/CREATININE RATIO 31.66 (6-20)
[2017-04-16] MEDS: cefTRIAXone Inj 2 GM in Sodium Chloride 0.9% 100 ML IV SCH (08:46)
[2017-04-16] MEDS: NORMAL SALINE 10 ML SYRINGE FLUSH IVP PRN (08:46)
[2017-04-16] MEDS: Multivitamin Tab 1 TAB PO SCH (08:47)
[2017-04-16] MEDS: FERROUS SULFATE 325 MG TABLET PO SCH (08:47)
--- NOTE | 2017-04-16 08:47 | PDOC(PROG) ---
Date and Time of Service: 04/16/2017 8:46 AM Interval History: Subjective Patient is denying symptoms. No pain in the leg. She did walk with physical therapy yesterday. Objective : Data - Labs CBC and BMP: 04/16/17 04:31 04/16/17 04:31 Objective : Exam - General General Appearance: No Acute Distress, Cooperative - Head Head Exam: Normal Inspection - Eye Eye Exam: Normal Appearance - ENT ENT Exam: Normal Exam - Neck Neck Exam: Normal Inspection - Respiratory Respiratory Exam: Clear to Auscultation - Bilaterally - Cardiovascular Cardiovascular Exam: Irregular Rhythm - GI/Abdominal GI/Abdominal Exam: Normal Bowel Sounds, Non Tender, Non Distended, Soft - Rectal Rectal Exam: Deferred - External Exam: Deferred - Extremities Additional Extremities Exam Details: Bruise on the medial aspect of the right thigh noted - Back Back Exam: Normal Inspection Assessment and Plan - Patient Problems (1) Nontraumatic psoas hematoma Current Visit: Yes Status: Acute Comment: Her hemoglobin is stable. Continue holding the aspirin. Code(s): M79.81 - Nontraumatic hematoma of soft tissue (2) Hypertension Current Visit: Yes Status: Inactive Comment: Continue same medications Code(s): I10 - Essential (primary) hypertension Qualifiers: Hypertension type: essential hypertension Qualified Code(s): I10 - Essential (primary) hypertension (3) UTI (urinary tract infection) Current Visit: Yes Status: Acute Comment: She'll get her third dose of the antibiotics the growth showed Klebsiella. Code(s): N39.0 - Urinary tract infection, site not specified (4) Gram-positive cocci bacteremia Current Visit: Yes Status: Acute Comment: We'll have further identification today. As I said it's only 1 out of 4 bottles that showed growth I think this is likely a contaminant. Code(s): R78.81 - Bacteremia (5) Hyponatremia Current Visit: Yes Status: Chronic Comment: Stable chronic Code(s): E87.1 - Hypo-osmolality and hyponatremia (6) Congestive heart failure Current Visit: No Status: Acute Comment: Seems to be compensated. Echo showed mild to moderate aortic stenosis and mild aortic insufficiency. LV H and normal ejection fraction Code(s): I50.9 - Heart failure, unspecified Qualifiers: Congestive heart failure type: unspecified congestive heart failure type Congestive heart failure chronicity: acute Qualified Code(s): I50.9 - Heart failure, unspecified (7) Chronic atrial fibrillation Current Visit: Yes Status: Chronic Comment: She is on metoprolol continue. We took her off aspirin because of the bleeding. Code(s): I48.2 - Chronic atrial fibrillation
[2017-04-16] MEDS: LOSARTAN 50 MG TABLET PO SCH (08:48)
[2017-04-16] MEDS: METOPROLOL SUCCINATE 25 MG SR 24H TABLET PO SCH (08:48)
--- NOTE | 2017-04-16 15:38 | OTI REPORT ---
Thank you for the referral of Hailey Santamaria. She was seen on 04/15/17 for an occupational therapy inpatient evaluation secondary to weakness. SUBJECTIVE: The patient is an 89-year-old female. The patient's daughter reports that Hailey was having some rattling in her chest and so she brought her in. Hailey does have a big bruise on her shoulder. The patient lives at home but she has 24- hour care between her daughter and caregivers. Her daughter reports she tries to encourage as much independence as possible, but between her cognition and physical deficits, she depends on a lot of 24-hour care. 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 The patient's daughter is concerned as her mother does go into coughing and choking episodes. PAST MEDICAL HISTORY: Past medical history can be found in the patient's medical record. OBJECTIVE FINDINGS: General observations: The patient is alert and oriented x2. She did not know the exact date. Bed mobility: The patient was able to transfer from supine to sit with mod assist. Range of motion: While sitting edge of bed the patient had approximately 120 degrees of shoulder flexion bilaterally. Strength: Strength on the right was 4/5 throughout. Strength on the left was 3+ /5 throughout. Transfers: The patient requires mod assist for functional transfers. Activities of daily living: The patient was able to doff and don socks but she did require increased time. Swallow: The therapist did a quick screening of the patient's swallowing abilities with water. She did not demonstrate any external signs of aspiration with water; however, the patient's daughter reports that usually it is during dinner time when she is trying to eat and drink liquids. The therapist did bring some thickener to try with the patient. The patient's swallowing abilities will be further assessed at mealtime tomorrow. ASSESSMENT: The patient has slower movements with the left upper extremity and requires increased time to process. Problem List: Generalized weakness Swallow issues Decreased functional status Short-Term Goals: To be met by discharge from inpatient: Patient will increase upper extremity strength to 4+/5 throughout. Patient will improve functional transfers to contact guard assist to shower and toilet. Patient will improve overall abilities to perform ADLs with increased time. Long-Term Goals: To be met following discharge from inpatient: Patient will return home with 24-hour care, being as independent as possible with functional transfers and ADLs. TREATMENT PLAN: Patient will be seen B.I.D during the week and one time per day over the weekend as an inpatient to address the above goals and objectives. INITIAL TREATMENT: Treatment today consisted of the initial evaluation followed by the patient completing ADLs while sitting edge of bed. The patient also performed a toilet transfer with mod assist. PANKAJ
--- NOTE | 2017-04-16 16:00 | PTI REPORT ---
Thank you for the referral of Hailey Santamaria. She was seen on 04/15/17 for an inpatient evaluation secondary to weakness. SUBJECTIVE: The patient is an 89-year-old female. The patient was hospitalized recently due to a fall at home which resulted in a hematoma on her hip and right shoulder. The patient's chart also states that she was having significant swelling in both lower extremities and was very confused upon admission. The patient currently lives with her daughter at home in [place]. She has three to four steps to get in and out of her home and needs 24-hour care. She has a local service that does keep an eye on her during the day when her daughter is working. PAST MEDICAL HISTORY: Past medical history can be found in the patient's medical record. OBJECTIVE FINDINGS: General observations: The patient was alert and somewhat oriented x1. She did recognize the therapist but could not remember his name. The patient was seen in her room with friends present. Pain: The patient rates her pain as a 2 to 3/10 on the verbal analog scale (0= no pain, 10=worst pain) when she is not moving and she states it hurts "pretty damn bad" when she is up and moving. Bed mobility: The patient demonstrated the ability to come from supine to sit with assist of one. Transfers: The patient transferred from sit to stand with assist of one and a walker. Ambulation: The patient ambulated 30 feet with walker and assist of one, complaining of pain upon stepping on the right lower extremity, but not bad enough to impede her progress. Strength: Lower extremity strength is 3-/5 for the hips, knees, and feet bilaterally. Abdominal tone and core tone are poor. Range of motion: The left arm has active movement to 90 degrees of flexion and abduction without much pain. The right shoulder can go to 120 degrees of flexion and abduction. Balance: Balance is very poor. In fact, it was so poor we couldn't even do a Alanis screen with the patient today without risk of falling. ASSESSMENT: The patient is post fall secondary to poor balance at home. She requires supervision at all times with transfers and movement. The patient's prognosis is probably good for getting her back to a baseline of one month prior to her recent fall. Problem List: Patient is a HIGH risk for falls Generalized weakness Short-Term Goals: To be met by discharge from inpatient: Patient will be able to ambulate household distances with walker and supervision. Patient will increase lower extremity strength to 4/5 throughout. Patient will will be able to transfer from bed to stand with contact guard assist. Long-Term Goals: To be met following discharge from inpatient: Patient will be able to return home with 24-hour care and supervision. TREATMENT PLAN: Patient will be seen B.I.D during the week and one time per day over the weekend as an inpatient to address the above goals and objectives. INITIAL TREATMENT: Treatment today consisted of the initial evaluation activities only. PANKAJ
--- NOTE | 2017-04-16 16:29 | PT.PROG ---
Progress Note Progress Note: S. Patient stated that she is feeling decent this morning. O. Patient ambulated 175 feet to the therapy gym then used the arm bike x 10 minutes then worked with OT and ambulated 175 feet back to her room where she was left in her chair with alarm and call light. A. Patient tolerated cardiac exercise well this morning, she continues to be weak and have balance deficits. Patient would continue to benefit from skilled therapy at this time. P. Continue POC.
--- NOTE | 2017-04-16 17:11 | OT.PROG ---
Progress Note Progress Note: S: pt stated she was kind of confused at what she was doing. She was accompanied by her care provider. pt reported back pain. O: pt was seen in her room, and care provider helped get her dressed. she completed transfer downstairs with walker and CGA for safety. She took [address] down[address] She completed activities at hand table to improve function of L UE. She complete clothspins, putty, and rice while receiving heat to back to decrease her back pain. After completion, pt was assisted with transfer upstairs and left in chair with call light within reach. A: pt may continue to benefit from therapy to increase overall function and strength in LE. She is becoming confused and needs min cues during certain tasks. P: continue per plan of care.
--- NOTE | 2017-04-16 17:13 | PT.PROG ---
Progress Note Progress Note: S: pt reports she has extreme back pain and she is concerned about being on 3 L O2. O: nsg okay'd prior to PT. pt instructed in sit to stand transfer CGAx1 with FWW pt instructed to ambulate down to therapy gym with CGA x1 and FWW. Pt was instructed in sit to stand transfers x 10 reps with CGA x 1, standing marches x 10 reps, standing heel raises caused back pain, standing toe raises x 10. KT to R quad for bruising. MHP lumbar spine and STM. KT for lumbar paraspinal inhibition and space correction. PROM attempted BLE and manual traction but didn 't tolerate well. pt instructed to ambulate back to room and was left in chair with call light within reach chair alarm activated and LADDER OPERATOR present. education to nsg about KT and skin protection. A: pt tolerated therapy fair, pt complaints of LBP. pt continues to benefit from skilled therapy. pt is CGA with transfers. P: cont per POC.
[2017-04-17] MEDS: ACETAMINOPHEN 325 MG TABLET PO PRN ×3 (00:57→21:19)
[2017-04-17] MEDS: LEVOTHYROXINE 25 MCG TABLET PO SCH (05:40)
[2017-04-17] MEDS: NORMAL SALINE 10 ML SYRINGE FLUSH IVP PRN (08:08)
[2017-04-17] MEDS: cefTRIAXone Inj 2 GM in Sodium Chloride 0.9% 100 ML IV SCH (08:08)
[2017-04-17] MEDS: LOSARTAN 50 MG TABLET PO SCH (08:10)
[2017-04-17] MEDS: FERROUS SULFATE 325 MG TABLET PO SCH (08:10)
[2017-04-17] MEDS: METOPROLOL SUCCINATE 25 MG SR 24H TABLET PO SCH (08:10)
[2017-04-17] MEDS: Multivitamin Tab 1 TAB PO SCH (08:10)
--- NOTE | 2017-04-17 08:47 | PDOC(PROG) ---
Date and Time of Service: 04/17/2017 8:45 AM Interval History: Subjective Patient is denying complaint. No chest pain, no shortness of breath. She does not complain from pain in her leg. Objective : Data - Labs CBC and BMP: 04/16/17 04:31 04/16/17 04:31 Objective : Exam - General General Appearance: No Acute Distress, Cooperative - Head Head Exam: Normal Inspection - Eye Eye Exam: Normal Appearance - ENT ENT Exam: Normal Exam - Neck Neck Exam: Normal Inspection - Respiratory Respiratory Exam: Clear to Auscultation - Bilaterally - Cardiovascular Cardiovascular Exam: Irregular Rhythm - GI/Abdominal GI/Abdominal Exam: Normal Bowel Sounds, Non Tender, Non Distended, Soft - Rectal Rectal Exam: Deferred - External Exam: Deferred Exam: Deferred - Extremities Extremities Exam: Normal Inspection - Back Back Exam: Normal Inspection - Neurological Neurological Exam: Alert, CN II-XII Intact, Moves All Extremities Equally - Psychiatric Psychiatric Exam: Normal Affect Assessment and Plan - Patient Problems (1) Nontraumatic psoas hematoma Current Visit: Yes Status: Acute Comment: Seems to be stabilized. We'll see what she is able to do with physical therapy today and then will see whether she is ready to go back home. Code(s): M79.81 - Nontraumatic hematoma of soft tissue (2) Hypertension Current Visit: Yes Status: Inactive Comment: Blood pressure is slightly elevated we'll put her back on the doxazosin , continue metoprolol and losartan Code(s): I10 - Essential (primary) hypertension Qualifiers: Hypertension type: essential hypertension Qualified Code(s): I10 - Essential (primary) hypertension (3) UTI (urinary tract infection) Current Visit: Yes Status: Acute Comment: She finished her treatment will DC the Rocephin Code(s): N39.0 - Urinary tract infection, site not specified (4) Gram-positive cocci bacteremia Current Visit: Yes Status: Acute Comment: The growth showed staph epidermidis which is a contaminant Code(s): R78.81 - Bacteremia (5) Hyponatremia Current Visit: Yes Status: Chronic Comment: Chronic and stable Code(s): E87.1 - Hypo-osmolality and hyponatremia (6) Congestive heart failure Current Visit: No Status: Acute Comment: This is compensated Code(s): I50.9 - Heart failure, unspecified Qualifiers: Congestive heart failure type: unspecified congestive heart failure type Congestive heart failure chronicity: acute Qualified Code(s): I50.9 - Heart failure, unspecified (7) Chronic atrial fibrillation Current Visit: Yes Status: Chronic Comment: Continue metoprolol. We stopped the aspirin because of the bleeding Code(s): I48.2 - Chronic atrial fibrillation
[2017-04-17] MEDS: DOXAZOSIN 2 MG TABLET PO SCH (09:16)
--- NOTE | 2017-04-17 12:06 | PT.PROG ---
Progress Note Progress Note: S. Patient stated that she is having a lot of back pain this morning. O. Patient ambulated 175 feet to the therapy gym where she used the arm bike x 10 minutes, then performed seated exercises in the form of; long arc quads, heel toe raises, marches, ball squeezes, resisted knee flexion, clamshells, all x10 bilaterally, sit to stands x 7 then ambulated 15 feet to the restroom, then had manual traction to attempt to decrease back pain then ambulated 175 feet back to her room where she was left in chair with alarm and call light. A. Patient tolerated therapy fair this morning, she was unable to perform bed transfers with bed approximately as high as her bed at home. Patient was struggling with pain today and is concerned about going home and having to come back. Patient would continue to benefit from therapy at this time. P. Continue POC.
[2017-04-17] MEDS: QUEtiapine Tab 25 MG TAB PO PRN (21:19)
[2017-04-18] MEDS: LEVOTHYROXINE 25 MCG TABLET PO SCH (05:22)
[2017-04-18] MEDS: FERROUS SULFATE 325 MG TABLET PO SCH (08:20)
[2017-04-18] MEDS: DOXAZOSIN 2 MG TABLET PO SCH (08:20)
[2017-04-18] MEDS: LOSARTAN 50 MG TABLET PO SCH (08:21)
[2017-04-18] MEDS: ACETAMINOPHEN 325 MG TABLET PO PRN ×2 (08:21→20:55)
[2017-04-18] MEDS: Multivitamin Tab 1 TAB PO SCH (08:21)
[2017-04-18] MEDS: METOPROLOL SUCCINATE 25 MG SR 24H TABLET PO SCH (08:21)
--- NOTE | 2017-04-18 11:40 | PDOC(PROG) ---
Date and Time of Service: 04/18/2017 11:42 AM Interval History: Subjective She is complaining from back pain she said from the outside but she couldn't point exactly where. No shortness of breath no cough. She walked with physical therapy today. Objective : Data - Labs CBC and BMP: 04/16/17 04:31 04/16/17 04:31 Objective : Exam - General General Appearance: No Acute Distress, Cooperative - Head Head Exam: Normal Inspection - Eye Eye Exam: Normal Appearance - ENT ENT Exam: Normal Exam - Neck Neck Exam: Normal Inspection - Respiratory Respiratory Exam: Clear to Auscultation - Bilaterally - Cardiovascular Cardiovascular Exam: Irregular Rhythm - GI/Abdominal GI/Abdominal Exam: Normal Bowel Sounds, Non Tender, Non Distended, Soft, No Masses, No Hepatomegaly, No Splenomegaly, No Organomegaly - Rectal Rectal Exam: Deferred - External Exam: Deferred - Extremities Additional Extremities Exam Details: Bruise on the medial aspect of the right thigh - Back Additional Back Exam Details: There is no CVA tenderness in the back is nontender - Neurological Neurological Exam: Alert, CN II-XII Intact, No Facial Droop, Moves All Extremities Equally - Psychiatric Psychiatric Exam: Normal Affect Assessment and Plan - Patient Problems (1) Nontraumatic psoas hematoma Current Visit: Yes Status: Acute Comment: Seem to be stable. Complaining from pain in the back I think this is expected. Will repeat her hemoglobin tomorrow I did speak with the physical therapist today he is thinking she need another day question maybe home tomorrow Code(s): M79.81 - Nontraumatic hematoma of soft tissue (2) Hypertension Current Visit: Yes Status: Chronic Comment: Same medications Code(s): I10 - Essential (primary) hypertension Qualifiers: Hypertension type: essential hypertension Qualified Code(s): I10 - Essential (primary) hypertension (3) UTI (urinary tract infection) Current Visit: Yes Status: Acute Comment: I think it's was more like uncomplicated infection. There was no fever , no high white count. We DC'd the IV and may give her additional 3 days of oral medications because she can't give a clear history. Code(s): N39.0 - Urinary tract infection, site not specified (4) Gram-positive cocci bacteremia Current Visit: Yes Status: Acute Comment: This is resolved it was a contaminant Code(s): R78.81 - Bacteremia (5) Hyponatremia Current Visit: Yes Status: Chronic Comment: This is a chronic Code(s): E87.1 - Hypo-osmolality and hyponatremia (6) Congestive heart failure Current Visit: No Status: Acute Comment: Stable and compensated Code(s): I50.9 - Heart failure, unspecified Qualifiers: Congestive heart failure type: unspecified congestive heart failure type Congestive heart failure chronicity: acute Qualified Code(s): I50.9 - Heart failure, unspecified (7) Chronic atrial fibrillation Current Visit: Yes Status: Chronic Comment: Continue same medications she is not on aspirin because of the bleeding Code(s): I48.2 - Chronic atrial fibrillation
--- NOTE | 2017-04-18 11:42 | OT.PROG ---
Progress Note Progress Note: S: pt states that she is afraid of falling. She reports needing to use restroom quite often. It was reported by her daughter that she does not want to sleep in chair at home but can't get into her bed. O: pt was seen in her room and transferred down to therapy by PT. she completed 6 min on UE bike to increase activity tolerance. She transferred to RR and completed toileting with Min A and dressing with min A. She also attempted bed mobility using log roll technique x4. she needs vc's and tactile cues to complete. She transferred back to room with PT. A: pt may continue to benefit from therapy to work on functional tasks such as bed mobility. continue to monitor pressure sore. P: continue per plan of care.
[2017-04-18] MEDS ORDERED: Influenza 17-18 Vaccine (6mo+) Quad 60mcg/0.5ml PF IM ONE (15:21)
[2017-04-18] MEDS ORDERED: Influenza Vacc-Egg Free 17-18 180mcg/0.5ml PF Syringe(18yr+) IM ONE (15:38)
[2017-04-18] MEDS: QUEtiapine Tab 25 MG TAB PO PRN (20:55)
[2017-04-18] MEDS: Amoxicill/Clav 875/125mg Tab 1 TAB TAB PO SCH (20:56)
[2017-04-19] MEDS: LEVOTHYROXINE 25 MCG TABLET PO SCH (04:59)
[2017-04-19 05:16] LABS: BASOPHILS # (AUTO) 0.06 10*3/UL; BASOPHILS % (AUTO) 0.8 % (0-1); EOSINOPHILS % (AUTO) 2.7 % (0-8); Hematocrit [HCT] 31.8 % (37.0-47.0); Hemoglobin [HGB] 10.8 g/dL (12.0-16.0); LYMPHOCYTES # (AUTO) 0.59 10*3/uL; MEAN CORPUSCULAR VOLUME 88.3 FL (81-99); MEAN PLATELET VOLUME 8.2 FL (7.4-12.2); MONOCYTES # (AUTO) 0.74 10*3/UL (0.3-0.8); MONOCYTES % (AUTO) 10.1 % (5-15); NEUTROPHILS # (AUTO) 5.68 10*3/UL; NEUTROPHILS % (AUTO) 77.3 % (50-80)
[2017-04-19 05:37] LABS: PLATELET MORPHOLOGY COMMENT NORMAL MORPHOLOGY (NORM); RBC MORPHOLOGY COMMENT NORMAL MORPHOLOGY (NORM); WBC MORPHOLOGY COMMENT NORMAL MORPHOLOGY (NORM)
[2017-04-19] MEDS: ACETAMINOPHEN 325 MG TABLET PO PRN (08:15)
[2017-04-19] MEDS: FERROUS SULFATE 325 MG TABLET PO SCH (08:15)
[2017-04-19] MEDS: LOSARTAN 50 MG TABLET PO SCH (08:16)
[2017-04-19] MEDS: METOPROLOL SUCCINATE 25 MG SR 24H TABLET PO SCH (08:16)
[2017-04-19] MEDS: Multivitamin Tab 1 TAB PO SCH (08:16)
[2017-04-19] MEDS: DOXAZOSIN 2 MG TABLET PO SCH (08:16)
[2017-04-19] MEDS: Amoxicill/Clav 875/125mg Tab 1 TAB TAB PO SCH (08:16)
[2017-04-19 09:26] VITALS: RESP 20
--- NOTE | 2017-04-19 11:39 | OT PM DAY ---
Diagnosis : Weakness PM - Occupational Therapy S: The patient and her daughter reported that Hailey was having choking episodes during her meals. O: Today the therapist observed the patient eating lunch. The items on her tray were mechanical soft, regular, and pureed food type textures including mashed potatoes and gravy, diced fruit with liquid, a BLT, diced carrots, and a dessert. It is observed that Hailey usually eats regular food type items without taking sips of liquid. There were two times during the meal that she did kind of cough, but she was able to do chin tucks and use effortful swallows and was able to clear the food. She was encouraged to drink more liquid during meals. A: At this time the patient does not appear to be aspirating. She did have two mild coughs during lunch time but she does not tend to drink any liquid when she is eating and requires cues to take a drink. She was instructed to take a drink every 5th to 7th swallow of her meal. The patient was also educated on doing chin tucks with her meal if she started coughing; this will need to be relayed to her daughter and education will need to be provided secondary to the patient's memory deficits. P: Continue seeing patient BID during the week and one time per day over the weekend until discharge. PANKAJ
[2017-04-19 11:42] VITALS: TEMP 98.1
--- NOTE | 2017-04-19 12:09 | OT.PROG ---
Progress Note Progress Note: S: Pt. reports she is doing well today. No C/O pain or otherwise. O: Pt. was seen from 10:15 to 10:45 for occupational therapy. Pt. ambulated with a slow steady gate from 3rd floor to therapy room 100+'. Pt. was assisted in the bathroom and completed toilet transfer with SBA for safety. Pt then completed the following therapeutic exercise, UBE X 10 min., seated pulleys for rows, biceps, shoulder extension, and external rotation X 10. A: Pt. tolerated UE exercises well. She does become fatigued with functional mobility tasks and requires a rest break after about 15 minutes. P: Continue POC. ISMAEL Gasca/Henry
[2017-04-19 12:44] VITALS: BP 140/67; O2SAT 96
--- NOTE | 2017-04-19 14:52 | PT AM DAY ---
Diagnosis : Weakness AM - Physical Therapy S: The patient's daughter and nursing states that if cleared from physical therapy, she may go home. However, the patient does not feel like she is safe to go home as she is still having trouble getting in and out of bed. The patient's daughter is concerned about her lack of strength and mobility at this time. O: Physical therapy addressed concerns about an open wound on Hailey's sacrum only. The patient presents with a 1.0 x 1.2 centimeter opening on the left ischial border. Please see nursing notes for the photo on file. Upon inspection when seated in her chair, the patient has a shearing force, placing her in an increased posterior pelvic tilt and decreased lumbar lordosis, shearing the skin's surface. The area was cleansed with wound cleanser followed by an application of Promogran katia in the wound bed followed by Calamine lotion and a sacral Permafoam dressing. All dressing supplies were provided by the physical therapy department. A: The therapist spoke with nursing in regards to this new shearing force wound. It was advised that the patient not be discharged at this time. P: Continue seeing patient BID during the week and one time per day over the weekend for transfers, ambulation, and range of motion/strengthening exercises. MTDD
--- NOTE | 2017-04-19 16:05 | OT PM DAY ---
Diagnosis : Weakness PM - Occupational Therapy S: The patient reports she is feeling a little better. She was sore during the mat transfer. O: Today we worked on completing a mat transfer. The patient needed mod assist to transfer from sit to supine and supine to sit. After this we completed upper extremity dynamic reaching activities with a balloon which the patient was able to complete with 50% accuracy. We then worked on her hand coordination and strength with power web and digi-flex followed by wrist exercises in all planes and ranges as well as fine motor coordination activities. A: The patient is having difficulty with bed transfers. She states that she typically sleeps in a recliner. P: Continue seeing patient BID during the week and one time per day over the weekend for upper extremity strengthening, ADLs, and overall functional mobility. PANKAJ
--- NOTE | 2017-04-19 16:13 | DCSUMMARY ---
Hospitalization Summary Admit Date: 04/13/17 Discharge Date: 04/19/17 Hospital Course: Discharge diagnoses 1. Right retroperitoneal hemorrhage is predominantly intramuscular in the substance of the right psoas muscle and iliopsoas insertion. 2. Anorectal wall thickening versus underdistention. 3. Chronic A. fib 4. Decubitus ulcer 5. Hypertension 6. Chronic hyponatremia 7. History of cerebrovascular bleed, 8. History of embolic stroke 9. Hypoxemia on oxygen 10. Urinary tract infection 11. History of congestive heart failure secondary to diastolic dysfunction seems compensated 12. Mild to moderate aortic stenosis 13. LVH 14. Moderate pulmonary hypertension 15. Dementia Hospital course This is an 89 years old female with medical history medical history significant for history of chronic A. fib, history of previous intracranial bleed, history of previous embolic stroke, hypertension, chronic hyponatremia who was brought to the hospital by the daughter because of some difficulty with breathing. Evaluation in the ER revealed very small pleural effusion in addition UTI in addition to the right psoas muscle bleed. She had bruising on the right medial aspect of the thigh. She was admitted to the hospital by Dr. Durant please see his note. I saw the next day we continued with antibiotic therapy. There was one bottle of blood culture out of four was positive for staph epidermidis so was a contaminants. The growth show Klebsiella in urine. We started physical therapy. She did have hyponatremia which is chronic. I didn't think that she had exacerbation of CHF that looked stable to me. We did a an echocardiogram which showed normal ejection fraction with LVH, mild to moderate aortic stenosis and moderate pulmonary hypertension. Regarding the bleeding we monitored her hemoglobin and that remains stable we took her off the aspirin while she was here. The CT of the abdomen which had also showed anorectal thickening this was discussed with the daughter she is not interested in doing scopes for her mother. We did not give her diuretics. She Was started on physical therapy and treated the UTI gradually she started to improve. It was noted that she had stage II decubitus ulcer of the sacrum yesterday. She had problem getting out of the bed so we continued with physical therapy here. And on the day of discharge it was felt that she was ready to go home since she gets caregiver that keep an eye on her. I did talk to the daughter on the day of discharge and suggested to hold the aspirin for additional 2 weeks and then probably she can restarted but the timing of restarting it is empirical. If she start to bleed again and then we may have to take her off the aspirin but explained to her that her mother is at risk of strokes because of her A. fib. Laboratory Results 04/13/17 04/13/17 04/13/17 Range/Units 05:15 05:15 05:15 WBC 6.41 (4.8-10.8) 10^3/uL RBC 3.11 L (4.20-5.40) 10^6/uL Hgb 9.2 L (12.0-16.0) g/dL Hct 27.1 L (37.0-47.0) % MCV 87.1 (81-99) FL MCH 29.6 (27-31) PG MCHC 33.9 (33-37) g/dL RDW Std Deviation 41.9 (39-50) fL RDW Coeff of Alessandro 13.5 (11.5-14.5) % Plt Count 194 (140-350) 10*3/uL MPV 9.1 (7.4-12.2) FL Immature Gran % (Auto) (0-5) % Neut % (Auto) (50-80) % Lymph % (Auto) (10-50) % Reeves % (Auto) (5-15) % Eos % (Auto) (0-8) % Baso % (Auto) (0-1) % Immature Gran # (Auto) 10*3/UL Neut # (Auto) 10*3/UL Lymph # (Auto) 10*3/uL Reeves # (Auto) (0.3-0.8) 10*3/UL Eos # (Auto) 10*3/UL Baso # (Auto) 10*3/UL Neutrophils % (Manual) 83 H (50-80) % Band Neutrophils % 1 (0-10) % Lymphocytes % (Manual) 9 L (10-50) % Monocytes % (Manual) 6 (0-12) % Eosinophils % (Manual) 0 (0-8) % Basophils % (Manual) 1 (0-1) % Metamyelocytes % Not Reportable Myelocytes % Not Reportable Promyelocytes % Not Reportable Blast Cells Not Reportable WBC Morphology Comment Normal morphology (NORM) Plt Morphology Comment Normal morphology (NORM) RBC Morph Comment Normal morphology (NORM) PT 11.1 (9.7-11.4) secs INR 1.05 (0.00-5.90) N/A Sodium 122 L (135-145) meq/L Potassium 4.5 (3.8-5.2) meq/L Chloride 87 L (98-112) meq/L Carbon Dioxide 27 (23-33) meq/L Anion Gap 8 (5-20) BUN 26 H (7-22) mg/dL Creatinine 0.7 (0.50-1.20) mg/dL BUN/Creatinine Ratio 37.14 H (6-20) Glucose 102 (78-110) mg/dL Calculated Osmolality 258.0 L (267-292) mOsm/kg Lactic Acid 0.8 (0.70-2.10) MMOL/L Calcium 8.7 (8.7-10.7) mg/dL Total Bilirubin 1.2 (0.3-1.2) mg/dL AST 28 (8-39) IU/L ALT 35 (9-52) IU/L Alkaline Phosphatase 49 (38-126) IU/L NT-Pro-B Natriuret Pep (0-450) PG/ML Total Protein 5.8 L (6.1-8.0) g/dL Albumin 3.5 (3.5-4.8) g/dL Globulin 2.3 L (2.50-4.10) g/dL Albumin/Globulin Ratio 1.50 (1.3-2.0) mg/g Ur Collection Type Urine Color (Y) Urine Clarity (CLEAR) Urine pH (5.0-8.5) Ur Specific [place] (1.005-1.030) Urine Protein (NEG) mg/dl Urine Glucose (UA) (NEG) mg/dL Urine Ketones (NEG) Urine Occult Blood (NEG) Urine Nitrate (NEG) Urine Bilirubin (NEG) Urine Urobilinogen (0.2) EU/dL Ur Leukocyte Esterase (NEG) Urine RBC (NONE) /hpf Urine WBC (NONE) Ur Squamous Epith Cells (NONE) Ur Renal Epithelial Cell (NONE) Urine Crystals Urine Bacteria (NONE) Urine Casts (NONE) Urine Mucus (NONE) Urine Trichomonas (NONE) Urine Yeast (NONE) Ur Culture Indicated? Blood Type Antibody Screen 09/26/17 09/27/17 09/27/17 Range/Units 05:45 04:30 04:30 WBC 6.44 (4.8-10.8) 10^3/uL RBC 3.01 L (4.20-5.40) 10^6/uL Hgb 9.0 L (12.0-16.0) g/dL Hct 26.5 L (37.0-47.0) % MCV 88.0 (81-99) FL MCH 29.9 (27-31) PG MCHC 34.0 (33-37) g/dL RDW Std Deviation 43.0 (39-50) fL RDW Coeff of Alessandro 13.7 (11.5-14.5) % Plt Count 227 (140-350) 10*3/uL MPV 9.3 (7.4-12.2) FL Immature Gran % (Auto) 0.8 (0-5) % Neut % (Auto) 76.4 (50-80) % Lymph % (Auto) 9.0 L (10-50) % Reeves % (Auto) 11.3 (5-15) % Eos % (Auto) 1.9 (0-8) % Baso % (Auto) 0.6 (0-1) % Immature Gran # (Auto) 0.05 10*3/UL Neut # (Auto) 4.92 10*3/UL Lymph # (Auto) 0.58 10*3/uL Reeves # (Auto) 0.73 (0.3-0.8) 10*3/UL Eos # (Auto) 0.12 10*3/UL Baso # (Auto) 0.04 10*3/UL Neutrophils % (Manual) (50-80) % Band Neutrophils % (0-10) % Lymphocytes % (Manual) (10-50) % Monocytes % (Manual) (0-12) % Eosinophils % (Manual) (0-8) % Basophils % (Manual) (0-1) % Metamyelocytes % Myelocytes % Promyelocytes % Blast Cells WBC Morphology Comment Normal morphology (NORM) Plt Morphology Comment Normal morphology (NORM) RBC Morph Comment See comments (NORM) PT (9.7-11.4) secs INR (0.00-5.90) N/A Sodium 123 L (135-145) meq/L Potassium 4.6 (3.8-5.2) meq/L Chloride 94 L (98-112) meq/L Carbon Dioxide 24 (23-33) meq/L Anion Gap 5 (5-20) BUN 17 (7-22) mg/dL Creatinine 0.5 (0.50-1.20) mg/dL BUN/Creatinine Ratio 34.00 H (6-20) Glucose 85 (78-110) mg/dL Calculated Osmolality 256.0 L (267-292) mOsm/kg Lactic Acid (0.70-2.10) MMOL/L Calcium 8.1 L (8.7-10.7) mg/dL Total Bilirubin (0.3-1.2) mg/dL AST (8-39) IU/L ALT (9-52) IU/L Alkaline Phosphatase (38-126) IU/L NT-Pro-B Natriuret Pep (0-450) PG/ML Total Protein (6.1-8.0) g/dL Albumin (3.5-4.8) g/dL Globulin (2.50-4.10) g/dL Albumin/Globulin Ratio (1.3-2.0) mg/g Ur Collection Type Cath specimen Urine Color Yellow (Y) Urine Clarity Clear (CLEAR) Urine pH 6.0 (5.0-8.5) Ur Specific [place] 1.015 (1.005-1.030) Urine Protein Negative (NEG) mg/dl Urine Glucose (UA) Negative (NEG) mg/dL Urine Ketones Negative (NEG) Urine Occult Blood Negative (NEG) Urine Nitrate Positive A (NEG) Urine Bilirubin Negative (NEG) Urine Urobilinogen 0.2 (0.2) EU/dL Ur Leukocyte Esterase Small (NEG) Urine RBC 0 (NONE) /hpf Urine WBC 75-80 (NONE) Ur Squamous Epith Cells Rare (NONE) Ur Renal Epithelial Cell None (NONE) Urine Crystals None Urine Bacteria Many H (NONE) Urine Casts None (NONE) Urine Mucus None (NONE) Urine Trichomonas None (NONE) Urine Yeast None (NONE) Ur Culture Indicated? Culture set Blood Type Antibody Screen 04/14/17 04/14/17 04/15/17 Range/Units 04:30 09:45 03:55 WBC 6.87 (4.8-10.8) 10^3/uL RBC 3.20 L (4.20-5.40) 10^6/uL Hgb 9.5 L (12.0-16.0) g/dL Hct 28.4 L (37.0-47.0) % MCV 88.8 (81-99) FL MCH 29.7 (27-31) PG MCHC 33.5 (33-37) g/dL RDW Std Deviation 43.6 (39-50) fL RDW Coeff of Alessandro 13.9 (11.5-14.5) % Plt Count 248 (140-350) 10*3/uL MPV 9.4 (7.4-12.2) FL Immature Gran % (Auto) 0.9 (0-5) % Neut % (Auto) 71.6 (50-80) % Lymph % (Auto) 10.9 (10-50) % Reeves % (Auto) 13.0 (5-15) % Eos % (Auto) 2.6 (0-8) % Baso % (Auto) 1.0 (0-1) % Immature Gran # (Auto) 0.06 10*3/UL Neut # (Auto) 4.92 10*3/UL Lymph # (Auto) 0.75 10*3/uL Reeves # (Auto) 0.89 H (0.3-0.8) 10*3/UL Eos # (Auto) 0.18 10*3/UL Baso # (Auto) 0.07 10*3/UL Neutrophils % (Manual) (50-80) % Band Neutrophils % (0-10) % Lymphocytes % (Manual) (10-50) % Monocytes % (Manual) (0-12) % Eosinophils % (Manual) (0-8) % Basophils % (Manual) (0-1) % Metamyelocytes % Myelocytes % Promyelocytes % Blast Cells WBC Morphology Comment Normal morphology (NORM) Plt Morphology Comment Normal morphology (NORM) RBC Morph Comment See comments (NORM) PT (9.7-11.4) secs INR (0.00-5.90) N/A Sodium (135-145) meq/L Potassium (3.8-5.2) meq/L Chloride (98-112) meq/L Carbon Dioxide (23-33) meq/L Anion Gap (5-20) BUN (7-22) mg/dL Creatinine (0.50-1.20) mg/dL BUN/Creatinine Ratio (6-20) Glucose (78-110) mg/dL Calculated Osmolality (267-292) mOsm/kg Lactic Acid (0.70-2.10) MMOL/L Calcium (8.7-10.7) mg/dL Total Bilirubin (0.3-1.2) mg/dL AST (8-39) IU/L ALT (9-52) IU/L Alkaline Phosphatase (38-126) IU/L NT-Pro-B Natriuret Pep 1710 H (0-450) PG/ML Total Protein (6.1-8.0) g/dL Albumin (3.5-4.8) g/dL Globulin (2.50-4.10) g/dL Albumin/Globulin Ratio (1.3-2.0) mg/g Ur Collection Type Urine Color (Y) Urine Clarity (CLEAR) Urine pH (5.0-8.5) Ur Specific [place] (1.005-1.030) Urine Protein (NEG) mg/dl Urine Glucose (UA) (NEG) mg/dL Urine Ketones (NEG) Urine Occult Blood (NEG) Urine Nitrate (NEG) Urine Bilirubin (NEG) Urine Urobilinogen (0.2) EU/dL Ur Leukocyte Esterase (NEG) Urine RBC (NONE) /hpf Urine WBC (NONE) Ur Squamous Epith Cells (NONE) Ur Renal Epithelial Cell (NONE) Urine Crystals Urine Bacteria (NONE) Urine Casts (NONE) Urine Mucus (NONE) Urine Trichomonas (NONE) Urine Yeast (NONE) Ur Culture Indicated? Blood Type O POSITIVE Antibody Screen Negative 04/15/17 04/16/17 04/16/17 Range/Units 03:55 04:31 04:31 WBC 8.64 (4.8-10.8) 10^3/uL RBC 3.25 L (4.20-5.40) 10^6/uL Hgb 9.6 L (12.0-16.0) g/dL Hct 28.9 L (37.0-47.0) % MCV 88.9 (81-99) FL MCH 29.5 (27-31) PG MCHC 33.2 (33-37) g/dL RDW Std Deviation 43.3 (39-50) fL RDW Coeff of Alessandro 13.9 (11.5-14.5) % Plt Count 275 (140-350) 10*3/uL MPV 9.1 (7.4-12.2) FL Immature Gran % (Auto) 0.9 (0-5) % Neut % (Auto) 77.8 (50-80) % Lymph % (Auto) 7.6 L (10-50) % Reeves % (Auto) 10.6 (5-15) % Eos % (Auto) 2.4 (0-8) % Baso % (Auto) 0.7 (0-1) % Immature Gran # (Auto) 0.08 10*3/UL Neut # (Auto) 6.71 10*3/UL Lymph # (Auto) 0.66 10*3/uL Reeves # (Auto) 0.92 H (0.3-0.8) 10*3/UL Eos # (Auto) 0.21 10*3/UL Baso # (Auto) 0.06 10*3/UL Neutrophils % (Manual) (50-80) % Band Neutrophils % (0-10) % Lymphocytes % (Manual) (10-50) % Monocytes % (Manual) (0-12) % Eosinophils % (Manual) (0-8) % Basophils % (Manual) (0-1) % Metamyelocytes % Myelocytes % Promyelocytes % Blast Cells WBC Morphology Comment Normal morphology (NORM) Plt Morphology Comment Normal morphology (NORM) RBC Morph Comment Normal morphology (NORM) PT (9.7-11.4) secs INR (0.00-5.90) N/A Sodium 127 L 128 L (135-145) meq/L Potassium 4.5 4.3 (3.8-5.2) meq/L Chloride 93 L 93 L (98-112) meq/L Carbon Dioxide 26 29 (23-33) meq/L Anion Gap 8 6 (5-20) BUN 19 19 (7-22) mg/dL Creatinine 0.6 0.6 (0.50-1.20) mg/dL BUN/Creatinine Ratio 31.66 H 31.66 H (6-20) Glucose 81 91 (78-110) mg/dL Calculated Osmolality 264.0 L 267.0 (267-292) mOsm/kg Lactic Acid (0.70-2.10) MMOL/L Calcium 8.5 L 8.5 L (8.7-10.7) mg/dL Total Bilirubin (0.3-1.2) mg/dL AST (8-39) IU/L ALT (9-52) IU/L Alkaline Phosphatase (38-126) IU/L NT-Pro-B Natriuret Pep (0-450) PG/ML Total Protein (6.1-8.0) g/dL Albumin (3.5-4.8) g/dL Globulin (2.50-4.10) g/dL Albumin/Globulin Ratio (1.3-2.0) mg/g Ur Collection Type Urine Color (Y) Urine Clarity (CLEAR) Urine pH (5.0-8.5) Ur Specific [place] (1.005-1.030) Urine Protein (NEG) mg/dl Urine Glucose (UA) (NEG) mg/dL Urine Ketones (NEG) Urine Occult Blood (NEG) Urine Nitrate (NEG) Urine Bilirubin (NEG) Urine Urobilinogen (0.2) EU/dL Ur Leukocyte Esterase (NEG) Urine RBC (NONE) /hpf Urine WBC (NONE) Ur Squamous Epith Cells (NONE) Ur Renal Epithelial Cell (NONE) Urine Crystals Urine Bacteria (NONE) Urine Casts (NONE) Urine Mucus (NONE) Urine Trichomonas (NONE) Urine Yeast (NONE) Ur Culture Indicated? Blood Type Antibody Screen 04/19/17 Range/Units 05:00 WBC 7.35 (4.8-10.8) 10^3/uL RBC 3.60 L (4.20-5.40) 10^6/uL Hgb 10.8 L (12.0-16.0) g/dL Hct 31.8 L (37.0-47.0) % MCV 88.3 (81-99) FL MCH 30.0 (27-31) PG MCHC 34.0 (33-37) g/dL RDW Std Deviation 45.1 (39-50) fL RDW Coeff of Alessandro 14.7 H (11.5-14.5) % Plt Count 286 (140-350) 10*3/uL MPV 8.2 (7.4-12.2) FL Immature Gran % (Auto) 1.1 (0-5) % Neut % (Auto) 77.3 (50-80) % Lymph % (Auto) 8.0 L (10-50) % Reeves % (Auto) 10.1 (5-15) % Eos % (Auto) 2.7 (0-8) % Baso % (Auto) 0.8 (0-1) % Immature Gran # (Auto) 0.08 10*3/UL Neut # (Auto) 5.68 10*3/UL Lymph # (Auto) 0.59 10*3/uL Reeves # (Auto) 0.74 (0.3-0.8) 10*3/UL Eos # (Auto) 0.20 10*3/UL Baso # (Auto) 0.06 10*3/UL Neutrophils % (Manual) (50-80) % Band Neutrophils % (0-10) % Lymphocytes % (Manual) (10-50) % Monocytes % (Manual) (0-12) % Eosinophils % (Manual) (0-8) % Basophils % (Manual) (0-1) % Metamyelocytes % Myelocytes % Promyelocytes % Blast Cells WBC Morphology Comment Normal morphology (NORM) Plt Morphology Comment Normal morphology (NORM) RBC Morph Comment Normal morphology (NORM) PT (9.7-11.4) secs INR (0.00-5.90) N/A Sodium (135-145) meq/L Potassium (3.8-5.2) meq/L Chloride (98-112) meq/L Carbon Dioxide (23-33) meq/L Anion Gap (5-20) BUN (7-22) mg/dL Creatinine (0.50-1.20) mg/dL BUN/Creatinine Ratio (6-20) Glucose (78-110) mg/dL Calculated Osmolality (267-292) mOsm/kg Lactic Acid (0.70-2.10) MMOL/L Calcium (8.7-10.7) mg/dL Total Bilirubin (0.3-1.2) mg/dL AST (8-39) IU/L ALT (9-52) IU/L Alkaline Phosphatase (38-126) IU/L NT-Pro-B Natriuret Pep (0-450) PG/ML Total Protein (6.1-8.0) g/dL Albumin (3.5-4.8) g/dL Globulin (2.50-4.10) g/dL Albumin/Globulin Ratio (1.3-2.0) mg/g Ur Collection Type Urine Color (Y) Urine Clarity (CLEAR) Urine pH (5.0-8.5) Ur Specific [place] (1.005-1.030) Urine Protein (NEG) mg/dl Urine Glucose (UA) (NEG) mg/dL Urine Ketones (NEG) Urine Occult Blood (NEG) Urine Nitrate (NEG) Urine Bilirubin (NEG) Urine Urobilinogen (0.2) EU/dL Ur Leukocyte Esterase (NEG) Urine RBC (NONE) /hpf Urine WBC (NONE) Ur Squamous Epith Cells (NONE) Ur Renal Epithelial Cell (NONE) Urine Crystals Urine Bacteria (NONE) Urine Casts (NONE) Urine Mucus (NONE) Urine Trichomonas (NONE) Urine Yeast (NONE) Ur Culture Indicated? Blood Type Antibody Screen Discharge instructions Diet regular Activity as tolerated Medications Home Medications Medication Instructions Recorded Confirmed Type Doxazosin Mesylate 2 mg PO DAILY 08/22/16 04/13/17 History Losartan Potassium 100 mg PO DAILY 08/22/16 04/13/17 History Metoprolol Succinate [Toprol XL] 25 mg PO DAILY #30 tab 08/26/16 04/13/17 Rx Acetaminophen [Tylenol] 650 mg PO PRN #30 10/15/16 04/13/17 Rx Levothyroxine Sodium [Synthroid] 25 mcg PO DAILY@0530 #30 tab 10/23/16 04/13/17 Rx Amoxicill/Clav 875/125mg 1 tab PO BID #4 tab 04/19/17 Rx [Augmentin 875/125mg] Ferrous Sulfate [Feosol] 325 mg PO DAILY #20 tab 04/19/17 Rx Multivitamin Tab [Thera Tab] 1 tab PO DAILY tab 04/19/17 Rx Follow-up with PCP in 1-2 weeks Condition at discharge was stable for discharge Exam - Vitals Vital Signs: Vital Signs Temperature 98.1 F Temperature Source Oral Pulse Rate [Telemetry] 76 Pulse Rate [Apical] 80 Pulse Rate [Pulse Oximeter] 103 Pulse Rate 72 Respiratory Rate 20 Blood Pressure [Right Arm] 140/67 Blood Pressure [Left Arm] 161/79 Blood Pressure 128/82 Pulse Ox 96 Oxygen Flow Rate 2 Oxygen Delivery Method Nasal Cannula Height 5 ft Weight 146 lb 3.2 oz Patient Problems - Patient Problem List (1) Nontraumatic psoas hematoma Status: Acute Code(s): M79.81 - Nontraumatic hematoma of soft tissue Category: Medical (2) Hypertension Status: Chronic Code(s): I10 - Essential (primary) hypertension Qualifiers: Hypertension type: essential hypertension Qualified Code(s): I10 - Essential (primary) hypertension Category: Medical (3) UTI (urinary tract infection) Status: Acute Code(s): N39.0 - Urinary tract infection, site not specified Category: Medical (4) Gram-positive cocci bacteremia Status: Acute Code(s): R78.81 - Bacteremia Category: Medical (5) Hyponatremia Status: Chronic Code(s): E87.1 - Hypo-osmolality and hyponatremia Category: Medical (6) Congestive heart failure Status: Acute Code(s): I50.9 - Heart failure, unspecified Qualifiers: Congestive heart failure type: unspecified congestive heart failure type Congestive heart failure chronicity: acute Qualified Code(s): I50.9 - Heart failure, unspecified Category: Medical (7) Chronic atrial fibrillation Status: Chronic Code(s): I48.2 - Chronic atrial fibrillation Category: Medical
[2017-04-19] MEDS ORDERED: Influenza 17-18 Vaccine (6mo+) Quad 60mcg/0.5ml PF IM ONE (16:45)
--- NOTE | 2017-04-19 17:21 | PT.PROG ---
Progress Note Progress Note: S: Hailey reports she is tired from participating in OT prior to PT. O: Hailey participated in OT prior to PT. Treatment consisted of: nustep x10min, seated heel raises, marching, LAQ, resisted HS curls, resisted hip extension, clamshells and ball squeezes. Pt ambulated 150 ft to hospital room with CGA x1 and was left in hospital chair with bed alarm on and call light within reach. A: Hailey tolerated therapy well today with minimal complaints. Hailey stuggled with strengthening exercises today secondary to weakness. She would continue to benefit from skilled therapy to address strength limitations. P: Continue per POC.
== END 2017-04-19 16:42 | disposition home or self-care (01) | DRG 556 ==
LOC: ER 03:55 → MED/SURG 08:02
PROVIDERS: ADMIT Family Medicine; ATTEND Family Medicine